=== PATIENT | female | born 1935 | race Caucasian/White ===

== ENCOUNTER 2016-06-16 07:12 | Inpatient (IN) | payer MEDICARE ==
[2016-06-16] VITALS (9 sets, daily range): BP systolic 108–127; BP diastolic 58–79; PULSE 74–97; RESP 11–18; O2SAT 96–99
[~2016-06-16] VITALS: Ht 165.1 cm; Wt 76.3 kg
[~2016-06-16 07:12] MED LIST: AMLO10TA3 PO; ATOR40TA69 PO; CARV6.252 PO; CEPH-512 PO; CYAN10008 PO; FERR-83 PO; FURO40TA4 PO; INSU100I13 SUBQ; INSU100I18 SUBQ; LEVO125T6 PO; LISI-611 PO; METO-301 PO; NITR100 PO; ONDA8TAB10 PO; WARF5TAB7 PO
--- NOTE | 2016-06-16 07:27 | ED.REPORT ---
HPI-Abd Pain F 40 and Over Date of Service Jun 16, 2016 ED Provider: Armand Thibodeaux MD The patient is a 81 year old female with history of stage IV colon cancer with intra-abdominal metastases, atrial fibrillation on Coumadin, cardiomyopathy, hypertension, hypothyroidism, osteoporosis, hyperparathyroidism, recurrent bowel obstructions, and diabetes mellitus type II, who presents to the emergency department complaining of generalized weakness. She has also experienced nausea, vomiting, diarrhea, and abdominal pain. Her last bowel movement and emesis was about 1-2 hours ago. Her reports that her emesis smells like stool. She denies melena, hematochezia or hematemesis. She was recently hospitalized for a bowel obstruction and UTI. She is scheduled to have a port placed by Dr. Quan tomorrow. Due to the upcoming surgery she has been using Lovenox injections and has held her Coumadin. Her last chemotherapy treatment was on June 10. Nursing Notes Stated Complaint: NAUSEA/WEAKNESS Chief Complaint: Female Abdominal Pain Nursing Notes Reviewed: Yes Allergies: Coded Allergies: iodine (Verified Allergy, Severe, ANAPHYLAXIS, 06/16/16) shellfish derived (Verified Allergy, Severe, Anaphylaxis, 06/16/16) amoxicillin (Verified Allergy, Unknown, YEAST POSIONING, 06/16/16) clavulanic acid (Unverified Allergy, Unknown, 06/16/16) Uncoded Allergies: POTASSIUM (Adverse Reaction, Unknown, 06/16/16) Scheduled Amlodipine (Amlodipine) 10 Mg Tablet 10 MG PO DAILY Atorvastatin Calcium (Atorvastatin Calcium) 40 Mg Tablet 40 MG PO HS Carvedilol (Carvedilol) 6.25 Mg Tablet 9.375 MG PO BID Cephalexin (Keflex) 500 Mg Capsule 500 MG PO QID Cyanocobalamin (Vitamin B-12) (Vitamin B-12) 1,000 Mcg Tablet 1,000 MCG PO DAILY Ferrous Sulfate (Ferrous Sulfate) 325 Mg Tablet 325 MG PO DAILY Furosemide (Furosemide) 40 Mg Tablet 40 MG PO DAILY Insulin Glargine (Lantus U100 Solostar Insulin Pen) 100 Unit/1 Ml Insuln.pen 20 UNIT SUBQ HS Insulin Lispro (HumaLOG U100 Insulin Pen) 100 Unit/1 Ml Insuln.pen 6 UNITS SUBQ TIDAC Levothyroxine (Levothyroxine) 125 Mcg Tablet 125 MCG PO DAILY Lisinopril (Zestril) 20 Mg Tablet 20 MG PO BID Nitrofurantoin Monohyd/M-Cryst (MacroBid) 100 Mg Capsule 100 MG PO BID Warfarin Sodium (Warfarin Sodium) 5 Mg Tablet 5 MG PO HS Scheduled PRN Metoclopramide (Reglan) 10 Mg Tablet 10 MG PO Q8HRS PRN PRN For Nausea Ondansetron ODT (Ondansetron ODT) 8 Mg Tab.rapdis 8 MG PO q12 hours PRN PRN For Nausea General Time Seen by MD: 07:26 Chief Complaint Other (weakness) Hx Obtained From: Patient, Spouse Arrived By: Walk-in Sudden in Onset?: Yes Onset Occurred: Yesterday Symptom Duration: Since onset Progression since Onset: Intermittent, Gradually worsening Location: : Diffuse Quality: Cramping, Painful Severity: Current: No pain currently Severity: Maximum: Severe Associated with: Reports: Diarrhea, Nausea, Vomiting Pertinent Negative: Pt denies other symptoms Recent Healthcare: Recent doctor visit, Recent hospitalization Similar Sx Previous: No Past Medical History Past Medical History 1. Recurrent biopsy-proven colorectal cancer. 2. Stage IV colon cancer with intra-abdominal metastases - The patient is status post extended right hemicolectomy on November 15, 2014. She decided against recommended adjuvant therapy. 3. Atrial fibrillation with a WILBERT score of at least 3, currently on Coumadin. 4. Cardiomyopathy. Followed by Dr. Weston, with her last echocardiogram on October 28, 2014. 5. Hypertension. 6. Hypothyroidism. 7. Osteoporosis, with her last bone density scan on June 30, 2015, reporting a T-score of the AP spine at -2.3, left and right neck of the femur at -3.4, respectively. 8. Hyperparathyroidism. 9. Diabetes type 2. 10. Hx of recurrent bowel obstructions Past Surgical History 1. Cholecystectomy. 2. Right ankle fracture. 3. Exploratory laparotomy with total abdominal hysterectomy, bilateral salpingo-oophorectomy with periaortic lymph node dissection in 2004. 4. Endometrial cancer status post hysterectomy. 5. Hemicolectomy Smoking History Never Smoker Social History Alcohol Use: Denies alcohol use Drug Use: Denies drug use Other Social History: Good social support, Local resident Ambulatory Status Independent Review of Systems Constitutional: Reports: Weakness - generalized GI: Reports: Abdominal pain, Diarrhea, Nausea, Vomiting, Denies: Bloody/tarry stool, Hematemesis, Hematochezia, Melena Complete sys rev & neg: except as marked. Physical Exam Vital Signs Vital Signs (First) Date Time Temp Pulse Resp B/P Pulse Ox O2 Delivery O2 Flow Rate FiO2 06/16/16 07:14 36.3 80 16 110/70 98 Room Air Initial VS: Reviewed Head / Eyes: Atraumatic, Normocephalic, PERRL ENT: Mucous membranes moist, Conjunctiva normal, No scleral icterus Neck: Supple, Non-tender, Full range of motion Lymphatic: No lymphadenopathy Extremities: Vascular intact, Neuro intact, No swelling, No tenderness Skin: Warm, Dry, No cyanosis Neurologic: Alert, Oriented, Nonfocal Psychiatric: Mood/affect normal, Behavior normal, Normal thought content General/Constitutional: Awake, Alert Respiratory / Chest: Atraumatic, Breath sounds NL, Breath sounds = bilat, No respiratory distress, No rales, No rhonchi, No wheezing, No stridor Cardiovascular: Heart rate NL, Regular rhythm, Heart sounds NL, Peripheral circulation NL Abdomen: Soft, No guarding, No rebound, BS normoactive, No distention There is a firm dermal nodule over the incision site above the umbilicus, could be a hernia. Vague lower abdominal tenderness. Back: Full range of motion Interpretation & Diagnostics Lab Results Interpretation Result Diagram: 06/16/16 0745 06/16/16 0745 Test 06/16/16 07:45 White Blood Count 4.1th/mm3 (3.8-10.1) Red Blood Count 4.01mil/mm3 (3.90-5.20) Hemoglobin 12.1g/dL (12.0-15.6) Hematocrit 35.8% (35.0-46.0) Mean Corpuscular Volume 89.3fL (81-100) Mean Corpuscular Hemoglobin 30.2pg (27.0-35.0) Mean Corpuscular Hemoglobin Concent 33.8% (32.0-37.0) Red Cell Distribution Width 13.2% (12.3-15.4) Platelet Count 206bil/L (150-400) Neutrophils (%) (Auto) 68.5% (40-74) Lymphocytes (%) (Auto) 23.7% (14-46) Monocytes (%) (Auto) 4.9% (4-12) Eosinophils (%) (Auto) 1.5% (0-5) Basophils (%) (Auto) 0.7% (0-3) Prothrombin Time 17.3sec (8.1-12.5) Prothromb Time International Ratio 1.60ratio Sodium Level 131mEq/L (134-144) Potassium Level 3.9mEq/L (3.5-5.2) Chloride Level 97mEq/L (97-108) Carbon Dioxide Level 22mmol/L (18-29) Blood Urea Nitrogen 33mg/dL (8-27) Creatinine 1.09mg/dL (0.57-1.00) Estimat Glomerular Filtration Rate 69mL/min (>59) Glucose Level 217mg/dL (60-99) Calcium Level 10.7mg/dL (8.5-10.1) Magnesium Level 1.9mg/dL (1.6-2.6) Total Bilirubin 0.5mg/dL (0.0-1.2) Aspartate Amino Transf (AST/SGOT) 21U/L (0-50) Alanine Aminotransferase (ALT/SGPT) 25U/L (0-32) Alkaline Phosphatase 96U/L (25-165) Total Protein 6.2g/dL (6.4-8.4) Albumin 3.3g/dL (3.4-5.0) Lipase 25U/L (13-60) Hold Sandoval Top Tube Received (Received) X-Ray Abdominal Interpretation IMPRESSION: Small scattered air-fluid levels within the small bowel. This could represent ileus versus partial developing obstruction. Dictated by: Mena Johnston M.D. on 06/16/2016 at 8:52 Interpretation / Wet Read by: Interpret - Radiologist Re-Eval/Medical Decision Source of Hx: Old records, Family Re-Evaluation/Progress : Time of Eval: 10:10 Re-Evaluation/Progress Note: Discussed plan for admission. She understands and agrees. All questions were addressed. Consultation #1: Referral / Consult Name: Kannan Díaz DO Consulted With: Hospitalist Requested Call at: 09:22 Call Returned at: 10:05 [employer] Team Member: Will see patient, Agrees with eval, Agrees with plan, Accepts admit Consultation #2: Referral / Consult Name: Ramiro Petersen MD Consulted With: Surgeon Requested Call at: 10:08 Call Returned at: 10:10 [employer] Team Member: Agrees with eval, Agrees with plan Note: He agrees to consult. Counseled Regarding: Diagnosis, Lab results, Need for admission Discharge & Departure Primary Impression: Partial small bowel obstruction Disposition: ADMITTED TO HOSPITAL Discharge Condition All VS Reviewed: Yes Condition: Stable Referrals: Braulio Irving MD (PCP) Scribeulalia Attestation Portions of this note were transcribed by Kailey Quan. I, Dr. Thibodeaux personally performed the history, physical exam and medical decision-making; I reviewed and confirmed the accuracy of the information in the transcribed note. Signed by: Kayli Rosales, 06/16/2016, 1011. copies to: Braulio Irving MD, Kirk H MD Jun 16, 2016 07:27 Kailey Quan Jun 16, 2016 07:34
[2016-06-16] MEDS ORDERED: 0.9% Sodium Chloride 1,000 ML IV ONE (07:33)
[2016-06-16] MEDS ORDERED: Pantoprazole 4 mg/mL 10 mL Inj IVPUSH ONE (07:35)
[2016-06-16] MEDS ORDERED: HYDROmorphone 0.5 mg/0.5 mL iSecure Syringe IVPUSH PRN (07:35)
[2016-06-16 07:54] LABS: BASOPHILS % (AUTO) 0.7 % (0-3); EOSINOPHILS % (AUTO) 1.5 % (0-5); MONOCYTES % (AUTO) 4.9 % (4-12); Mean Corpuscular Hemoglobin 30.2 pg (27.0-35.0); Mean Corpuscular Volume 89.3 fL (81-100); NEUTROPHILS % (AUTO) 68.5 % (40-74); Platelet Count 206 bil/L (150-400)
[2016-06-16] MEDS: Ondansetron 2 mg/mL 2 mL Inj IVPUSH PRN ×3 (08:01→16:46)
[2016-06-16 08:08] LABS: INR 1.6 ratio
[2016-06-16 08:18] LABS: Magnesium 1.9 mg/dL (1.6-2.6)
--- NOTE | 2016-06-16 08:54 | DRSVH ---
PROCEDURE: X-RAY ACUTE ABDOMINAL SERIES ([id number]) INDICATIONS: vomiting stool TECHNIQUE: One view chest and two views of the abdomen were acquired. COMPARISON: [facility], CR, XR ABD ACUTE SERIES 3VW, 06/03/2016, 8:31. FINDINGS: Surgical changes and devices: Cholecystectomy clips. Chest: Lungs are clear. The lungs are hyperexpanded suggestive of COPD. Heart size is normal. No pl eural effusions. No pneumoperitoneum. Abdomen: Bowel gas pattern demonstrates small scattered air-fluid levels. No suspicious calcificati ons. Visualized solid organ contours appear normal. Bones: No suspicious bony lesions. IMPRESSION: Small scattered air-fluid levels within the small bowel. This could represent ileus versu s partial developing obstruction. Dictated by: Mena Johnston M.D. on 06/16/2016 at 8:52 Approved by: Mena Johnston M.D. on 06/16/2016 at 8:52
[2016-06-16] MEDS ORDERED: Glycopyrrolate 0.2 mg/mL 5 mL Inj ONE (10:08)
[2016-06-16] MEDS ORDERED: Ketamine 10 mg/mL 20 mL Inj ONE (10:08)
[2016-06-16] MEDS ORDERED: Alum-Mag Hydrox-Simeth 30 mL Suspension PO PRN (10:15)
--- NOTE | 2016-06-16 10:30 | NUR ---
Admit Pt admitted to floor. A&Ox3. Denies pain and nausea. Bed locked in low position and call light within reach. Will continue to monitor.
[2016-06-16] MEDS ORDERED: ENOX40DI8 SUBQ (11:25)
[2016-06-16] MEDS ORDERED: Polyethylene Glycol (PEG) 17 Gm Powder PO PRN (12:55)
[2016-06-16] MEDS: 0.9% Sodium Chloride 1,000 ML IV SCH (13:27)
--- NOTE | 2016-06-16 15:28 | CONS ---
[address] [address] CONSULTATION REPORT PATIENT: JANEL DEUTSCH : 1935 MR#: [id number] ADMIT: 06/16/2016 JOB ID: [id number] DATE OF SERVICE: 06/16/2016 CHIEF COMPLAINT: Vomiting, dehydration. HISTORY OF PRESENT ILLNESS: The patient is a 81-year-old woman who was very recently hospitalized from June 07 to June 09 with a partial bowel obstruction. She has stage IV colon cancer with intra-abdominal metastasis and is receiving chemotherapy under the direction of Dr. Fairbanks. After her recent hospitalization, she felt like she was getting progressively dehydrated and so felt like she needed to come back in the hospital for that. Her last bowel movement was at four o'clock this morning and was loose, nonbloody. She had vomiting overnight but none during the day today. She does not complain of nausea at the moment. She has some abdominal pain. PAST MEDICAL HISTORY: Stage IV colon cancer with intra-abdominal metastasis, atrial fibrillation, cardiomyopathy, hypertension, hypothyroidism, osteoporosis, hyperparathyroidism, type 2 diabetes mellitus, recurrent partial small bowel obstruction. PAST SURGICAL HISTORY: Cholecystectomy, right ankle repair, LEONELA/BSO with para-aortic lymph node dissection in 2004, for endometrial cancer, exploratory laparotomy with extended right hemicolectomy for perforated colon cancer. MEDICATIONS AT HOME: Include amlodipine, atorvastatin, carvedilol, ferrous sulfate, furosemide, Lantus, Humalog, levothyroxine, lisinopril, Reglan, Zofran, warfarin. ALLERGIES: 1. IODINE. 2. SHELLFISH. 3. AMOXICILLIN. SOCIAL HISTORY: She is a never smoker. Denies alcohol or illicit drug use. FAMILY HISTORY: Noncontributory. REVIEW OF SYSTEMS: A 10-point review of systems is negative, except as described in history of present illness. PHYSICAL EXAMINATION: Body mass index 23.7, temperature 36.7, pulse 76, blood pressure 112/75, saturation 99% on room air. In general, she is resting in bed in no acute distress. HEENT: Sclerae are anicteric. Mucous membranes are moist. Neck: No lymphadenopathy. Chest: Clear to auscultation bilaterally. Heart: Irregularly irregular. Abdomen is flat, nondistended. Bowel tones are present. She has a midline scar and a firm central abdominal mass. There is no erythema of the abdominal wall. There is no guarding. Extremities: No edema. Neuro: No deficits. Psychiatric: Affect is appropriate. LABORATORIES: White count is 4.1, hematocrit 35.8, platelets 206. Differential is normal. Creatinine 1.09, glucose 217, calcium 10.7. Albumin 3.3. INR 1.60. ASSESSMENT AND PLAN: A 81-year-old woman with stage IV colorectal cancer with intra-abdominal metastasis and being admitted with vomiting, diarrhea, dehydration. I personally do not think she has bowel obstruction. I think she mostly has enteritis from chemotherapy. Even if she had a significant bowel obstruction, surgical exploration is not possible because of her intra-abdominal metastasis with peritoneal carcinomatosis, as there is no safe window to explore her abdomen. She understands that that is the case. I took the liberty of switching her Lovenox to subcutaneous heparin, as she is scheduled for Port-A-Cath placement by Dr. Quan tomorrow. General Surgery will sign off from the standpoint of a question of bowel obstruction. Recommend checking an INR tomorrow morning.
[2016-06-16] MEDS: Heparin 5,000 Unit/mL Inj SUBQ SCH (16:45)
--- NOTE | 2016-06-16 17:07 | PCM.HPMED ---
Subjective Date of Service Jun 16, 2016 Primary Provider: Admitting Physician: Kannan Díaz DO Primary Care Physician: Braulio Irving MD Attending Physician: Kannan Díaz DO Chief Complaint: Nausea vomiting History of Present Illness: Patient is a 80 year old female with a history of stage IV colon cancer with intra-abdominal metastases, atrial fibrillation, diabetes, HTN, and hypothyroidism presenting with diffuse abdominal pain and nausea and vomiting that started 1 day prior to admission. She is well-known to mt for recurrent small bowel obstructions and frequent admissions for the same. She was recently discharged from the hospital within one week after conservative management of small bowel obstruction and tolerating an advanced diet. She reports her symptoms today are consistent with those on her previous recent admission. She reports nausea and vomiting, apparently smelling like feces. Denies hematemesis or hematochezia. No chest pain, shortness breath, headaches dizziness, fevers or chills. She was scheduled tomorrow for a Port-A-Cath placement by Dr. Quan and has been holding her Coumadin and using Lovenox for DVT prophylaxis. Review of Systems: As in history of present illness, otherwise 12 point review of systems negative. Allergies Coded Allergies: iodine (Verified Allergy, Severe, ANAPHYLAXIS, 06/16/16) shellfish derived (Verified Allergy, Severe, Anaphylaxis, 06/16/16) amoxicillin (Verified Allergy, Unknown, YEAST POSIONING, 06/16/16) clavulanic acid (Unverified Allergy, Unknown, 06/16/16) Uncoded Allergies: POTASSIUM (Adverse Reaction, Unknown, 06/16/16) Home Medications Amlodipine 10 mg daily Atorvastatin 40 mg hs Carvedilol 9.375 mg BID Ferrous sulfate 325 mg daily Furosemide 40 mg daily Lantus 20 U SQ HS Humalog 6 U TIDAC Levothyroxine 125 mcg daily Lisinopril 20 mg BID Reglan 10 mg q8h PRN nausea Zofran 8 mg PO q2 PRN Warfarin 5 mg hs currently being held Keflex Lovenox PMH 1. Recurrent biopsy-proven colorectal cancer. 2. Stage IV colon cancer with intra-abdominal metastases - The patient is status post extended right hemicolectomy on November 15, 2014. She decided against recommended adjuvant therapy. 3. Atrial fibrillation with a WILBERT score of at least 3, on Coumadin. 4. Cardiomyopathy. Followed by Dr. Weston, with her last echocardiogram on October 28, 2014. 5. Hypertension. 6. Hypothyroidism. 7. Osteoporosis, with her last bone density scan on June 30, 2015, reporting a T-score of the AP spine at -2.3, left and right neck of the femur at -3.4, respectively. 8. Hyperparathyroidism. 9. Diabetes type 2. 10. Hx of recurrent bowel obstructions Surgical History 1. Cholecystectomy. 2. Right ankle fracture. 3. Exploratory laparotomy with total abdominal hysterectomy, bilateral salpingo -oophorectomy with periaortic lymph node dissection in 2004. 4. Endometrial cancer status post hysterectomy. 5. Hemicolectomy Family History Noncontributory Social History Hx Alcohol Use: No Hx Substance Use: No Hx Tobacco Use: No Smoking Status: Never Smoker Living Arrangement: with Family Exam Vital Signs Vital Sign - Last Date Time Temp Pulse Resp B/P Pulse Ox O2 Delivery O2 Flow Rate FiO2 06/16/16 10:36 36.7 76 18 112/75 99 Room Air Exam General: Alert, Oriented X3 NAD Head: Normocephalic, atraumatic Eyes: [place], EOMI, no scleral Icterus Oropharynx: pink moist oral mucosa Neck: supple, trachea midline, no adenopathy Chest: clear to auscultation B/L, no wheezing rales or rhonchi Heart: Irregular rate and rhythm. Normal S1, S2, no murmurs noted Abdomen: soft, mild generalized tenderness to palpation. Bowel sounds are hypoactive. No guarding or rebound. Extremities: no cyanosis, clubbing or edema. No acute joint inflammation. Skin: no acute rashes or lesions noted Neuro: Cranial nerves II-XII intact, no focal findings. Psych: normal judgement and insight. Lab and Diagnostics Result Diagram: 06/16/16 0745 06/16/16 0745 Assessment & Plan Patient is a 80 year old female with a history of 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 Admitted for recurrent small bowel obstruction. 1. Recurrent small bowel obstruction, acute. Present on admission. Improved. - The patient is status post extended right hemicolectomy on November 15, 2014. Hx of Stage IV colon cancer with intraabdominal metastases. Recent admit with SBO. - NPO overnight, advance diet slowly as tolerated - NS @ 100 ml/hr 2. Recent Urinary tract infection, Present on admission. -Treated with Keflex 3. Acute kidney injury. Present on admission. - Mild - Secondary to SBO. Cr 1.08 on admission. - NS @ 100 ml/hr - Monitor Cr 4. Diabetes type 2 - Glucose 186 on admission. Pt on Lantus 20 U hs and Humalog 6U TIDAC. - Continue home Lantus - Humalog medium dose correctional scale - Hold prandial insulin as pt is NPO 5. Chronic hypertension. - Amlodipine , carvedilol 6. Atrial fibrillation, chronic -Continue carvedilol 7. Hyperlipidemia, chronic -Continue atorvastatin 8. Hypothyroidism, chronic -Continue levothyroxine 9. Other Chronic Problems Stage IV colon cancer with intra-abdominal metastases Cardiomyopathy. Osteoporosis Hyperparathyroidism. - Bowel regimen as needed - Antiemetic as needed CODE STATUS: Full code DVT prophylaxis: Heparin Disposition: Observation, advance diet as tolerated. likely home pending hospital course Time spent 65 minutes, greater than 50% of the time spent counseling and coordination of care Kannan Díaz DO Jun 16, 2016 13:00
[2016-06-16] MEDS: HYDROmorphone 0.5 mg/0.5 mL iSecure Syringe IVPUSH PRN (17:37)
--- NOTE | 2016-06-16 17:45 | NUR ---
Lasix Pt reports that her PCP told her to take Lasix 20mg BID instead of 40 because her BP has been low. Pt did not mention this during her med rec. Medication withheld and notified.
--- NOTE | 2016-06-16 17:46 | NUR ---
Lasix Pt reports that her PCP told her to decrease her Lasix dose to 20mg BID because her BP has been low. Medication withheld and hospitalist notified.
[2016-06-16 20:06] LABS: APPEARANCE,URINE CLEAR (CLEAR,HAZY); COLOR,URINE YELLOW (YELLOW); OCCULT BLOOD,URINE NEGATIVE (NEGATIVE); PH,URINE 5.5 (5.0-8.0); UROBILINOGEN,URINE NORMAL (NORMAL)
[2016-06-16] MEDS: Insulin Human REGular 300 Unit/3 mL Inj SUBQ SCH (20:30)
--- NOTE | 2016-06-16 20:32 | NUR ---
Case Management: Unable to provide Observation Brochure as patient sleeping soundly. Will have to try again tomorrow. Lisa Feliciano RN UR
[2016-06-16] MEDS: Famotidine Inj 20 MG in IV Premix 1 EACH IV SCH (20:33)
[2016-06-16] MEDS: Insulin GLARgine 100 Unit/mL Syringe SUBQ SCH (22:13)
[2016-06-17] VITALS (13 sets, daily range): BP systolic 100–124; BP diastolic 49–81; PULSE 70–95; RESP 12–20; O2SAT 94–100
[2016-06-17] MEDS: 0.9% Sodium Chloride 1,000 ML IV SCH ×3 (00:31→17:59)
[2016-06-17] MEDS: Heparin 5,000 Unit/mL Inj SUBQ SCH ×3 (00:36→18:00)
[2016-06-17] MEDS: Insulin Human REGular 300 Unit/3 mL Inj SUBQ SCH ×4 (02:33→20:30)
[2016-06-17] MEDS: Lactated Ringer's 1,000 ML IV SCH ×2 (05:35→15:30)
--- NOTE | 2016-06-17 06:07 | NUR ---
Diarrhea pt had BM X5 ranged from loose to water. Looks dark brownish. paged night hospitalist to receive order for guaiac, no response yet. send guaiac x1. pt denies nausea during this shift. report pain on rate of 3-4/10 which is tolerable for her. NPO during this night. will continue to monitor.
[2016-06-17 08:46] LABS: INR 1.43 ratio
--- NOTE | 2016-06-17 09:00 | NUR ---
Per Dr. Quan at 0900, to hold am heparin in light of port a cath placement this afternoon.
[2016-06-17] MEDS: Famotidine Inj 20 MG in IV Premix 1 EACH IV SCH ×2 (09:12→20:45)
[2016-06-17 10:42] LABS: BASOPHILS % (AUTO) 0.3 % (0-3); EOSINOPHILS % (AUTO) 2.1 % (0-5); MONOCYTES % (AUTO) 5.5 % (4-12); Mean Corpuscular Hemoglobin 29.8 pg (27.0-35.0); Mean Corpuscular Volume 91.8 fL (81-100); Platelet Count 130 bil/L (150-400)
--- NOTE | 2016-06-17 10:59 | NUR ---
Case Management: OBS brochure delivered and explained. Alcira Shaffer RN
--- NOTE | 2016-06-17 11:12 | NUR ---
labs MD odell pageángela and notified of WBC count 2.9. Addendum: 06/17/16 at 1439 by MERY GANN RN aware of WBC. aware of loose bowel movements. Neftali pending, to collect stool PCR.
--- NOTE | 2016-06-17 14:51 | PCM.HPANE ---
Patient Data Date of Service: Jun 17, 2016 Surgeon Admitting Provider:Kannan Díaz DO Attending Provider:Kannan Díaz DO Primary Care Physician:Braulio Irving MD Other Provider: Reason for Visit Partial Small Bowel Obstruction Ht/WT & BMI Height (Feet): 5 Height (Inches): 5.00 Weight (Kilograms): 64.700 Body Mass Index 23.76 Allergies Coded Allergies: iodine (Verified Allergy, Severe, ANAPHYLAXIS, 06/16/16) shellfish derived (Verified Allergy, Severe, Anaphylaxis, 06/16/16) amoxicillin (Verified Allergy, Unknown, YEAST POSIONING, 06/16/16) clavulanic acid (Unverified Allergy, Unknown, 06/16/16) Uncoded Allergies: POTASSIUM (Adverse Reaction, Unknown, 06/16/16) Past Anesthesia History Anesthesia History: Denies:: Abnormal Airway, Anesthesia Reactions, Difficult Intubation, Fam Anesthesia Reaction, Fam Malignant Hypertherm, Malignant Hyperthermia Diabetes History Hx Diabetes?: Yes (Short acting and long acting insulin ) Current Bedside Blood Glucose: 107 MRSA MRSA: No Medications Blood Thinner: Coumadin Active Scripts Cephalexin (Keflex)500 Mg Hggynhz321 Mg PO QID 5 Days Ref 0 Prov:Kannan Díaz DO 06/09/16 Lisinopril (Zestril)20 Mg Ymvvha05 Mg PO BID #60 TAB Prov:Mirela Hernandez DO 08/04/14 Reported Medications Enoxaparin Sodium 40 Mg/0.4 Ml Zqlavyj79 Mg SUBQ DAILY #4 06/16/16 Ondansetron ODT 8 Mg Tab.rapdis8 Mg PO q12 hours PRN For Nausea #30 06/01/16 Levothyroxine 125 Mcg Gasqey672 Mcg PO DAILY #90 06/01/16 Insulin Lispro (HumaLOG U100 Insulin Pen)100 Unit/1 Ml Insuln.pen5-10 Units SUBQ TIDAC #9 06/01/16 Furosemide 40 Mg Rsyfxn56 Mg PO BIDWM #180 06/01/16 Carvedilol 6.25 Mg Tablet9.375 Mg PO BID #90 06/01/16 Amlodipine 10 Mg Sgthbn61 Mg PO DAILY #30 06/01/16 Atorvastatin Calcium 40 Mg Qezpjz59 Mg PO HS #30 06/01/16 Metoclopramide (Reglan)10 Mg Lxudpl08 Mg PO Q8HRS PRN For Nausea Ref 0 11/23/16 Insulin Glargine (Lantus U100 Solostar Insulin Pen)100 Unit/1 Ml Insuln.pen20 Unit SUBQ HS #1 PENINJ Ref 0 11/16/15 Warfarin Sodium 5 Mg Tablet5 Mg PO HS 07/28/14 Discontinued Reported Medications Cyanocobalamin (Vitamin B-12) (Vitamin B-12)1,000 Mcg Tablet2,000 Mcg PO DAILY 11/16/15 Ferrous Sulfate 325 Mg Pgmtxx508 Mg PO DAILY 07/28/14 Discontinued Scripts Nitrofurantoin Monohyd/M-Cryst (MacroBid)100 Mg Qzjqmlj751 Mg PO BID #14 CAPSULE Ref 0 Prov:Nicci Andrade PA-C 06/04/16 History History of ENT Problems?: Yes HEENT History: Positive for:: Cataracts (Starting to develop, pt reports) Denies:: Abnormal Airway Difficult Intubation Dysphagia Hearing Problem Sinus Problem Hx of Heart Problems?: Yes Cardiovascular History: Positive for:: Atrial Fibrillation Chest Pain (Remote history) Edema (In legs, bilaterally ) Heart Murmur (Pt was told at one point that she did) Hypertension Irregular Heartbeat (A-fib ) Denies:: AICD Cardiac Surgery Congestive Heart Failure Pacemaker Thrombophlebitis Valvular Heart Disease Other Cardiac History: no syncopal episodes Hx of Respiratory Problem?: No Respiratory History: Denies:: Asthma COPD Chest Surgery Cough Dyspnea Emphysema Hemoptysis Pneumonia Tuberculosis Hx Neurologic Problems?: No Neurological History: Denies:: Alzheimer's Disease CVA Dementia Dizziness Headaches Parkinson's Disease Seizures Hx of GI Problems?: Yes Gastrointestinal History: Positive for:: Heartburn Hepatitis (Pt reports having "Jaundice" at age 18) Denies:: Cirrhosis Diverticulitis Gastroesphageal Reflux Gastrointestinal Bleeding Hiatal Hernia Rectal Bleeding Hx of Problems?: Yes Genitourinary History: Positive for:: Urinary Tract Infection (Recent) Denies:: HX of Hemodialysis Kidney Stones HX of Peritoneal Dialysis: No Other Pertinent History: Pt says she did not finish ABO's for UTI and believes she still has one. Some dysuria last night, Currently asymptomatic Female Hx: Denies:: Currently Endometriosis Pelvic Inflammatory Problems with Breasts? Hx Musculoskeletal Problems?: No Musculoskeletal History: Denies:: Back Injury Joint Replacement Musculoskeletal Trauma Hx of Psycho/Social Problems?: No Psycho Social History: Positive for:: Anxiety (Reports occasional anxiety ) Denies:: Bipolar Disorder Hx Depression Suicide Attempt Hx Surgeries?: Yes (Hysterectomy, cholesystectomy, partial colon removal ) Hx Any Other Health Problems?: Yes Other History: Positive for:: Cancer (Colon CA, diagnosed in October. Chemo ) Hospitalization Thyroid Disease (Reports hyperthyroidism ) Denies:: Endocrine Disease History Blood Transfusions: Positive for:: Accept Blood Products? Denies:: Blood Transfuse Reaction Blood Transfusions Hx Diabetes: Yes (Short acting and long acting insulin )Bedside Blood Glucose: 107 Hx Alcohol Use: NoHx Substance Use: No Smoking Status: Never Smoker Have You Smoked inLast 12 mo: No Stop/Bang Treated for Sleep Apnea?: No Do You Have a CPAP Machine?: No S-Snoring: Do You Snore Loudly: Yes T-Tired: feel tired, fatigued: Yes O-Obsered: Observed not breath: No P-Blood Pressure: treated: Yes B- Body Mass Index > 35 kg/m2: No A- Age over 50: Yes N- Neck Large Circumference: No G- Gender Male: No BHAVIK Total Score: 3 BHAVIK Risk Assessment: Low Risk, <3 Yes Risk Assessment Category Category 1A: Patient has history of documented sleep apnea, and HAS NOT received any narcotic, sedative or anesthesia administration during this stay. Category 1B: Patient has history of documented sleep apnea, and HAS received any narcotic , sedative or anesthesia administration during this stay Category 2: Patient has SUSPECTED Obstructive Sleep Apnea, and HAS received any narcotic , sedative or anesthesia administration during this stay. Category 3: Patient has SUSPECTED Obstructive Sleep Apnea and HAS NOT received narcotic, sedative or anesthesia administration during this stay. Category 4: Outpatient in Procedural Areas with known sleep apnea or who screen positive for High Risk via the STOP/BANG questionnaire. Exam Exam Vital Signs Vital Signs Date Time Temp Pulse Resp B/P Pulse Ox O2 Delivery O2 Flow Rate FiO2 06/17/16 13:14 36.8 77 18 107/70 96 Room Air 06/17/16 08:16 36.8 76 18 104/66 99 Room Air General Appearance: Alert, Cooperative, No Acute Distress HEENT/AIRWAY: MP 2, Neck Movement (from), Mouth Opening (3), Other (tmd3) Lungs: Diminished Heart: Other (Irregular-irregular) Meds/Labs/Diagnostics Admission Meds Current Medications Famotidine/Sodium Chloride/Premix (Pepcid Inj/IV Premix) 50 ml @ 100 mls/hr Q12 IV Last administered on 06/17/16at 09:12; Start 06/16/16 at 20:30 Heparin Sodium (Porcine) (Heparin Inj) 5,000 unit Q8 SUBQ Last administered on 06/17/16at 00:36; Start 06/16/16 at 16:30 Atorvastatin Calcium (Lipitor) 40 mg HS PO Last administered on 06/16/16at 20: 40; Start 06/16/16 at 21:00 Carvedilol (Coreg) 9.375 mg BID PO Last administered on 06/17/16at 09:20; Start 06/16/16 at 20:30 Levothyroxine Sodium (Synthroid) 125 mcg 0630 PO Last administered on at 06:59; Start 06/17/16 at 06:30 Lisinopril (Zestril) 20 mg BID PO Last administered on 06/17/16at 09:20; Start 06/16/16 at 20:30 Amlodipine Besylate (Norvasc) 10 mg DAILY PO Last administered on 06/17/16at 09 :21; Start 06/17/16 at 08:30 Insulin Glargine 10 unit 10 unit HS SUBQ Last administered on 06/16/16at 22:13 ; Start 06/16/16 at 21:00 Lactated Ringer's (Lr) 1,000 ml @ 120 mls/hr Q8H20M IV Last administered on at 05:35; Start 06/17/16 at 05:00; Stop 06/17/16 at 13:19; Status DC Bedside Blood Glucose: 107 Labs Test 06/16/16 07:45 06/16/16 19:43 06/17/16 07:35 06/17/16 09:25 Magnesium Level 1.9mg/dL (1.6-2.6) Lipase 25U/L (13-60) Hold Sandoval Top Tube Received (Received) Urine Color Yellow (YELLOW) Urine Appearance Clear (CLEAR,HAZY) Urine pH 5.5 (5.0-8.0) Urine Specific [place] 1.025 (1.003-1.035) Urine Protein Negativemg/dL (NEG,TRACE) Urine Glucose (UA) Negativemg/dL (NEGATIVE) Urine Ketones Negativemg/dL (NEGATIVE) Urine Occult Blood Negative (NEGATIVE) Urine Nitrite Negative (NEGATIVE) Urine Bilirubin Negative (NEGATIVE) Urine Urobilinogen Normalmg/dL (NORMAL) Urine Leukocyte Esterase Negative (NEGATIVE) Urine RBC 0-2/hpf (0-2) Urine WBC 0-5/hpf (0-5) Urine Epithelial Cells None/hpf (NONE-MOD) Urine Crystals None seen (NONE SEEN) Urine Bacteria Few/hpf (NONE-FEW) Urine Hyaline Casts None/lpf (NONE) Urine Granular Casts None seen (NONE SEEN) Urine Waxy Casts None seen (NONE SEEN) Urine Red Blood Cell Casts None seen (NONE SEEN) Urine White Blood Cell Casts None seen (NONE SEEN) Urine Mucus None seen (None Seen) Urine Trichomonas None seen (NONE SEEN) Urine Yeast None (NONE SEEN) Urinalysis Comment None Urine Culture Reflexed Indicated Prothrombin Time 15.4sec (8.1-12.5) Prothromb Time International Ratio 1.43ratio Sodium Level 138mEq/L (134-144) Potassium Level 3.8mEq/L (3.5-5.2) Chloride Level 107mEq/L (97-108) Carbon Dioxide Level 20mmol/L (18-29) Blood Urea Nitrogen 24mg/dL (8-27) Creatinine 0.92mg/dL (0.57-1.00) Estimat Glomerular Filtration Rate 84mL/min (>59) Glucose Level 157mg/dL (60-99) Calcium Level 9.4mg/dL (8.5-10.1) Total Bilirubin 0.4mg/dL (0.0-1.2) Aspartate Amino Transf (AST/SGOT) 16U/L (0-50) Alanine Aminotransferase (ALT/SGPT) 20U/L (0-32) Alkaline Phosphatase 74U/L (25-165) Total Protein 4.7g/dL (6.4-8.4) Albumin 2.8g/dL (3.4-5.0) White Blood Count 2.9th/mm3 (3.8-10.1) Red Blood Count 3.29mil/mm3 (3.90-5.20) Hemoglobin 9.8g/dL (12.0-15.6) Hematocrit 30.2% (35.0-46.0) Mean Corpuscular Volume 91.8fL (81-100) Mean Corpuscular Hemoglobin 29.8pg (27.0-35.0) Mean Corpuscular Hemoglobin Concent 32.5% (32.0-37.0) Red Cell Distribution Width 13.4% (12.3-15.4) Platelet Count 130bil/L (150-400) Neutrophils (%) (Auto) 64.0% (40-74) Lymphocytes (%) (Auto) 27.1% (14-46) Monocytes (%) (Auto) 5.5% (4-12) Eosinophils (%) (Auto) 2.1% (0-5) Basophils (%) (Auto) 0.3% (0-3) Plan Impression Patient chart reviewed, patient interviewed and anesthestic plan with risks, benefits, and alternatives discussed, and informed consent obtained. NPO Status: > 8 hrs ASA Physical Status: ASA4 Life Threatening Anesthetic Plan: TIVA Bene/Risks/Altern/Consents: Yes HP Complete Prior to Induction: Yes Amaury Santos MD Jun 17, 2016 14:51
--- NOTE | 2016-06-17 14:56 | NUR ---
Social Work: Initial Assessment D: Per EMR review, pt is a 81 year old female admitted for partial small bowel obstruction. Pt is [employer] with [employer]; pt has no LTC insurance or VA benefits. PCP is Dr. Braulio Irving. NOK is [place], spouse, . Advanced directives information provided by [employer]. Pt is a readmit from 06/07 discharged home with no social work needs. [employer] met with pt at bedside. Sw role explained. See initial assessment. Pt confirms that she still has been I and living [place] [facility] with her spouse. She continues to drive and use no DME. Pt denies any hx with home health or SNF placements. Pt scheduled for port placement today and not anticipated to discharge for at least 1-2 more days. Pt does not identify any needs at this time. A: Pt who is I at baseline. P: Anticipate pt to discharge home with no social work needs pending safe demonstration of ambulation; MELONEI to continue to follow MELONIE Engel Addendum: 06/17/16 at 1500 by MIKE KINNEY Amended: Links added.
--- NOTE | 2016-06-17 14:59 | NUR ---
OR Pt transported to OR at 1255. Stable and w/o complaints. Report provided to Tiki RAMACHANDRAN.
[2016-06-17] MEDS ORDERED: CeFAZolin 2 Gm/50 mL D5W Duplex Bag IV ONE (15:08)
--- NOTE | 2016-06-17 15:11 | NUR ---
Micro MD odell paged and notified stool occult blood was +, H&H 06/16 was 12.1/35.8, today 9.8/30.2. VSS prior to transport to OR.
[2016-06-17] MEDS ORDERED: Lidocaine PF 1% 30 mL Inj INFILTRATE ONE (15:27)
[2016-06-17] MEDS ORDERED: HepLOK Flush 100 unit/mL 5 mL Inj IVFLUSH ONE (15:28)
[2016-06-17] MEDS ORDERED: Bupivacaine 0.5%/EPI 50 mL Inj INFILTRATE ONE (15:29)
[2016-06-17] MEDS ORDERED: Lactated Ringer's 500 ML IV PRN (15:53)
[2016-06-17] MEDS ORDERED: Lactated Ringer's 1,000 ML IV SCH (15:53)
[2016-06-17] MEDS ORDERED: Dexamethasone 4 mg/mL Inj IVPUSH PRN (15:55)
[2016-06-17] MEDS ORDERED: EPHEDrine Sulfate 50 mg/mL Inj IVPUSH PRN (15:55)
[2016-06-17] MEDS ORDERED: Phenylephrine 10,000 mCg/mL Inj IVPUSH PRN (15:55)
[2016-06-17] MEDS ORDERED: HYDROmorphone 1 mg/mL Inj IVPUSH PRN (15:55)
[2016-06-17] MEDS ORDERED: Ondansetron 2 mg/mL 2 mL Inj IVPUSH PRN (15:55)
[2016-06-17] MEDS ORDERED: MetoCLOpramide 5 mg/mL 2 mL Inj IVPUSH PRN (15:55)
[2016-06-17] MEDS ORDERED: fentaNYL-PF 50 mCg/mL 2 mL Inj IVPUSH PRN (15:55)
--- NOTE | 2016-06-17 16:27 | OP ---
[address] [address] OPERATIVE REPORT PATIENT: JANEL DEUTSCH : 1935 MR#: [id number] ADMIT: 06/16/2016 JOB ID: [id number] DATE OF SURGERY: 06/17/2016 ANESTHESIA: MAC with local. PREOPERATIVE DIAGNOSIS(ES): Metastatic colon cancer. POSTOPERATIVE DIAGNOSIS(ES): Metastatic colon cancer. OPERATIVE PROCEDURE: Insertion of left subclavian vein PowerPort using fluoroscopy with interpretation for guidance. SURGEON: Med Quan MD BRADDER: Ambreen Land MS3 COMPLICATIONS: None. ESTIMATED BLOOD LOSS: Minimal. CONDITION: Satisfactory. SPECIMENS: None. FINDINGS: The subclavian port was inserted without complication. INDICATIONS/SIGNIFICANT HISTORY: The patient is a 81-year-old female who underwent colectomy for colon cancer for almost a year ago. Unfortunately, she never received adjuvant therapy and recently developed intra-abdominal recurrence with obstruction. She is starting chemotherapy and has been hospitalized multiple times, and is currently in the hospital. OPERATIVE TECHNIQUE: The patient was brought into the operating room and placed in supine position. Light sedation was administered as per anesthesia and preoperative antibiotics were given. The neck and chest were prepped draped in the standard surgical fashion. A procedure pause was performed. The left subclavian vein was accessed using the first pass of the finder needle. However, I was unable to get the wire to pass. It was accessed again, and again the wire would not pass. On the 3rd try, the wire passed easily. Fluoroscopy confirmed that was in the venous system. A local anesthetic was then injected. A subcutaneous pocket was made on the left anterior chest. The port was secured in place using three 2-0 Prolene sutures. The catheter was tunneled up to the wire exit point and then inserted into the vein using Seldinger technique under fluoroscopic visualization. Good final position was confirmed with fluoroscopy. The port aspirated and flushed nicely. It was locked with heparin. The skin was closed using 3-0 Vicryl deep dermal followed by a running 4-0 Monocryl. Dermabond was applied. Because the patient is in-house I then accessed the port to be used for IV access. The case was then completed. The entire procedure was well tolerated, without complication.
--- NOTE | 2016-06-17 17:50 | DRSVH ---
PROCEDURE: X-RAY CHEST ONE VIEW, PORTABLE ([id number]) INDICATIONS: port placed TECHNIQUE: One view of the chest was acquired. COMPARISON: [facility], , CHEST 1VW (PORTABLE), 07/30/2014, 1:01. FINDINGS: Surgical changes and devices: There is a left-sided Port-A-Cath with the tip in the area of superior vena cava. Lungs and pleura: Diffuse interstitial prominence. No pleural effusions or pneumothorax. Mediastinum: Mediastinal contours appear normal. Heart size is normal. Bones and chest wall: No suspicious bony lesions. Overlying soft tissues appear unremarkable. IMPRESSION: Port-A-Cath tip in the area of SVC. Dictated by: Vcikey Peñaloza M.D. on 06/17/2016 at 17:49 Approved by: Vickey Peñaloza M.D. on 06/17/2016 at 17:49
--- NOTE | 2016-06-17 18:13 | NUR ---
OR Pt back from PACU at 1725, VSS and no c/o pain. dressing to L upper chest CDI. A&Ox4.
--- NOTE | 2016-06-17 18:22 | NUR ---
Diet paged at 1820 to clarify diet. Addendum: 06/17/16 at 1834 by MERY GANN RN paged again to verify diet, also was given in report by PACU that pt had been in afib rhythm. Need to verify any tele order needs. VSS. no symptoms Addendum: 06/17/16 at 1908 by MERY GANN RN 1908 states pt does not need tele. To continue clears.
--- NOTE | 2016-06-17 20:17 | PCM.PNMED ---
Subjective Date of Service Jun 17, 2016 Subjective Feeling better today, she has had multiple episodes of diarrhea. No abdominal pain. No shortness or breath or chest pain. No nausea vomiting Exam Vital Signs Vital Sign - Last Date Time Temp Pulse Resp B/P Pulse Ox O2 Delivery O2 Flow Rate FiO2 06/17/16 17:25 36.6 95 16 124/81 94 Room Air 06/17/16 16:30 8 Intake and Output 06/16/16 06/16/16 06/17/16 Cumulative From/Thru 15:00 23:00 07:00 06/16/16 07:14 - 06/17/16 06:12 Intake Total 1000 ml 505 ml 1505 ml Output Total 350 ml 425 ml 775 ml Balance 1000 ml 155 ml -425 ml 730 ml Intake Oral 0 ml 0 ml IV Total 1000 ml 505 ml 1505 ml Output Urine Total 350 ml 175 ml 525 ml Urine/Stool Mix 250 ml 250 ml # Bowel Movements 4 4 Exam General: Alert, Oriented X3, NAD Head: Normocephalic, atraumatic Eyes: [place], EOMI, no scleral Icterus Chest: clear to auscultation B/L, no wheezing rales or rhonchi Heart: Regular rate and rhythm. Normal S1, S2, no murmurs noted Abdomen: soft, non-tender. Bowel sounds are normoactive. No guarding or rebound. Extremities: no cyanosis, clubbing or edema. IVs and Medications Medications Reviewed: Medications were reviewed in detail Lab and Diagnostics Result Diagram: 06/17/16 0925 06/17/16 0735 Assessment & Plan Patient is a 80 year old female with a history of 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 Admitted for recurrent small bowel obstruction. 1. Recurrent small bowel obstruction, acute. Present on admission. Improved. - The patient is status post extended right hemicolectomy on November 15, 2014. Hx of Stage IV colon cancer with intraabdominal metastases. Recent admit with SBO. - Advance diet to clear liquids 2. Recent Urinary tract infection, Present on admission. -Treated with Keflex 3. Acute kidney injury. Present on admission. - Mild, resolved - Secondary to SBO. Cr 1.08 on admission. - Monitor Cr 4. Diabetes type 2 - Glucose 186 on admission. Pt on Lantus 20 U hs and Humalog 6U TIDAC. - Continue home Lantus - Humalog medium dose correctional scale 5. Chronic hypertension. - Amlodipine , carvedilol 6. Atrial fibrillation, chronic -Continue carvedilol 7. Hyperlipidemia, chronic -Continue atorvastatin 8. Hypothyroidism, chronic -Continue levothyroxine 9. GI bleed -History of GI cancer, we will discontinue her heparin. 10. Other Chronic Problems Stage IV colon cancer with intra-abdominal metastases Cardiomyopathy. Osteoporosis Hyperparathyroidism. - Bowel regimen as needed - Antiemetic as needed CODE STATUS: Full code DVT prophylaxis: No heparin due to GI bleeding Disposition: Observation, advance diet as tolerated. likely home pending hospital course VTE Mechanical Devices: Intermittant Pneumatic CD Kannan Díaz DO Jun 17, 2016 20:17
[2016-06-17] MEDS: Insulin GLARgine 100 Unit/mL Syringe SUBQ SCH (20:47)
[2016-06-17] MEDS: Ondansetron 2 mg/mL 2 mL Inj IVPUSH PRN (22:20)
[2016-06-18] VITALS (7 sets, daily range): BP systolic 98–122; BP diastolic 62–73; PULSE 66–88; RESP 16–18; O2SAT 92–98
[2016-06-18] MEDS: Ondansetron 2 mg/mL 2 mL Inj IVPUSH PRN ×2 (01:26→03:33)
[2016-06-18] MEDS: Insulin Human REGular 300 Unit/3 mL Inj SUBQ SCH ×4 (02:30→20:55)
[2016-06-18] MEDS: HYDROmorphone 0.5 mg/0.5 mL iSecure Syringe IVPUSH PRN (03:07)
--- NOTE | 2016-06-18 04:11 | NUR ---
pain/Nausea pt c/o nausea. state it tastes like "peppermint." administered 4 mg of IVP Zofran. pt reported reduced, and doesn't want to take another dose. later on pt c/o of 4/10 abdominal pain with nausea, and vomited yellow in color emesis. pt had broth around dinner time and apple juice. pt undecided about medication intake. Educate pt about pain and nausea medication, and agreed to take it. administered PRN IVP 0.5mg Dilaudid and 8mg Zofran. pt report pain and nausea relief. will continue to monitor.
[2016-06-18] MEDS: 0.9% Sodium Chloride 1,000 ML IV SCH ×2 (06:34→20:53)
[2016-06-18 07:04] LABS: BASOPHILS % (AUTO) 0 % (0-3); EOSINOPHILS % (AUTO) 1.9 % (0-5); MONOCYTES % (AUTO) 7.7 % (4-12); Mean Corpuscular Hemoglobin 30.7 pg (27.0-35.0); Mean Corpuscular Volume 91.1 fL (81-100); NEUTROPHILS % (AUTO) 68.6 % (40-74); Platelet Count 135 bil/L (150-400)
[2016-06-18] MEDS: Famotidine Inj 20 MG in IV Premix 1 EACH IV SCH ×2 (09:41→20:55)
--- NOTE | 2016-06-18 10:40 | PCM.ANEP2 ---
Post Anesthesia Evaluation ASA/CMS Post Anesthesia VS in Patient's Normal Range?: Yes Resp Stable; Airway Patent?: Yes CV Function & Hydration Stable: Yes Mental Status Recovered?: Yes Pain control Satisfactory?: Yes N/V Control Satisfactory?: Yes Amaury Santos MD Jun 18, 2016 10:40
--- NOTE | 2016-06-18 10:40 | PCM.ANEP1 ---
Post Anesthesia Phase 1 PACU Phase 1 Assessment Date of Service: Jun 17, 2016 Vital Signs Vital Signs Date Time Temp Pulse Resp B/P Pulse Ox O2 Delivery O2 Flow Rate FiO2 06/18/16 08:20 36.6 88 18 108/72 92 Room Air 06/18/16 05:33 36.4 77 18 121/71 98 Room Air 06/18/16 03:12 36.4 88 18 98/65 95 Room Air Anesthetic Administered: TIVA Level of Alertness: Awake, talking BANEGAS's with Equal Strength: Yes Pain: No Pain Scale Score: 4 Nausea or Vomiting: No Oxygen Delivery: Simple Mask Lungs: Diminished Amaury Santos MD Jun 18, 2016 10:39
--- NOTE | 2016-06-18 12:28 | NUR ---
status 1220 notified of overnight n/v. MD aware of labs and occult stool results. heparin dc'd this am.
--- NOTE | 2016-06-18 13:35 | PCM.DIMED ---
Discharge Instructions Date of Service Jun 18, 2016 Dates of Hospitalization Jun 16, 2016 at 10:07 Discharge Diagnosis Discharge Diagnosis Recurrent small bowel obstruction GI bleed, unspecified Medication Instructions Anticoagulation has been discontinued, follow-up with primary care physician for recommendations on whether or not to continue taking Coumadin. This will need to be held for 1 week. Diet Other (low residual) Activity No restrictions Call your provider Fever or Chills, Shortness of breath, Bleeding, Chest pain, Vomitting, Excessive diarrhea, Weakness (unilateral) Patient Instructions Follow-up with PCP in: 1 week Kannan Díaz DO Jun 18, 2016 13:35
--- NOTE | 2016-06-18 14:35 | NUR ---
dc status 1425 Per MD, pt can leave if tolerates advancing of diet. Pt to order cream soup and determine ability to tolerate. MD aware PCR stool sent this afternoon.
--- NOTE | 2016-06-18 15:01 | NUR ---
Micro 1450 notified that pt is cdiff positive. Pt will not dc today, to review antibiotic options. pt and family notified at bedside. Pt states she had cdiff after her hemicolectomy. Provided education regarding handwashing to prevent spread of infection.
--- NOTE | 2016-06-18 17:26 | NUR ---
Diet Per MD to advance diet as tolerated, diet put in as heart healthy/CC for meal ordering though patient understands she needs to try full liquids/pudding/cream of chicken soup. Will monitor tolerance.
--- NOTE | 2016-06-18 17:50 | PCM.PNMED ---
Subjective Date of Service Jun 18, 2016 Subjective Patient's diarrhea has resolved. No bowel movement today. She is tolerating her diet which has been clear liquid. No abdominal pain, nausea vomiting, chest pain or shortness breath. Exam Vital Signs Vital Sign - Last Date Time Temp Pulse Resp B/P Pulse Ox O2 Delivery O2 Flow Rate FiO2 06/18/16 17:15 36.8 72 18 104/66 94 Room Air 06/17/16 16:30 8 Intake and Output 06/17/16 06/17/16 06/18/16 Cumulative From/Thru 15:00 23:00 07:00 06/16/16 07:14 - 06/18/16 06:55 Intake Total 1198 ml 1230 ml 1014 ml 4947 ml Output Total 305 ml 1080 ml Balance 1198 ml 1230 ml 709 ml 3867 ml Intake Oral 150 ml 150 ml IV Total 1198 ml 1230 ml 864 ml 4797 ml Output Urine Total 275 ml 800 ml Urine/Stool Mix 250 ml Emesis 30 ml 30 ml # Bowel Movements 4 Exam General: Alert, Oriented X3, NAD Head: Normocephalic, atraumatic Eyes: [place], EOMI, no scleral Icterus Chest: clear to auscultation B/L, no wheezing rales or rhonchi Heart: Regular rate and rhythm. Normal S1, S2, no murmurs noted Abdomen: soft, non-tender. Bowel sounds are normoactive. No guarding or rebound. Extremities: no cyanosis, clubbing or edema. IVs and Medications Medications Reviewed: Medications were reviewed in detail Lab and Diagnostics Result Diagram: 06/18/16 0610 06/18/16 0610 Assessment & Plan Patient is a 80 year old female with a history of 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 Admitted for recurrent small bowel obstruction. She started experiencing diarrhea on 2015 which is not uncommon for her after resolution of the small bowel obstruction, however PCR was done and positive for C. difficile colitis. We had previously discussed discharging home if she tolerates advancing her diet, however her discharge was discontinued due to her diagnosis of C. difficile. 1. Recurrent small bowel obstruction, acute. Present on admission. Improved. - The patient is status post extended right hemicolectomy on November 15, 2014. Hx of Stage IV colon cancer with intraabdominal metastases. Recent admit with SBO. - Advance diet as tolerated. She is to remain on a low residual diet -Unknown chronicity of her newly diagnosed C. difficile, which may have been a contributor for her recurrent bowel obstruction. Will treat with oral vancomycin 2. Recent Urinary tract infection, Present on admission. -Treated with Keflex 3. Acute kidney injury. Present on admission. - Mild, resolved - Secondary to SBO. Cr 1.08 on admission. - Monitor Cr 4. Diabetes type 2 - Glucose 186 on admission. Pt on Lantus 20U hs and Humalog 6U TIDAC. - Continue home Lantus - Humalog medium dose correctional scale 5. Chronic hypertension. - Amlodipine , carvedilol 6. Atrial fibrillation, chronic -Continue carvedilol -Normally on Coumadin, this is been discontinued due to positive blood in her stool. 7. Hyperlipidemia, chronic -Continue atorvastatin 8. Hypothyroidism, chronic -Continue levothyroxine 9. GI bleed -History of GI cancer, we will discontinue her heparin. -This may be secondary to C. difficile, after treatment may consider re-adding Coumadin. 10. C. difficile colitis: -Start oral vancomycin. -Likely the etiology behind her Hemoccult positive stool. 11. Other Chronic Problems Stage IV colon cancer with intra-abdominal metastases Cardiomyopathy. Osteoporosis Hyperparathyroidism. CODE STATUS: Full code DVT prophylaxis: No heparin due to GI bleeding Disposition: Observation, advance diet as tolerated. likely home pending hospital course VTE Mechanical Devices: Intermittant Pneumatic CD Kannan Díaz DO Jun 18, 2016 17:50
--- NOTE | 2016-06-18 19:02 | NUR ---
Isolation patient placed on contact precautions
[2016-06-18] MEDS: Vancomycin 250 mg Oral Capsule PO SCH (20:55)
[2016-06-18] MEDS: Insulin GLARgine 100 Unit/mL Syringe SUBQ SCH (20:56)
[2016-06-19 02:05] VITALS: BP 107/60; PULSE 83; RESP 14; O2SAT 97
[2016-06-19] MEDS: Vancomycin 250 mg Oral Capsule PO SCH ×4 (02:06→21:03)
[2016-06-19] MEDS: Insulin Human REGular 300 Unit/3 mL Inj SUBQ SCH ×4 (02:08→21:04)
--- NOTE | 2016-06-19 02:16 | NUR ---
BG Pt BG was 149 at HS and 78 @ 0200 Pt was given Obion Juice. Will recheck blood sugar Addendum: 06/19/16 at 0352 by KATHRYN WHITLEY RN pt BG 95 after a half a cup of orange juice
[2016-06-19] MEDS: 0.9% Sodium Chloride 1,000 ML IV SCH ×3 (04:30→17:00)
[2016-06-19 05:41] VITALS: BP 107/60; PULSE 69; RESP 17; O2SAT 95
--- NOTE | 2016-06-19 06:00 | NUR ---
Assumed care RN on shift went home ill, assumed care PT A&O no noted changes in situation continue to have diarrhea,no pain ," did get some sleep" Labs drawn via port am med given, no c/o
[2016-06-19 06:24] LABS: BASOPHILS % (AUTO) 0 % (0-3); EOSINOPHILS % (AUTO) 1.7 % (0-5); MONOCYTES % (AUTO) 10.2 % (4-12); Mean Corpuscular Hemoglobin 30.6 pg (27.0-35.0); Mean Corpuscular Volume 90.2 fL (81-100); NEUTROPHILS % (AUTO) 62.7 % (40-74); Platelet Count 145 bil/L (150-400)
[2016-06-19] MEDS: Famotidine Inj 20 MG in IV Premix 1 EACH IV SCH ×2 (09:10→21:03)
[2016-06-19 10:11] VITALS: BP 109/65; PULSE 69; RESP 20; O2SAT 95
--- NOTE | 2016-06-19 10:41 | PCM.PNMED ---
Subjective Date of Service Jun 19, 2016 Subjective - Pt seen and examined this morning. - She had two BM last night. - Denies abdominal pain, shortness of breath. Exam Vital Signs Vital Sign - Last Date Time Temp Pulse Resp B/P Pulse Ox O2 Delivery O2 Flow Rate FiO2 06/19/16 10:11 69 20 109/65 95 Room Air 06/19/16 05:41 36.6 06/17/16 16:30 8 Intake and Output 06/18/16 06/18/16 06/19/16 Cumulative From/Thru 15:00 23:00 07:00 06/16/16 07:14 - 06/19/16 06:05 Intake Total 1237 ml 1095 ml 7279 ml Output Total 400 ml 600 ml 2080 ml Balance 837 ml 495 ml 5199 ml Intake Oral 300 ml 200 ml 650 ml IV Total 937 ml 895 ml 6629 ml Output Urine Total 400 ml 1200 ml Urine/Stool Mix 600 ml 850 ml Emesis 30 ml # Bowel Movements 2 6 Exam General: Alert, Oriented X3, NAD Head: Normocephalic, atraumatic Eyes: [place], EOMI, no scleral Icterus Chest: clear to auscultation B/L, no wheezing rales or rhonchi Heart: Regular rate and rhythm. Normal S1, S2, no murmurs noted Abdomen: soft, non-tender. Bowel sounds are normoactive. No guarding or rebound. Extremities: no cyanosis, clubbing or edema. IVs and Medications Medications Reviewed: Medications were reviewed in detail Lab and Diagnostics Result Diagram: 06/19/1652906/19/1630 Assessment & Plan 80 year old female with a history of 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 Admitted for recurrent small bowel obstruction. She started experiencing diarrhea on 06/17/2016 which is not uncommon for her after resolution of the small bowel obstruction, however PCR was done and positive for C. difficile colitis. We had previously discussed discharging home if she tolerates advancing her diet, however her discharge was discontinued due to her diagnosis of C. difficile. 1. Recurrent small bowel obstruction, acute. Present on admission. Improved. - The patient is status post extended right hemicolectomy on November 15, 2014. Hx of Stage IV colon cancer with intraabdominal metastases. Recent admit with SBO. - Advance diet as tolerated. She is to remain on a low residual diet -Unknown chronicity of her newly diagnosed C. difficile, which may have been a contributor for her recurrent bowel obstruction. Will treat with oral vancomycin 2. Recent Urinary tract infection, Present on admission. -Treated with Keflex 3. Acute kidney injury. Present on admission. - Mild, - Now resolved - Secondary to SBO. Cr 1.08 on admission. - Monitor Cr 4. Diabetes type 2 - Glucose 186 on admission. Pt on Lantus 20U hs and Humalog 6U TIDAC. - Continue home Lantus - Humalog medium dose correctional scale 5. Chronic hypertension. - Amlodipine , carvedilol 6. Atrial fibrillation, chronic -Continue carvedilol -Normally on Coumadin, this is been discontinued due to positive blood in her stool. 7. Hyperlipidemia, chronic -Continue atorvastatin 8. Hypothyroidism, chronic -Continue levothyroxine 9. GI bleed -History of GI cancer, we will discontinue her heparin. -This may be secondary to C. difficile, after treatment may consider re-adding Coumadin. 10. C. difficile colitis: -Start oral vancomycin. -Likely the etiology behind her Hemoccult positive stool. 11. Other Chronic Problems Stage IV colon cancer with intra-abdominal metastases Cardiomyopathy. Osteoporosis Hyperparathyroidism. CODE STATUS: Full code DVT prophylaxis: No heparin due to GI bleeding Disposition: Observation, advance diet as tolerated. likely home pending hospital course. Possible tomorrow VTE Mechanical Devices: Intermittant Pneumatic CD Uli Martino MD Jun 19, 2016 10:41
--- NOTE | 2016-06-19 14:39 | NUR ---
NUTRITION ASSESSMENT: ASSESS:9 YO female admitted with small bowel obstruction, which has resolved; however, patient has now developed C. diff. PO intake has been inadequate since admission. Of note, she has had a 6.8 kg wt. loss since 05/18/16 = 9.5% x 1 month = severe protein calorie malnutrition. PMHx:Stage IV colon cancer with intra-abdominal metastasis, atrial fibrillation, cardiomyopathy, hypertension, hypothyroidism, osteoporosis, hyperparathyroidism, type 2 diabetes mellitus, recurrent partial small bowel obstruction. DIET:Heart healthy consistent carb. PO intake 25% - 50% trays. LABS: Reviewed. K+ 3.1, BUN 7. MEDICATIONS: Reviewed. Synthroid, insulin. NUTRITION FOCUSED PHYSICAL ASSESSMENT: GI symptoms / stool: BM x 2 (06/18).Peng: 18 Skin Integrity: No issues reported. ANTHROPOMETRICS: Current Wt: 64.7 kgBMI: 23.0 kg/m2.Admit weight: 65.91 kg IBW: 56.8 kg (116.0% IBW) ESTIMATED NEEDS (CANCER, MALNUTRITION): Calories: 1618 - 1977 kcal (25 - 30 kcal / kg BW) Protein: 79 - 99 g protein (1.2 - 1.5 g / kg BW) NUTRITION DIAGNOSIS: 1)Severe protein calorie malnutrition related to metastatic cancer with multiple bowel obstructions, altered GI function, as evidenced by 9.5% weight loss x 1 month. INTERVENTION: 1) Will add Glucerna to lunch and dinner trays. MONITOR/EVALUATE: Diet / supplement tolerance, PO intake, labs, GI/nutrition status. Follow up per high nutrition risk guidelines.
--- NOTE | 2016-06-19 15:33 | NUR ---
Insulin Hospitalist paged re: insulin. Current orders for correctional insulin every 6 hours. Pt is no longer NPO and is eating at mealtimes. BG at 1530 141, however pt had already eaten lunch. Insulin withheld. Awaiting new orders,
[2016-06-19 15:41] VITALS: BP 112/63; PULSE 75; RESP 14; O2SAT 92
[2016-06-19] MEDS: Ondansetron 2 mg/mL 2 mL Inj IVPUSH PRN (16:31)
[2016-06-19] MEDS: HYDROmorphone 0.5 mg/0.5 mL iSecure Syringe IVPUSH PRN (16:34)
--- NOTE | 2016-06-19 16:44 | NUR ---
Inpatient status effective today, [facility] signed
--- NOTE | 2016-06-19 17:20 | NUR ---
O2 sats Pt became lethargic after she was given Dilaudid. Pt placed on LEGAL MANAGER to monitor. O2 at 91%, then occasionally dropping to mid eighties. Pt placed on 1L O2 via NC while the pt is resting. Now 93% O2. Will continue to monitor.
--- NOTE | 2016-06-19 18:41 | NUR ---
Decreased urinary output Pt reports that she has urinated every time she has gone on the commode (including with several BM's), but it is not recorded. Bladder scan only shows 242 and pt reports that she might need to urinate soon. Will continue to monitor.
[2016-06-19] MEDS: Insulin GLARgine 100 Unit/mL Syringe SUBQ SCH (21:01)
[2016-06-19 21:15] VITALS: BP 122/77; PULSE 94; RESP 17; O2SAT 94
--- NOTE | 2016-06-19 21:20 | NUR ---
BG checks Contacted about Q6 BG checks since Pt is no longer NPO. changed order to [facility] BG checks
[2016-06-20] MEDS: Ondansetron 2 mg/mL 2 mL Inj IVPUSH PRN ×5 (02:57→22:54)
[2016-06-20] MEDS: Vancomycin 250 mg Oral Capsule PO SCH ×4 (02:57→22:51)
[2016-06-20] MEDS: HYDROmorphone 0.5 mg/0.5 mL iSecure Syringe IVPUSH PRN ×4 (04:04→23:02)
[2016-06-20 04:50] VITALS: BP 126/76; PULSE 79; RESP 15; O2SAT 94
[2016-06-20] MEDS: 0.9% Sodium Chloride 1,000 ML IV SCH ×2 (05:30→19:19)
[2016-06-20] MEDS: Insulin Human REGular 300 Unit/3 mL Inj SUBQ SCH ×4 (07:30→22:00)
[2016-06-20] MEDS ORDERED: KCl 40 mEq/D5W 500 mL 40 MEQ in IV Premix 1 EACH IV ONE (08:10)
[2016-06-20] MEDS: Famotidine Inj 20 MG in IV Premix 1 EACH IV SCH ×2 (08:13→20:58)
[2016-06-20 08:21] VITALS: BP 134/79; PULSE 97; RESP 16; O2SAT 94
--- NOTE | 2016-06-20 09:00 | NUR ---
Nausea/Vomiting Patient reported nausea and had an episode of emesis output.
[2016-06-20] MEDS ORDERED: Magnesium Sulf 2 Gm/50mL Water 2 GM in IV Premix 1 EACH IV ONE (09:55)
--- NOTE | 2016-06-20 11:54 | PCM.PNMED ---
Subjective Date of Service Jun 20, 2016 Subjective Patient complaint of multiple vomitings and nausea, frequent bowel movement- slightly more formed than before Patient adamantly refused NG decompression slight touching on her belly triggered nausea and vomiting agrees to get another imaging to see progression of SBO not tolerating diet Exam Vital Signs Vital Sign - Last Date Time Temp Pulse Resp B/P Pulse Ox O2 Delivery O2 Flow Rate FiO2 06/20/16 08:21 36.9 97 16 134/79 94 Nasal Cannula 1.00 Intake and Output 06/19/16 06/19/16 06/20/16 Cumulative From/Thru 15:00 23:00 07:00 06/16/16 07:14 - 06/20/16 04:50 Intake Total 1466 ml 815 ml 9560 ml Output Total 400 ml 2480 ml Balance 1066 ml 815 ml 7080 ml Intake Oral 480 ml 1130 ml IV Total 986 ml 815 ml 8430 ml Output Urine Total 300 ml 1500 ml Urine/Stool Mix 100 ml 950 ml Emesis 30 ml # Voids 2 2 # Bowel Movements 2 2 10 Exam mildly distressed due to nausea no JVD, MMM, no LAD RRR, nl s1, s2 no mrg CTAB, no w,c decreased BS, S, distended, ttp throughout, no tympanic sounds, no guarding/rTd warm, no edema, pulses 2/2 IVs and Medications Medications Reviewed: Medications were reviewed in detail Lab and Diagnostics Result Diagram: 06/19/1630 06/19/16 0530 Assessment & Plan 80 year old female with a history of 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 Admitted for recurrent small bowel obstruction. She started experiencing diarrhea on 06/17/2016 which is not uncommon for her after resolution of the small bowel obstruction, however PCR was done and positive for C. difficile colitis. We had previously discussed discharging home if she tolerates advancing her diet, however her discharge was discontinued due to her diagnosis of C. difficile. active, acute #Recurrent small bowel obstruction, acute. Present on admission. The patient is status post extended right hemicolectomy on November 15, 2014. Hx of Stage IV colon cancer with intraabdominal metastases. Recent admit with SBO. -pt seemed to improve yesterday but worsened today -will deescalate diet today to NPO, get SB series to see progression, patient refused NGT insertion -will consider surgery consult if pt remains symptomatic, of note pt refused re- surgery of any type, also not a good candidate for surgery, pt is aware of it. #C. difficile colitis, may contribute to current sx, although labs were unremarkable, Likely the etiology behind her Hemoccult positive stool. -cw oral vancomycin#3/14days, responding. -trends sx, stool frequency, consistency, continue contact isolation #Recent Urinary tract infection, Present on admission. -Treated with Keflex chronic, stable, resolved #Acute kidney injury. Present on admission, mild, Now resolved #Diabetes type 2, Glucose 186 on admission. Pt on Lantus 20U hs and Humalog 6U TIDAC, Continue home Lantus, lispro SS #Chronic hypertension, continue Amlodipine , carvedilol, controlled #Atrial fibrillation, chronic, Continue carvedilol, rate controlled, h/h stable off on coumadin, last INR1.43 on , coumadin discontinued due to FOBT+ #Hyperlipidemia, chronic, continue atorvastatin #Hypothyroidism, chronic, Continue levothyroxine #occult GI bleed in the setting of c.diff, hx of colon cancer, h/h slowly trending down, if remains stable, will resume coumadin 11. Other Chronic Problems Stage IV colon cancer with intra-abdominal metastases Cardiomyopathy. Osteoporosis Hyperparathyroidism. CODE STATUS: Full code DVT prophylaxis: No heparin due to GI bleeding Disposition:2-3more days, should see advancing diet. VTE Mechanical Devices: Intermittant Pneumatic CD Time spent 35min Catia Santiago MD Jun 20, 2016 11:54
--- NOTE | 2016-06-20 12:42 | DRSVH ---
PROCEDURE: X-RAY ACUTE ABDOMINAL SERIES ([id number]) INDICATIONS: worsening n/v in SBO TECHNIQUE: One view chest and two views of the abdomen were acquired. COMPARISON: [facility], CR, XR ABD ACUTE SERIES 3VW, 06/16/2016, 8:26. FINDINGS: Surgical changes and devices: Port-A-Cath from left-sided approach. Chest: Lungs are clear. Heart size is normal. No pleural effusions. No pneumoperitoneum. Abdomen: Bowel gas pattern is abnormal with nonspecific scattered air-fluid levels within small zuleika l loops, but no definite small bowel distention is associated. The appearance could be produced by e rowena small bowel obstruction but more likely is reflective of underlying ileus.. No suspicious calci fications. Visualized solid organ contours appear normal. Bones: No suspicious bony lesions. IMPRESSION: Small bowel gas prominence as noted, more likely ileus than obstruction. Central line, P ort-A-Cath, from left-sided approach extends with its tip in the expected position of the middle thir d of the superior vena cava. Dictated by: Liam Narvaez M.D. on 06/20/2016 at 12:40 Approved by: Liam Narvaez M.D. on 06/20/2016 at 12:40
[2016-06-20 15:20] VITALS: BP 118/68; PULSE 80; RESP 16; O2SAT 92
[2016-06-20 18:36] VITALS: BP 105/55; RESP 16; O2SAT 96
[2016-06-20 20:53] VITALS: BP 112/69; PULSE 89; RESP 16; O2SAT 97
--- NOTE | 2016-06-20 21:00 | NUR ---
Nausea /vomiting continues to have nausea/vomiting medicated w/Zofran
[2016-06-20] MEDS ORDERED: Insulin GLARgine 100 Unit/mL Syringe SUBQ ONE (22:46)
--- NOTE | 2016-06-20 23:08 | NUR ---
Blood sugar/insulin HS BS 109 notified MD GUTIERREZ lantus reduced to 5unit tonight
--- NOTE | 2016-06-20 23:09 | NUR ---
Roberth clarified that Vanco must be PO unfortunately even after premedicating w/Zofran patient had emesis directly after taking pills Addendum: 06/21/16 at 0422 by TAMMY SANTOS RN gave 02:30 vanco w/a bite of jello though npo, able to hold it down this time Addendum: 06/21/16 at 0657 by TAMMY SANTOS RN Pt awoke w/emesis again saying that bite of jello was in her mouth all night medicated w/8mg zofran
[2016-06-21 02:38] VITALS: BP 113/77; PULSE 87; RESP 16; O2SAT 95
[2016-06-21] MEDS: Vancomycin 250 mg Oral Capsule PO SCH (02:43)
[2016-06-21] MEDS: Ondansetron 2 mg/mL 2 mL Inj IVPUSH PRN (06:34)
[2016-06-21] MEDS: HYDROmorphone 0.5 mg/0.5 mL iSecure Syringe IVPUSH PRN (06:34)
[2016-06-21 06:44] VITALS: BP 128/41; PULSE 106; RESP 20; O2SAT 94
[2016-06-21] MEDS ORDERED: 0.9% Sodium Chloride 500 ML IV ONE (07:20)
[2016-06-21] MEDS: Insulin Human REGular 300 Unit/3 mL Inj SUBQ SCH ×3 (07:30→17:00)
[2016-06-21 07:46] LABS: BASOPHILS % (AUTO) 0.4 % (0-3); EOSINOPHILS % (AUTO) 0.9 % (0-5); Mean Corpuscular Hemoglobin 30.9 pg (27.0-35.0); Mean Corpuscular Volume 90.2 fL (81-100); NEUTROPHILS % (AUTO) 66.5 % (40-74); Platelet Count 214 bil/L (150-400)
[2016-06-21 08:00] VITALS: BP 113/71; PULSE 88; RESP 18; O2SAT 96
[2016-06-21 08:21] LABS: Magnesium 1.8 mg/dL (1.6-2.6); Phosphorus 1.9 mg/dL (2.5-4.9)
[2016-06-21] MEDS ORDERED: Polyethylene Glycol (PEG) 17 Gm Powder PO SCH (08:30)
[2016-06-21] MEDS ORDERED: Docusate Sodium 10 mg/mL 10 mL Liquid PO SCH (08:30)
[2016-06-21] MEDS ORDERED: Magnesium Sulf 2 Gm/50mL Water 2 GM in IV Premix 1 EACH IV ONE (09:00)
[2016-06-21] MEDS ORDERED: Potassium Chloride Inj 20 MEQ in Dextrose 5% 250 ML IV ONE (09:00)
[2016-06-21] MEDS: Famotidine Inj 20 MG in IV Premix 1 EACH IV SCH ×2 (09:39→20:38)
[2016-06-21] MEDS: metroNIDAZOLE Inj 500 MG in IV Premix 1 EACH IV SCH ×2 (09:42→18:19)
[2016-06-21] MEDS: D5 0.45% NaCl + KCl 20 mEq/L 1,000 ML IV SCH ×2 (09:45→17:15)
--- NOTE | 2016-06-21 10:26 | NUR ---
signed ZIYAD at 1019
--- NOTE | 2016-06-21 11:21 | DRSVH ---
PROCEDURE: CT ABDOMEN AND PELVIS WITHOUT CONTRAST ([id number]) INDICATIONS: SBO s/p colon ca TECHNIQUE: After the administration of oral contrast, 5 mm thick sections acquired from the diaphragms to the sy mphysis. 5 mm coronal and sagittal reformats were performed. For radiation dose reduction, the foll owing was used: automated exposure control, adjustment of mA and/or kV according to patient size. COMPARISON: [facility], CT, CT ABD PELVIS WO CON, 06/07/2016, 21:36. [facility], CT, CT ABD PELVIS WO CON, 10/08/2015, 18:25. FINDINGS: Image quality: Excellent. ABDOMEN: Lung bases: There are low-density pleural effusions which are partially characterized and are small t o moderate in size. There is associated compressive atelectasis in the dependent lungs. Solid organs: Liver and spleen are normal in size. Punctate calcifications are present throughout th e liver and spleen suggesting prior granulomatous disease. Gallbladder is surgically absent. Pancrea s is normal in size. No right adrenal nodules. There is an unchanged heterogeneous 11 mm diameter le ft adrenal gland nodule unchanged when compared with the study dated . Both kidneys are nor mal in size, without hydronephrosis or nephrolithiasis. Peritoneum and bowel: The stomach is markedly distended with fluid and contrast. The duodenum is marii edly distended. The jejunum is markedly distended. The proximal half of the ileum is distended. The d istal ileum is decompressed. Patient is status post right hemicolectomy. The colon is decompressed. Nodes and vessels: No retroperitoneal or mesenteric adenopathy by size criteria. Aorta and inferior vena cava are normal in size. There are scattered atheromatous calcifications throughout the aorta and iliac arteries bilaterally. Miscellaneous: No ventral hernias. There is a 2.6 x 1.7 cm high density fluid collection deep to th e midline incision which likely represents a resolving hematoma. This is decreased in size when alex red with the prior study dated 06/07/16 where it measured 3.2 x 2.3 cm. In PELVIS: Genitourinary: Bladder wall thickness is normal. The uterus is nonvisualized and presumably surgica lly absent. Miscellaneous: No inguinal hernias or adenopathy. Bones: No suspicious bony lesions. No vertebral body compression fractures. IMPRESSION: 1. Bilateral low density pleural effusions and compressive atelectasis. 2. Marked gastric distention and marked proximal small bowel dilatation. When today's study is compar ed with the study dated 06/07/16, the extent of dilatation is slightly increased. These findings rais e suspicion for a obstruction secondary to adhesions. This finding was discussed with Dr. Santiago at 11:18 AM on 06/21/16. 3. Small hypodensity midline fluid collection decreased in size when compared with the study dated and suggestive of a resolving hematoma. Dictated by: Mariluz Odonnell M.D. on 06/21/2016 at 11:19 Approved by: Mariluz Odonnell M.D. on 06/21/2016 at 11:19
--- NOTE | 2016-06-21 11:25 | PCM.PNMED ---
Subjective Date of Service Jun 21, 2016 Subjective Patient still has multiple vomiting, nonbloody nonbilious CT of abdomen and pelvis showed worsening small bowel obstruction from prior CAT scan on Patient is amenable for NG decompression, awaiting tube insertion also vomited all of the oral contrast that was given prior to CAT scan Exam Vital Signs Vital Sign - Last Date Time Temp Pulse Resp B/P Pulse Ox O2 Delivery O2 Flow Rate FiO2 06/21/16 08:00 36.8 88 18 113/71 96 Room Air 06/21/16 06:44 2.00 Intake and Output 06/20/16 06/20/16 06/21/16 Cumulative From/Thru 15:00 23:00 07:00 06/16/16 07:14 - 06/21/16 06:52 Intake Total 1625 ml 1043 ml 49185 ml Output Total 650 ml 3130 ml Balance 1625 ml 393 ml 9098 ml Intake Oral 480 ml 60 ml 1670 ml IV Total 1145 ml 983 ml 33976 ml Output Urine Total 300 ml 1800 ml Urine/Stool Mix 950 ml Emesis 350 ml 380 ml # Voids 2 # Bowel Movements 0 10 Exam mildly distressed due to nausea no JVD, MMM, no LAD RRR, nl s1, s2 no mrg CTAB, no w,c decreased BS, S, distended, ttp throughout, no tympanic sounds, no guarding/rTd - less tender/distended than prior day warm, no edema, pulses 2/2 IVs and Medications Medications Reviewed: Medications were reviewed in detail Lab and Diagnostics Result Diagram: 06/21/1670406/21/16 0705 Assessment & Plan 80 year old female with a history of 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 Admitted for recurrent small bowel obstruction. She started experiencing diarrhea on 06/17/2016 which is not uncommon for her after resolution of the small bowel obstruction, however PCR was done and positive for C. difficile colitis. We had previously discussed discharging home if she tolerates advancing her diet, however her discharge was discontinued due to her diagnosis of C. difficile. active, acute #Recurrent small bowel obstruction, acute. Present on admission. The patient is status post extended right hemicolectomy on November 15, 2014. Hx of Stage IV colon cancer with intraabdominal metastases. Recent admit with SBO. CT abd/pevlis showed significant SBO. -will start NG decompression with intermittent low grade suction, keep NPO -will consider surgery consult if pt remains symptomatic with NG, of note pt refused re-surgery of any type, also not a good candidate for surgery, pt is aware of it. #C. difficile colitis, may contribute to current sx, although labs were unremarkable, Likely the etiology behind her Hemoccult positive stool. -cw oral vancomycin#3/14days then stopped as pt couldn't tolerate po, switch to flagyl 500 q8h iv -trends sx, stool frequency, consistency, continue contact isolation #Recent Urinary tract infection, Present on admission. -Treated with Keflex chronic, stable, resolved #Acute kidney injury. Present on admission, mild, Now resolved #Diabetes type 2, Glucose 186 on admission. Pt on Lantus 20U hs and Humalog 6U TIDAC, Continue home Lantus, lispro SS #Chronic hypertension, continue Amlodipine , carvedilol, controlled #Atrial fibrillation, chronic, Continue carvedilol, rate controlled, h/h stable off on coumadin, last INR1.43 on , coumadin discontinued due to FOBT+ #Hyperlipidemia, chronic, continue atorvastatin #Hypothyroidism, chronic, Continue levothyroxine #occult GI bleed in the setting of c.diff, hx of colon cancer, h/h slowly trending down, if remains stable, will resume coumadin 11. Other Chronic Problems Stage IV colon cancer with intra-abdominal metastases Cardiomyopathy. Osteoporosis Hyperparathyroidism. CODE STATUS: Full code DVT prophylaxis: No heparin due to GI bleeding Disposition:2-3more days, should see advancing diet. VTE Mechanical Devices: Intermittant Pneumatic CD Time spent 35min Catia Santiago MD Jun 21, 2016 11:25
[2016-06-21 12:49] VITALS: BP 112/68; PULSE 64; RESP 18; O2SAT 96
[2016-06-21] MEDS ORDERED: LORazepam 1 mg Tablet PO ONE (12:50)
[2016-06-21] MEDS ORDERED: Lidocaine 4% 4 mL Laryng-O-Jet Top Soln MUC_MEMBRM ONE (14:15)
[2016-06-21 16:04] VITALS: BP 116/70; PULSE 64; RESP 18; O2SAT 92
--- NOTE | 2016-06-21 16:19 | NUR ---
NGT NGT inserted and connected to low intermittent suction. Patent and draining a minimal greenish secretions. Patient comfortable, no signs of any distress and anxiety. Will continue to monitor.
[2016-06-22] VITALS (13 sets, daily range): BP systolic 119–134; BP diastolic 76–87; PULSE 88–129; RESP 16–20; O2SAT 94–97
[2016-06-22] MEDS: metroNIDAZOLE Inj 500 MG in IV Premix 1 EACH IV SCH ×3 (00:57→16:34)
[2016-06-22] MEDS ORDERED: Benzocaine-Menthol Lozenge 2/Pkg PO PRN (01:10)
[2016-06-22] MEDS: D5 0.45% NaCl + KCl 20 mEq/L 1,000 ML IV SCH ×3 (01:16→23:03)
[2016-06-22] MEDS: Insulin Human REGular 300 Unit/3 mL Inj SUBQ SCH ×6 (02:24→23:07)
--- NOTE | 2016-06-22 06:04 | NUR ---
NGT Assumed pt care at 1900, NGT on intermittent low suction draining 800mls throughout night, green bilious, pt attempted to remove x1, c/o of throat pain, given PRN cepacol pt reported relief from pain, reinforced teaching on importance of NGT and gastric decompression, so far pt been compliant. Port Attempted to Draw am labs thru R chest portacath, able to draw very minimal blood, voicemail placed for IV team to check port patency, am edge cutter in at 0600 for am labs.
[2016-06-22 06:58] LABS: BASOPHILS % (AUTO) 0 % (0-3); EOSINOPHILS % (AUTO) 0.4 % (0-5); MONOCYTES % (AUTO) 17.8 % (4-12); Mean Corpuscular Hemoglobin 30.3 pg (27.0-35.0); Mean Corpuscular Volume 89.3 fL (81-100); NEUTROPHILS % (AUTO) 59.9 % (40-74); Platelet Count 249 bil/L (150-400)
[2016-06-22 07:28] LABS: Magnesium 1.8 mg/dL (1.6-2.6); Phosphorus 1.5 mg/dL (2.5-4.9)
[2016-06-22] MEDS ORDERED: Sodium Phosphate Inj 40 MEQ in Dextrose 5% 500 ML IV ONE (08:30)
--- NOTE | 2016-06-22 08:37 | NUR ---
HR Dr Connor on floor, notified of increased HR and meds being held d/t NG tube. He stated he will write order for metoprolol IV.
[2016-06-22] MEDS: Famotidine Inj 20 MG in IV Premix 1 EACH IV SCH ×2 (09:17→21:57)
[2016-06-22] MEDS: MeTOProlol 1 mg/mL 5 mL Inj IVPUSH SCH ×3 (09:42→21:57)
--- NOTE | 2016-06-22 14:16 | NUR ---
Increase HR instrumentation tech called HR 140's Assessed pt, just finished using the BSC. After settling into bed, HR low 100's.
[2016-06-22] MEDS: 0.9% Sodium Chloride 250 ML IV SCH (14:17)
[2016-06-22] MEDS ORDERED: HepLOK Flush 100 unit/mL 5 mL Inj IVFLUSH PRN (14:20)
[2016-06-22] MEDS ORDERED: Sodium Chloride LOK Flush 10 mL Syringe IVFLUSH PRN ×2 (14:20)
--- NOTE | 2016-06-22 14:22 | NUR ---
PO rx/ DC orders / metoprolol request made to consider DC of scheduled PO rx? Can I have parameters for the metoprolol, when to hold? She has DC orders, can we please DC these orders.
[2016-06-22] MEDS ORDERED: MeTOProlol 1 mg/mL 5 mL Inj IVPUSH SCH (14:30)
--- NOTE | 2016-06-22 15:51 | PCM.PALLBR ---
Palliative Brief Note Date of Service Jun 22, 2016 . Palliative medicine consulted to assist patient and family in determination of goals of care. Full consult note to follow 81-year-old female with metastatic colon cancer and carcinomatosis, admitted with recurrent small bowel obstruction. Prior to visiting, I reviewed her records in the EMR in detail. Spoke with her bedside nurse and with her hospitalist. When I arrived, she was resting quietly in bed, NG tube in place. Son and [id number] at bedside. We spoke at length, reviewing her diagnosis of cancer, her various treatments (she is on her third line of chemotherapy, understands that it is palliative only, but has been told by Dr. Fairbanks that things are improving) and her multiple hospitalizations with recurrent bowel obstruction. Answered questions she and the family had about the nature of her bowel obstructions, treatment options, etc. She noted she had had some abdominal pain and cramping earlier but was comfortable now after replacement of NG tube. On physical exam her vital signs are noted. Heart rate is rapid and irregularly irregular consistent with her known atrial fibrillation. Skin is pale, warm and dry. Head and neck exam noncontributory. Lungs clear anterolaterally, heart sounds irregularly irregular, abdomen is slightly rounded , quiet bowel tones, no discrete masses and diffuse mild tenderness. No peritoneal signs. Labs and imaging studies reviewed in detail. Spoke with the patient and the family members, reviewing advanced directive and related issues. She has no formal written POA but would default such decision making to her . She does not have a living will or other advanced directives, and is really not talk much with her family about such matters. Today when we talked about things, she said that she would want to be resuscitated, and on further questioning indicated that this included a brief trial of CPR and defibrillation. She says she would not want to be intubated or mechanically ventilated at all- we talked about this in the setting of her wishes for CPR/defib and she reiterated that she would want brief trial of resuscitation but would not want to be intubated under any circumstances. She otherwise is not ready to consider hospice or comfort care. Dr. Fairbanks has told her that she is improving and she has great hopes that her chemotherapy will give her some significant improvement and quality time. We talked about the potential problem of intractable bowel obstruction which might require surgery or ostomy, and if there was no other way she would be willing to undergo such procedures. Palliative medicine will continue to follow and provide support as needed Time spent with patient today: 75 minutes, including greater than 50% face-to- face time with the patient and her family. Of that time, 20 minutes spent reviewing advanced directive issues with the patient and her family. Chris Watson MD Jun 22, 2016 15:51
--- NOTE | 2016-06-22 17:14 | PCM.PNMED ---
Subjective Date of Service Jun 22, 2016 Subjective Overnight events noted, on NG tube to suction. No further vomiting. Afebrile Exam Vital Signs Vital Sign - Last Date Time Temp Pulse Resp B/P Pulse Ox O2 Delivery O2 Flow Rate FiO2 06/22/16 16:21 36.9 89 18 127/79 96 Nasal Cannula 2.00 Intake and Output 06/21/16 06/21/16 06/22/16 Cumulative From/Thru 15:00 23:00 07:00 06/16/16 07:14 - 06/22/16 04:36 Intake Total 1520 ml 829 ml 00527 ml Output Total 600 ml 800 ml 4530 ml Balance 920 ml 29 ml 78756 ml Intake Oral 500 ml 2170 ml IV Total 1020 ml 829 ml 52839 ml Output Urine Total 1800 ml Urine/Stool Mix 950 ml Gastric Drainage Total 800 ml 800 ml Emesis 600 ml 980 ml # Voids 2 4 # Bowel Movements 10 Exam mildly distressed due to nausea. NG tube to suction no JVD, MMM, no LAD RRR, nl s1, s2 no mrg CTAB, no w,c decreased BS, S, distended, ttp throughout, no tympanic sounds, no guarding/rTd - less tender/distended than prior day warm, no edema, pulses 2/2 IVs and Medications Medications Reviewed: Medications were reviewed in detail Lab and Diagnostics Result Diagram: 06/22/1661906/22/16619 X-Rays, CTs and MRIs CT of abdomen and pelvis IMPRESSION: 1. Bilateral low density pleural effusions and compressive atelectasis. 2. Marked gastric distention and marked proximal small bowel dilatation. When today's study is compared with the study dated 06/07/16, the extent of dilatation is slightly increased. These findings raise suspicion for a obstruction secondary to adhesions. This finding was discussed with Dr. Santiago at 11:18 AM on 06/21/16. 3. Small hypodensity midline fluid collection decreased in size when compared with the study dated 06/07/16 and suggestive of a resolving hematoma. Dictated by: Mariluz Odonnell M.D. 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 Admitted for recurrent small bowel obstruction. She started experiencing diarrhea on 06/17/2016 which is not uncommon for her after resolution of the small bowel obstruction, however PCR was done and positive for C. difficile colitis. We had previously discussed discharging home if she tolerates advancing her diet, however her discharge was discontinued due to her diagnosis of C. difficile. active, acute #Recurrent small bowel obstruction, acute. Present on admission. The patient is status post extended right hemicolectomy on November 15, 2014. Hx of Stage IV colon cancer with intraabdominal metastases. Recent admit with SBO. CT abd/pevlis showed significant SBO. -On NG decompression with intermittent low grade suction, keep NPO -will consider surgery consult if pt remains symptomatic with NG, of note pt refused re-surgery of any type, also not a good candidate for surgery, pt is aware of it. #C. difficile colitis, may contribute to current sx, although labs were unremarkable, Likely the etiology behind her Hemoccult positive stool. -Was on oral vancomycin#3/14days then stopped as pt couldn't tolerate po, switch to flagyl 500 q8h iv -trends sx, stool frequency, consistency, continue contact isolation #Recent Urinary tract infection, Present on admission. -Treated with Keflex #Stage IV colon cancer with intra-abdominal metastases -Consulted palliative care. CODE STATUS changed from full to limited resuscitation chronic, stable, resolved #Acute kidney injury. Present on admission, mild, Now resolved #Diabetes type 2, Glucose 186 on admission. Pt on Lantus 20U hs and Humalog 6U TIDAC, Continue home Lantus, lispro SS #Chronic hypertension, continue Amlodipine , carvedilol, controlled #Atrial fibrillation, chronic, Continue carvedilol, rate controlled, h/h stable off on coumadin, last INR1.43 on , coumadin discontinued due to FOBT+ #Hyperlipidemia, chronic, continue atorvastatin #Hypothyroidism, chronic, Continue levothyroxine #occult GI bleed in the setting of c.diff, hx of colon cancer, h/h slowly trending down, if remains stable, will resume coumadin #. Other Chronic Problems Cardiomyopathy. Osteoporosis Hyperparathyroidism. CODE STATUS: Limited resuscitation ( no intubation, okay for brief chest compression) DVT prophylaxis: No heparin due to GI bleeding Disposition:2-3more days, pending hospital course VTE Mechanical Devices: Intermittant Pneumatic CD Time spent 50 minutes coordinating care Kyle Connor MD Jun 22, 2016 17:14
--- NOTE | 2016-06-22 18:00 | NUR ---
Nausea Pt c/o nausea Checked NG placement, in place Zofran given upon request. States feels slightly better
[2016-06-22] MEDS: Ondansetron 2 mg/mL 2 mL Inj IVPUSH PRN (18:04)
--- NOTE | 2016-06-22 21:45 | NUR ---
Tele Tele called pt HR in 150's. i went to check on the patient, she had gotten up to use the BSC. Pt metoprolol was due so that was given and HR returned to the 90's. Will continue to monitor
[2016-06-23] VITALS (12 sets, daily range): BP systolic 120–147; BP diastolic 71–88; PULSE 81–116; RESP 16–20; O2SAT 95–97
[2016-06-23] MEDS: metroNIDAZOLE Inj 500 MG in IV Premix 1 EACH IV SCH ×3 (00:30→16:56)
[2016-06-23] MEDS: MeTOProlol 1 mg/mL 5 mL Inj IVPUSH SCH ×4 (03:24→21:50)
[2016-06-23] MEDS: Ondansetron 2 mg/mL 2 mL Inj IVPUSH PRN ×3 (04:01→19:15)
[2016-06-23] MEDS: Insulin Human REGular 300 Unit/3 mL Inj SUBQ SCH ×4 (05:54→23:15)
[2016-06-23] MEDS: D5 0.45% NaCl + KCl 20 mEq/L 1,000 ML IV SCH ×2 (09:17→21:05)
[2016-06-23] MEDS: Famotidine Inj 20 MG in IV Premix 1 EACH IV SCH ×2 (09:17→21:05)
[2016-06-23 09:38] LABS: BASOPHILS % (AUTO) 0.3 % (0-3); EOSINOPHILS % (AUTO) 0.6 % (0-5); Mean Corpuscular Hemoglobin 30.2 pg (27.0-35.0); Mean Corpuscular Volume 88.9 fL (81-100); NEUTROPHILS % (AUTO) 63.6 % (40-74); Platelet Count 260 bil/L (150-400)
[2016-06-23 09:58] LABS: Magnesium 1.5 mg/dL (1.6-2.6); Phosphorus 1.8 mg/dL (2.5-4.9)
[2016-06-23] MEDS ORDERED: Potassium Phos (mEq) Inj 20 MEQ in Dextrose 5% 250 ML IV ONE (10:20)
[2016-06-23] MEDS ORDERED: Magnesium Sulf 4 Gm/100 mL H2O 4 GM in IV Premix 1 EACH IV ONE (10:20)
--- NOTE | 2016-06-23 10:50 | NUR ---
Palliative Care - LATE ENTRY for 06/22/16 Palliative Care received verbal order from Dr Connor 06/22/16 to assist with goals of care. Patient is a 81 year old female with history of stage IV colon cancer with intra-abdominal metastases, atrial fibrillation, diabetes, HTN and hypothyroidism. She presented with abdominal pain and N/V on 06/16/16 and was admitted for care of recurrent small bowel obstruction. Morro Bowie () [phone], Serg Owen (son) [phone] Palliative Care to follow. Shana Dunn
[2016-06-23] MEDS: 0.9% Sodium Chloride 250 ML IV SCH (12:36)
--- NOTE | 2016-06-23 12:59 | NUR ---
NUTRITION FOLLOW-UP: ASSESS:81 YO female admitted with small bowel obstruction, which is currently requiring NGT to suction. The patient has also now developed C. diff. PO intake has been inadequate since admission, and she is currently NPO x 3 D. Provider will consider surgery consult if pt remains symptomatic with NG. Of note pt refused re-surgery of any type, also not a good candidate for surgery, pt is aware of it. Pt. with 6.8 kg wt. loss since 05/18/16 = 9.5% x 1 month = severe protein calorie malnutrition. Per discussion with the Palliative team, code status includes limited interventions. PMHx:Stage IV colon cancer with intra-abdominal metastasis, atrial fibrillation, cardiomyopathy, hypertension, hypothyroidism, osteoporosis, hyperparathyroidism, type 2 diabetes mellitus, recurrent partial small bowel obstruction. DIET:NPO x 3 D. Previous PO intake 30 - 50% trays. LABS: Reviewed. BUN 4, Glu 184, Phos 1.8, MG 1.5, Alb 2.3. MEDICATIONS: Reviewed. Synthroid, insulin. pressor support. NUTRITION FOCUSED PHYSICAL ASSESSMENT: GI symptoms / stool: BM x 1 today.Peng: 18 Skin Integrity: No issues reported. ANTHROPOMETRICS: Current Wt: 64.7 kgBMI: 23.0 kg/m2.Admit weight: 65.91 kg IBW: 56.8 kg (116.0% IBW) ESTIMATED NEEDS (CANCER, MALNUTRITION): Calories: 1618 - 1977 kcal (25 - 30 kcal / kg BW) Protein: 79 - 99 g protein (1.2 - 1.5 g / kg BW) NUTRITION DIAGNOSIS: 1)Severe protein calorie malnutrition related to metastatic cancer with multiple bowel obstructions, altered GI function, as evidenced by 9.5% weight loss x 1 month - PERSISTS. INTERVENTION: 1) Will continue Glucerna on lunch and dinner trays once diet advanced. 2)Although patient has limited interventions, recommend consideration of trial of nutrition support, especially in the event pt. becomes surgical candidate and will remain NPO for extended period of time. MONITOR/EVALUATE: NPO status, diet advance / tolerance, PO intake, labs, GI/nutrition status. Follow up per high nutrition risk guidelines.
--- NOTE | 2016-06-23 13:35 | NUR ---
Nausea Pt had 50 ml of emesis of bile colored fluid, rx given.
--- NOTE | 2016-06-23 14:42 | PCM.PALLBR ---
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 Palliative medicine was consulted to assist patient and family and determination of goals of care. Per my detailed conversation yesterday with the patient and her family, patient would wish brief attempt of resuscitation with CPR and defibrillation, but would not wish to be intubated or mechanically ventilated. She otherwise wants to continue aggressive care of her cancer, and if necessary would be willing to undergo surgical exploration/intervention if her bowel obstruction does not resolve. Summary of palliative recommendations: -Symptom management (Pain/other)- good symptom control at this time; continue treatments per medical team. For the posterior pharyngeal discomfort associated with NG, try various throat lozenges/hard candies and also encouraged her to use the prn pain medications already ordered. Discussed with her in detail the process of weaning off the NG suction as able, and after conversation she was a little bit more settled and less anxious. -DPOA/Advanced Directives/POLST- brief trial of CPR/defibrillation but no intubation or mechanical ventilation. Otherwise, continue aggressive care of her cancer. -Family/emotional support- good support from her family - Palliative medicine will sign off at this time. Please contact us if we may be of further assistance. Additional Medical Diagnoses with primary management by Hospitalist team include : #Recurrent small bowel obstruction, acute. Present on admission. The patient is status post extended right hemicolectomy on November 15, 2014. Hx of Stage IV colon cancer with intraabdominal metastases. Recent admit with SBO. CT abd/pevlis showed significant SBO. #C. difficile colitis, may contribute to current sx, although labs were unremarkable, Likely the etiology behind her Hemoccult positive stool. #Recent Urinary tract infection, Present on admission. #Stage IV colon cancer with intra-abdominal metastases chronic, stable, resolved #Acute kidney injury. Present on admission, mild, Now resolved #Diabetes type 2, Glucose 186 on admission. Pt on Lantus 20U hs and Humalog 6U TIDAC, Continue home Lantus, lispro SS #Chronic hypertension, continue Amlodipine , carvedilol, controlled #Atrial fibrillation, chronic, Continue carvedilol, rate controlled, h/h stable off on coumadin, last INR1.43 on , coumadin discontinued due to FOBT+ #Hyperlipidemia, chronic, continue atorvastatin #Hypothyroidism, chronic, Continue levothyroxine #occult GI bleed in the setting of c.diff, hx of colon cancer, h/h slowly trending down, if remains stable, will resume coumadin #. Other Chronic Problems Cardiomyopathy. Osteoporosis Hyperparathyroidism. Problems: End of Life Preferences Brief CPR/defibrillation; no intubation or mechanical ventilation Goals of Care Recovery from SBO, returned home, continue chemotherapy Disposition To be determined Resuscitation Status Resuscitation Status: Limited Interventions Limited Interventions: Compressions (brief trial), Cardioversion/ Defibrillation (brief trial) . Pain: Mild Symptom management: Pain Total time 35 minutes; >50% face to face with patient , providing counselling regarding plans and recommendations, and in care coordination with her medical teams. Palliative Brief Note Date of Service Jun 23, 2016 . Returned to see patient. Prior to visiting, reviewed her updated records in the EMR and spoke with her bedside nurse. Continues to have significant NG output. Patient continues to complain quite bitterly about the discomfort from the NG in the back of her throat. Has been passing some small amounts of stool and flatus. Denies any significant abdominal pain or cramping at this time. On exam, fatigued-appearing woman lying in bed. Skin is pale, warm and dry. NG tube in place in the right nares. Lungs clear anterolaterally, heart sounds are regular, abdomen soft with occasional bowel sounds. Extremities without pitting edema. Lab and imaging studies reviewed. Chris Watson MD Jun 23, 2016 14:42
--- NOTE | 2016-06-23 14:49 | PCM.PNMED ---
Subjective Date of Service Jun 23, 2016 Subjective Continues to have significant NG tube, afebrile, remains tachycardic. had 2 bowel movement, loose stools. Had nausea this morning. Exam Vital Signs Vital Sign - Last Date Time Temp Pulse Resp B/P Pulse Ox O2 Delivery O2 Flow Rate FiO2 06/23/16 10:16 104 06/23/16 09:30 120/73 06/23/16 09:20 36.7 20 95 Nasal Cannula 2.00 Intake and Output 06/22/16 06/22/16 06/23/16 Cumulative From/Thru 15:00 23:00 07:00 06/16/16 07:14 - 06/23/16 05:34 Intake Total 1713 ml 1437 ml 90342 ml Output Total 1050 ml 600 ml 6180 ml Balance 663 ml 837 ml 68211 ml Intake Oral 0 ml 2170 ml IV Total 1713 ml 1437 ml 05089 ml Output Urine Total 400 ml 2200 ml Urine/Stool Mix 950 ml Gastric Drainage Total 650 ml 600 ml 2050 ml Emesis 980 ml # Voids 2 6 # Bowel Movements 1 11 Exam mildly distressed due to nausea. NG tube to suction no JVD, MMM, no LAD RRR, nl s1, s2 no mrg CTAB, no w,c decreased BS, S, distended, ttp throughout, no tympanic sounds, no guarding/rTd - less tender/distended than prior day warm, no edema, pulses 2/2 IVs and Medications Medications Reviewed: Medications were reviewed in detail Lab and Diagnostics Result Diagram: 06/23/16 0910 06/23/16 0910 X-Rays, CTs and MRIs CT of abdomen and pelvis IMPRESSION: 1. Bilateral low density pleural effusions and compressive atelectasis. 2. Marked gastric distention and marked proximal small bowel dilatation. When today's study is compared with the study dated 06/07/16, the extent of dilatation is slightly increased. These findings raise suspicion for a obstruction secondary to adhesions. This finding was discussed with Dr. Santiago at 11:18 AM on 06/21/16. 3. Small hypodensity midline fluid collection decreased in size when compared with the study dated 06/07/16 and suggestive of a resolving hematoma. Dictated by: Mariluz Odonnell M.D. 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 Admitted for recurrent small bowel obstruction. She started experiencing diarrhea on 06/17/2016 which is not uncommon for her after resolution of the small bowel obstruction, however PCR was done and positive for C. difficile colitis. We had previously discussed discharging home if she tolerates advancing her diet, however her discharge was discontinued due to her diagnosis of C. difficile. active, acute #Recurrent small bowel obstruction, acute. Present on admission. -The patient is status post extended right hemicolectomy on November 15, 2014. Hx of Stage IV colon cancer with intraabdominal metastases. Recent admit with SBO. CT abd/pevlis 06/21 showed significant SBO. -On NG decompression with intermittent low grade suction, keep NPO -will consider surgery consult if pt remains symptomatic with NG, of note pt refused re-surgery of any type, also not a good candidate for surgery, pt is aware of it. -will consider removing NG tube tomorrow if output decreases. #C. difficile colitis, may contribute to current sx, although labs were unremarkable, Likely the etiology behind her Hemoccult positive stool. -Was on oral vancomycin#3/14days then stopped as pt couldn't tolerate po, switch to flagyl 500 q8h iv on 04/21 - continue contact isolation #Recent Urinary tract infection, Present on admission. -Treated with Keflex,off abx #Stage IV colon cancer with intra-abdominal metastases - palliative care following. CODE STATUS changed from full to limited resuscitation chronic, stable, resolved #Acute kidney injury. Present on admission, mild, Now resolved #Diabetes type 2, Glucose 186 on admission. Pt on Lantus 20U hs and Humalog 6U TIDAC, Continue home Lantus, lispro SS #Chronic hypertension, continue Amlodipine , carvedilol, controlled #Atrial fibrillation, chronic, Continue carvedilol, rate controlled, h/h stable off coumadin,, coumadin discontinued due to FOBT+. Patient has C. difficile colitis which can explain FOBT +. Patient high risk for blood clots given metastatic cancer. will resume Coumadin tonight, 06/23 #Hyperlipidemia, chronic, continue atorvastatin #Hypothyroidism, chronic, Continue levothyroxine #occult GI bleed in the setting of c.diff, hx of colon cancer,Hb stable, will resume coumadin #. Other Chronic Problems Cardiomyopathy. Osteoporosis Hyperparathyroidism. CODE STATUS: Limited resuscitation ( no intubation, okay for brief chest compression) DVT prophylaxis: No heparin due to GI bleeding Disposition:2-3more days, pending hospital course VTE Mechanical Devices: Intermittant Pneumatic CD Resuscitation Status: Limited Interventions Limited Interventions: Compressions (brief trial), Cardioversion/ Defibrillation (brief trial) Kyle Connor MD Jun 23, 2016 14:49
[2016-06-23 16:34] LABS: INR 1.11 ratio
[2016-06-23] MEDS ORDERED: Warfarin 2.5 MG, Warfarin 5 MG PO ONE ×2 (17:35)
--- NOTE | 2016-06-23 18:14 | NUR ---
mobility/nausea Indep to BSC No further nausea remainder of shift. Family brought in some hard candy per palliative care recommendations for c/o sore throat.
--- NOTE | 2016-06-23 19:07 | NUR ---
Clarify coumadin Spoke with Dr Connor who stated hold coumadin tonight and will adjust/change dosing tomorrow. Addendum: 06/23/16 at 1923 by ELIE GRANT RN Will write telephone order and fax order to [facility] for clarifcatio of BS/SS insulin
[2016-06-24] VITALS (16 sets, daily range): BP systolic 103–148; BP diastolic 71–95; PULSE 80–129; RESP 16–19; O2SAT 93–97
[2016-06-24] MEDS: metroNIDAZOLE Inj 500 MG in IV Premix 1 EACH IV SCH ×3 (00:52→15:38)
[2016-06-24] MEDS: MeTOProlol 1 mg/mL 5 mL Inj IVPUSH SCH ×4 (03:38→21:43)
--- NOTE | 2016-06-24 04:18 | NUR ---
NGT Pt very frustrated with NG stated "if they don't take it out I will". Pt states her nose hurts and she is miserable. Will continue to monitor
[2016-06-24] MEDS: Insulin Human REGular 300 Unit/3 mL Inj SUBQ SCH ×3 (05:52→18:17)
[2016-06-24 06:03] LABS: BASOPHILS % (AUTO) 0.2 % (0-3); EOSINOPHILS % (AUTO) 0.7 % (0-5); MONOCYTES % (AUTO) 22.4 % (4-12); Mean Corpuscular Volume 89.1 fL (81-100); NEUTROPHILS % (AUTO) 59.9 % (40-74); Platelet Count 312 bil/L (150-400)
[2016-06-24 06:13] LABS: Magnesium 2.1 mg/dL (1.6-2.6); Phosphorus 2.1 mg/dL (2.5-4.9)
[2016-06-24 06:14] LABS: INR 1.18 ratio
[2016-06-24] MEDS: Famotidine Inj 20 MG in IV Premix 1 EACH IV SCH ×2 (07:53→22:34)
--- NOTE | 2016-06-24 08:45 | NUR ---
Social Work Screen Note/Late Entry from 06/23/16 Data and Assessment: EMR Reviewed. Patient is a 81 y/o female that admitted due to small bowel obstruction. Cardroom Supervisor met with patient and patient's spouse, Morro [phone], bedside. Patient and patient's spouse did not voice any social work needs at the current time. Palliative Care is following the patient. SW will continue to follow. Plan: Patient likely to discharge home with no SW needs. SW will continue to follow. America Bill LMSW, ACTenzin
--- NOTE | 2016-06-24 08:52 | NUR ---
PO rx held Held am medication as pt is NPO. aware.
[2016-06-24] MEDS ORDERED: Diltiazem 5 mg/mL 5 mL Inj IVPUSH ONE (09:05)
[2016-06-24] MEDS: D5 0.45% NaCl + KCl 20 mEq/L 1,000 ML IV SCH ×2 (09:23→18:19)
--- NOTE | 2016-06-24 14:00 | DRSVH ---
PROCEDURE: X-RAY ABDOMEN, ONE VIEW ([id number]) INDICATIONS: SMALL BOWEL OBSTRUCTION TECHNIQUE: One view of the abdomen acquired. COMPARISON: [facility], CT, CT ABD PELVIS WO CON, 06/21/2016, 10:36. [facility] ital, CR, XR ABD ACUTE SERIES 3VW, 06/20/2016, 10:52. FINDINGS: Surgical changes and devices: None. Bowel: Bowel gas pattern is normal. Soft tissues: Previously noted small bowel obstruction has improved on today's examination and there is persistent mild gaseous distention of a small bowel loop within the left upper quadrant measuring roughly 4.0 mm. Bowel gas pattern otherwise is normal. Surgical clips within the right upper and lo wer quadrants. Bones: No suspicious bony lesions. IMPRESSION: Overall improvement of small bowel obstructive pattern with persistent mild gaseous diste ntion of small bowel loop within the left upper quadrant. Persistent mild partial small bowel struct ure cannot be excluded. Dictated by: Feng Dunaway [facility] Interpreted: January Luis MD on 06/24/2016 at 14:00 Transcribed by: MELI on 06/24/2016 at 14:00 Approved by: January Luis MD, PhD on 06/24/2016 at 16:46
[2016-06-24] MEDS: 0.9% Sodium Chloride 250 ML IV SCH (14:17)
--- NOTE | 2016-06-24 15:02 | PCM.PNMED ---
Subjective Date of Service Jun 24, 2016 Subjective Continues to have significant NG tube output.700ml/12h. no bowel movement in the last 24. Feels more bloated today. Went into rapid A. fib, increased IV metoprolol from 5 mg to 10 mg every 6h. Gave a dose of Cardizem 10 mg IV.HR in 100's now. Exam Vital Signs Vital Sign - Last Date Time Temp Pulse Resp B/P Pulse Ox O2 Delivery O2 Flow Rate FiO2 06/24/16 13:18 36.7 104 18 137/77 93 Nasal Cannula 2.00 Intake and Output 06/23/16 06/23/16 06/24/16 Cumulative From/Thru 15:00 23:00 07:00 06/16/16 07:14 - 06/24/16 05:57 Intake Total 1058 ml 1353 ml 85425 ml Output Total 1600 ml 475 ml 8255 ml Balance -542 ml 878 ml 14133 ml Intake Oral 0 ml 0 ml 2170 ml IV Total 1058 ml 1353 ml 79615 ml Output Urine Total 2200 ml Urine/Stool Mix 900 ml 1850 ml Gastric Drainage Total 700 ml 400 ml 3150 ml Emesis 75 ml 1055 ml # Voids 2 8 # Bowel Movements 2 13 Exam mildly distressed due to nausea. NG tube to suction no JVD, MMM, no LAD RRR, nl s1, s2 no mrg CTAB, no w,c decreased BS, S, distended, ttp throughout, no tympanic sounds, no guarding/rTd - slightly more tender/distended than prior day warm, no edema, pulses 2/2 IVs and Medications Medications Reviewed: Medications were reviewed in detail Lab and Diagnostics Result Diagram: 06/24/1651406/24/1615 X-Rays, CTs and MRIs CT of abdomen and pelvis IMPRESSION: 1. Bilateral low density pleural effusions and compressive atelectasis. 2. Marked gastric distention and marked proximal small bowel dilatation. When today's study is compared with the study dated 06/07/16, the extent of dilatation is slightly increased. These findings raise suspicion for a obstruction secondary to adhesions. This finding was discussed with Dr. Santiago at 11:18 AM on 06/21/16. 3. Small hypodensity midline fluid collection decreased in size when compared with the study dated 12/12/16 and suggestive of a resolving hematoma. Dictated by: Mariluz Odonnell M.D. 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 Admitted for recurrent small bowel obstruction. She started experiencing diarrhea on 06/17/2016 which is not uncommon for her after resolution of the small bowel obstruction, however PCR was done and positive for C. difficile colitis. We had previously discussed discharging home if she tolerates advancing her diet, however her discharge was discontinued due to her diagnosis of C. difficile. active, acute #Recurrent small bowel obstruction, acute. Present on admission. -The patient is status post extended right hemicolectomy on November 15, 2014. Hx of Stage IV colon cancer with intraabdominal metastases. Recent admit with SBO. CT abd/pevlis 06/21 showed significant SBO. -On NG decompression with intermittent low grade suction, keep NPO -will consult surgery given pt remains symptomatic with NG, of note pt refused re-surgery of any type previously, also not a good candidate for surgery, pt is aware of it. -will consider removing NG tube tomorrow if output decreases. -Patient has been nothing by mouth almost for 8 days, will consider TPN if NGT is not removed in the next 24-hour # Rapid Afib,acute,not present on admission -due to missed po BB -rate now better controlled with increased metoprolol IV dose from 5 mg to 10 mg every 6h. Also gave Cardizem 10 mg 1 dose -Warfarin has been on hold due to SBO, will start Lovenox today #C. difficile colitis, may contribute to current sx, although labs were unremarkable, Likely the etiology behind her Hemoccult positive stool. -Was on oral vancomycin#3/14days then stopped as pt couldn't tolerate po, switch to flagyl 500 q8h iv on 04/21 - continue contact isolation #Recent Urinary tract infection, Present on admission. -Treated with Keflex,off abx #Stage IV colon cancer with intra-abdominal metastases - palliative care following. CODE STATUS changed from full to limited resuscitation chronic, stable, resolved #Acute kidney injury. Present on admission, mild, Now resolved #Diabetes type 2, Glucose 186 on admission. Pt on Lantus 20U hs and Humalog 6U TIDAC, Continue home Lantus, lispro SS #Chronic hypertension, continue Amlodipine , carvedilol, controlled #Atrial fibrillation, chronic, Continue carvedilol, rate controlled, h/h stable off coumadin,, coumadin discontinued due to FOBT+. Patient has C. difficile colitis which can explain FOBT +. Patient high risk for blood clots given metastatic cancer. will start lovenox today 06/24 #Hyperlipidemia, chronic, continue atorvastatin #Hypothyroidism, chronic, Continue levothyroxine #occult GI bleed in the setting of c.diff, hx of colon cancer,Hb stable, start lovenox.will resume coumadin once NGT removed #. Other Chronic Problems Cardiomyopathy. Osteoporosis Hyperparathyroidism. CODE STATUS: Limited resuscitation ( no intubation, okay for brief chest compression) DVT prophylaxis: lovenox diet,npo,possible TPN tmrw Disposition:pending hospital course VTE Mechanical Devices: Intermittant Pneumatic CD Resuscitation Status: Limited Interventions Limited Interventions: Compressions (brief trial), Cardioversion/ Defibrillation (brief trial) Kyle Connor MD Jun 24, 2016 15:02
--- NOTE | 2016-06-24 15:04 | NUR ---
NUTRITION FOLLOW-UP: ASSESS: 81 YO female admitted with small bowel obstruction, which is currently requiring NGT to suction. The patient has also now developed C. diff. Pt has had minimal intake x8 days. She continues to require NGT. Pt. with 6.8 kg wt. loss since 05/18/16 = 9.5% x 1 month = severe protein calorie malnutrition. Per Palliative team, code status includes limited interventions. paged regarding nutrition status and pt's possible need for nutrition support if she continues to require NGT for suction and bowel rest. Pt required TPN during last hospital admit in October PMHx: Stage IV colon cancer with intra-abdominal metastasis, atrial fibrillation, cardiomyopathy, HTN, hypothyroidism, osteoporosis, hyperparathyroidism, T2DM, recurrent SBO. DIET: NPO x 5 days. Minimal PO intake x3 days prior to NPO status. LABS: Reviewed. Na 133, Bun 3, Glu 197, phos 2.1, Alb 2.3 MEDICATIONS: Reviewed. Synthroid, insulin. pressor support. GI symptoms / stool: BM x 3 06/23 Skin Integrity: No issues reported. ANTHROPOMETRICS: Current Wt: 64.7 kg BMI: 23.0 kg/m2. Admit weight: 65.91 kg IBW: 56.8 kg (116.0% IBW) ESTIMATED NEEDS (CANCER, MALNUTRITION): Calories: 1618 - 1977 kcal (25 - 30 kcal / kg BW) Protein: 79 - 99 g protein (1.2 - 1.5 g / kg BW) NUTRITION DIAGNOSIS: 1) Severe protein calorie malnutrition related to metastatic cancer with multiple bowel obstructions, altered GI function, as evidenced by 9.5% weight loss x 1 month - PERSISTS. 2) Inadequate oral intake related to altered GI function as evidence by need for NPO status, NGT and pt with minimal PO intakex8 days.--PERSISTS INTERVENTION: 1) Although patient has limited interventions, recommend consideration of trial of nutrition support as pt has been without nutrition for an extended amount of time 2) If pt continues to require bowel rest, recommend TPN. As pt has had minimal PO intake x8 days and her phos is already low pt is at high risk for re-feeding. Recommend start TPN at ~50% of estimated needs at 140g Dex, 45g AA and 25g lipids to provide 906kcal and 45g pro (~50% estimated needs) 3) Once tolerated, advance to goal macronutrients of 275g dex, 90g AA and 55g lipids to provide 1845kcal and 90g pro (100% estimated needs) MONITOR/EVALUATE: NPO status, nutrition support? diet advance / tolerance, PO intake, labs, GI/nutrition status. Follow up per high nutrition risk guidelines.
--- NOTE | 2016-06-24 16:25 | CONS ---
[address] [address] CONSULTATION REPORT PATIENT: JANEL DEUTSCH : 1935 MR#: [id number] ADMIT: 06/16/2016 JOB ID: [id number] DATE OF SERVICE: 06/24/2016 SURGICAL CONSULTATION: CHIEF COMPLAINT/IDENTIFICATION: I have been asked by the hospitalist service to re-consult on this 81-year-old woman with a question of a small bowel obstruction. HISTORY OF PRESENT ILLNESS: The patient is well known to me. She was admitted on June 16 with vomiting and dehydration and seen by Dr. Petersen in consultation who felt at that time that she did not have a mechanical bowel obstruction but that she had chemotherapy related enteritis. At that time she had had a loose bloody bowel movement in the previous 24 hours. She was hydrated this hospitalization, had a Port-A-Cath placed by Dr. Quan, began on a diet, was seen by Palliative Care, but ended up having a nasogastric tube placed due to nausea and vomiting. Her nasogastric tube has put out over a liter both previous 24 hours and her abdominal imaging is consistent with a small bowel obstruction. I am asked to see her for a surgical consultation. Past medical history, medications, allergies, social history, review of systems unchanged from multiple previous consultations and Dr. Petersen' note on June 16. PHYSICAL EXAMINATION: Her BMI is recorded at 23.7. Vital signs are within normal limits though her heart rate is slightly elevated at 101 and 104. Directed examination shows that she has a nasogastric tube in with a bilious output. Her abdomen is a bit distended. Bowel tones are quiet. No hyperactive bowel tones. Rectal examination is not performed. LABORATORIES: White count today is 4.3, hematocrit is 32. Chemistries are more or less normal. LFTs are normal. Her albumin is 2.3 and it has been below 3 since June 17. IMAGING: I have reviewed her abdominal x-rays from today as well as her imaging from June 20 and that includes abdominal x-rays and an abdominal CAT scan. She only has one view of the abdomen today, but this demonstrates a dilated stomach, what may be colon and what may be small bowel but really not much small bowel gas. This is compared to a CT scan that definitely showed some decompressed distal small bowel and previous three views of the abdomen that showed air fluid levels. IMPRESSION AND PLAN: I believe that the patient does have an element of chronic partial obstruction but I am not sure that that is her main problem. She may well have some sort of an ileus or she may have an entirely new problem with some sort of gastric outlet obstruction. At this point, I do not think that she would tolerate any sort of a surgical exploration, partly due to her cancer but as well due to her overall poor nutritional status given the fact that she has had really minimal p.o. intake over the past two weeks. My recommendation would be to keep her nasogastric tube in place, decide on whether total parenteral nutrition would be appropriate, and if so, start that to bolster her nutritional status. It might benefit the patient to have Palliative Care and Dr. Fairbanks weigh in regarding the issue of total parental nutrition. I am not sure that General Surgery at this point has much to offer her but we will follow along at least through tomorrow.
--- NOTE | 2016-06-24 16:28 | NUR ---
NG/Mobility/Nutrition NG out about 6 inches from yesterday, re-inserted so that the 55 marii is just outside her nose. Very uncomfortable for patient, NG re-taped and safety pinned to gown. Pt reports feeling weak. Continues to be able to indep transfer self to [facility]. Asking about nutrition, states Dr Flores discussed this with her.
[2016-06-24] MEDS ORDERED: Warfarin 5 MG, Warfarin 2.5 MG PO ONE ×2 (17:00)
[2016-06-25] VITALS (8 sets, daily range): BP systolic 131–148; BP diastolic 81–97; PULSE 54–122; RESP 16–20; O2SAT 98–99
[2016-06-25] MEDS: metroNIDAZOLE Inj 500 MG in IV Premix 1 EACH IV SCH ×3 (00:50→16:59)
[2016-06-25] MEDS: Insulin Human REGular 300 Unit/3 mL Inj SUBQ SCH ×3 (00:57→18:17)
[2016-06-25] MEDS: MeTOProlol 1 mg/mL 5 mL Inj IVPUSH SCH ×4 (04:19→21:47)
[2016-06-25] MEDS: D5 0.45% NaCl + KCl 20 mEq/L 1,000 ML IV SCH ×3 (04:19→21:15)
[2016-06-25] MEDS: Ondansetron 2 mg/mL 2 mL Inj IVPUSH PRN (04:58)
[2016-06-25 06:11] LABS: BASOPHILS % (AUTO) 0.4 % (0-3); EOSINOPHILS % (AUTO) 0.6 % (0-5); MONOCYTES % (AUTO) 20.1 % (4-12); Mean Corpuscular Hemoglobin 29.9 pg (27.0-35.0); Mean Corpuscular Volume 89.7 fL (81-100); NEUTROPHILS % (AUTO) 64.1 % (40-74); Platelet Count 300 bil/L (150-400)
[2016-06-25 06:13] LABS: INR 1.25 ratio
[2016-06-25 06:21] LABS: Magnesium 1.8 mg/dL (1.6-2.6)
[2016-06-25] MEDS ORDERED: TPN Per Pharmacist XX ONE (08:00)
--- NOTE | 2016-06-25 08:54 | PCM.PNSURG ---
Subjective Date of Service: Jun 25, 2016 Date of Service: Jun 25, 2016 Visit Information: Reason for Visit Partial Small Bowel Obstruction Date of Admission: Jun 16, 2016 at 10:07 Hospital Day #10 Subjective: Patient was seen sitting up in bed, denies abdominal pain. She did have 1 episode of emesis this morning. She is not passing flatus, but had a large bowel movement yesterday and a small one last night. She is nothing by mouth with a NG tube in place, 900 mL of output yesterday. She has been nothing by mouth for 8-9 days at this point. Postop General: No Complaints Gastrointestinal: Passing Stool Objective Vital Sign- Last 8 Hours Date Time Temp Pulse Resp B/P Pulse Ox O2 Delivery O2 Flow Rate FiO2 06/25/16 04:51 36.6 110 17 131/85 98 Room Air 06/25/16 04:26 95 06/25/16 00:58 Supplement Oxygen Intake and Output- Last 8 Hour 06/25/16 Cumulative From/Thru 07:00 06/16/16 07:14 - 06/25/16 06:22 Intake Total 1232 ml 35201 ml Output Total 700 ml 80422 ml Balance 532 ml 72131 ml Intake Oral 2170 ml IV Total 1082 ml 85620 ml Tube Feeding 150 ml 150 ml Output Urine Total 3550 ml Urine/Stool Mix 400 ml 2250 ml Gastric Drainage Total 3650 ml Emesis 300 ml 1355 ml # Voids 8 # Bowel Movements 14 General: Alert, Oriented X3, Cooperative, No Acute Distress Lungs: Clear to Auscultation Heart: Other (irregularly irregular rate and rhythm consistent with A. fib) Abdomen: Soft, Distended (very mildly), Other (mildly tender to palpation in the epigastric and fco-umbilical region) Extremities: Thigh&Calf Soft/Nontender Neuro: Normal Speech Catheters: None Result Diagram: 06/25/16 0535 06/25/16 0535 Assessment & Plan Impression Primary diagnosis: Stage IV colon cancer with intra-abdominal metastases Recurrent small bowel obstruction C. difficile colitis Other diagnoses: Atrial fibrillation Diabetes Hypertension Hypothyroidism Status post extended right hemicolectomy 11/15/2014 Recent urinary tract infection Problems: Plan Continue NG tube, due to emesis this morning and overall high output. Remain nothing by mouth, start TPN. Continue antibiotics as indicated for C. difficile. VTE Prophylaxis: Sub-Q Enoxaparin Resuscitation Status: Limited Interventions Limited Interventions: Compressions (brief trial), Cardioversion/ Defibrillation (brief trial) Nicci Andrade PA-C Jun 25, 2016 08:54
[2016-06-25] MEDS: Famotidine Inj 20 MG in IV Premix 1 EACH IV SCH ×2 (09:06→21:21)
[2016-06-25] MEDS ORDERED: Sodium Phosphate Inj 20 MEQ in Dextrose 5% 250 ML IV ONE (09:55)
--- NOTE | 2016-06-25 10:33 | NUR ---
NUTRITION FOLLOW-UP: ASSESS: 81 YO female admitted with small bowel obstruction, which is currently requiring NGT to suction due to high output and reoccurring emesis . The patient has also developed C. diff. Pt has had minimal intake x9 days. Due to continued need for bowel rest, TPN is to start today. At this point surgery MD does not think pt is a good candidate for surgery. Pharmacy is aware of nutrition recommendations. Pt is at risk for re-feeding due to minimal PO intake and phos continues to run low. PMHx: Stage IV colon cancer with intra-abdominal metastasis, atrial fibrillation, cardiomyopathy, HTN, hypothyroidism, osteoporosis, hyperparathyroidism, T2DM, recurrent SBO. DIET: NPO x 5 days. Minimal PO intake x4 days prior to NPO status. LABS: Reviewed. Na 133, Bun 6, Glu 197, phos 2.2, alb 2.4 MEDICATIONS: Reviewed. Synthroid, insulin. GI symptoms / stool: BM x 1 06/24 Skin Integrity: No issues reported. ANTHROPOMETRICS: Current Wt: 68.9 kg BMI: 25.3 kg/m2. Admit weight: 65.91 kg IBW: 56.8 kg ESTIMATED NEEDS (CANCER, MALNUTRITION): Calories: 1618 - 1977 kcal (25 - 30 kcal / kg BW) Protein: 79 - 99 g protein (1.2 - 1.5 g / kg BW) NUTRITION DIAGNOSIS: 1) Severe protein calorie malnutrition related to metastatic cancer with multiple bowel obstructions, altered GI function, as evidenced by 9.5% weight loss x 1 month - PERSISTS. 2) Inadequate oral intake related to altered GI function as evidence by need for NPO status, NGT and pt with minimal PO intakex8 days.--PERSISTS INTERVENTION: 1) TPN to start tonight. As pt has had minimal PO intake x8 days and her phos is already low pt is at high risk for re-feeding. Recommend start TPN at ~50% of estimated needs at 140g Dex, 45g AA and 25g lipids to provide 906kcal and 45g pro (~50% estimated needs) 2) Once tolerated, advance to goal macronutrients of 275g dex, 90g AA and 55g lipids to provide 1845kcal and 90g pro (100% estimated needs) MONITOR/EVALUATE: NPO status, TPN, labs, diet advance / tolerance, PO intake, GI/nutrition status. Follow up per high nutrition risk guidelines.
--- NOTE | 2016-06-25 11:10 | PCM.PNMED ---
Subjective Date of Service Jun 25, 2016 Subjective Continues to have significant NG tube output. She also had one episode of vomiting this morning. afebrile. Heart rate fairly controlled. Will start TPN today via port Exam Vital Signs Vital Sign - Last Date Time Temp Pulse Resp B/P Pulse Ox O2 Delivery O2 Flow Rate FiO2 06/25/16 09:00 36.5 54 20 132/93 98 Nasal Cannula 2.00 Intake and Output 06/24/16 06/24/16 06/25/16 Cumulative From/Thru 15:00 23:00 07:00 06/16/16 07:14 - 06/25/16 06:22 Intake Total 1323 ml 1232 ml 01026 ml Output Total 1850 ml 700 ml 58266 ml Balance -527 ml 532 ml 81515 ml Intake Oral 0 ml 2170 ml IV Total 1323 ml 1082 ml 09034 ml Tube Feeding 150 ml 150 ml Output Urine Total 1350 ml 3550 ml Urine/Stool Mix 400 ml 2250 ml Gastric Drainage Total 500 ml 3650 ml Emesis 300 ml 1355 ml # Voids 8 # Bowel Movements 1 14 Exam mildly distressed due to nausea. NG tube to suction no JVD, MMM, no LAD RRR, nl s1, s2 no mrg CTAB, no w,c decreased BS, S, distended, ttp throughout, no tympanic sounds, no guarding/rTd - abdominal exam unchanged from yesterday warm, no edema, pulses 2/2 IVs and Medications Medications Reviewed: Medications were reviewed in detail Lab and Diagnostics Result Diagram: 06/25/16 0535 06/25/16 0535 X-Rays, CTs and MRIs CT of abdomen and pelvis IMPRESSION: 1. Bilateral low density pleural effusions and compressive atelectasis. 2. Marked gastric distention and marked proximal small bowel dilatation. When today's study is compared with the study dated 06/07/16, the extent of dilatation is slightly increased. These findings raise suspicion for a obstruction secondary to adhesions. This finding was discussed with Dr. Santiago at 11:18 AM on 06/21/16. 3. Small hypodensity midline fluid collection decreased in size when compared with the study dated 06/07/16 and suggestive of a resolving hematoma. Dictated by: Mariluz Odonnell M.D. 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 Admitted for recurrent small bowel obstruction. She started experiencing diarrhea on 06/17/2016 which is not uncommon for her after resolution of the small bowel obstruction, however PCR was done and positive for C. difficile colitis. We had previously discussed discharging home if she tolerates advancing her diet, however her discharge was discontinued due to her diagnosis of C. difficile. active, acute #Recurrent small bowel obstruction, acute. Present on admission. -The patient is status post extended right hemicolectomy on November 15, 2014. Hx of Stage IV colon cancer with intraabdominal metastases. Recent admit with SBO. CT abd/pevlis 06/21 showed significant SBO. -On NG decompression with intermittent low grade suction, keep NPO -consulted surgery, pt not a good candidate for surgery -will consider removing NG tube tomorrow if output decreases. -will start TPN today # Rapid Afib,acute,not present on admission -due to missed po BB -rate now better controlled with increased metoprolol IV dose from 5 mg to 10 mg every 6h. Also gave Cardizem 10 mg 1 dose on 06/24 -Warfarin has been on hold due to SBO, started Lovenox 06/24 #C. difficile colitis, may contribute to current sx, although labs were unremarkable, Likely the etiology behind her Hemoccult positive stool. -Was on oral vancomycin#3/14days then stopped as pt couldn't tolerate po, switch to flagyl 500 q8h iv on 04/21 - continue contact isolation #Recent Urinary tract infection, Present on admission. -Treated with Keflex,off abx #Stage IV colon cancer with intra-abdominal metastases - palliative care following. CODE STATUS changed from full to limited resuscitation chronic, stable, resolved #Acute kidney injury. Present on admission, mild, Now resolved #Diabetes type 2, Glucose 186 on admission. Pt on Lantus 20U hs and Humalog 6U TIDAC, Continue home Lantus, lispro SS #Chronic hypertension, continue Amlodipine , carvedilol, controlled #Atrial fibrillation, chronic, Continue carvedilol, rate controlled, h/h stable off coumadin,, coumadin discontinued due to FOBT+. Patient has C. difficile colitis which can explain FOBT +. Patient high risk for blood clots given metastatic cancer. will start lovenox today 06/24 #Hyperlipidemia, chronic, continue atorvastatin #Hypothyroidism, chronic, Continue levothyroxine #occult GI bleed in the setting of c.diff, hx of colon cancer,Hb stable, start lovenox.will resume coumadin once NGT removed #. Other Chronic Problems Cardiomyopathy. Osteoporosis Hyperparathyroidism. CODE STATUS: Limited resuscitation ( no intubation, okay for brief chest compression) DVT prophylaxis: lovenox diet,npo,possible TPN tmrw Disposition:pending hospital course VTE Prophylaxis: Sub-Q Enoxaparin VTE Mechanical Devices: Intermittant Pneumatic CD Resuscitation Status: Limited Interventions Limited Interventions: Compressions (brief trial), Cardioversion/ Defibrillation (brief trial) Kyle Connor MD Jun 25, 2016 11:10
[2016-06-25] MEDS: 0.9% Sodium Chloride 250 ML IV SCH (14:17)
--- NOTE | 2016-06-25 14:50 | PCM.PHAPRO ---
Progress Nausea vomiting TPN PARENTERAL NUTRITION ORDERS #1 25-Jun-16 Standard Hang Time: 2100 Substrates Total kcal: 906 AMINO ACIDS 45 g DEXTROSE 140 g Total Volume (mL): 1500 LIPIDS 25 g Sterile Water for Injection QS mL To Infuse Over (hrs): 24 Total Volume 1500 mL At at a rate of (mL/hr): 63 Additives Sodium Chloride 110 mEq "typical" daily requirements Sodium Acetate 0 mEq Sodium 50-120mEq Potassium Chloride 0 mEq Potassium 60-120mEq Potassium Phosphate 40 mEq Phosphate 20-40mEq Calcium Gluconate 0 mEq Magnesium 8-32mEq Magnesium Sulfate 16 mEq Calcium 9-22mEq Acetate* 80-120mEq Chloride* 80-120mEq Regular Insulin 0 units *Depending on acid-base status Famotidine 20 mg Multivitamins 1 std dose Insulin Regimen Trace Elements 1 std dose none Thiamine 100 mg Regular Low Intensity Subcut Folic Acid 1 mg Regular Medium Intensity Subcut Ascorbic Acid 0 mg Regular High Intensity Subcut Regular Insulin Infusion Other: Special Instructions: To be infused via central line only. For delay or interruption of TPN contact the pharmacist for alternative replacement solution. Signature Date: JANEL DEUTSCH 242-1 [facility] Landy Meier PharmD Jun 25, 2016 14:50
--- NOTE | 2016-06-25 16:13 | NUR ---
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 No care needs idetified at this time. Provided patient with my card to call me with any questions or concerns she may have. Will continue to follow and address any needs as they arise.
[2016-06-25] MEDS ORDERED: Warfarin 5 MG, Warfarin 2.5 MG PO ONE ×2 (17:00)
--- NOTE | 2016-06-25 17:25 | NUR ---
Nutrition Patient to start TPN as planned, awaiting pharmacy management. No N/V noted, denies any pain this shift. Will continue to monitor.
[2016-06-25] MEDS: Total Parenteral Nutrition 1 BAG IV SCH (21:22)
[2016-06-26] VITALS (9 sets, daily range): BP systolic 145–157; BP diastolic 79–104; PULSE 83–122; RESP 15–18; O2SAT 97–98
[2016-06-26] MEDS: Ondansetron 2 mg/mL 2 mL Inj IVPUSH PRN (00:01)
[2016-06-26] MEDS: 0.9% Sodium Chloride 250 ML IV SCH ×2 (00:47→14:17)
[2016-06-26] MEDS: metroNIDAZOLE Inj 500 MG in IV Premix 1 EACH IV SCH ×3 (00:47→17:11)
[2016-06-26] MEDS: MeTOProlol 1 mg/mL 5 mL Inj IVPUSH SCH ×4 (03:39→21:29)
--- NOTE | 2016-06-26 04:26 | NUR ---
Nausea/HR Pt c/o nausea, Zofran administered, ineffective. Pt had 500cc dark green emesis. NG was found to be out approximately 5 inches. NG re-inserted and taped at end of nose (55 marii) with skin prep and Tegaderm. NG to LIS. Pt reported feeling "much better" and appears to be resting comfortably at this time. HR to 120's per camera repair technician, scheduled IV Metoprolol effective, HR decreased to low 90's.
[2016-06-26] MEDS: D5 0.45% NaCl + KCl 20 mEq/L 1,000 ML IV SCH ×2 (07:15→17:15)
[2016-06-26] MEDS: Famotidine Inj 20 MG in IV Premix 1 EACH IV SCH ×2 (08:20→20:30)
[2016-06-26] MEDS: Insulin Human REGular 300 Unit/3 mL Inj SUBQ SCH (08:57)
[2016-06-26 10:04] LABS: BASOPHILS % (AUTO) 0.5 % (0-3); EOSINOPHILS % (AUTO) 0.2 % (0-5); MONOCYTES % (AUTO) 14.8 % (4-12); Mean Corpuscular Hemoglobin 29.9 pg (27.0-35.0); Mean Corpuscular Volume 88.5 fL (81-100); NEUTROPHILS % (AUTO) 73.2 % (40-74); Platelet Count 280 bil/L (150-400)
[2016-06-26 10:34] LABS: Magnesium 1.8 mg/dL (1.6-2.6)
[2016-06-26 10:50] LABS: INR 1.16 ratio
[2016-06-26] MEDS ORDERED: Glucose 40% Oral Gel 15 Gm Tube PO PRN (11:00)
--- NOTE | 2016-06-26 11:05 | DRSVH ---
PROCEDURE: X-RAY ABDOMEN, ONE VIEW ([id number]) INDICATIONS: 81 year-old female with small bowel obstruction. TECHNIQUE: One view of the abdomen acquired. COMPARISON: [facility], CR, XR ABD AP 1VW, 06/24/2016, 12:05. [facility], C T, CT ABD PELVIS WO CON, 06/21/2016, 10:36. [facility], CR, XR ABD ACUTE SERIES 3VW, , 10:52. FINDINGS: Surgical changes and devices: Nasogastric tube remains in expected position, with tip in the proximal gastric lumen. Cholecystectomy clips, right lower quadrant clips, and bilateral inguinal surgical cl ips are again noted. Bowel: Bowel gas pattern is now normal, with scant small bowel gas. Soft tissues: No suspicious abdominal calcifications. Visualized solid organ contours appear normal in size. Bones: No suspicious bony lesions. There is mild lumbar spine levoscoliosis. IMPRESSION: Interval radiographic resolution of small bowel obstruction. Dictated by: Rich Cuevas M.D. on 06/26/2016 at 11:03 Approved by: Rich Cuevas M.D. on 06/26/2016 at 11:03
--- NOTE | 2016-06-26 11:13 | NUR ---
ZIYAD signed. MELONIE Maloney
--- NOTE | 2016-06-26 11:34 | PCM.PHAPRO ---
Progress PARENTERAL NUTRITION ORDERS #2 26-Jun-16 Standard Hang Time: 2100 Substrates Total kcal: 906 AMINO ACIDS 45 g DEXTROSE 140 g Total Volume (mL): 1000 LIPIDS 25 g Sterile Water for Injection QS mL To Infuse Over (hrs): 24 Total Volume 1000 mL At at a rate of (mL/hr): 42 Additives Sodium Chloride 120 mEq "typical" daily requirements Sodium Acetate 0 mEq Sodium 50-120mEq Potassium Chloride 10 mEq Potassium 60-120mEq Potassium Phosphate 30 mEq Phosphate 20-40mEq Calcium Gluconate 0 mEq Magnesium 8-32mEq Magnesium Sulfate 16 mEq Calcium 9-22mEq Acetate* 80-120mEq Chloride* 80-120mEq Regular Insulin 0 units *Depending on acid-base status Famotidine 0 mg Multivitamins 1 std dose Insulin Regimen Trace Elements 1 std dose none Thiamine 100 mg Regular Low Intensity Subcut Folic Acid 1 mg Regular Medium Intensity Subcut Ascorbic Acid 0 mg Regular High Intensity Subcut Regular Insulin Infusion Other: Special Instructions: To be infused via central line only. For delay or inturruption of TPN contact the pharmacist for alternative replacement solution. JANEL DEUTSCH ALEmily 242-1 Signature Date: [facility] Jun 26, 2016 11:33
--- NOTE | 2016-06-26 13:13 | PCM.PNSURG ---
Subjective Visit Information: Reason for Visit Partial Small Bowel Obstruction Surgery/Surgery Date Post-Op Day # Date of Admission: Jun 16, 2016 at 10:07 Hospital Day # Subjective: Chart reviewed. Two surgeons on this admission agree that she is not a surgical candidate. Objective Vital Sign- Last 8 Hours Date Time Temp Pulse Resp B/P Pulse Ox O2 Delivery O2 Flow Rate FiO2 06/26/16 10:05 36.6 120 18 145/93 98 Nasal Cannula 2.00 06/26/16 09:03 99 06/26/16 08:37 Supplement Oxygen Intake and Output- Last 8 Hour 06/26/16 Cumulative From/Thru 07:00 06/16/16 07:14 - 06/26/16 06:27 Intake Total 1495 ml 60806 ml Output Total 1150 ml 21231 ml Balance 345 ml 44386 ml Intake Oral 2170 ml IV Total 1021 ml 30295 ml Tube Feeding 150 ml TPN/PPN 474 ml 474 ml Output Urine Total 650 ml 5250 ml Urine/Stool Mix 2250 ml Gastric Drainage Total 3750 ml Emesis 500 ml 1855 ml # Voids 8 # Bowel Movements 1 16 Result Diagram: 06/26/16 0905 06/26/16 0905 Assessment & Plan Impression Continue nonoperative management as recommended by Dr. Petersen and Dr. Phan, my partners. General surgery to sign off, but available for questions as they arise. Problems: VTE Prophylaxis: Sub-Q Enoxaparin Resuscitation Status: Limited Interventions Limited Interventions: Compressions (brief trial), Cardioversion/ Defibrillation (brief trial) Libia Xie MD Jun 26, 2016 13:13
--- NOTE | 2016-06-26 13:19 | NUR ---
NUTRITION FOLLOW-UP: ASSESS: 81 YO female admitted with small bowel obstruction, which is currently requiring NGT to suction due to high output and reoccurring emesis. The patient has also developed C. diff. Pt has had minimal intake x 10 days, due to continued need for bowel rest. TPN initiated yesterday at 50% goal macronutrient recommendation. Labs indicate TPN well tolerated; however, refeeding is still legitimate concern. At this point surgery does not think pt is a surgical candidate. PMHx:Stage IV colon cancer with intra-abdominal metastasis, atrial fibrillation, cardiomyopathy, HTN, hypothyroidism, osteoporosis, hyperparathyroidism, T2DM, recurrent SBO. DIET: NPO x 6 days. Minimal PO intake x 4 days prior to NPO status. TPN:140g Dex, 45g AA and 25g lipids to provide 906kcal and 45g pro (~50% estimated needs) LABS: Reviewed. Na 131, Glu 261, Alb 2.0. MEDICATIONS: Reviewed. Synthroid, insulin, lopressor, coumadin. GI symptoms / stool: BM x 1 today. Skin Integrity: No issues reported. Peng 14. ANTHROPOMETRICS: Current Wt: 68.9 kg BMI: 25.3 kg/m2. Admit weight: 65.91 kg IBW: 56.8 kg ESTIMATED NEEDS (CANCER, MALNUTRITION): Calories: 1618 - 1977 kcal (25 - 30 kcal / kg BW) Protein: 79 - 99 g protein (1.2 - 1.5 g / kg BW) NUTRITION DIAGNOSIS: 1) Severe protein calorie malnutrition related to metastatic cancer with multiple bowel obstructions, altered GI function, as evidenced by 9.5% weight loss x 1 month - PERSISTS. 2) Inadequate oral intake related to altered GI function as evidence by need for NPO status, NGT and pt with minimal PO intake x 10 days - PERSISTS. INTERVENTION: 1) Once tolerated, recommend advance macronutrients in TPN to goal macronutrients of 275g dex, 90g AA and 55g lipids to provide 1845kcal and 90g pro (100% estimated needs). Refeeding risk will likely be resolved by tomorrow. Recommend advance TPN either tomorrow (06/27) or Wednesday 06/28 latest, depending on K, Mg, Phos labs. MONITOR/EVALUATE: NPO status, TPN tolerance / advance, labs, diet advance / tolerance, PO intake, GI/nutrition status. Follow up per high nutrition risk guidelines.
[2016-06-26] MEDS ORDERED: Insulin LISPRO 300 Unit/3 mL Inj SUBQ SCH (14:30)
--- NOTE | 2016-06-26 16:14 | PCM.PNMED ---
Subjective Date of Service Jun 26, 2016 Subjective She had vomiting overnight. 100 ml gastric output overnight. X-ray shows resolving obstruction. Clamped NG tube but patient complained of nausea and worsening bloating. NG tube reconnected to suction. on TPN Exam Vital Signs Vital Sign - Last Date Time Temp Pulse Resp B/P Pulse Ox O2 Delivery O2 Flow Rate FiO2 06/26/16 15:56 36.4 101 18 148/79 98 Nasal Cannula 06/26/16 10:05 2.00 Intake and Output 06/25/16 06/25/16 06/26/16 Cumulative From/Thru 15:00 23:00 07:00 06/16/16 07:14 - 06/26/16 06:27 Intake Total 648 ml 1495 ml 07451 ml Output Total 1150 ml 1150 ml 60363 ml Balance -502 ml 345 ml 00876 ml Intake Oral 2170 ml IV Total 648 ml 1021 ml 19260 ml Tube Feeding 150 ml TPN/PPN 474 ml 474 ml Output Urine Total 1050 ml 650 ml 5250 ml Urine/Stool Mix 2250 ml Gastric Drainage Total 100 ml 3750 ml Emesis 500 ml 1855 ml # Voids 8 # Bowel Movements 1 1 16 Exam mildly distressed due to nausea. NG tube to suction no JVD, MMM, no LAD RRR, nl s1, s2 no mrg CTAB, no w,c decreased BS, S, distended, ttp throughout, no tympanic sounds, no guarding/rTd - abdominal exam unchanged from yesterday warm, no edema, pulses 2/2 IVs and Medications Medications Reviewed: Medications were reviewed in detail Lab and Diagnostics Result Diagram: 06/26/1690406/26/16 09 X-Rays, CTs and MRIs CT of abdomen and pelvis IMPRESSION: 1. Bilateral low density pleural effusions and compressive atelectasis. 2. Marked gastric distention and marked proximal small bowel dilatation. When today's study is compared with the study dated 06/07/16, the extent of dilatation is slightly increased. These findings raise suspicion for a obstruction secondary to adhesions. This finding was discussed with Dr. Santiago at 11:18 AM on 06/21/16. 3. Small hypodensity midline fluid collection decreased in size when compared with the study dated 06/07/16 and suggestive of a resolving hematoma. Dictated by: Mariluz Odonnell M.D. 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 Admitted for recurrent small bowel obstruction. She started experiencing diarrhea on 06/17/2016 which is not uncommon for her after resolution of the small bowel obstruction, however PCR was done and positive for C. difficile colitis. We had previously discussed discharging home if she tolerates advancing her diet, however her discharge was discontinued due to her diagnosis of C. difficile. active, acute #Recurrent small bowel obstruction, acute. Present on admission. -The patient is status post extended right hemicolectomy on November 15, 2014. Hx of Stage IV colon cancer with intraabdominal metastases. Recent admit with SBO. CT abd/pevlis 06/21 showed significant SBO. -On NG decompression with intermittent low grade suction, keep NPO -consulted surgery, pt not a good candidate for surgery -She had vomiting overnight. 100 ml gastric output overnight. X-ray shows resolving obstruction. Clamped NG tube but patient complained of nausea and worsening bloating. NG tube reconnected to suction. on TPN -started TPN 06/25 # Rapid Afib,acute,not present on admission,resolved -due to missed po BB -rate now better controlled with increased metoprolol IV dose from 5 mg to 10 mg every 6h. Also gave Cardizem 10 mg 1 dose on 06/24 -Warfarin has been on hold due to SBO, started Lovenox 06/24 #C. difficile colitis, may contribute to current sx, although labs were unremarkable, Likely the etiology behind her Hemoccult positive stool. -Was on oral vancomycin#3/14days then stopped as pt couldn't tolerate po, switch to flagyl 500 q8h iv on 04/21 - continue contact isolation #Recent Urinary tract infection, Present on admission. -Treated with Keflex,off abx #Stage IV colon cancer with intra-abdominal metastases - palliative care following. CODE STATUS changed from full to limited resuscitation chronic, stable, resolved #Acute kidney injury. Present on admission, mild, Now resolved #Diabetes type 2, Glucose 186 on admission. Pt on Lantus 20U hs and Humalog 6U TIDAC, Continue home Lantus, lispro SS #Chronic hypertension, continue Amlodipine , carvedilol, controlled #Atrial fibrillation, chronic, Continue carvedilol, rate controlled, h/h stable off coumadin,, coumadin discontinued due to FOBT+. Patient has C. difficile colitis which can explain FOBT +. Patient high risk for blood clots given metastatic cancer. will start lovenox today 06/24 #Hyperlipidemia, chronic, continue atorvastatin #Hypothyroidism, chronic, Continue levothyroxine #occult GI bleed in the setting of c.diff, hx of colon cancer,Hb stable, start lovenox.will resume coumadin once NGT removed #. Other Chronic Problems Cardiomyopathy. Osteoporosis Hyperparathyroidism. CODE STATUS: Limited resuscitation ( no intubation, okay for brief chest compression) DVT prophylaxis: lovenox diet,npo,possible TPN tmrw Disposition:pending hospital course VTE Prophylaxis: Sub-Q Enoxaparin VTE Mechanical Devices: Intermittant Pneumatic CD Resuscitation Status: Limited Interventions Limited Interventions: Compressions (brief trial), Cardioversion/ Defibrillation (brief trial) Kyle Connor MD Jun 26, 2016 16:14
[2016-06-26] MEDS ORDERED: Warfarin 5 MG, Warfarin 2.5 MG PO ONE ×2 (17:00)
--- NOTE | 2016-06-26 18:30 | NUR ---
NG Tube Addendum: 06/26/16 at 1834 by MEI PATTEN RN MD requested to trial clamping the NG tube. NG tube was clamped for approximally two hours when patient began complaining of abdominal bloating and discomfort. notified and NG tube was restarted on LIS. Pt reports no discomfort currently.
[2016-06-26] MEDS: Total Parenteral Nutrition 1 BAG IV SCH (21:00)
[2016-06-26] MEDS: Insulin LISPRO 300 Unit/3 mL Inj SUBQ SCH (23:09)
[2016-06-27] VITALS (11 sets, daily range): BP systolic 132–153; BP diastolic 69–95; PULSE 90–114; RESP 16–20; O2SAT 96–98
[2016-06-27] MEDS: D5 0.45% NaCl + KCl 20 mEq/L 1,000 ML IV SCH ×2 (00:05→13:15)
[2016-06-27] MEDS: metroNIDAZOLE Inj 500 MG in IV Premix 1 EACH IV SCH ×3 (00:06→16:24)
[2016-06-27] MEDS: MeTOProlol 1 mg/mL 5 mL Inj IVPUSH SCH ×4 (03:21→21:23)
[2016-06-27] MEDS: Insulin LISPRO 300 Unit/3 mL Inj SUBQ SCH ×4 (05:10→23:00)
--- NOTE | 2016-06-27 06:15 | NUR ---
NGT pt NGT patent on low intermittent suction, drained green bilious material, drain 800mls.
[2016-06-27] MEDS: Famotidine Inj 20 MG in IV Premix 1 EACH IV SCH ×2 (08:54→19:58)
[2016-06-27] MEDS: 0.9% Sodium Chloride 250 ML IV SCH (10:17)
--- NOTE | 2016-06-27 11:05 | NUR ---
Social Work-continued d/c planning: Data& assessment:EMR Reviewed. Pt is on day 11 of hospitalization for partial small bowel obstruction per H&P. Per MD, pt will remain in the hospital for several more days. Pt remains with NG tube in place and has been receiving TPN while hospitalized. MD unsure if pt will need TPN at discharge. Per Rounds, MD to order palliative care to meet with pt and to discuss goals of care. Per RN notes, pt has been up in her room. SW to continue to follow. Plan:Anticipate pt to discharge home when medically stable. R/O TPN and HH needs. Palliative care consult is pending. SW to continue to follow. MELONIE Maloney
[2016-06-27] MEDS: Insulin GLARgine 100 Unit/mL Syringe SUBQ SCH (11:13)
[2016-06-27 11:38] LABS: INR 1.11 ratio
[2016-06-27 11:39] LABS: Magnesium 1.9 mg/dL (1.6-2.6); Phosphorus 1.9 mg/dL (2.5-4.9)
[2016-06-27] MEDS ORDERED: Sodium Phosphate Inj 20 MEQ in Dextrose 5% 250 ML IV ONE (12:00)
--- NOTE | 2016-06-27 12:01 | PCM.PHAPRO ---
Progress PARENTERAL NUTRITION ORDERS #3 27-Jun-16 Standard Hang Time: 2100 Substrates Total kcal: 906 AMINO ACIDS 45 g DEXTROSE 140 g Total Volume (mL): 1000 LIPIDS 25 g Sterile Water for Injection QS mL To Infuse Over (hrs): 24 Total Volume 1000 mL At at a rate of (mL/hr): 42 Additives Sodium Chloride 130 mEq "typical" daily requirements Sodium Acetate 0 mEq Sodium 50-120mEq Potassium Chloride 10 mEq Potassium 60-120mEq Potassium Phosphate 40 mEq Phosphate 20-40mEq Calcium Gluconate 0 mEq Magnesium 8-32mEq Magnesium Sulfate 16 mEq Calcium 9-22mEq Acetate* 80-120mEq Chloride* 80-120mEq Regular Insulin 0 units *Depending on acid-base status Famotidine 0 mg Multivitamins 1 std dose Insulin Regimen Trace Elements 1 std dose none Thiamine 100 mg Regular Low Intensity Subcut Folic Acid 1 mg Regular Medium Intensity Subcut Ascorbic Acid 0 mg Regular High Intensity Subcut Regular Insulin Infusion Other: Special Instructions: To be infused via central line only. For delay or inturruption of TPN contact the pharmacist for alternative replacement solution. JANEL DEUTSCH OREmily 242-1 Signature Date: [facility] Jun 27, 2016 12:01
--- NOTE | 2016-06-27 15:24 | PCM.PNMED ---
Subjective Date of Service Jun 27, 2016 Subjective less abdominal distension/bloating ,NGT output 750ml overnight Exam Vital Signs Vital Sign - Last Date Time Temp Pulse Resp B/P Pulse Ox O2 Delivery O2 Flow Rate FiO2 06/27/16 13:45 36.9 114 18 141/87 98 Nasal Cannula 2.00 Intake and Output 06/26/16 06/26/16 06/27/16 Cumulative From/Thru 15:00 23:00 07:00 06/16/16 07:14 - 06/27/16 05:28 Intake Total 1175 ml 1241 ml 16381 ml Output Total 990 ml 1700 ml 42046 ml Balance 185 ml -459 ml 32089 ml Intake Oral 2170 ml IV Total 368 ml 738 ml 73568 ml Tube Feeding 150 ml TPN/PPN 807 ml 503 ml 1784 ml Output Urine Total 950 ml 900 ml 7100 ml Urine/Stool Mix 2250 ml Gastric Drainage Total 40 ml 800 ml 4590 ml Emesis 1855 ml # Voids 8 # Bowel Movements 16 Exam mildly distressed due to nausea. NG tube to suction no JVD, MMM, no LAD RRR, nl s1, s2 no mrg CTAB, no w,c decreased BS, S, distended, ttp throughout, no tympanic sounds, no guarding/rTd - abdominal exam unchanged from yesterday warm, no edema, pulses 2/2 IVs and Medications Medications Reviewed: Medications were reviewed in detail Lab and Diagnostics Result Diagram: 06/26/16 0905 06/27/16 1004 X-Rays, CTs and MRIs CT of abdomen and pelvis IMPRESSION: 1. Bilateral low density pleural effusions and compressive atelectasis. 2. Marked gastric distention and marked proximal small bowel dilatation. When today's study is compared with the study dated 06/07/16, the extent of dilatation is slightly increased. These findings raise suspicion for a obstruction secondary to adhesions. This finding was discussed with Dr. Santiago at 11:18 AM on 06/21/16. 3. Small hypodensity midline fluid collection decreased in size when compared with the study dated 06/07/16 and suggestive of a resolving hematoma. Dictated by: Mariluz Odonnell M.D. 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 Admitted for recurrent small bowel obstruction. She started experiencing diarrhea on 06/17/2016 which is not uncommon for her after resolution of the small bowel obstruction, however PCR was done and positive for C. difficile colitis. We had previously discussed discharging home if she tolerates advancing her diet, however her discharge was discontinued due to her diagnosis of C. difficile. active, acute #Recurrent small bowel obstruction, acute. Present on admission. -The patient is status post extended right hemicolectomy on November 15, 2014. Hx of Stage IV colon cancer with intraabdominal metastases. Recent admit with SBO. CT abd/pevlis 06/21 showed significant SBO. -On NG decompression with intermittent low grade suction, keep NPO -consulted surgery, pt not a good candidate for surgery - X-ray shows resolving obstruction. on TPN -Will plan to remove NG tube tomorrow if output is less. will reconsult palliative care if obstruction recurs. Patient agrees with plan -started TPN 06/25 # Rapid Afib,acute,not present on admission,resolved -due to missed po BB -rate now better controlled with increased metoprolol IV dose from 5 mg to 10 mg every 6h. Also gave Cardizem 10 mg 1 dose on 06/24 -Warfarin has been on hold due to SBO, started Lovenox 06/24 #C. difficile colitis, may contribute to current sx, although labs were unremarkable, Likely the etiology behind her Hemoccult positive stool. -Was on oral vancomycin#3/14days then stopped as pt couldn't tolerate po, switch to flagyl 500 q8h iv on 04/21 - continue contact isolation #Recent Urinary tract infection, Present on admission. -Treated with Keflex,off abx #Stage IV colon cancer with intra-abdominal metastases - palliative care following. CODE STATUS changed from full to limited resuscitation chronic, stable, resolved #Acute kidney injury. Present on admission, mild, Now resolved #Diabetes type 2, Glucose 186 on admission. Pt on Lantus 20U hs and Humalog 6U TIDAC, resumed Lantus at 10 U daily 06/27/16, lispro SS #Chronic hypertension, held Amlodipine , carvedilol, controlled #Atrial fibrillation, chronic, Continue carvedilol, rate controlled, h/h stable off coumadin,, coumadin discontinued due to FOBT+. Patient has C. difficile colitis which can explain FOBT +. Patient high risk for blood clots given metastatic cancer. started lovenox 06/24 #Hyperlipidemia, chronic, atorvastatin oh hold #Hypothyroidism, chronic, levothyroxine on hold,will give IV synthroid 50mcg daily #occult GI bleed in the setting of c.diff, hx of colon cancer,Hb stable, start lovenox.will resume coumadin once NGT removed #. Other Chronic Problems Cardiomyopathy. Osteoporosis Hyperparathyroidism. CODE STATUS: Limited resuscitation ( no intubation, okay for brief chest compression) DVT prophylaxis: lovenox diet,npo,possible TPN tmrw Disposition:pending hospital course VTE Prophylaxis: Sub-Q Enoxaparin VTE Mechanical Devices: Intermittant Pneumatic CD Resuscitation Status: Limited Interventions Limited Interventions: Compressions (brief trial), Cardioversion/ Defibrillation (brief trial) Kyle Connor MD Jun 27, 2016 15:24
[2016-06-27] MEDS ORDERED: Warfarin 5 MG, Warfarin 2.5 MG PO ONE ×2 (17:00)
[2016-06-27] MEDS: Levothyroxine 100 mCg/5 mL Inj IV SCH (18:01)
--- NOTE | 2016-06-27 18:15 | NUR ---
NGT Verbal order received to trail clamping NG tube again today. Pt NGT clamped at 1025. Patient tolerated well. Pt reported only mild gas pains once, which quickly subsided. Pt denied abdominal bloating, nausea, or vomiting. notified at 1525, and requested the NG tube be restarted on LIS, and he will reassess tomorrow.
--- NOTE | 2016-06-27 18:21 | NUR ---
Tele Per [facility] at 1715 pt had 17 beats of vtach, 2 normal beats, and then 12 more beats of vtach. Pt was lying in bed and asymptomatic. Denies chest pain or discomfort, dizziness, and stated "I felt nothing". paged and order received for 12 lead EKG, BMP, Mg, Phos, Trop, TSH, BNP. Addendum: 06/27/16 at 1852 by MEI PATTEN RN stated he would watch for labs to be resulted and no need to page him.
[2016-06-27 19:11] LABS: Magnesium 1.9 mg/dL (1.6-2.6); Phosphorus 2.8 mg/dL (2.5-4.9); TROPONIN T < 0.010 ug/L (0.0-0.011)
[2016-06-27] MEDS: Total Parenteral Nutrition 1 BAG IV SCH (19:58)
[2016-06-27] MEDS ORDERED: Diltiazem 5 mg/mL 5 mL Inj IV PRN (22:30)
--- NOTE | 2016-06-27 23:04 | NUR ---
Tele at 4206 Pt given her scheduled Lopressor 10mg IV q6, 30mins post administration, pt Tele running A-fib with RVR, rate 140's,vitals taken, Bp at 168/90,pt requested Cardizem, spoke with Dr. Ventura, noted order for Cardizem,@6757 CCU hot metal charger at bedside to give Cardizem, dose held per pt request, will continue to monitor.
[2016-06-28] VITALS (7 sets, daily range): BP systolic 132–151; BP diastolic 90–95; PULSE 71–128; RESP 12–20; O2SAT 96–99
[2016-06-28] MEDS: metroNIDAZOLE Inj 500 MG in IV Premix 1 EACH IV SCH ×3 (00:30→18:34)
[2016-06-28] MEDS: 0.9% Sodium Chloride 1,000 ML IV SCH ×2 (01:30→17:04)
--- NOTE | 2016-06-28 02:54 | NUR ---
NGT @0030, noted NG draining scant blood, vitals taken, stable, spoke to Dr. Ventura, IVF ordered,, added CBC with Diff to am labs. Tele Pt no c/o chest discomfort, A-fib at 80-110's, continue to monitor.
[2016-06-28] MEDS: MeTOProlol 1 mg/mL 5 mL Inj IVPUSH SCH ×4 (03:21→21:13)
[2016-06-28] MEDS: Insulin LISPRO 300 Unit/3 mL Inj SUBQ SCH ×3 (05:26→17:25)
[2016-06-28 05:33] LABS: BASOPHILS % (AUTO) 0.3 % (0-3); EOSINOPHILS % (AUTO) 0.6 % (0-5); Mean Corpuscular Hemoglobin 29.8 pg (27.0-35.0); Mean Corpuscular Volume 89.8 fL (81-100); NEUTROPHILS % (AUTO) 75.3 % (40-74); Platelet Count 266 bil/L (150-400)
--- NOTE | 2016-06-28 05:52 | NUR ---
NGT Output from 0100 to 0545 noted coffee ground color 150mls, am Hgb/Hct at 10.8/32.6, vitals stable, pt denies any further GI symptoms/discomfort at this time.
[2016-06-28 05:53] LABS: INR 1.05 ratio
--- NOTE | 2016-06-28 07:30 | PCM.PHAPRO ---
Progress TPN Management: -Day 4 of TPN for pt -Increased macronutrients for pt per dietary recommendation as follows: AA 90gm , Dextrose 275gm, Lipids 55gm -added Famotidine 40mg to TPN and dc'ed the IVPB form -NG tube likely to be removed today. will touch base with hospitalist regarding iv fluids pt is receiving -electrolytes remain stable -Plan: formula for this evening: PARENTERAL NUTRITION ORDERS #4 28-Jun-16 Standard Hang Time: 2100 Substrates Total kcal: 1845 AMINO ACIDS 90 g DEXTROSE 275 g Total Volume (mL): 1200 LIPIDS 55 g Sterile Water for Injection QS mL To Infuse Over (hrs): 24 Total Volume 1200 mL At at a rate of (mL/hr): 50 Additives Sodium Chloride 130 mEq "typical" daily requirements Sodium Acetate 0 mEq Sodium 50-120mEq Potassium Chloride 10 mEq Potassium 60-120mEq Potassium Phosphate 30 mEq Phosphate 20-40mEq Calcium Gluconate 0 mEq Magnesium 8-32mEq Magnesium Sulfate 12 mEq Calcium 9-22mEq Acetate* 80-120mEq Chloride* 80-120mEq Regular Insulin 0 units *Depending on acid-base status Famotidine 40 mg Multivitamins 1 std dose Insulin Regimen Trace Elements 1 std dose none Thiamine 100 mg Regular Low Intensity Subcut Folic Acid 1 mg Regular Medium Intensity Subcut Ascorbic Acid 0 mg Regular High Intensity Subcut Regular Insulin Infusion Other: Mary Crespo [facility] Jun 28, 2016 07:30
[2016-06-28] MEDS: Levothyroxine 100 mCg/5 mL Inj IV SCH (08:10)
[2016-06-28] MEDS: Insulin GLARgine 100 Unit/mL Syringe SUBQ SCH (08:32)
--- NOTE | 2016-06-28 13:58 | NUR ---
NG Tube Removal NG tube removed at 1030 this morning, pt tolerating clear fluids well, no complaints of nausea or vomiting. Will continue with current plan of care.
[2016-06-28] MEDS: 0.9% Sodium Chloride 250 ML IV SCH (14:17)
[2016-06-28] MEDS ORDERED: Levothyroxine 100 mCg/5 mL Inj IV ONE (16:00)
--- NOTE | 2016-06-28 16:09 | PCM.PNMED ---
Subjective Date of Service Jun 28, 2016 Subjective Less bloating and distention today. NG tube output less. X-ray shows resolution of small bowel obstruction. Removed NG tube and started on clear liquid diet and by mouth medications. Low FT4 and TSH noted. will resume Synthroid today Exam Vital Signs Vital Sign - Last Date Time Temp Pulse Resp B/P Pulse Ox O2 Delivery O2 Flow Rate FiO2 06/28/16 13:13 36.4 98 12 148/95 99 Nasal Cannula 2.00 Intake and Output 06/27/16 06/27/16 06/28/16 Cumulative From/Thru 15:00 23:00 07:00 06/16/16 07:14 - 06/28/16 05:46 Intake Total 1231 ml 1170 ml 75923 ml Output Total 1090 ml 1900 ml 74796 ml Balance 141 ml -730 ml 09057 ml Intake Oral 2170 ml IV Total 718 ml 664 ml 60082 ml Tube Feeding 150 ml TPN/PPN 513 ml 506 ml 2803 ml Output Urine Total 850 ml 1200 ml 9150 ml Urine/Stool Mix 2250 ml Gastric Drainage Total 240 ml 700 ml 5530 ml Emesis 1855 ml # Voids 8 # Bowel Movements 16 Exam mildly distressed due to nausea. NG tube removed no JVD, MMM, no LAD RRR, nl s1, s2 no mrg CTAB, no w,c decreased BS, S, distended, ttp throughout, no tympanic sounds, no guarding/rTd - abdominal exam is less distended than yesterday warm, no edema, pulses 2/2 IVs and Medications Medications Reviewed: Medications were reviewed in detail Lab and Diagnostics Result Diagram: 06/28/16 0520 06/28/16 0520 X-Rays, CTs and MRIs CT of abdomen and pelvis IMPRESSION: 1. Bilateral low density pleural effusions and compressive atelectasis. 2. Marked gastric distention and marked proximal small bowel dilatation. When today's study is compared with the study dated 06/07/16, the extent of dilatation is slightly increased. These findings raise suspicion for a obstruction secondary to adhesions. This finding was discussed with Dr. Santiago at 11:18 AM on 06/21/16. 3. Small hypodensity midline fluid collection decreased in size when compared with the study dated 06/07/16 and suggestive of a resolving hematoma. Dictated by: Mariluz Odonnell M.D. on 06/21/2016 at 11:19 abd XR IMPRESSION: Interval radiographic resolution of small bowel obstruction. Dictated by: Rich Cuevas M.D. 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 Admitted for recurrent small bowel obstruction. She started experiencing diarrhea on 06/17/2016 which is not uncommon for her after resolution of the small bowel obstruction, however PCR was done and positive for C. difficile colitis. We had previously discussed discharging home if she tolerates advancing her diet, however her discharge was discontinued due to her diagnosis of C. difficile. active, acute #Recurrent small bowel obstruction, acute. Present on admission. -The patient is status post extended right hemicolectomy on November 15, 2014. Hx of Stage IV colon cancer with intraabdominal metastases. Recent admit with SBO. CT abd/pevlis 06/21 showed significant SBO. -On NG decompression with intermittent low grade suction, less distention today. X-ray shows resolution of SBO. Removed NG tube and started clear liquid diet today -consulted surgery, pt not a good candidate for surgery - X-ray shows resolving obstruction. Continue TPN until adequate oral intake - will reconsult palliative care if obstruction recurs. Patient agrees with plan -started TPN 06/25 # Rapid Afib,acute,not present on admission,resolved -due to missed po BB -rate now better controlled with increased metoprolol IV dose from 5 mg to 10 mg every 6h. Also gave Cardizem 10 mg 1 dose on 06/24. We transition to by mouth Coreg -Warfarin has been on hold due to SBO, started Lovenox 06/24. will plan to restart warfarin tomorrow if tolerates by mouth #C. difficile colitis, may contribute to current sx, although labs were unremarkable, Likely the etiology behind her Hemoccult positive stool. -Was on oral vancomycin#3/14days then stopped as pt couldn't tolerate po, switch to flagyl 500 q8h iv on 04/21. will switch by mouth once she tolerates diet - continue contact isolation #Hypothyroidism, chronic, ongoing -High TSH and low free T4. Resumed home Synthroid 125 MCG by mouth daily #Recent Urinary tract infection, Present on admission. -Treated with Keflex,off abx #Stage IV colon cancer with intra-abdominal metastases - palliative care following. CODE STATUS changed from full to limited resuscitation chronic, stable, resolved #Acute kidney injury. Present on admission, mild, Now resolved #Diabetes type 2, Glucose 186 on admission. Pt on Lantus 20U hs and Humalog 6U TIDAC, resumed Lantus at 10 U daily 06/27/16, lispro SS #Chronic hypertension, held Amlodipine , carvedilol, controlled #Atrial fibrillation, chronic, Continue carvedilol, rate controlled, h/h stable off coumadin,, coumadin discontinued due to FOBT+. Patient has C. difficile colitis which can explain FOBT +. Patient high risk for blood clots given metastatic cancer. started lovenox 06/24 #Hyperlipidemia, chronic, atorvastatin oh hold #occult GI bleed in the setting of c.diff, hx of colon cancer,Hb stable, start lovenox.will resume coumadin once NGT removed #. Other Chronic Problems Cardiomyopathy. Osteoporosis Hyperparathyroidism. CODE STATUS: Limited resuscitation ( no intubation, okay for brief chest compression) DVT prophylaxis: lovenox diet,npo,possible TPN tmrw Disposition:pending hospital course VTE Prophylaxis: Sub-Q Enoxaparin VTE Mechanical Devices: Intermittant Pneumatic CD Resuscitation Status: Limited Interventions Limited Interventions: Compressions (brief trial), Cardioversion/ Defibrillation (brief trial) Kyle Connor MD Jun 28, 2016 16:09
[2016-06-28] MEDS: HYDROmorphone 0.5 mg/0.5 mL iSecure Syringe IVPUSH PRN (20:17)
[2016-06-28] MEDS: Ondansetron 2 mg/mL 2 mL Inj IVPUSH PRN (20:31)
[2016-06-28] MEDS: Total Parenteral Nutrition 1 BAG IV SCH (21:13)
[2016-06-28] MEDS: Insulin LISPRO Medium-Dose Scale SUBQ SCH (22:00)
--- NOTE | 2016-06-28 22:24 | NUR ---
Nausea ans Vomiting Pt has emesis of 200mL, bloating, not passing gas and abdominal pain. notified and ordered NG tube placement. Pt was told the plans and agrees with the plan. Will continue to monitor Addendum: 06/29/16 at 0119 by KATHRYN WHITLEY RN NG tube place marked at 55cm, Pt did not tolerated procedure well but is resting now and c/o less bloating and pain Addendum: 06/29/16 at 0610 by KATHRYN WHITLEY RN Ng tube has put out 1100mL of dark brown colored liquid
[2016-06-29] VITALS (9 sets, daily range): BP systolic 155–168; BP diastolic 82–96; PULSE 91–125; RESP 16; O2SAT 95–100
[2016-06-29] MEDS: metroNIDAZOLE Inj 500 MG in IV Premix 1 EACH IV SCH (02:14)
[2016-06-29] MEDS: MeTOProlol 1 mg/mL 5 mL Inj IVPUSH SCH ×3 (03:27→18:34)
[2016-06-29] MEDS: Insulin LISPRO Medium-Dose Scale SUBQ SCH ×2 (04:05→12:17)
[2016-06-29 07:23] LABS: INR 1.02 ratio
[2016-06-29 07:32] LABS: Magnesium 1.9 mg/dL (1.6-2.6); Phosphorus 2.1 mg/dL (2.5-4.9)
[2016-06-29] MEDS ORDERED: SODIUM PHOSPHATE IV ONE (08:20)
[2016-06-29] MEDS ORDERED: SODIUM CHLORIDE 0.9% IV ONE (08:20)
--- NOTE | 2016-06-29 08:20 | PCM.PHAPRO ---
Progress TPN Management: -pt with inadequate oral intake related to altered GI function for ~ 13days -ng had been removed yesterday but replaced last night due to emesis, abdominal pain and bloating -phos level dropped to 2.1 this morning and will replace with sodium phos 20meq iv x 1 this morning over 4 hours -macronutrients were adjusted yesterday per dietary -Plan: Day 5 this evening, formula to contain: PARENTERAL NUTRITION ORDERS #5 29-Jun-16 Standard Hang Time: 2100 Substrates Total kcal: 1845 AMINO ACIDS 90 g DEXTROSE 275 g Total Volume (mL): 1300 LIPIDS 55 g Sterile Water for Injection QS mL To Infuse Over (hrs): 24 Total Volume 1300 mL At at a rate of (mL/hr): 54 Additives Sodium Chloride 130 mEq "typical" daily requirements Sodium Acetate 0 mEq Sodium 50-120mEq Potassium Chloride 20 mEq Potassium 60-120mEq Potassium Phosphate 40 mEq Phosphate 20-40mEq Calcium Gluconate 0 mEq Magnesium 8-32mEq Magnesium Sulfate 14 mEq Calcium 9-22mEq Acetate* 80-120mEq Chloride* 80-120mEq Regular Insulin 0 units *Depending on acid-base status Famotidine 40 mg Multivitamins 1 std dose Insulin Regimen Trace Elements 1 std dose none Thiamine 100 mg Regular Low Intensity Subcut Folic Acid 1 mg Regular Medium Intensity Subcut Ascorbic Acid 0 mg Regular High Intensity Subcut Regular Insulin Infusion Other: Mary Crespo [facility] Jun 29, 2016 08:20
[2016-06-29] MEDS ORDERED: Insulin GLARgine 100 Unit/mL Syringe SUBQ SCH (08:30)
[2016-06-29] MEDS: 0.9% Sodium Chloride 1,000 ML IV SCH (09:24)
[2016-06-29] MEDS ORDERED: MeTOProlol 1 mg/mL 5 mL Inj IVPUSH SCH (11:30)
[2016-06-29] MEDS: Levothyroxine 100 mCg/5 mL Inj IV SCH (12:03)
--- NOTE | 2016-06-29 13:16 | NUR ---
NUTRITION FOLLOW-UP: ASSESS: 81 YO female admitted with small bowel obstruction. NGT was removed 06/28/16 and pt was started on CL diet but pt began to experience emesis, n/v and bloating and NGT was re-inserted. The patient has also developed C. diff. TPN initiated 06/25 due to continued need for bowel rest and inability to tolerate diet. TPN is currently running at goal rate. Phos dropped down to 2.1 today, pharmacy is aware and is replacing. Wt is back down to admit wt. PMHx: Stage IV colon cancer with intra-abdominal metastasis, atrial fibrillation, cardiomyopathy, HTN, hypothyroidism, osteoporosis, hyperparathyroidism, T2DM, recurrent SBO. DIET: NPO. NUTRITION SUPPORT: 275g dex, 90g AA and 55g lipids to provide 1845kcal and 90g pro (100% estimated needs). LABS: Reviewed. Glu 331, phos 2.1, alb 2.3 MEDICATIONS: Reviewed. Synthroid, insulin, lopressor, coumadin. GI symptoms / stool: BM x 1 06/26 Skin Integrity: No issues reported. Peng Giron ANTHROPOMETRICS: Current Wt: 65.7 kg BMI: 24.1 kg/m2. Admit weight: 65.91 kg IBW: 56.8 kg Reported 9.5% wt loss x1 month (prior to admit) ESTIMATED NEEDS (CANCER, MALNUTRITION): Calories:2470-3096 kcal (25 - 30 kcal / kg BW) Protein:80-100 g protein (1.2 - 1.5 g / kg BW) NUTRITION DIAGNOSIS: 1) Severe protein calorie malnutrition related to metastatic cancer with multiple bowel obstructions, altered GI function, as evidenced by 9.5% weight loss x 1 month - PERSISTS. 2) Inadequate oral intake related to altered GI function as evidence by need for NPO status, NGT and pt with minimal PO intake x 10 days - PERSISTS. INTERVENTION: 1) Continue TPN at goal of 275g dex, 90g AA and 55g lipids to provide 1845kcal and 90g pro (100% estimated needs). 2) Advance diet when medically appropriate. MONITOR/EVALUATE: NPO status, TPN tolerance, labs, diet advance / tolerance, PO intake, GI/nutrition status. Follow up per high nutrition risk guidelines.
[2016-06-29] MEDS: 0.9% Sodium Chloride 250 ML IV SCH (14:17)
--- NOTE | 2016-06-29 16:35 | DRSVH ---
PROCEDURE: CT CHEST, ABDOMEN AND PELVIS WITHOUT CONTRAST ([id number]) INDICATIONS: colon ca and SBO TECHNIQUE: After the administration of oral contrast, 5 mm thick sections acquired from the lung apices to the s ymphysis pubis. 5 mm thick coronal and sagittal reformats acquired, with additional 7 mm coronal MIP reformats through the lungs. For radiation dose reduction, the following was used: automated expos ure control, adjustment of mA and/or kV according to patient size. COMPARISON: [facility], [place], PET NECK TO MID THIGH STD, 01/02/2016, 13:21. [facility], CT, CT ABD PELVIS WO CON, 06/21/2016, 10:36. [facility], CT, CT ABD PELVIS WO CON, 05/17/2016, 2:07. [facility], CT, CT ABD PELVIS WO CON, 10/08/2015, 18:25. [facility], CT, CT CHEST WO CON, 11/16/2015, 18:16. [facility], CT, CT CHEST WO CON, 05/10/2016, 7:13. FINDINGS: Image quality: Excellent. CHEST: Lungs and pleura: A 3 mm diameter pleural based right middle lobe nodule is unchanged when compared w ith the study dated 11/16/15 (series 5, image 25). No acute airspace opacities. There are small bilate ral low density pleural effusions and compressive atelectasis at the lung bases. Mediastinum: Heart size is normal. No pericardial effusion. No mediastinal adenopathy by CT size c riteria. There are calcified right hilar and mediastinal lymph nodes. Thoracic aorta and central pulm onary arteries are normal in size. Scattered atheromatous calcifications are present within the aorti c arch. Esophagus is normal in caliber. No hiatal hernia. Chest wall: There is a left Port-A-Cath, the tip of which is at the confluence of the brachiocephali c veins. No axillary or supraclavicular adenopathy by size criteria. Thyroid gland is unremarkable. ABDOMEN: Solid organs: Liver and spleen are normal in size. There are innumerable punctate calcifications thr oughout the liver and the spleen. A partially calcified cystic lesion is present within hepatic segme nt VIII similar in appearance to the study dated . Gallbladder is surgically absent. Pancre as is normal in contours. No adrenal nodules. The right kidney is normal size. The left kidney is at rophic. There is moderate left perinephric fat stranding. Peritoneum and bowel: An NG tube is present, the tip of which is in the gastric fundus. The stomach i s decompressed and partially filled with contrast. The duodenum is contrast-filled and moderately dil ated throughout its course. The proximal jejunum is contrast-filled and markedly dilated. The midport ion of the jejunum appears decompressed. However, there is poor contrast opacification of this region and the jejunal wall is poorly characterized. The distal jejunum and proximal ileum are dilated. The distal ileum is decompressed. There is likely a transition point within the distal ileum in the left lower quadrant. Nodes and vessels: No retroperitoneal or mesenteric adenopathy by size criteria. Aorta and inferior vena cava are normal in size. There are scattered atheromatous calcifications throughout the aorta and iliac arteries bilaterally. Miscellaneous: No ventral hernias. A small high density fluid collection is redemonstrated at midlin e unchanged in size when compared with the study dated 06/21/16. PELVIS: Genitourinary: Bladder wall thickness is normal. Miscellaneous: No inguinal hernias or adenopathy. Bones: No suspicious bony lesions. No vertebral body compression fractures. IMPRESSION: 1. Stomach is decompressed when compared with the study dated 06/21/16. 2. Persistent, marked dilatation of the proximal small bowel. A transition point in the mid/distal il eum is likely present in the left lower quadrant. Unfortunately, there is no contrast opacification o f the mid and distal small bowel limiting evaluation of the wall. Discrete bowel mass cannot be exclu ded. If clinically indicated, repeat scan in 1-2 hours allowing for passage of contrast through the s mall bowel may be helpful to further characterize the bowel for mucosal lesions. This finding was discussed with Dr. Shea at 4:33 PM on 06/29/16. 3. Small low density pleural effusions and compressive atelectasis, as before. 4. Stigmata of prior granulomatous disease. Dictated by: Mariluz Odonnell M.D. on 06/29/2016 at 16:02 Approved by: Mariluz Odonnell M.D. on 06/29/2016 at 16:33
[2016-06-29] MEDS: Insulin LISPRO 300 Unit/3 mL Inj SUBQ SCH ×2 (17:39→23:09)
--- NOTE | 2016-06-29 17:54 | NUR ---
Oral Contrast Patient scheduled for CT with oral Barium swallow of 900mls. NG tube clamped and pt able to take in 600mls of contrast. Pt denies nausea and no emesis. After CT, NG tube restarted on LIS.
--- NOTE | 2016-06-29 18:00 | NUR ---
Blood Sugar Patient Blood sugars continue to be greater than 300 throughout day despite Lantus being increased to 22 units this AM. Hospitalist notified and stated he would increase Lantus, awaiting orders.
--- NOTE | 2016-06-29 18:46 | DRSVH ---
PROCEDURE: CT ABDOMEN AND PELVIS WITHOUT CONTRAST ([id number]) INDICATIONS: 81-year-old woman with follow up CT for SBO TECHNIQUE: Noncontrast 5 mm thick sections acquired from the diaphragms to the symphysis. 5 mm coronal and sagi ttal reformats were then performed. For radiation dose reduction, the following was used: automated exposure control, adjustment of mA and/or kV according to patient size. COMPARISON: [facility], CT, CT CHEST ABD PELVIS WO CON, 06/29/2016, 15:40. [facility], CT, CT ABD PELVIS WO CON, 06/21/2016, 10:36. FINDINGS: Image quality: Excellent. ABDOMEN: Lung bases: There are small bilateral pleural effusions with bibasilar consolidation or atelectasis. Heart size is normal. Solid organs: Calcified granulomas are present in the liver and spleen. Liver and spleen are normal i n size. Gallbladder is surgically absent. Pancreas is normal in contours. There is a 1 cm left adre nal nodule, unchanged. Kidneys are normal in size, without hydronephrosis or nephrolithiasis. Peritoneum and bowel: There is a nasogastric tube in the stomach. Stomach is decompressed. Proximal s mall bowel loops are distended measuring up to 4.2 cm. There is transitional point in the area of dis manpreet ileum with decompressed distal small bowel and colon loops, consistent with small bowel obstructi on. No free fluid or air. Nodes and vessels: No retroperitoneal or mesenteric adenopathy by size criteria. Aorta and inferior vena cava are normal in caliber. Miscellaneous: No ventral hernias. PELVIS: Genitourinary: Bladder wall thickness is normal. Miscellaneous: No inguinal hernias or adenopathy. Bones: No suspicious bony lesions. No vertebral body compression fractures. IMPRESSION: 1. Persistent small bowel obstruction. 2. Remote granulomatous disease involving liver and spleen. Dictated by: Vickey Peñaloza M.D. on 06/29/2016 at 18:44 Transcribed by: ZAC on 06/29/2016 at 18:44 Approved by: Vickey Peñaloza M.D. on 06/30/2016 at 9:33
--- NOTE | 2016-06-29 18:54 | PCM.PNMED ---
Subjective Date of Service Jun 29, 2016 Subjective Removed NG tube yesterday and started clears. Patient had episode of vomiting and NG tube reinserted by night team. Continues to have significant NG tube output. Discussed with surgery Dr. Phan and oncology . Patient had multiple recurrent SBO's. will get CT abdomen,pelvis chest as per Dr Fairbanks. Exam Vital Signs Vital Sign - Last Date Time Temp Pulse Resp B/P Pulse Ox O2 Delivery O2 Flow Rate FiO2 06/29/16 16:54 36.8 91 16 164/96 100 Nasal Cannula 2.00 Intake and Output 06/28/16 06/28/16 06/29/16 Cumulative From/Thru 15:00 23:00 07:00 06/16/16 07:14 - 06/29/16 05:36 Intake Total 2502 ml 1370 ml 25750 ml Output Total 2900 ml 52185 ml Balance 2502 ml -1530 ml 06559 ml Intake Oral 940 ml 3110 ml IV Total 992 ml 886 ml 52903 ml Tube Feeding 150 ml TPN/PPN 570 ml 484 ml 3857 ml Output Urine Total 1550 ml 29095 ml Urine/Stool Mix 2250 ml Gastric Drainage Total 1150 ml 6680 ml Emesis 200 ml 2055 ml # Voids 8 # Bowel Movements 16 Exam mildly distressed due to nausea. NG tube in place. no JVD, MMM, no LAD RRR, nl s1, s2 no mrg CTAB, no w,c decreased BS, distended abdomen, tympanic throughout, , no guarding/rTd - abdominal exam is less distended than yesterday warm, no edema, pulses 2/2 IVs and Medications Medications Reviewed: Medications were reviewed in detail Lab and Diagnostics Result Diagram: 06/28/16 0520 06/29/16 0632 X-Rays, CTs and MRIs CT of abdomen and pelvis IMPRESSION: 1. Bilateral low density pleural effusions and compressive atelectasis. 2. Marked gastric distention and marked proximal small bowel dilatation. When today's study is compared with the study dated 06/07/16, the extent of dilatation is slightly increased. These findings raise suspicion for a obstruction secondary to adhesions. This finding was discussed with Dr. Santiago at 11:18 AM on 06/21/16. 3. Small hypodensity midline fluid collection decreased in size when compared with the study dated 06/07/16 and suggestive of a resolving hematoma. Dictated by: Mariluz Odonnell M.D. on 06/21/2016 at 11:19 abd XR IMPRESSION: Interval radiographic resolution of small bowel obstruction. Dictated by: Rich Cuevas M.D. 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 Admitted for recurrent small bowel obstruction. She started experiencing diarrhea on 06/17/2016 which is not uncommon for her after resolution of the small bowel obstruction, however PCR was done and positive for C. difficile colitis. We had previously discussed discharging home if she tolerates advancing her diet, however her discharge was discontinued due to her diagnosis of C. difficile. active, acute #Recurrent small bowel obstruction, acute. Present on admission. -The patient is status post extended right hemicolectomy on November 15, 2014. Hx of Stage IV colon cancer with intraabdominal metastases. Recent admit with SBO. CT abd/pevlis 06/21 showed significant SBO. -Removed NG tube yesterday 1/ and started clears. Patient had episode of vomiting and NG tube reinserted by night team. Continues to have significant NG tube output. Discussed with surgery Dr. Phan and oncology today. Patient had multiple recurrent SBO's. NG tube inserted for 3rd time on current admission. Surgery notes patient is not a surgical candidate given metastatic cancer and functional status. 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 CT abdomen,pelvis chest without contrast done as per Dr Fairbanks. "Persistent, marked dilatation of the proximal small bowel. A transition point in the mid/distal ileum is likely present in the left lower quadrant. Unfortunately, there is no contrast opacification of the mid and distal small bowel limiting evaluation of the wall. Discrete bowel mass cannot be excluded. If clinically indicated, repeat scan in 1-2 hours allowing for passage of contrast through the small bowel may be helpful to further characterize the bowel for mucosal lesions". Will do follow thru Ct later today as per recommendation of radiologist.Dr Fairbanks will review CT and will discuss with family and patient about her cancer status tomorrow after 4 PM once imaging completed. Dr Phan says ,her initial CT shows distended stomach and her symptoms are mainly vomiting immediately following eating. He suspects obstruction might be more proximal and she may benefit from GI/EGd eval .may consider but today's imaging shows transition of contrast past upper small bowel - Continue TPN until adequate oral intake - will reconsult palliative care once Dr Fairbanks gives us his recommendation. Patient agrees with plan -started TPN 06/25 # Rapid Afib,acute,not present on admission,resolved -due to missed po BB -rate now better controlled with increased metoprolol IV dose from 5 mg to 10 mg every 6h. Also gave Cardizem 10 mg 1 dose on 06/24. We transition to by mouth Coreg -Warfarin has been on hold due to SBO, started Lovenox 06/24. will plan to restart warfarin when tolerates by mouth #C. difficile colitis, may contribute to current sx, although labs were unremarkable, Likely the etiology behind her Hemoccult positive stool. -Was on oral vancomycin#09/07days then stopped as pt couldn't tolerate po, switch to flagyl 500 q8h iv on 04/21. - continue contact isolation -Completed 10 day Flagyl today 06/29/16 #Hypothyroidism, chronic, ongoing -High TSH and low free T4. Resumed home Synthroid 125 MCG by mouth daily but NG tube reinserted. Switched back to IV Synthroid #Recent Urinary tract infection, Present on admission. -Treated with Keflex,off abx #Stage IV colon cancer with intra-abdominal metastases - palliative care following. CODE STATUS changed from full to limited resuscitation #Diabetes type 2, Pt on Lantus 20U hs and Humalog 6U TIDAC at home , glucose uncontrolled. Started Lantus 20 units twice a day, lispro S chronic, stable, resolved #Acute kidney injury. Present on admission, mild, Now resolved #Chronic hypertension, held Amlodipine , carvedilol, controlled #Atrial fibrillation, chronic, Continue carvedilol, rate controlled, h/h stable off coumadin,, coumadin discontinued due to FOBT+. Patient has C. difficile colitis which can explain FOBT +. Patient high risk for blood clots given metastatic cancer. started lovenox 06/24 #Hyperlipidemia, chronic, atorvastatin oh hold #occult GI bleed in the setting of c.diff, hx of colon cancer,Hb stable, start lovenox.will resume coumadin once NGT removed #. Other Chronic Problems Cardiomyopathy. Osteoporosis Hyperparathyroidism. CODE STATUS: Limited resuscitation ( no intubation, okay for brief chest compression) DVT prophylaxis: lovenox diet,npo,possible TPN tmrw Disposition:pending hospital course VTE Prophylaxis: Sub-Q Enoxaparin VTE Mechanical Devices: Intermittant Pneumatic CD Resuscitation Status: Limited Interventions Limited Interventions: Compressions (brief trial), Cardioversion/ Defibrillation (brief trial) Kyle Connor MD Jun 29, 2016 18:54
[2016-06-29] MEDS: Insulin GLARgine 100 Unit/mL Syringe SUBQ SCH (20:36)
[2016-06-29] MEDS: Total Parenteral Nutrition 1 BAG IV SCH (20:37)
--- NOTE | 2016-06-29 20:38 | PROG NOTE ---
[address] [address] PROGRESS NOTE PATIENT: JANEL DEUTSCH : 1935 MR#: [id number] ADMIT: 06/16/2016 JOB ID: [id number] DATE: 06/29/2016 I was asked by the hospitalist service to see her again today following repeat CAT scan with oral and IV contrast. She was seen once over the weekend by General Surgery. She continues to have intermittent episodes of bowel movements, decreased NG output, followed by NG removal and emesis. Dr. Fairbanks has requested a CAT scan to evaluate whether she has had much response to chemotherapy, and I have been asked to follow up on the CAT scan. CAT scan was ordered this morning but, for some reason, was delayed until the afternoon. I have reviewed the CAT scan and concur with Dr. Odonnell's opinion that delayed images need to be performed to fully evaluate the GI tract and the abdominal lesions. To my view, however, the initial films demonstrate that she is having some response to chemotherapy. I will await further films tonight but will reiterate my opinion that even if she is having a good response to chemotherapy and if her problem is one of a partial mechanical small bowel obstruction, that operative intervention at this point is more likely to bring on the onset of her rather than help her and therefore would not proceed to the operating room unless she was having a life-threatening intra-abdominal process, and even then I think some consideration would need to be given to making her comfort care. I will follow up on the later CAT scans and visit her in person on .
[2016-06-30] VITALS (14 sets, daily range): BP systolic 158–178; BP diastolic 80–100; PULSE 69–128; RESP 12–20; O2SAT 94–99
[2016-06-30] MEDS: MeTOProlol 1 mg/mL 5 mL Inj IVPUSH SCH ×5 (00:48→23:50)
[2016-06-30] MEDS ORDERED: Nitroglycerin 2% 1 Gm Ointment TOPICAL ONE (04:30)
[2016-06-30] MEDS: 0.9% Sodium Chloride 1,000 ML IV SCH ×2 (04:56→21:45)
[2016-06-30] MEDS: Insulin LISPRO 300 Unit/3 mL Inj SUBQ SCH ×4 (05:15→23:08)
--- NOTE | 2016-06-30 06:37 | NUR ---
Bp's Pt Bp's 170s systolic, spoke to Dr. Stoddard,ordered Nitropatch, applied, Bp recheck 1hr after, at 158/81, pt asymptomatic. NGT pt NGT,drained 1200mls of greenish brown material, on low intermittent suction.
[2016-06-30 07:35] LABS: Magnesium 1.9 mg/dL (1.6-2.6); Phosphorus 1.9 mg/dL (2.5-4.9)
[2016-06-30] MEDS: Levothyroxine 100 mCg/5 mL Inj IV SCH (09:48)
[2016-06-30] MEDS: Insulin GLARgine 100 Unit/mL Syringe SUBQ SCH ×2 (09:55→21:46)
--- NOTE | 2016-06-30 11:49 | PCM.PHAPRO ---
Progress PARENTERAL NUTRITION ORDERS #6 30-Jun-16 Standard Hang Time: 2100 Substrates Total kcal: 1845 AMINO ACIDS 90 g DEXTROSE 275 g Total Volume (mL): 1300 LIPIDS 55 g Sterile Water for Injection QS mL To Infuse Over (hrs): 24 Total Volume 1300 mL At at a rate of (mL/hr): 54 Additives Sodium Chloride 110 mEq "typical" daily requirements Sodium Acetate 0 mEq Sodium 50-120mEq Potassium Chloride 20 mEq Potassium 60-120mEq Potassium Phosphate 50 mEq Phosphate 20-40mEq Calcium Gluconate 0 mEq Magnesium 8-32mEq Magnesium Sulfate 14 mEq Calcium 9-22mEq Acetate* 80-120mEq Chloride* 80-120mEq Regular Insulin 15 units *Depending on acid-base status Famotidine 40 mg Multivitamins 1 std dose Insulin Regimen Trace Elements 1 std dose none Thiamine 100 mg Regular Low Intensity Subcut Folic Acid 1 mg Regular Medium Intensity Subcut Ascorbic Acid 0 mg Regular High Intensity Subcut Regular Insulin Infusion Other: Special Instructions: To be infused via central line only. For delay or inturruption of TPN contact the pharmacist for alternative replacement solution. JANEL DEUTSCH [facility] [place] 242-1 Signature Date: GET [address] [place] Jun 30, 2016 11:48
--- NOTE | 2016-06-30 14:32 | PCM.PNMED ---
Subjective Date of Service Jun 30, 2016 Subjective No BM or flatus. denies any new issues/complaints Exam Vital Signs Vital Sign - Last Date Time Temp Pulse Resp B/P Pulse Ox O2 Delivery O2 Flow Rate FiO2 06/30/16 10:00 103 06/30/16 08:30 36.7 167/80 96 Nasal Cannula 2.00 06/30/16 05:00 12 Intake and Output 06/29/16 06/29/16 06/30/16 Cumulative From/Thru 15:00 23:00 07:00 06/16/16 07:14 - 06/30/16 05:43 Intake Total 2003 ml 1268 ml 91381 ml Output Total 1450 ml 2100 ml 34274 ml Balance 553 ml -832 ml 97271 ml Intake Oral 600 ml 3710 ml IV Total 729 ml 662 ml 62695 ml Tube Feeding 150 ml TPN/PPN 674 ml 606 ml 5137 ml Output Urine Total 1150 ml 900 ml 29694 ml Urine/Stool Mix 2250 ml Gastric Drainage Total 300 ml 1200 ml 8180 ml Emesis 2055 ml # Voids 8 # Bowel Movements 16 General: Alert, Cooperative, No Acute Distress Eyes: Scleral Anicteric Mouth: Mucous Membr Moist/[place] Chest & Lungs: Chest Wall Normal, Clear to auscultation & percussion Cardiovascular: Regular Rate/Rhythm Abdomen: Non-tender, Non-distended, Soft, Other (decreased bowel tones, NG tube in place) Extremities: No cyanosis/clubbing/edma bilat Neurological: Grossly Neurologically Intact, Normal Speech IVs and Medications Medications Reviewed: Medications were reviewed in detail Lab and Diagnostics Result Diagram: 06/28/16 0520 06/30/16 0620 X-Rays, CTs and MRIs CT of abdomen and pelvis IMPRESSION: 1. Bilateral low density pleural effusions and compressive atelectasis. 2. Marked gastric distention and marked proximal small bowel dilatation. When today's study is compared with the study dated 06/07/16, the extent of dilatation is slightly increased. These findings raise suspicion for a obstruction secondary to adhesions. This finding was discussed with Dr. Santiago at 11:18 AM on 06/21/16. 3. Small hypodensity midline fluid collection decreased in size when compared with the study dated 06/07/16 and suggestive of a resolving hematoma. Dictated by: Mariluz Odonnell M.D. on 06/21/2016 at 11:19 abd XR IMPRESSION: Interval radiographic resolution of small bowel obstruction. Dictated by: Rich Cuevsa M.D. 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 Admitted for recurrent small bowel obstruction. She started experiencing diarrhea on 06/17/2016 which is not uncommon for her after resolution of the small bowel obstruction, however PCR was done and positive for C. difficile colitis. #Recurrent small bowel obstruction, acute. Present on admission. Ongoing -The patient is status post extended right hemicolectomy on November 15, 2014. - Hx of Stage IV colon cancer with intraabdominal metastases. - Removed NG tube on 06/28/16 and started clears. Patient had episode of vomiting and NG tube reinserted the same night. - Continues to have significant NG tube output. - appreciate surgery and oncology consults. will f/u w/ recs - Surgery notes patient is not a surgical candidate given metastatic cancer and functional status. - Continue TPN until adequate oral intake - will reconsult palliative care once Dr Fairbanks gives us his recommendation. - started TPN 06/25 # Rapid Afib,acute,not present on admission, resolved - due to missed po BB - rate now better controlled with increased metoprolol IV dose from 5 mg to 10 mg every 6h. Also gave Cardizem 10 mg 1 dose on 06/24. We transition to by mouth Coreg - Warfarin has been on hold due to SBO, - started Lovenox 06/24 # C. difficile colitis, may contribute to current sx, although labs were unremarkable - suspect possible etiology behind her Hemoccult positive stool. - Was on oral vancomycin # 3 days then stopped as pt couldn't tolerate po, switched to Flagyl 500 q8h iv on 04/21. - Completed 10 day Flagyl on 06/29/16 # Hypothyroidism, chronic, ongoing - High TSH and low free T4. Resumed home Synthroid 125 MCG by mouth daily but NG tube reinserted. - Switched back to IV Synthroid # Recent Urinary tract infection, Present on admission. - Treated with Keflex, off abx #Stage IV colon cancer with intra-abdominal metastases - palliative care following. CODE STATUS changed from full to limited resuscitation # Diabetes type 2, - Pt on Lantus 20U hs and Humalog 6U TIDAC at home - glucose uncontrolled. - Started Lantus 20 units twice a day - c/w ISS chronic, stable, resolved: # Acute kidney injury. Present on admission, mild, Now resolved # Chronic hypertension, controlled - held Amlodipine , carvedilol #Hyperlipidemia, chronic - atorvastatin oh hold # occult GI bleed in the setting of c.diff, hx of colon cancer, - Hb stable - c/w Lovenox - Resume coumadin once NGT removed # Cardiomyopathy. #Osteoporosis #Hyperparathyroidism. Dispo: pending resolution of SBO and GI issues. VTE Prophylaxis: Sub-Q Enoxaparin VTE Mechanical Devices: Intermittant Pneumatic CD Resuscitation Status: Limited Interventions Limited Interventions: Compressions (brief trial), Cardioversion/ Defibrillation (brief trial) Time spent 35 min Cortez Roca Jun 30, 2016 14:32
--- NOTE | 2016-06-30 18:28 | NUR ---
BP Patient's BP has been on the 160's systole. Asymptomatic, denies headache. Dr. Roca aware. Will continue to monitor.
[2016-06-30] MEDS: Total Parenteral Nutrition 1 BAG IV SCH (21:00)
[2016-07-01] VITALS (13 sets, daily range): BP systolic 156–182; BP diastolic 66–107; PULSE 85–120; RESP 16–20; O2SAT 95–99
[2016-07-01] MEDS ORDERED: Nitroglycerin 2% 1 Gm Ointment TOPICAL ONE ×2 (01:40)
[2016-07-01] MEDS: Insulin LISPRO 300 Unit/3 mL Inj SUBQ SCH ×4 (04:56→22:49)
[2016-07-01] MEDS: MeTOProlol 1 mg/mL 5 mL Inj IVPUSH SCH ×3 (05:51→19:07)
--- NOTE | 2016-07-01 06:41 | NUR ---
BP's Pt's systolic Bp's running 160-170's, pt requested med, applied Nitropatch 0.5 in, minimal effect, am lopressor IV given early per Dr. Stoddard, Bp recheck 0630 at 160/65, pulse 99, pt asymptomatic.
[2016-07-01 08:38] LABS: INR 0.98 ratio
[2016-07-01 08:53] LABS: Phosphorus 2.3 mg/dL (2.5-4.9)
--- NOTE | 2016-07-01 09:44 | PCM.CONPHA ---
Objective Vital Signs Date Time Temp Pulse Resp B/P Pulse Ox O2 Delivery O2 Flow Rate FiO2 07/01/16 06:30 99 160/75 07/01/16 05:56 110 07/01/16 04:58 36.7 117 18 171/107 99 Nasal Cannula 2.00 07/01/16 02:45 108 174/66 07/01/16 02:17 Supplement Oxygen 07/01/16 01:08 36.6 98 18 179/77 98 Nasal Cannula 2.00 06/30/16 23:55 120 06/30/16 21:07 36.8 69 20 167/99 98 Nasal Cannula 2.00 06/30/16 18:30 169/100 06/30/16 16:02 36.6 89 165/98 96 Nasal Cannula 2.00 06/30/16 12:00 37.0 102 20 165/99 94 Nasal Cannula 2.00 06/30/16 10:00 103 Intake and Output 06/29/16 06/30/16 07/01/16 00:00 00:00 00:00 Intake Total 3672 ml 3373 ml 2838 ml Output Total 1900 ml 4350 ml 2100 ml Balance 1772 ml -977 ml 738 ml Weight (Kilograms): 67.400 Height (Feet): 5 Height (Inches): 5.00 Test 06/16/16 07:45 06/16/16 19:43 06/27/16 17:37 06/28/16 05:20 Lipase 25U/L (13-60) Hold Sandoval Top Tube Received (Received) Urine Color Yellow (YELLOW) Urine Appearance Clear (CLEAR,HAZY) Urine pH 5.5 (5.0-8.0) Urine Specific [place] 1.025 (1.003-1.035) Urine Protein Negativemg/dL (NEG,TRACE) Urine Glucose (UA) Negativemg/dL (NEGATIVE) Urine Ketones Negativemg/dL (NEGATIVE) Urine Occult Blood Negative (NEGATIVE) Urine Nitrite Negative (NEGATIVE) Urine Bilirubin Negative (NEGATIVE) Urine Urobilinogen Normalmg/dL (NORMAL) Urine Leukocyte Esterase Negative (NEGATIVE) Urine RBC 0-2/hpf (0-2) Urine WBC 0-5/hpf (0-5) Urine Epithelial Cells None/hpf (NONE-MOD) Urine Crystals None seen (NONE SEEN) Urine Bacteria Few/hpf (NONE-FEW) Urine Hyaline Casts None/lpf (NONE) Urine Granular Casts None seen (NONE SEEN) Urine Waxy Casts None seen (NONE SEEN) Urine Red Blood Cell Casts None seen (NONE SEEN) Urine White Blood Cell Casts None seen (NONE SEEN) Urine Mucus None seen (None Seen) Urine Trichomonas None seen (NONE SEEN) Urine Yeast None (NONE SEEN) Urinalysis Comment None Urine Culture Reflexed Indicated Troponin T < 0.010ug/L (0.0-0.011) Pro-B-Type Natriuretic Peptide 563.8pg/mL (0-738) Thyroid Stimulating Hormone (TSH) 10.570uIU/mL (0.450-4.500) Free Thyroxine 0.80ng/dL (0.82-1.77) White Blood Count 6.6th/mm3 (3.8-10.1) Red Blood Count 3.63mil/mm3 (3.90-5.20) Hemoglobin 10.8g/dL (12.0-15.6) Hematocrit 32.6% (35.0-46.0) Mean Corpuscular Volume 89.8fL (81-100) Mean Corpuscular Hemoglobin 29.8pg (27.0-35.0) Mean Corpuscular Hemoglobin Concent 33.1% (32.0-37.0) Red Cell Distribution Width 14.1% (12.3-15.4) Platelet Count 266bil/L (150-400) Neutrophils (%) (Auto) 75.3% (40-74) Lymphocytes (%) (Auto) 12.0% (14-46) Monocytes (%) (Auto) 10.0% (4-12) Eosinophils (%) (Auto) 0.6% (0-5) Basophils (%) (Auto) 0.3% (0-3) Test 07/01/16 07:50 Prothrombin Time 10.5sec (8.1-12.5) Prothromb Time International Ratio 0.98ratio Sodium Level 142mEq/L (134-144) Potassium Level 3.6mEq/L (3.5-5.2) Chloride Level 107mEq/L (97-108) Carbon Dioxide Level 26mmol/L (18-29) Blood Urea Nitrogen 22mg/dL (8-27) Creatinine 0.63mg/dL (0.57-1.00) Estimat Glomerular Filtration Rate 131mL/min (>59) Glucose Level 233mg/dL (60-99) Calcium Level 9.9mg/dL (8.5-10.1) Phosphorus Level 2.3mg/dL (2.5-4.9) Magnesium Level 2.0mg/dL (1.6-2.6) Total Bilirubin 0.2mg/dL (0.0-1.2) Aspartate Amino Transf (AST/SGOT) 19U/L (0-50) Alanine Aminotransferase (ALT/SGPT) 13U/L (0-32) Alkaline Phosphatase 68U/L (25-165) Total Protein 4.9g/dL (6.4-8.4) Albumin 2.4g/dL (3.4-5.0) Assessment/Plan Assessment/Plan PARENTERAL NUTRITION ORDERS #7 01-Jul-16 Standard Hang Time: 2100 Substrates Total kcal: 1845 AMINO ACIDS 90 g DEXTROSE 275 g Total Volume (mL): 1300 LIPIDS 55 g Sterile Water for Injection QS mL To Infuse Over (hrs): 24 Total Volume 1300 mL At at a rate of (mL/hr): 54 Additives Sodium Chloride 100 mEq "typical" daily requirements Sodium Acetate 0 mEq Sodium 50-120mEq Potassium Chloride 10 mEq Potassium 60-120mEq Potassium Phosphate 70 mEq Phosphate 20-40mEq Calcium Gluconate 0 mEq Magnesium 8-32mEq Magnesium Sulfate 14 mEq Calcium 9-22mEq Acetate* 80-120mEq Chloride* 80-120mEq Regular Insulin 20 units *Depending on acid-base status Famotidine 40 mg Multivitamins 1 std dose Insulin Regimen Trace Elements 1 std dose none Thiamine 100 mg Regular Low Intensity Subcut Folic Acid 1 mg Regular Medium Intensity Subcut Ascorbic Acid 0 mg Regular High Intensity Subcut Regular Insulin Infusion Other: Special Instructions: To be infused via central line only. For delay or inturruption of TPN contact the pharmacist for alternative replacement solution. JANEL DEUT[place] [facility] [place] 242-1 Signature Date: [place] Kaur Jul 01, 2016 09:44
[2016-07-01] MEDS: Levothyroxine 100 mCg/5 mL Inj IV SCH (10:29)
[2016-07-01] MEDS: Insulin GLARgine 100 Unit/mL Syringe SUBQ SCH ×2 (10:30→20:57)
[2016-07-01] MEDS: 0.9% Sodium Chloride 1,000 ML IV SCH ×2 (12:45→20:56)
--- NOTE | 2016-07-01 15:14 | PROG NOTE ---
[address] [address] PROGRESS NOTE PATIENT: JANEL DEUTSCH : 1935 MR#: [id number] ADMIT: 06/16/2016 JOB ID: [id number] DATE: 07/01/2016 NARRATIVE: I have come in to see the patient and her two sons today. She is relatively sleepy, having received some IV pain medication recently. However, I have had a lengthy discussion with her sons along the same lines that I have had previously with the patient. Although she has had response to her chemotherapy, she remains with a partial obstruction. This may be related to her cancer or may be related to simple adhesive disease. However, in my opinion, given her overall status, risk of surgery, particularly with the possibility of precipitating her demise or creating a real wound problem, outweighs the potential benefit and on that basis I would not recommend surgery. I reviewed the options of aggressive therapy with home TPN, continue nasogastric tube decompression as needed versus percutaneous gastrostomy tube decompression with the hope that she would show continued stability regarding her cancer and improve nutritional status in which case her small bowel obstruction may spontaneously resolve or she might become a reasonable surgical candidate. The other option would be to look at comfort care. The sons would like to have Palliative Care revisit the case. I will stop by this weekend to say hello to the patient but the last time I spoke with her, she seemed set against having surgery even if she was not going to get any better without it. TIME SPENT: Thirty 30 minutes was spent in [id number] discussion with the family and the patient.
--- NOTE | 2016-07-01 16:20 | PCM.PNMED ---
Subjective Date of Service Jul 01, 2016 Subjective No BM or flatus. denies any new issues/complaints Exam Vital Signs Vital Sign - Last Date Time Temp Pulse Resp B/P Pulse Ox O2 Delivery O2 Flow Rate FiO2 07/01/16 15:10 36.6 113 19 174/105 97 Room Air 07/01/16 04:58 2.00 Intake and Output 06/30/16 06/30/16 07/01/16 Cumulative From/Thru 15:00 23:00 07:00 06/16/16 07:14 - 07/01/16 06:07 Intake Total 1570 ml 1140 ml 30092 ml Output Total 1850 ml 94601 ml Balance 1570 ml -710 ml 72428 ml Intake Oral 0 ml 3710 ml IV Total 849 ml 556 ml 27417 ml Tube Feeding 150 ml TPN/PPN 721 ml 584 ml 6442 ml Output Urine Total 950 ml 63254 ml Urine/Stool Mix 2250 ml Gastric Drainage Total 900 ml 9080 ml Emesis 2055 ml # Voids 8 # Bowel Movements 16 Exam General: Alert, Cooperative, No Acute Distress Eyes: Scleral Anicteric Mouth: Mucous Membr Moist/[place] Chest & Lungs: Chest Wall Normal, Clear to auscultation bilat Cardiovascular: Regular Rate/Rhythm Abdomen: Non-tender, Non-distended, Soft, Other (decreased bowel tones, NG tube in place) Extremities: No cyanosis/clubbing/edema bilat Neurological: Grossly Neurologically Intact, Normal Speech IVs and Medications Medications Reviewed: Medications were reviewed in detail Lab and Diagnostics Result Diagram: 06/28/16 0520 07/01/16 0750 X-Rays, CTs and MRIs CT of abdomen and pelvis IMPRESSION: 1. Bilateral low density pleural effusions and compressive atelectasis. 2. Marked gastric distention and marked proximal small bowel dilatation. When today's study is compared with the study dated 06/07/16, the extent of dilatation is slightly increased. These findings raise suspicion for a obstruction secondary to adhesions. This finding was discussed with Dr. Santiago at 11:18 AM on 06/21/16. 3. Small hypodensity midline fluid collection decreased in size when compared with the study dated 06/07/16 and suggestive of a resolving hematoma. Dictated by: Mariluz Odonnell M.D. on 06/21/2016 at 11:19 abd XR IMPRESSION: Interval radiographic resolution of small bowel obstruction. Dictated by: Rich Cuevas M.D. 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 Admitted for recurrent small bowel obstruction. She started experiencing diarrhea on 06/17/2016 which is not uncommon for her after resolution of the small bowel obstruction, however PCR was done and positive for C. difficile colitis. #Recurrent small bowel obstruction, acute. Present on admission. Ongoing -The patient is status post extended right hemicolectomy on November 15, 2014. - Hx of Stage IV colon cancer with intraabdominal metastases. - Removed NG tube on 06/28/16 and started clears. Patient had episode of vomiting and NG tube reinserted the same night. - Continues to have significant NG tube output. - appreciate surgery and oncology consults. will f/u w/ recs - Surgery notes patient is not a surgical candidate given metastatic cancer and functional status. - Continue TPN until adequate oral intake - Reconsult palliative care. - c/w TPN started on 06/25 # Rapid Afib,acute,not present on admission, resolved - due to missed po BB - rate now better controlled with increased metoprolol IV dose from 5 mg to 10 mg every 6h. - will resume home dose carvedilol PO and clamp ng tube for about 30-60 min after taking meds - Warfarin has been on hold due to SBO, - started Lovenox 06/24 # C. difficile colitis, may contribute to current sx, although labs were unremarkable - suspect possible etiology behind her Hemoccult positive stool. - Was on oral vancomycin # 3 days then stopped as pt couldn't tolerate po, switched to Flagyl 500 q8h iv on 04/21. - Completed 10 day Flagyl on 06/29/16 # Hypothyroidism, chronic, ongoing - High TSH and low free T4. Resumed home Synthroid 125 MCG by mouth daily but NG tube reinserted. - Switched back to IV Synthroid # Recent Urinary tract infection, Present on admission. - Treated with Keflex, off abx #Stage IV colon cancer with intra-abdominal metastases - palliative care following. CODE STATUS changed from full to limited resuscitation # Diabetes type 2, - Pt on Lantus 20U hs and Humalog 6U TIDAC at home - glucose uncontrolled. - Started Lantus 20 units twice a day - c/w ISS # Goals of care: - had a long discussion with patient and her family today (about 20 min) and patient notes that her goal is to prolong her life as long as possible however still open to meet with palliative care and discuss possible other options. chronic, stable, resolved: # Acute kidney injury. Present on admission, mild, Now resolved # Chronic hypertension, controlled - held Amlodipine , carvedilol #Hyperlipidemia, chronic - atorvastatin oh hold # occult GI bleed in the setting of c.diff, hx of colon cancer, - Hb stable - c/w Lovenox - Resume coumadin once NGT removed # Cardiomyopathy. #Osteoporosis #Hyperparathyroidism. Dispo: pending resolution of SBO and GI issues. VTE Prophylaxis: Sub-Q Enoxaparin VTE Mechanical Devices: Intermittant Pneumatic CD Resuscitation Status: Limited Interventions Limited Interventions: Compressions (brief trial), Cardioversion/ Defibrillation (brief trial) Time spent 36 min Cortez Roca Jul 01, 2016 16:20
--- NOTE | 2016-07-01 16:53 | NUR ---
Social Work: Continued Discharge Planning D: Per EMR review, pt is aon day 15 of stay for partial SBO. Pt with stage IV colon cancer with intra-abdominal metastases. Pt continues to state to MD that she wishes full treatment and does not want comfort care. Pt does state she is receptive to palliative consult but seems steadfast in her goals to pursue treatment. At this time, surgery notes suggest pt is not a surgical candidate. Pt is currently on TPN for nutritional goals. Pt is ambulating SBA during admission. Pt lives at home with her spouse. She is I at baseline and wishes to return home at time of discharge. A: Pt who is [place]. P: Anticipate pt to discharge home via POV; DISTRICT COURT JUDGE to follow up with palliative care re: consult. DISTRICT COURT JUDGE to rule out TPN for discharge. MELONIE Engel
--- NOTE | 2016-07-01 17:42 | NUR ---
Anxiety Patient appears to be more anxious today. BP has been on the 160-170's systole, patient asymptomatic hospitalist aware. Dr. Roca had discussion with patient and family regarding the plan of care. Moving forward they agreed to have Palliative care be involved with the treatment. Ativan 0.5 mg IV push with relief. Will continue to monitor.
[2016-07-01] MEDS: Total Parenteral Nutrition 1 BAG IV SCH (20:56)
[2016-07-02] VITALS (11 sets, daily range): BP systolic 166–181; BP diastolic 82–105; PULSE 87–115; RESP 16; O2SAT 95–97
[2016-07-02] MEDS: MeTOProlol 1 mg/mL 5 mL Inj IVPUSH SCH ×4 (00:35→17:40)
--- NOTE | 2016-07-02 02:23 | NUR ---
NGT P: Pt c/o bloating feeling more than previously. I: NGT increased to high continuous suction with no improvement. Flushed NGT and attempted to aspirate but nothing aspirated back. Flushed again easily, but no aspirate. Pushed air through vent tubing and NGT started to drain again. E: NGT patent at low-medium intermittent suction. Pt reported relief of bloated feeling. Continuing care.
[2016-07-02] MEDS: 0.9% Sodium Chloride 1,000 ML IV SCH (05:25)
[2016-07-02] MEDS: Insulin LISPRO 300 Unit/3 mL Inj SUBQ SCH ×4 (05:53→23:06)
--- NOTE | 2016-07-02 09:38 | NUR ---
Scheduled Medications Not Available Patient's scheduled Lantus and scheduled Synthroid not available at this time, called pharmacy to let them know the medications have not been delivered, spoke with Ash and he stated they will be up to deliver them soon.
--- NOTE | 2016-07-02 10:05 | NUR ---
Order Clarification/Med Refusal Contacted Dr. Díaz with the following [employer] page: Need to clarify order for PO meds, as patient currently has an NG tube. Does route need to be through NG tube or actually PO? Also, patient refused Lovenox shot due to having had nose bleed during previous shift. Please advise. Thank you. Colten DUMONT Addendum: 07/02/16 at 1051 by COLTEN UPTON RN Sent the above [employer] page to Dr. Milan/Nilda team, as the team changed from [place] to [place], initially sent page to raad JAEGER.
[2016-07-02] MEDS: Insulin GLARgine 100 Unit/mL Syringe SUBQ SCH ×2 (10:16→20:56)
[2016-07-02] MEDS: Levothyroxine 100 mCg/5 mL Inj IV SCH (10:16)
--- NOTE | 2016-07-02 10:45 | NUR ---
Morning Rounds Staffed patient's case with case management, MD not present at this time. Case Management stated they need to know the plan for patient's TPN, is the MD planning to discharge her home on TPN. I also mentioned that order for PO medications needs to be clarified.
--- NOTE | 2016-07-02 11:20 | NUR ---
Order Clarification Paged Dr. Milan by phone instead of via cook page due to no response. Attempting to get order clarification for meds, PO or via NGT.
--- NOTE | 2016-07-02 13:23 | NUR ---
NUTRITION FOLLOW-UP: ASSESS: 81 YO female admitted with small bowel obstruction. NGT was removed 06/28/16 and pt was started on CL diet but pt began to experience emesis, n/v and bloating and NGT was re-inserted. TPN initiated 06/25 due to continued need for bowel rest and inability to tolerate diet. TPN is currently running at goal rate. Pt's phos continues to run low. Today it is 2.3 and her BG level continues to run in the 200s. Per surgery MD, pt continues to have a partial obstruction. Palliative care to get involved for goals of care and to discuss possible home TPN with PEG placement for decompression vs comfort care. PMHx: Stage IV colon cancer with intra-abdominal metastasis, atrial fibrillation, cardiomyopathy, HTN, hypothyroidism, osteoporosis, hyperparathyroidism, T2DM, recurrent SBO. DIET: NPO. NUTRITION SUPPORT: 275g dex, 90g AA and 55g lipids to provide 1845kcal and 90g pro (100% estimated needs). LABS: Reviewed. Glu 233, phos 2.3, alb 2.4 MEDICATIONS: Reviewed. Synthroid, insulin, lopressor, coumadin. GI symptoms / stool: BM x 1 06/26, C.diff resolved Skin Integrity: No issues reported. Peng 18 ANTHROPOMETRICS: Current Wt: 67.6kg BMI: 24.8 kg/m2. Admit weight: 65.91 kg IBW: 56.8 kg Reported 9.5% wt loss x1 month (prior to admit) ESTIMATED NEEDS (CANCER, MALNUTRITION): Calories:7617-2176 kcal (25 - 30 kcal / kg BW) Protein:80-100 g protein (1.2 - 1.5 g / kg BW) NUTRITION DIAGNOSIS: 1) Severe protein calorie malnutrition related to metastatic cancer with multiple bowel obstructions, altered GI function, as evidenced by 9.5% weight loss x 1 month - PERSISTS. 2) Inadequate oral intake related to altered GI function as evidence by need for NPO status, NGT and pt with minimal PO intake x 10 days - PERSISTS. INTERVENTION: 1) Due to continues elevated BG levels, recommend slight change in pt's TPN. Recommend 250g Dex, 100g AA and 55g Lipids to provide 1800kcal and 100g pro (100% estimated needs). Dex load 2.5mg/kg/min. Pharmacy aware. 2) Advance diet when medically appropriate. MONITOR/EVALUATE: NPO status, TPN tolerance, labs, diet advance / tolerance, PO intake, GI/nutrition status. Follow up per high nutrition risk guidelines.
--- NOTE | 2016-07-02 14:07 | PCM.PNMED ---
Subjective Date of Service Jul 02, 2016 Subjective Patient has some nausea and intermittent abdominal cramping. She feels depressed and very solid. No chest pain or dyspnea. No flatus. No abdominal distention. She has ongoing NG tube decompression. Exam Vital Signs Vital Sign - Last Date Time Temp Pulse Resp B/P Pulse Ox O2 Delivery O2 Flow Rate FiO2 07/02/16 12:50 180/97 07/02/16 11:37 37.0 101 16 96 Room Air 07/01/16 10:00 2.00 Intake and Output 07/01/16 07/01/16 07/02/16 Cumulative From/Thru 15:00 23:00 07:00 06/16/16 07:14 - 07/02/16 06:32 Intake Total 1069 ml 1587 ml 33089 ml Output Total 700 ml 2455 ml 82409 ml Balance 369 ml -868 ml 41091 ml Intake Oral 0 ml 0 ml 3710 ml IV Total 365 ml 950 ml 87649 ml Tube Feeding 150 ml TPN/PPN 704 ml 637 ml 7783 ml Output Urine Total 700 ml 1055 ml 49448 ml Urine/Stool Mix 2250 ml Gastric Drainage Total 1400 ml 73408 ml Emesis 2055 ml # Voids 8 # Bowel Movements 0 16 Exam Flat affect, chronically ill. Cachectic. Head is normal Anicteric sclera. Neck is supple. Lungs are clear normal effort. Heart is regular without murmur. Abdomen is flat and nondistended somewhat tender. Extremities are free of edema good pedal pulses. IVs and Medications Medications Reviewed: Medications were reviewed in detail Lab and Diagnostics Result Diagram: 06/28/16 0520 07/02/16 0900 X-Rays, CTs and MRIs CT of abdomen and pelvis IMPRESSION: 1. Bilateral low density pleural effusions and compressive atelectasis. 2. Marked gastric distention and marked proximal small bowel dilatation. When today's study is compared with the study dated 06/07/16, the extent of dilatation is slightly increased. These findings raise suspicion for a obstruction secondary to adhesions. This finding was discussed with Dr. Santiago at 11:18 AM on 06/21/16. 3. Small hypodensity midline fluid collection decreased in size when compared with the study dated 06/07/16 and suggestive of a resolving hematoma. Dictated by: Mariluz Odonnell M.D. on 06/21/2016 at 11:19 abd XR IMPRESSION: Interval radiographic resolution of small bowel obstruction. Dictated by: Rich Cuevas M.D. 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 Admitted for recurrent small bowel obstruction. She started experiencing diarrhea on 06/17/2016 which is not uncommon for her after resolution of the small bowel obstruction, however PCR was done and positive for C. difficile colitis. 1. Recurrent small bowel obstruction, acute. Present on admission. Ongoing -The patient is status post extended right hemicolectomy on November 15, 2014. - Hx of Stage IV colon cancer with intraabdominal metastases. - Removed NG tube on 06/28/16 and started clears. Patient had episode of vomiting and NG tube reinserted the same night. - c/w TPN started on 06/25 2. Rapid Afib,acute,not present on admission, resolved 3. C. difficile colitis, may contribute to current sx, although labs were unremarkable - suspect possible etiology behind her Hemoccult positive stool. - Was on oral vancomycin # 3 days then stopped as pt couldn't tolerate po, switched to Flagyl 500 q8h iv on 04/21. - Completed 10 day Flagyl on 06/29/16 4. Hypothyroidism, chronic, ongoing - High TSH and low free T4. Resumed home Synthroid 125 MCG by mouth daily but NG tube reinserted. - Switched back to IV Synthroid 5. Recent Urinary tract infection, Present on admission. - Treated with Keflex, off abx #Stage IV colon cancer with intra-abdominal metastases - palliative care following. CODE STATUS changed from full to limited resuscitation 6. Diabetes type 2, - Pt on Lantus 20U hs and Humalog 6U TIDAC at home - glucose uncontrolled. - Started Lantus 20 units twice a day, will uptitrate as needed. # Goals of care: - had a long discussion with patient and her family today (about 20 min) and patient notes that her goal is to prolong her life as long as possible however still open to meet with palliative care and discuss possible other options. chronic, stable, resolved: # Acute kidney injury. Present on admission, mild, Now resolved # Chronic hypertension, controlled - held Amlodipine , carvedilol #Hyperlipidemia, chronic - atorvastatin oh hold # occult GI bleed in the setting of c.diff, hx of colon cancer, - Hb stable - c/w Lovenox - Resume coumadin once NGT removed # Cardiomyopathy. #Osteoporosis #Hyperparathyroidism. Had a long meeting with 2 sons, and the patient today. They are requesting palliative care. It seems that the patient likely does not want to continue pursuing medical treatment but the family is having difficulty accepting this.. Pain Evaluation: Adequate Pain Control VTE Prophylaxis: Sub-Q Enoxaparin VTE Mechanical Devices: Intermittant Pneumatic CD Resuscitation Status: Limited Interventions Limited Interventions: Compressions (brief trial), Cardioversion/ Defibrillation (brief trial) Time spent 25 minutes Charan Milan MD Jul 02, 2016 14:07
--- NOTE | 2016-07-02 15:13 | PCM.PHAPRO ---
Progress Date of Service: Jul 02, 2016 TPN PARENTERAL NUTRITION ORDERS #8 02-Jul-16 Standard Hang Time: 2100 Substrates Total kcal: 1845 AMINO ACIDS 90 g DEXTROSE 275 g Total Volume (mL): 1300 LIPIDS 55 g Sterile Water for Injection QS mL To Infuse Over (hrs): 24 Total Volume 1300 mL At at a rate of (mL/hr): 54 Additives Sodium Chloride 100 mEq "typical" daily requirements Sodium Acetate 0 mEq Sodium 50-120mEq Potassium Chloride 10 mEq Potassium 60-120mEq Potassium Phosphate 70 mEq Phosphate 20-40mEq Calcium Gluconate 0 mEq Magnesium 8-32mEq Magnesium Sulfate 14 mEq Calcium 9-22mEq Acetate* 80-120mEq Chloride* 80-120mEq Regular Insulin 20 units *Depending on acid-base status Famotidine 40 mg Multivitamins 1 std dose Insulin Regimen Trace Elements 1 std dose none Thiamine 100 mg Regular Low Intensity Subcut Folic Acid 1 mg Regular Medium Intensity Subcut Ascorbic Acid 0 mg Regular High Intensity Subcut Regular Insulin Infusion Other: Serg Barrios Jul 02, 2016 15:13
--- NOTE | 2016-07-02 16:47 | PCM.PALLBR ---
Palliative Brief Note Date of Service Jul 02, 2016 . Palliative medicine asked to revisit patient by medical/hospitalist team. I had previously seen the patient in consultation, reviewed my notes as well as reviewing updated other information in the EMR prior to visiting. On my arrival, she is lying in bed, head of bed elevated, watching television. Was awake, alert fully oriented and appropriate. She does complain of the discomfort related to the NG tube and frustration at not being able to eat. When I inquired about her feelings about her ongoing treatment, though, she is very straightforward clear that she does not want to discontinue care, does not want the NG removed if it is inappropriate to do so, and wants to continue aggressive medical treatment for her cancer. We talked about her diagnoses, reviewed Dr. Fairbanks's note and recommendations, talked about the surgical consultants concerns regarding the risks of surgery. Discussed additional options for treatment of her discomfort, though her pain management is quite adequate, and clearly it is more just the frustration at the duration and intractable nature of the bowel obstruction. While she admits to feeling somewhat depressed, she realizes this is a very appropriate depression given her medical situation, and is not likely to be improved with antidepressant medication. As she remains committed at this time to ongoing treatment, no ongoing role for palliative medicine. Defer decisions regarding her definitive treatment of persistent small bowel obstruction to her medical and surgical teams. 30 minutes spent on today's consultation, greater than 50% [id number] with patient and in direct coordination of care. Chris Watson MD Jul 02, 2016 16:47
--- NOTE | 2016-07-02 16:58 | NUR ---
TOOK OVER PATIENT CARE [id number]
--- NOTE | 2016-07-02 17:55 | NUR ---
Elevated BP Contacted Dr. Milan with the following cook page: Patient's SBP staying in 180's, even with scheduled q 6 h Metoprolol. Patient and patient's family is concerned with SBP staying so high, please advise of any PRN medications that can be given. Thank you. Cesilia DUMONT
--- NOTE | 2016-07-02 18:05 | NUR ---
Verbal Order Verbal Order Received return call from Dr. Milan, he gave verbal order for Hydralazine 5 mg IV, q 4 h prn SBP > 160.
[2016-07-02] MEDS: Total Parenteral Nutrition 1 BAG IV SCH (20:56)
[2016-07-03] VITALS (11 sets, daily range): BP systolic 131–184; BP diastolic 77–96; PULSE 73–130; RESP 16–18; O2SAT 96–97
[2016-07-03] MEDS: 0.9% Sodium Chloride 1,000 ML IV SCH (00:12)
[2016-07-03] MEDS: MeTOProlol 1 mg/mL 5 mL Inj IVPUSH SCH ×4 (00:12→18:01)
[2016-07-03] MEDS: hydrALAZINE 20 mg/mL Inj IV PRN ×2 (02:06→09:20)
[2016-07-03] MEDS: Insulin LISPRO 300 Unit/3 mL Inj SUBQ SCH ×4 (04:52→21:18)
--- NOTE | 2016-07-03 05:38 | NUR ---
Heart Rate Pt got anxious about her heart rate, stated she could feel it beating fast. She had just been helped back into bed from the bedside commode. Telemetry called a couple minutes before about her HR spiking as high as 160s when she got up to the BSC.
[2016-07-03 08:40] LABS: Phosphorus 3.2 mg/dL (2.5-4.9)
[2016-07-03] MEDS: Insulin GLARgine 100 Unit/mL Syringe SUBQ SCH ×2 (09:20→21:19)
[2016-07-03] MEDS: Levothyroxine 100 mCg/5 mL Inj IV SCH (09:21)
--- NOTE | 2016-07-03 09:46 | PCM.PHAPRO ---
Progress TPN Management: -Day 9 of TPN -macronutrients changed per dietary recommendation to AA 100gm, Dextrose 250gm, Lipids 55gm -slight adjustment of electrolytes today -Plan: formula for this evening: PARENTERAL NUTRITION ORDERS #9 03-Jul-16 Standard Hang Time: 2100 Substrates Total kcal: 1800 AMINO ACIDS 100 g DEXTROSE 250 g Total Volume (mL): 1300 LIPIDS 55 g Sterile Water for Injection QS mL To Infuse Over (hrs): 24 Total Volume 1300 mL At at a rate of (mL/hr): 54 Additives Sodium Chloride 70 mEq "typical" daily requirements Sodium Acetate 0 mEq Sodium 50-120mEq Potassium Chloride 50 mEq Potassium 60-120mEq Potassium Phosphate 30 mEq Phosphate 20-40mEq Calcium Gluconate 0 mEq Magnesium 8-32mEq Magnesium Sulfate 14 mEq Calcium 9-22mEq Acetate* 80-120mEq Chloride* 80-120mEq Regular Insulin 20 units *Depending on acid-base status Famotidine 40 mg Multivitamins 1 std dose Insulin Regimen Trace Elements 1 std dose none Thiamine 100 mg Regular Low Intensity Subcut Folic Acid 1 mg Regular Medium Intensity Subcut Ascorbic Acid 0 mg Regular High Intensity Subcut Regular Insulin Infusion Other: Mary Crespo [facility] Jul 03, 2016 09:46
--- NOTE | 2016-07-03 10:39 | NUR ---
Morning Rounds Staffed patient's case with Dr. Milan and case management. No plan for discharge at this time.
--- NOTE | 2016-07-03 11:13 | PCM.PNMED ---
Subjective Date of Service Jul 03, 2016 Subjective No real changes overnight. Minimal abdominal pain. No distention. Minimal nausea. She denies any output terms of flatus or bowel movements. She has feels somewhat hungry. No cough or dyspnea. Exam Vital Signs Vital Sign - Last Date Time Temp Pulse Resp B/P Pulse Ox O2 Delivery O2 Flow Rate FiO2 07/03/16 10:53 150/82 07/03/16 09:47 130 07/03/16 09:10 Supplement Oxygen 07/03/16 08:55 36.5 18 96 07/01/16 10:00 2.00 Intake and Output 07/02/16 07/02/16 07/03/16 Cumulative From/Thru 15:00 23:00 07:00 06/16/16 07:14 - 07/03/16 06:13 Intake Total 1346 ml 1447 ml 62083 ml Output Total 1000 ml 1300 ml 92865 ml Balance 346 ml 147 ml 23385 ml Intake Oral 0 ml 74 ml 3784 ml IV Total 701 ml 1373 ml 35163 ml Tube Feeding 150 ml TPN/PPN 645 ml 8428 ml Output Urine Total 300 ml 1000 ml 47832 ml Urine/Stool Mix 2250 ml Gastric Drainage Total 700 ml 300 ml 07677 ml Emesis 2055 ml # Voids 8 # Bowel Movements 0 16 Exam I did 3, no distress Anicteric sclerae. Neck is supple. Lungs are clear, normal effort. Heart is irregular without murmur. Abdomen is soft nontender Extremities are free of edema. Good pedal and radial pulses. IVs and Medications Medications Reviewed: Medications were reviewed in detail Lab and Diagnostics Result Diagram: 06/28/16 0520 07/03/16 0758 Assessment & Plan 80 year old female with a history of 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 Admitted for recurrent small bowel obstruction. She started experiencing diarrhea on 06/17/2016 which is not uncommon for her after resolution of the small bowel obstruction, however PCR was done and positive for C. difficile colitis. 1. Recurrent small bowel obstruction, acute. Present on admission. Ongoing -The patient is status post extended right hemicolectomy on November 15, 2014. - Hx of Stage IV colon cancer with intraabdominal metastases. - Removed NG tube on 06/28/16 and started clears. Patient had episode of vomiting and NG tube reinserted the same night. The patient was failing to improve. Palate care saw her again yesterday. At times she voiced ongoing wishes to continue with medical treatment for her bowel obstruction. She is encouraged to move and her caloric support is via TPN. - c/w TPN started on 06/25 2. Rapid Afib,acute,not present on admission, resolved she is now on her chronic rate-controlled atrial fibrillation and having no difficulties. 3. C. difficile colitis, may contribute to current sx, although labs were unremarkable - suspect possible etiology behind her Hemoccult positive stool. - Was on oral vancomycin # 3 days then stopped as pt couldn't tolerate po, switched to Flagyl 500 q8h iv on 04/21. - Completed 10 day Flagyl on 06/29/16 There is no clinical indication of ongoing difficulties with C. difficile toxin colitis. 4. Hypothyroidism, chronic, ongoing - Switched back to IV Synthroid 5. Recent Urinary tract infection, Present on admission. - Treated with Keflex, off abx #Stage IV colon cancer with intra-abdominal metastases - palliative care following. CODE STATUS changed from full to limited resuscitation 6. Diabetes type 2, - Pt on Lantus 20U hs and Humalog 6U TIDAC at home - glucose uncontrolled. - Started Lantus 20 units twice a day, will uptitrate as needed. # Acute kidney injury. Present on admission, mild, Now resolved # Chronic hypertension, controlled - held Amlodipine , carvedilol #Hyperlipidemia, chronic - atorvastatin oh hold # occult GI bleed in the setting of c.diff, hx of colon cancer, - Hb stable - c/w Lovenox - Resume coumadin once NGT removed # Cardiomyopathy. #Osteoporosis #Hyperparathyroidism. Family was updated. We also reviewed a palliative care discussion yesterday which really was indicative for wind to continue current treatment. Pain Evaluation: Adequate Pain Control VTE Prophylaxis: Sub-Q Enoxaparin VTE Mechanical Devices: Intermittant Pneumatic CD Resuscitation Status: Limited Interventions Limited Interventions: Compressions (brief trial), Cardioversion/ Defibrillation (brief trial) Time spent 25 minutes Charan Milan MD Jul 03, 2016 11:13 # Cardiomyopathy. #Osteoporosis #Hyperparathyroidism. Family was updated. We also reviewed a palliative care discussion yesterday which really was indicative for wind to continue current treatment. Pain Evaluation: Adequate Pain Control VTE Prophylaxis: Sub-Q Enoxaparin VTE Mechanical Devices: Intermittant Pneumatic CD Resuscitation Status: Limited Interventions Limited Interventions: Compressions (brief trial), Cardioversion/ Defibrillation (brief trial) Time spent 25 minutes Charan Milan MD Jul 03, 2016 11:13
--- NOTE | 2016-07-03 14:39 | NUR ---
NUTRITION FOLLOW-UP: ASSESS: 81 YO female admitted with small bowel obstruction. NGT removed 06/28/16 and pt was started on CL diet, but pt began to experience emesis, n/v and bloating; NGT re-inserted. TPN initiated 06/25 due to continued need for bowel rest and inability to tolerate diet. Per surgery, pt continues to have a partial obstruction. Per Palliative MD note, pt. does not wish to discontinue treatment at this time. PMHx: Stage IV colon cancer with intra-abdominal metastasis, atrial fibrillation, cardiomyopathy, HTN, hypothyroidism, osteoporosis, hyperparathyroidism, T2DM, recurrent SBO. DIET: NPO. NUTRITION SUPPORT: 275g dex, 90g AA and 55g lipids to provide 1845kcal and 90g pro (100% estimated needs). LABS: Reviewed. Glu 244. MEDICATIONS: Reviewed. Synthroid, insulin, lopressor. GI symptoms / stool: BM x 1 06/26, C.diff resolved. Skin Integrity: No issues reported. Peng 18. ANTHROPOMETRICS: Current Wt: 64.9 kg BMI: 23.0 kg/m2. Admit weight: 65.91 kg IBW: 56.8 kg Reported 9.5% wt loss x1 month (prior to admit) ESTIMATED NEEDS (CANCER, MALNUTRITION): Calories:9841-4354 kcal (25 - 30 kcal / kg BW) Protein:80-100 g protein (1.2 - 1.5 g / kg BW) NUTRITION DIAGNOSIS: 1) Severe protein calorie malnutrition related to metastatic cancer with multiple bowel obstructions, altered GI function, as evidenced by 9.5% weight loss x 1 month - PERSISTS. 2) Inadequate oral intake related to altered GI function as evidence by need for NPO status, NGT, requirement for TPN, and pt with minimal PO intake x 10 days - PERSISTS. INTERVENTION: 1) TPN macronutrients increased today as follows: 250g Dex, 100g AA and 55g Lipids to provide 1800kcal and 100g pro (100% estimated needs). Dex load 2.5mg/kg/min. Pharmacy aware. 2) Advance diet when medically appropriate. MONITOR/EVALUATE: NPO status, TPN tolerance, labs, diet advance / tolerance, PO intake, GI/nutrition status. Follow up per high nutrition risk guidelines.
--- NOTE | 2016-07-03 15:31 | NUR ---
BM/Smear Patient up to BSC, had a small, smear like BM, it appeared to be a mucous consistency and dark green in color.
--- NOTE | 2016-07-03 16:01 | NUR ---
Evaluation completed. Please go to "Notes" then click on "Assessments and Notes" (bottom left corner of screen). Then select appropriate discipline tab on top of screen.
--- NOTE | 2016-07-03 20:36 | NUR ---
Held all oral medications per MD order/ note. Verbal order to RN day shift
[2016-07-03] MEDS: Total Parenteral Nutrition 1 BAG IV SCH (21:21)
[2016-07-04] VITALS (10 sets, daily range): BP systolic 142–178; BP diastolic 72–108; PULSE 62–114; RESP 12–18; O2SAT 96–97
[2016-07-04] MEDS: 0.9% Sodium Chloride 1,000 ML IV SCH ×2 (05:14→23:51)
[2016-07-04] MEDS: MeTOProlol 1 mg/mL 5 mL Inj IVPUSH SCH ×4 (05:15→17:56)
[2016-07-04] MEDS: Insulin LISPRO 300 Unit/3 mL Inj SUBQ SCH ×4 (05:51→23:55)
[2016-07-04 09:02] LABS: Phosphorus 2.6 mg/dL (2.5-4.9)
[2016-07-04] MEDS: Insulin GLARgine 100 Unit/mL Syringe SUBQ SCH ×2 (09:31→20:33)
[2016-07-04] MEDS: Levothyroxine 100 mCg/5 mL Inj IV SCH (09:32)
[2016-07-04] MEDS: hydrALAZINE 20 mg/mL Inj IV PRN (09:50)
--- NOTE | 2016-07-04 10:05 | NUR ---
Morning Rounds Staffed patient's case with Dr. Gustafson. He stated no plan for discharge at this time. Asked Dr. Gustafson about giving any oral medications, specifically patient's oral BP medications. Dr. Gustafson stated the oral medications can be given, just clamp the NG tube for 30-60 min.
--- NOTE | 2016-07-04 10:13 | NUR ---
Clamp NG tube now Dr. Gustafson stated he just met with the patient and believes that the NG tube could be clamped now, especially since the plan is to move to oral medications, patient is reporting no bloating at this time, patient is reporting flatus and some BM.
--- NOTE | 2016-07-04 10:20 | NUR ---
Patient Reports Bloating/Cramping Patient reported bloating and cramping, was able to speak with Dr. Gustafson while he was still on the floor, he stated to go ahead and leave the suction on then, but to clamp when giving oral medications.
--- NOTE | 2016-07-04 10:38 | NUR ---
BP recheck Rechecked patient's BP after giving Hydralazine, current BP is 146/72.
--- NOTE | 2016-07-04 14:56 | NUR ---
Patient requesting information from MD Contacted Dr. Gustafson with the following cook page: Patient asking for more information regarding possibility of going home on TPN/with NG tube, as discussed by Dr. Phan. Patient asking if you can speak with her. Thank you. Cesilia DUMONT
--- NOTE | 2016-07-04 15:23 | NUR ---
Plan to possibly remove NG tube 07/05/16 Dr. Gustafson returned to floor and spoke with patient and patient's son, they wanted to understand patient's options for going home with TPN. After speaking with patient, Dr. Gustafson stated the plan for now is for patient to have some clear liquids today and through the night and work toward pulling the NG tube tomorrow is possible.
--- NOTE | 2016-07-04 15:33 | PCM.PNMED ---
Subjective Date of Service Jul 04, 2016 Subjective 81-year-old metastatic colon carcinoma admitted for small bowel obstruction. She has tolerated sips of liquid overnight. She reports several episodes of flatus and small stool. 1 moderately normal stool today. Abdominal bloating seems reduced. NG tube remains in place. Exam Vital Signs Vital Sign - Last Date Time Temp Pulse Resp B/P Pulse Ox O2 Delivery O2 Flow Rate FiO2 07/04/16 12:27 36.8 62 16 142/81 97 Room Air 07/01/16 10:00 2.00 Intake and Output 07/03/16 07/03/16 07/04/16 Cumulative From/Thru 15:00 23:00 07:00 06/16/16 07:14 - 07/04/16 05:35 Intake Total 1079 ml 771 ml 87745 ml Output Total 735 ml 1600 ml 44702 ml Balance 344 ml -829 ml 24786 ml Intake Oral 74 ml 50 ml 3908 ml IV Total 350 ml 70 ml 76137 ml Tube Feeding 150 ml TPN/PPN 655 ml 621 ml 9704 ml Tube Irrigant 30 ml 30 ml Output Urine Total 575 ml 900 ml 04099 ml Urine/Stool Mix 2250 ml Gastric Drainage Total 160 ml 700 ml 72345 ml Emesis 2055 ml # Voids 8 # Bowel Movements 07 13 Exam General: Generally ill-appearing elderly woman in no acute distress HEENT: sclerae anicteric, oral mucosa moist Neck: no apparent JVD Chest: clear to auscultation Cardiac: S1S2, no murmur Abdomen: BS active, non-tender, not bloated or tympanitic Extremities: No edema Neuro: A&O, cranial nerves symmetric, motor strength and coordination normal IVs and Medications Medications Reviewed: Medications were reviewed in detail Lab and Diagnostics Result Diagram: 06/28/16 0520 07/04/16 0730 Assessment & Plan 80 year old female with a history of 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 Admitted for recurrent small bowel obstruction, complicated by C. difficile colitis. She completed ourse of metronidazole treatment. 1. Recurrent small bowel obstruction, acute. Present on admission. Ongoing. The patient is status post extended right hemicolectomy on November 15, 2014. Hx of Stage IV colon cancer with intraabdominal metastases. Removed NG tube on 06/28/16 and started clears. Patient had episode of vomiting and NG tube reinserted the same night. Palliative care saw her again 07/02/16. At times she voiced ongoing wishes to continue with medical treatment for her bowel obstruction. TPN started on 06/25 - Symptoms are improving as of 07/04/16 - Proceed with limited clear liquids today. If she tolerates these well than the NG tube should be removed in a.m. on 07/05/16, and attempt should be made to advance a liquid diet - Currently receiving TPN, but hopefully this can be discontinued with resumption of enteral feeding - Otherwise need to discuss with Dr. Fairbanks regarding further care and recommendation for home TPN if needed. 2. Rapid Afib,acute,not present on admission, resolved - she is now on her chronic rate-controlled atrial fibrillation and having no difficulties. 3. C. difficile colitis, may contribute to current sx, although labs were unremarkable - suspect possible etiology behind her Hemoccult positive stool. - Was on oral vancomycin # 3 days then stopped as pt couldn't tolerate po, switched to Flagyl 500 q8h iv on 04/21. - Completed 10 day Flagyl on 06/29/16 - There is no clinical indication of ongoing difficulties with C. difficile toxin colitis. 4. Hypothyroidism, chronic, ongoing - Switched back to IV Synthroid 5. Recent Urinary tract infection, Present on admission. - Treated with Keflex, she is now off abx #Stage IV colon cancer with intra-abdominal metastases - palliative care following. CODE STATUS changed from full to limited resuscitation 6. Diabetes type 2, - Pt on Lantus 20U hs and Humalog 6U TIDAC at home - glucose uncontrolled. - Started Lantus 20 units twice a day, will uptitrate as needed. # Acute kidney injury. Present on admission, mild, Now resolved # Chronic hypertension, controlled - held Amlodipine , carvedilol #Hyperlipidemia, chronic - atorvastatin oh hold # occult GI bleed in the setting of c.diff, hx of colon cancer, - Hb stable - c/w Lovenox - Resume coumadin once NGT removed # Cardiomyopathy. #Osteoporosis #Hyperparathyroidism. Family was updated. We also reviewed a palliative care discussion yesterday which really was indicative for wind to continue current treatment. VTE Prophylaxis: Sub-Q Enoxaparin VTE Mechanical Devices: Intermittant Pneumatic CD Resuscitation Status: Limited Interventions Limited Interventions: Compressions (brief trial), Cardioversion/ Defibrillation (brief trial) Time spent 35 minutes, including counseling patient and family at bedside regarding treatment options and status Enmanuel Gustafson MD Jul 04, 2016 15:33
--- NOTE | 2016-07-04 15:38 | PCM.PHAPRO ---
Progress Date of Service: Jul 04, 2016 TPN PARENTERAL NUTRITION ORDERS 10 - Standard Hang Time: 2100 Substrates Total kcal: 1800 AMINO ACIDS 100 g DEXTROSE 250 g Total Volume (mL): 1400 LIPIDS 55 g Sterile Water for Injection QS mL To Infuse Over (hrs): 24 Total Volume 1400 mL At at a rate of (mL/hr): 58 Additives Sodium Chloride 40 mEq "typical" daily requirements Sodium Acetate 0 mEq Sodium 50-120mEq Potassium Chloride 30 mEq Potassium 60-120mEq Potassium Phosphate 30 mEq Phosphate 20-40mEq Calcium Gluconate 0 mEq Magnesium 8-32mEq Magnesium Sulfate 14 mEq Calcium 9-22mEq Acetate* 80-120mEq Chloride* 80-120mEq Regular Insulin 20 units *Depending on acid-base status Famotidine 40 mg Multivitamins 1 std dose Insulin Regimen Trace Elements 1 std dose none Thiamine 100 mg Regular Low Intensity Subcut Folic Acid 1 mg Regular Medium Intensity Subcut Ascorbic Acid 0 mg Regular High Intensity Subcut Regular Insulin Infusion Other: Serg Barrios Jul 04, 2016 15:38
--- NOTE | 2016-07-04 15:40 | PCM.PHAPRO ---
Progress Date of Service: Jul 04, 2016 TPN PARENTERAL NUTRITION ORDERS 2 - Standard Hang Time: 2100 Substrates Total kcal: 960 AMINO ACIDS 50 g DEXTROSE 150 g Total Volume (mL): 1000 LIPIDS 25 g Sterile Water for Injection QS mL To Infuse Over (hrs): 24 Total Volume 1000 mL At at a rate of (mL/hr): 42 Additives Sodium Chloride 60 mEq "typical" daily requirements Sodium Acetate mEq Sodium 50-120mEq Potassium Chloride 30 mEq Potassium 60-120mEq Potassium Phosphate 30 mEq Phosphate 20-40mEq Calcium Gluconate 9 mEq Magnesium 8-32mEq Magnesium Sulfate 12 mEq Calcium 9-22mEq Acetate* 80-120mEq Chloride* 80-120mEq Regular Insulin units *Depending on acid-base status Famotidine mg Multivitamins 1 std dose Insulin Regimen Trace Elements 1 std dose none Thiamine mg Regular Low Intensity Subcut Folic Acid mg Regular Medium Intensity Subcut Ascorbic Acid mg Regular High Intensity Subcut Regular Insulin Infusion Other: Serg Barrios Jul 04, 2016 15:40
--- NOTE | 2016-07-04 19:01 | PROG NOTE ---
[address] [address] PROGRESS NOTE PATIENT: JANEL DEUTSCH : 1935 MR#: [id number] ADMIT: 06/16/2016 JOB ID: [id number] DATE: 07/03/2016 I spent 15 minutes today with the patient and her family reviewing her situation and the fact that I feel she is not a surgical candidate at this time. I went over the things I have gone over in the past few meetings with both her and the family regarding her options. I believe all her questions are answered. At this point, General Surgery will not follow her in the hospital but will be available for consultation if any further questions arise during this hospitalization. As an outpatient she can follow up with Dr. Valenzuela in General Surgery.
[2016-07-04] MEDS: Total Parenteral Nutrition 1 BAG IV SCH (20:38)
--- NOTE | 2016-07-04 21:30 | NUR ---
Oral Meds Pt did well with oral medications and had NG tube clamped for 1 hour without problem. Care continues
[2016-07-05] VITALS (8 sets, daily range): BP systolic 124–167; BP diastolic 69–104; PULSE 96–118; RESP 17–20; O2SAT 96–98
[2016-07-05] MEDS: MeTOProlol 1 mg/mL 5 mL Inj IVPUSH SCH ×5 (00:35→21:09)
[2016-07-05] MEDS: Insulin LISPRO 300 Unit/3 mL Inj SUBQ SCH ×4 (05:00→21:29)
[2016-07-05] MEDS: hydrALAZINE 20 mg/mL Inj IV PRN ×2 (05:25→17:38)
[2016-07-05] MEDS: Levothyroxine 100 mCg/5 mL Inj IV SCH (08:21)
[2016-07-05] MEDS: Insulin GLARgine 100 Unit/mL Syringe SUBQ SCH ×2 (08:30→21:30)
--- NOTE | 2016-07-05 11:47 | PCM.PHAPRO ---
Progress Date of Service: Jul 05, 2016 TPN Assessment: All electrolytes WNL, only change to be made today will be to increase amount of regular insulin from 20 units to 25 units due to high blood glucose trends over the past few days and total amount of meal time insulin of 7 units given yesterday. Plan: PARENTERAL NUTRITION ORDERS 11 05-Jul-16 Standard Hang Time: 2100 Substrates Total kcal: 1800 AMINO ACIDS 100 g DEXTROSE 250 g Total Volume (mL): 1400 LIPIDS 55 g Sterile Water for Injection QS mL To Infuse Over (hrs): 24 Total Volume 1400 mL At at a rate of (mL/hr): 58 Additives Sodium Chloride 40 mEq "typical" daily requirements Sodium Acetate 0 mEq Sodium 50-120mEq Potassium Chloride 30 mEq Potassium 60-120mEq Potassium Phosphate 30 mEq Phosphate 20-40mEq Calcium Gluconate 0 mEq Magnesium 8-32mEq Magnesium Sulfate 14 mEq Calcium 9-22mEq Acetate* 80-120mEq Chloride* 80-120mEq Regular Insulin 25 units *Depending on acid-base status Famotidine 40 mg Multivitamins 1 std dose Insulin Regimen Trace Elements 1 std dose none Thiamine 100 mg Regular Low Intensity Subcut Folic Acid 1 mg Regular Medium Intensity Subcut Ascorbic Acid 0 mg Regular High Intensity Subcut Regular Insulin Infusion Other: Pharmacy will continue to monitor in the care of this patient. Thanks! Rhina Jama PharmD Jul 05, 2016 11:47
--- NOTE | 2016-07-05 13:16 | NUR ---
NGT/Palliative Care Reported new NG output to MD. Will not clamp NG at this time due to output and patient discomfort. Called Palliative to report family concerns. Palliative states they will come talk to patient and family again.
[2016-07-05] MEDS: 0.9% Sodium Chloride 1,000 ML IV SCH (13:25)
--- NOTE | 2016-07-05 14:34 | PCM.PNMED ---
Subjective Date of Service Jul 05, 2016 Subjective Pt had no acute events overnight. Patient is still having persistent NG tube output. When attempts to clamp the tube were made the patient was unable to tolerate it. Exam Vital Signs Vital Sign - Last Date Time Temp Pulse Resp B/P Pulse Ox O2 Delivery O2 Flow Rate FiO2 07/05/16 10:03 36.7 100 20 145/81 97 Room Air 07/01/16 10:00 2.00 Intake and Output 07/04/16 07/04/16 07/05/16 Cumulative From/Thru 15:00 23:00 07:00 06/16/16 07:14 - 07/05/16 06:20 Intake Total 855 ml 974 ml 23229 ml Output Total 650 ml 400 ml 09212 ml Balance 205 ml 574 ml 06084 ml Intake Oral 200 ml 4108 ml IV Total 124 ml 114 ml 17418 ml Tube Feeding 150 ml TPN/PPN 731 ml 660 ml 16547 ml Tube Irrigant 30 ml Output Urine Total 250 ml 400 ml 32110 ml Urine/Stool Mix 2250 ml Gastric Drainage Total 400 ml 18307 ml Emesis 2055 ml # Voids 5 13 # Bowel Movements 1 19 Exam Exam General: Generally ill-appearing elderly woman in no acute distress HEENT: sclerae anicteric, oral mucosa moist Neck: no apparent JVD Chest: clear to auscultation Cardiac: S1S2, no murmur Abdomen: BS active, non-tender, not bloated or tympanitic Extremities: No edema Neuro: A&O, cranial nerves symmetric, motor strength and coordination normal IVs and Medications Medications Reviewed: Medications were reviewed in detail Lab and Diagnostics Result Diagram: 07/05/16 0610 Assessment & Plan 80 year old female with a history of 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 Admitted for recurrent small bowel obstruction, complicated by C. difficile colitis. She completed ourse of metronidazole treatment. 1. Recurrent small bowel obstruction, acute. Present on admission. Ongoing. The patient is status post extended right hemicolectomy on November 15, 2014. Hx of Stage IV colon cancer with intraabdominal metastases. Removed NG tube on 06/28/16 and started clears. Patient had episode of vomiting and NG tube reinserted the same night. Palliative care saw her again 07/02/16. At times she voiced ongoing wishes to continue with medical treatment for her bowel obstruction. TPN started on 06/25 - Symptoms are improving as of 07/04/16 - Pt was unable to tolerate clears and the tube being shut off for an hour - will continue with tpn - will increase ivf due to feelings of dehydration 2. Rapid Afib,acute,not present on admission, resolved - she is now on her chronic rate-controlled atrial fibrillation and having no difficulties. - will resume coumadin once ng tube is out 3. C. difficile colitis, may contribute to current sx, although labs were unremarkable - suspect possible etiology behind her Hemoccult positive stool. - Was on oral vancomycin # 3 days then stopped as pt couldn't tolerate po, switched to Flagyl 500 q8h iv on 04/21. - Completed 10 day Flagyl on 06/29/16 - There is no clinical indication of ongoing difficulties with C. difficile toxin colitis. 4. Hypothyroidism, chronic, ongoing - Switched back to IV Synthroid 5. Recent Urinary tract infection, Present on admission. - Treated with Keflex, she is now off abx #Stage IV colon cancer with intra-abdominal metastases - palliative care following. CODE STATUS changed from full to limited resuscitation 6. Diabetes type 2, - Pt on Lantus 20U hs and Humalog 6U TIDAC at home - glucose uncontrolled. - Started Lantus 20 units twice a day, will uptitrate as needed. # Acute kidney injury. Present on admission, mild, Now resolved # Chronic hypertension, controlled - held Amlodipine , carvedilol #Hyperlipidemia, chronic - atorvastatin oh hold # occult GI bleed in the setting of c.diff, hx of colon cancer, - Hb stable - c/w Lovenox - Resume coumadin once NGT removed # Cardiomyopathy. #Osteoporosis #Hyperparathyroidism. VTE Prophylaxis: Sub-Q Enoxaparin VTE Mechanical Devices: Intermittant Pneumatic CD Resuscitation Status: Limited Interventions Limited Interventions: Compressions (brief trial), Cardioversion/ Defibrillation (brief trial) Sumit Stoddard MD Jul 05, 2016 14:34
[2016-07-05 14:40] LABS: BASOPHILS % (AUTO) 0.4 % (0-3); EOSINOPHILS % (AUTO) 0.1 % (0-5); MONOCYTES % (AUTO) 9.3 % (4-12); Mean Corpuscular Volume 94.8 fL (81-100); Platelet Count 357 bil/L (150-400)
--- NOTE | 2016-07-05 15:12 | NUR ---
NUTRITION FOLLOW-UP: ASSESS:81 YO female admitted with partial small bowel obstruction. Pt continues to have persistent NG tube output and is unable to tolerate clamping NG tube. TPN initiated 06/25 and pt continues to tolerate TPN well. Palliative care may re-visit with pt and family per notes. PMHx: Stage IV colon cancer with intra-abdominal metastasis, atrial fibrillation, cardiomyopathy, HTN, hypothyroidism, osteoporosis, hyperparathyroidism, T2DM, recurrent SBO. DIET: NPO. NUTRITION SUPPORT: 250 g dex, 100 g AA and 55 g lipids to provide 1800 kcal and 100 g protein LABS: Reviewed. BUN 36, Glu 231, Ca 10.5, Alb 2.5. MEDICATIONS: Reviewed. GI symptoms / stool: BM x 1 (07/05) C.diff resolved. ANTHROPOMETRICS: Current Wt: 64.9 kg BMI: 23.8 kg/m2. Admit weight: 64.7 kg Reported 9.5% wt loss x1 month (prior to admit) ESTIMATED NEEDS (CANCER, MALNUTRITION): Calories:1600 -2250kcal (25-35 kcal / kg BW) Protein: 80-100 g protein (1.2 - 1.5 g / kg BW) NUTRITION DIAGNOSIS: 1) Severe protein calorie malnutrition related to metastatic cancer with multiple bowel obstructions, altered GI function, as evidenced by 9.5% weight loss x 1 month - PERSISTS. 2) Inadequate oral intake related to altered GI function as evidence by need for NPO status, NGT, requirement for TPN, and pt with minimal PO intake x 19 days - PERSISTS. INTERVENTION: 1) Recommend continuing current TPN at this time. 2) Advance diet when medically appropriate. MONITOR/EVALUATE: TPN tolerance, labs, diet advance / tolerance, GI/nutrition status, POC. Follow per high nutrition risk guidelines.
--- NOTE | 2016-07-05 15:37 | NUR ---
NGT Patient unable to tolerate temporary clamping of NGT for 30 minutes. Became bloated and anxious. Reconnected to suction and over 300mls dark brown/green drainage into cannister. Patient states she immediately felt relief. Reported to MD. Plan to leave NGT to [facility].
--- NOTE | 2016-07-05 16:26 | PCM.PALLBR ---
Palliative Brief Note Date of Service Jul 05, 2016 . Attempted to meet with family and patient since questions seem to be family questions around patient's decisions. No family available this afternoon. Will attempt a family conference tomorrow. Ria Pitt MD, MD Jul 05, 2016 16:26
--- NOTE | 2016-07-05 16:45 | NUR ---
Social Work: Continued Discharge Planning: Data & Assessment: EMR reviewed. Patient was discussed in daily rounds and patient physician plans to evaluate patient for possible clamp. Patient's NG tube is still putting out. Patient is currently on sips and chips. Patient is being followed by Palliative care team. Patient is still receiving TPN. It is anticipated that patient will discharge home with home health. Customs And Immigration Officer will continue to follow patient to rule out TPN for discharge. P: It is anticipated that patient will discharge home via POV with HH. Shocial worker to obtain patient's choice for home health. horticultural worker to rule out TPN for discharge. horticultural worker will continue to follow. [place] Bill, JORDAN, ACM
[2016-07-05] MEDS: Total Parenteral Nutrition 1 BAG IV SCH (21:04)
[2016-07-06] VITALS (7 sets, daily range): BP systolic 124–150; BP diastolic 70–88; PULSE 83–104; RESP 16–20; O2SAT 96–98
[2016-07-06] MEDS: Insulin LISPRO 300 Unit/3 mL Inj SUBQ SCH ×4 (05:00→20:53)
[2016-07-06] MEDS: MeTOProlol 1 mg/mL 5 mL Inj IVPUSH SCH ×3 (06:09→18:34)
[2016-07-06] MEDS: Insulin GLARgine 100 Unit/mL Syringe SUBQ SCH ×2 (09:35→20:53)
[2016-07-06] MEDS: 0.9% Sodium Chloride 1,000 ML IV SCH (11:02)
--- NOTE | 2016-07-06 11:28 | PCM.PHAPRO ---
Progress Date of Service: Jul 06, 2016 TPN TPN Assessment: All electrolytes WNL, will continue with current formula per nutrition recommendation. Patient is expected to be discharged tomorrow or possibly be taken off TPN. Plan: PARENTERAL NUTRITION ORDERS 06-Jul-16 Standard Hang Time: 2100 Substrates Total kcal: 1800 AMINO ACIDS 100 g DEXTROSE 250 g Total Volume (mL): 1400 LIPIDS 55 g Sterile Water for Injection QS mL To Infuse Over (hrs): 24 Total Volume 1400 mL At at a rate of (mL/hr): 58 Additives Sodium Chloride 40 mEq "typical" daily requirements Sodium Acetate 0 mEq Sodium 50-120mEq Potassium Chloride 30 mEq Potassium 60-120mEq Potassium Phosphate 30 mEq Phosphate 20-40mEq Calcium Gluconate 0 mEq Magnesium 8-32mEq Magnesium Sulfate 14 mEq Calcium 9-22mEq Acetate* 80-120mEq Chloride* 80-120mEq Regular Insulin 25 units *Depending on acid-base status Famotidine 40 mg Multivitamins 1 std dose Insulin Regimen Trace Elements 1 std dose none Thiamine 100 mg Regular Low Intensity Subcut Folic Acid 1 mg Regular Medium Intensity Subcut Ascorbic Acid 0 mg Regular High Intensity Subcut Regular Insulin Infusion Other: Pharmacy will continue to monitor in the care of this patient. Thanks! Rhina Narvaez PharmD Jul 06, 2016 11:28
--- NOTE | 2016-07-06 14:17 | NUR ---
Palliative care note [facility] D/A: Met with pt and her family at length as well as with Dr. Dickens. First met with pt two sons in [facility]. They are Feng ( [phone]) and Bebeto ([phone]). This worker had called earlier to both family home and to also to Bebeto's residence. Had left message at family home as phone not answered, Identified self as PC CONTROL OFFICER, noted that PC was following pt and asked when family might be visiting. Indicated Dr. Dickens would like to speak to family and pt today. Called son Bebeto who asked that this worker call pt spouse, indicated message has been left on spouse number. Sons indicate that spouse heard this message and became upset and began to experience chest pain and has now been admitted to [facility]. (Please note that family indicates that pt is not aware of this and asks that staff not disclose this to pt.) Family requests that all calls regarding pt go to one of the son's and not to pt/spouse residence. They indicate they are trying to decrease stress on pt spouse. (Other family members are Seth at [phone] and Jessica at [phone]. Jessica is an RN who is a friend of the family and someone whom pt identifies as her chief spokesperson.) Have discussed with lester Weaver to relay that family wishes all calls go to sons. Family with multitudes of questions. Pt participates minimally in care conference and often appears upset with family. Family very focused on what pt may do to assist with allowing for her to get better. Family attempting to be helpful and encouraging of pt to be proactive but pt may experience this as intrusive. Family voices belief that blockage is not related to her current cancer and are very interested in pt getting out of bed and being more physical so that she can assist in releasing the blockage. Pt notes increased HR that does not allow for her to be physical. Dr. Dickens discusses cardiac meds and will discuss further with Dr. Stoddard. Family/pt friend Jessica (who participates via phone) appear to think that palliative care will now be primary service in charge of pt. Both this worker and Dr. Dickens discuss that PC is a consultative service and will be making recommendations to hospitalist team, which is the team in charge of pt care. Pt has had a few instances of referencing a desire to consider stopping current treatment, during this acute admission. Dr. Dickens discussed with pt/family the possibility that current treatment may not work. Pt then replied that she would wish [place] , should she not be able to have her blockage gone.. After further discussion and a chance to express herself more fully, pt indicated that she would like to continue with current treatments for at least a few more days to see if she is able to improve her condition. Discussed that pt is not felt to be a surgical candidate at this time. P: Palliative to continue to follow. Mary LOBO, CCM
[2016-07-06] MEDS: HYDROmorphone 0.5 mg/0.5 mL iSecure Syringe IVPUSH PRN (14:37)
--- NOTE | 2016-07-06 15:03 | NUR ---
Pain Pt complains of intermittent abdominal pain throughout the day, for the most part she said it was "small" and "tolerable". In the afternoon she reported her pain had increased and she felt very bloated. At this time she requested pain mediation and was given IV dilaudid. She reported it was helpful in reducing her pain. She is tolerating small sips of fluid. NG tube on low intermittent suction. Continue to monitor.
--- NOTE | 2016-07-06 16:45 | PCM.PNMED ---
Subjective Date of Service Jul 06, 2016 Subjective Pt seen and examined. Patient has had no return of bowel function today and remains persistently nauseous. Patient Exam Vital Signs Vital Sign - Last Date Time Temp Pulse Resp B/P Pulse Ox O2 Delivery O2 Flow Rate FiO2 07/06/16 13:09 36.4 85 18 126/79 97 Room Air 07/01/16 10:00 2.00 Intake and Output 07/05/16 07/05/16 07/06/16 Cumulative From/Thru 15:00 23:00 07:00 06/16/16 07:14 - 07/06/16 05:20 Intake Total 1474 ml 1157 ml 27416 ml Output Total 1800 ml 28218 ml Balance -326 ml 1157 ml 79967 ml Intake Oral 360 ml 4468 ml IV Total 372 ml 553 ml 65551 ml Tube Feeding 150 ml TPN/PPN 742 ml 604 ml 42290 ml Tube Irrigant 30 ml Output Urine Total 800 ml 22744 ml Urine/Stool Mix 2250 ml Gastric Drainage Total 1000 ml 11516 ml Emesis 2055 ml # Voids 13 # Bowel Movements 19 Exam General: Obese man sitting forward moderate distress HEENT: sclerae anicteric, oral mucosa moist Neck: no JVD Chest: clear to auscultation Cardiac: S1S2, no murmur Abdomen: BS present, non-tender to palpate Extremities: No edema; Neuro: A&O, cranial nerves symmetric, motor strength 5/5, Lab and Diagnostics Result Diagram: 07/05/16 1416 07/06/16 0530 Assessment & Plan 80 year old female with a history of 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 Admitted for recurrent small bowel obstruction, complicated by C. difficile colitis. She completed ourse of metronidazole treatment. 1. Recurrent small bowel obstruction, acute. Present on admission. Ongoing. The patient is status post extended right hemicolectomy on November 15, 2014. Hx of Stage IV colon cancer with intraabdominal metastases. Removed NG tube on 06/28/16 and started clears. Patient had episode of vomiting and NG tube reinserted the same night. Palliative care saw her again 07/02/16. At times she voiced ongoing wishes to continue with medical treatment for her bowel obstruction. TPN started on 06/25 - Symptoms are improving as of 07/04/16 - Pt was unable to tolerate clears and the tube being shut off for an hour - will continue with tpn - will increase ivf due to feelings of dehydration 2. Rapid Afib,acute,not present on admission, resolved - she is now on her chronic rate-controlled atrial fibrillation and having no difficulties. - will resume coumadin once ng tube is out 3. C. difficile colitis, may contribute to current sx, although labs were unremarkable - suspect possible etiology behind her Hemoccult positive stool. - Was on oral vancomycin # 3 days then stopped as pt couldn't tolerate po, switched to Flagyl 500 q8h iv on 04/21. - Completed 10 day Flagyl on 06/29/16 - There is no clinical indication of ongoing difficulties with C. difficile toxin colitis. 4. Hypothyroidism, chronic, ongoing - Switched back to IV Synthroid 5. Recent Urinary tract infection, Present on admission. - Treated with Keflex, she is now off abx #Stage IV colon cancer with intra-abdominal metastases - palliative care following. CODE STATUS changed from full to limited resuscitation 6. Diabetes type 2, - Pt on Lantus 20U hs and Humalog 6U TIDAC at home - glucose uncontrolled. - Started Lantus 20 units twice a day, will uptitrate as needed. # Acute kidney injury. Present on admission, mild, Now resolved # Chronic hypertension, controlled - held Amlodipine , carvedilol #Hyperlipidemia, chronic - atorvastatin oh hold # occult GI bleed in the setting of c.diff, hx of colon cancer, - Hb stable - c/w Lovenox - Resume coumadin once NGT removed # Cardiomyopathy. #Osteoporosis #Hyperparathyroidism. VTE Prophylaxis: Sub-Q Enoxaparin VTE Mechanical Devices: Intermittant Pneumatic CD Resuscitation Status: Limited Interventions Limited Interventions: Compressions (brief trial), Cardioversion/ Defibrillation (brief trial) Sumit Stoddard MD Jul 06, 2016 16:45
--- NOTE | 2016-07-06 16:46 | PCM.PALLBR ---
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 Palliative medicine was consulted to assist patient and family and determination of goals of care. Per my detailed conversation yesterday with the patient and her family, patient would wish brief attempt of resuscitation with CPR and defibrillation, but would not wish to be intubated or mechanically ventilated. She otherwise wants to continue aggressive care of her cancer, and if necessary would be willing to undergo surgical exploration/intervention if her bowel obstruction does not resolve. 07/06/16 plan is to meet with Jessica and patient tomorrow-pt feels Jessica is her advocate and has medical knowledge. Summary of palliative recommendations: -Symptom management (Pain/other)- good symptom control at this time; continue treatments per medical team. For the posterior pharyngeal discomfort associated with NG, try various throat lozenges/hard candies and also encouraged her to use the prn pain medications already ordered. Discussed with her in detail the process of weaning off the NG suction as able, and after conversation she was a little bit more settled and less anxious. 07/06/16 Afib with RVR- meds ordered but not being used to control HR so patient gets sense of flutters and lack of control. Will try pretreatment for any activity heber PT to encourage OOB and amb if tolerated at least 2 times daily Debility- being addressed with TPN but needs activity and work to keep strength. She doesn't include pain but suspect this is an issue. Will try and deal with fear of HR increase and start regular routine with bedside exercise and walking. If she tolerates this-- family is very involved and can assist. SBO--remains. Pt is getting to the point of questioning quality of life and likelihood of this resolving. If she gets to the point of considering withdrawal of care- would ask surgery to again consider surgical intervention even with high risk. GOC-pt wants to continue with same for now -DPOA/Advanced Directives/POLST- brief trial of CPR/defibrillation but no intubation or mechanical ventilation. Otherwise, continue aggressive care of her cancer. -Family/emotional support- good support from her family I will hopefully see pt and Jessica tomorrow for f/u Additional Medical Diagnoses with primary management by Hospitalist team include : #Recurrent small bowel obstruction, acute. Present on admission. The patient is status post extended right hemicolectomy on November 15, 2014. Hx of Stage IV colon cancer with intraabdominal metastases. Recent admit with SBO. CT abd/pevlis showed significant SBO.--last CT abd 06/29/16 #C. difficile colitis, may contribute to current sx, although labs were unremarkable, Likely the etiology behind her Hemoccult positive stool. #Recent Urinary tract infection, Present on admission. #Stage IV colon cancer with intra-abdominal metastases chronic, stable, resolved #Acute kidney injury. Present on admission, mild, Now resolved #Diabetes type 2, Glucose 186 on admission. Pt on Lantus 20U hs and Humalog 6U TIDAC, Continue home Lantus, lispro SS #Chronic hypertension, continue Amlodipine , carvedilol, controlled #Atrial fibrillation, chronic, Continue carvedilol, rate controlled, h/h stable off on coumadin, last INR1.43 on , coumadin discontinued due to FOBT+ #Hyperlipidemia, chronic, continue atorvastatin #Hypothyroidism, chronic, Continue levothyroxine #occult GI bleed in the setting of c.diff, hx of colon cancer, h/h slowly trending down, if remains stable, will resume coumadin #. Other Chronic Problems Cardiomyopathy. Osteoporosis Hyperparathyroidism. Problems: End of Life Preferences Brief CPR/defibrillation; no intubation or mechanical ventilation Goals of Care Recovery from SBO, returned home, continue chemotherapy Disposition To be determined Resuscitation Status Resuscitation Status: Limited Interventions Limited Interventions: Compressions (brief trial), Cardioversion/ Defibrillation (brief trial) . Symptom management: Nausea, Depression Total time [80 ] minutes; >50% face to face with patient and/or family, providing counselling regarding plans and recommendations, and in care coordination with his/her medical teams. majority of the time is reviewing issues and questions by the family. Reviewed goals with staff and med orders written for HR control. Will review the need for trapeze once HR controlled to see if pt increases activity I also spent an additional [ ] minutes counseling for advanced care planning with the patient/the patients family/the surrogate decision maker. copies to: James Fairbanks DO Palliative Brief Note Date of Service Jul 06, 2016 . [address] Fairbanks'arya with hx of poorly differentiated colorectal CA s/p R hemicolectomy in October 2015 and evidence of a partial response to her chemotherapy based on last CT scan 06/29/16 who is hospitalized since 06/16/16 for SBO that is not resolving despite ongoing nonsurgical intervention. Her trial of NG tube out failed and was replaced within hours due to NV. Surgery thinks she is too weak for surgical approach and recommended ongoing time, NG and TPN. Meeting with family-2 sons and their spouses and daughter Jessica by speaker phone. With patient. PC team- Yonathan JAEGER and Mary Jones CLOUD SERVICES ARCHITECT- PC Issues include: HR management with Afib and RVR- pt refuses to participate in PT due to HR increase. She is now taking carvedilol orally with clamping of NG for 1 hour but also metoprolol at 10 mg IV Q 6H-with HR transiently into 80-100 range post dose. Diltiazem is ordered PRN 10 mg IV HR >120 and she hasn't received this since HR isn't sustained up. Frustration and depression from prolonged hospitalization. She continues to reiterate that she wants to continue giving NG tube time but speaks only in days. She states if this is not amenable to treatment-she would prefer to . She states she does not have pain but she does receive prn hydromorphone which she finds sedating. She does not feel pain is a limiting factor to her activity. Family raises question of PEG tube for her comfort rather than NG and if possible to have her d/c to home and care at home. Neither family or pt interested in ECF She wants to continue with chemo but recognizes it is on hold due to her SBO and resulting debility. Family wondering about bed exercises and overhead trapeze--this is primarily on the theory of movement helping fix the SBO O: HR sits at 100-114--rarely into the 90s--pt is bit agitated and angry toward her family. She is alert and appropriate in her responses. NG tube with regular drainage. on TPN CT reviewed 06/29/16-report persisting SBO Ria Dickens MD Jul 06, 2016 16:46
--- NOTE | 2016-07-06 16:56 | NUR ---
Social Work Continued Discharge Planning: Plans notated as home with family and rule out of home with HHC. SW to follow for HHC vs SNF pending clinical course status. SW spoke to palliative home visit field care manager regarding family meeting today. NG tube remains in place. Per report, patient wishes to continue to undergo treatment plans at this time. SW to follow up with patient and family tomorrow pending further clinical course to determine definitive discharge plans of home with family support and care vs SNF. SW will also continue to follow up with palliative care to ensure plans of treatment for patient based on patient clinical status. SW to follow. PLAN: Discharge plan in progress. NG tube. Home with family and HHC vs SNF. Palliative care following. Citlaly WILHELM
[2016-07-06] MEDS: Total Parenteral Nutrition 1 BAG IV SCH (21:34)
[2016-07-07] VITALS (7 sets, daily range): BP systolic 130–162; BP diastolic 73–92; PULSE 80–100; RESP 16–20; O2SAT 96–98
[2016-07-07] MEDS: MeTOProlol 1 mg/mL 5 mL Inj IVPUSH SCH ×4 (01:38→19:07)
[2016-07-07] MEDS: Insulin LISPRO 300 Unit/3 mL Inj SUBQ SCH ×4 (04:52→22:02)
[2016-07-07] MEDS: 0.9% Sodium Chloride 1,000 ML IV SCH (05:48)
[2016-07-07] MEDS: Insulin GLARgine 100 Unit/mL Syringe SUBQ SCH ×2 (08:30→22:01)
--- NOTE | 2016-07-07 09:09 | NUR ---
ZIYAD: Patient is more confused this morning but she has received the message multiple times and is giving verbal consent. Patient on active contact precautions as well.
--- NOTE | 2016-07-07 11:38 | PCM.PHAPRO ---
Progress Date of Service: Jul 07, 2016 TPN Assessment: All electrolytes WNL, will continue with current formula per nutrition recommendation. Possible discharge tomorrow after family meeting PARENTERAL NUTRITION ORDERS 07-Jul-16 Standard Hang Time: 2100 Substrates Total kcal: 1800 AMINO ACIDS 100 g DEXTROSE 250 g Total Volume (mL): 1400 LIPIDS 55 g Sterile Water for Injection QS mL To Infuse Over (hrs): 24 Total Volume 1400 mL At at a rate of (mL/hr): 58 Additives Sodium Chloride 40 mEq "typical" daily requirements Sodium Acetate 0 mEq Sodium 50-120mEq Potassium Chloride 30 mEq Potassium 60-120mEq Potassium Phosphate 30 mEq Phosphate 20-40mEq Calcium Gluconate 0 mEq Magnesium 8-32mEq Magnesium Sulfate 14 mEq Calcium 9-22mEq Acetate* 80-120mEq Chloride* 80-120mEq Regular Insulin 25 units *Depending on acid-base status Famotidine 40 mg Multivitamins 1 std dose Insulin Regimen Trace Elements 1 std dose none Thiamine 100 mg Regular Low Intensity Subcut Folic Acid 1 mg Regular Medium Intensity Subcut Ascorbic Acid 0 mg Regular High Intensity Subcut Regular Insulin Infusion Other: Plan: Pharmacy will continue to monitor and adjust TPN as necessary. Thanks! Rhina Jama PharmD Jul 07, 2016 11:37
--- NOTE | 2016-07-07 12:27 | NUR ---
Faxed referral to [facility] per MELONIE Supervisor Telephone Answering Service Addendum: 07/07/16 at 1522 by LD CRYSTAL CM Spoke with Noris at [facility] and she has received fax but has not been able to review. Will follow up in the morning.
--- NOTE | 2016-07-07 13:11 | NUR ---
NUTRITION FOLLOW-UP: ASSESS:81 YO female admitted with partial small bowel obstruction. Pt continues to have persistent NG tube output and is unable to tolerate clamping NG tube. TPN initiated 06/25 and pt continues to tolerate TPN well. Although code status changed to "Limited Interventions", patient expressing that she may wish to continue treatment. PMHx: Stage IV colon cancer with intra-abdominal metastasis, atrial fibrillation, cardiomyopathy, HTN, hypothyroidism, osteoporosis, hyperparathyroidism, T2DM, recurrent SBO. DIET: NPO. NUTRITION SUPPORT: 250 g dex, 100 g AA and 55 g lipids to provide 1800 kcal and 100 g protein LABS: Reviewed. BUN 34, Glu 183. MEDICATIONS: Reviewed. Synthroid, lopressor. GI symptoms / stool: BM x 1 (07/05) C.diff resolved. ANTHROPOMETRICS: Current Wt: 64.9 kg BMI: 23.8 kg/m2. Admit weight: 64.7 kg Reported 9.5% wt loss x1 month (prior to admit) ESTIMATED NEEDS (CANCER, MALNUTRITION): Calories:1600 -2250kcal (25-35 kcal / kg BW) Protein: 80-100 g protein (1.2 - 1.5 g / kg BW) NUTRITION DIAGNOSIS: 1) Severe protein calorie malnutrition related to metastatic cancer with multiple bowel obstructions, altered GI function, as evidenced by 9.5% weight loss x 1 month - PERSISTS. 2) Inadequate oral intake related to altered GI function as evidence by need for NPO status, NGT, requirement for TPN, and pt with minimal PO intake x 21 days - PERSISTS. INTERVENTION: 1) Recommend continuing current TPN at this time. 2) Advance diet when medically appropriate. MONITOR/EVALUATE: TPN tolerance, labs, diet advance / tolerance, GI/nutrition status, POC. Follow per high nutrition risk guidelines.
--- NOTE | 2016-07-07 15:16 | NUR ---
Social Work: Continued d/c planning Data: Pt is on day 21 of hospitalization. EMR reviewed, pt discussed in rounds. MD states that he will speak with consulting MD's regarding pt and see if they are available on 07/08 to meet with pt's family with case management team. UR RN states that they will contact family to set up meeting. RESPIRATORY ASSISTANT called UR RN who states that they have not yet heard back from MD but that they will follow up this afternoon. Pt has been referred by [facility] specialist to [facility] to see if this is an option for d/c. RESPIRATORY ASSISTANT will continue to follow. Plan: Plan still in progress. Hospitalist MD to find out other MD availability for a meeting on 07/08. Pt has been referred to [facility] to see if this is an option for d/c. Other options include home with hospice, SNF. grove worker to rule out TPN for discharge. grove worker will continue to follow. MELONIE Banegas
--- NOTE | 2016-07-07 15:17 | NUR ---
NGT Patient tolerating up to 2 hrs of NGT clamping this shift. Interdisciplinary team meeting will be arranged tomorrow for future discharge plan of patient. pediatric social worker to coordinate with team members and family. Will continue to monitor.
--- NOTE | 2016-07-07 16:42 | PCM.PALLBR ---
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 Palliative medicine was consulted to assist patient and family and determination of goals of care. Per my detailed conversation yesterday with the patient and her family, patient would wish brief attempt of resuscitation with CPR and defibrillation, but would not wish to be intubated or mechanically ventilated. She otherwise wants to continue aggressive care of her cancer, and if necessary would be willing to undergo surgical exploration/intervention if her bowel obstruction does not resolve. 07/06/16 plan is to meet with Jessica and patient tomorrow-pt feels Jessica is her advocate and has medical knowledge. Summary of palliative recommendations: -Symptom management (Pain/other)- good symptom control at this time; continue treatments per medical team. For the posterior pharyngeal discomfort associated with NG, try various throat lozenges/hard candies and also encouraged her to use the prn pain medications already ordered. Discussed with her in detail the process of weaning off the NG suction as able, and after conversation she was a little bit more settled and less anxious. 07/06/16 Afib with RVR- meds ordered but not being used to control HR so patient gets sense of flutters and lack of control. Will try pretreatment for any activity heber PT to encourage OOB and amb if tolerated at least 2 times daily continue same-some reassurance with passing gas. Debility- being addressed with TPN but needs activity and work to keep strength. She doesn't include pain but suspect this is an issue. Will try and deal with fear of HR increase and start regular routine with bedside exercise and walking. If she tolerates this-- family is very involved and can assist. SBO--remains. Pt is getting to the point of questioning quality of life and likelihood of this resolving. If she gets to the point of considering withdrawal of care- would ask surgery to again consider surgical intervention even with high risk. Case conference to be set up for TUESDAY with input from Dr. Fairbanks and surgery if possible. 2 more days of activity will be helpful to know if any change in GI status. Would be best if coordinated with Jessica-and reason for tuesday is to accommodate family. GOC-pt wants to continue with same for now -DPOA/Advanced Directives/POLST- brief trial of CPR/defibrillation but no intubation or mechanical ventilation. Otherwise, continue aggressive care of her cancer. -Family/emotional support- good support from her family I will hopefully see pt and Jessica tomorrow for f/u Additional Medical Diagnoses with primary management by Hospitalist team include : #Recurrent small bowel obstruction, acute. Present on admission. The patient is status post extended right hemicolectomy on November 15, 2014. Hx of Stage IV colon cancer with intraabdominal metastases. Recent admit with SBO. CT abd/pevlis showed significant SBO.--last CT abd 06/29/16 #C. difficile colitis, may contribute to current sx, although labs were unremarkable, Likely the etiology behind her Hemoccult positive stool. #Recent Urinary tract infection, Present on admission. #Stage IV colon cancer with intra-abdominal metastases chronic, stable, resolved #Acute kidney injury. Present on admission, mild, Now resolved #Diabetes type 2, Glucose 186 on admission. Pt on Lantus 20U hs and Humalog 6U TIDAC, Continue home Lantus, lispro SS #Chronic hypertension, continue Amlodipine , carvedilol, controlled #Atrial fibrillation, chronic, Continue carvedilol, rate controlled, h/h stable off on coumadin, last INR1.43 on , coumadin discontinued due to FOBT+ #Hyperlipidemia, chronic, continue atorvastatin #Hypothyroidism, chronic, Continue levothyroxine #occult GI bleed in the setting of c.diff, hx of colon cancer, h/h slowly trending down, if remains stable, will resume coumadin #. Other Chronic Problems Cardiomyopathy. Osteoporosis Hyperparathyroidism. Problems: End of Life Preferences Brief CPR/defibrillation; no intubation or mechanical ventilation Goals of Care Recovery from SBO, returned home, continue chemotherapy Disposition To be determined Resuscitation Status Resuscitation Status: Limited Interventions Limited Interventions: Compressions (brief trial), Cardioversion/ Defibrillation (brief trial) Total time [ 20 ] minutes; >50% face to face with patient and/or family, providing counselling regarding plans and recommendations, and in care coordination with his/her medical teams. case coordination with Dr. Stoddard, RN, family and patient. I also spent an additional [ ] minutes counseling for advanced care planning with the patient/the patients family/the surrogate decision maker. Palliative Brief Note Date of Service Jul 07, 2016 . Patient with persistent SBO thought not to be malignant but not resolving despite time, NG and TPN. Afib with RVR pt feels much better controlled. Debility and deconditioning but was up with PT today and states she was out of bed for 2 hours. O: HR in the 80's passing flatus and very small stool per pt NG output remains signif but taking some PO with meds. Ria Dickens MD Jul 07, 2016 16:42
--- NOTE | 2016-07-07 17:08 | PCM.PNMED ---
Subjective Date of Service Jul 07, 2016 Subjective Pt seen and examined. Patient is making improvements in terms of ambulation today. Patient still has not had any return of bowel function as of yet. Will continue with NG tube for the time being. Exam Vital Signs Vital Sign - Last Date Time Temp Pulse Resp B/P Pulse Ox O2 Delivery O2 Flow Rate FiO2 07/07/16 13:40 80 139/73 07/07/16 09:22 Room Air 07/07/16 08:45 36.7 16 97 07/01/16 10:00 2.00 Intake and Output 07/06/16 07/06/16 07/07/16 Cumulative From/Thru 15:00 23:00 07:00 06/16/16 07:14 - 07/07/16 06:40 Intake Total 1397 ml 1329 ml 41305 ml Output Total 1550 ml 1200 ml 650 ml 15918 ml Balance -1550 ml 197 ml 679 ml 06506 ml Intake Oral 240 ml 150 ml 4858 ml IV Total 1157 ml 538 ml 00478 ml Tube Feeding 150 ml TPN/PPN 641 ml 98279 ml Tube Irrigant 30 ml Output Urine Total 350 ml 400 ml 650 ml 88421 ml Urine/Stool Mix 2250 ml Gastric Drainage Total 1200 ml 800 ml 25373 ml Emesis 2055 ml # Voids 13 # Bowel Movements 0 19 Exam General: Generally ill-appearing elderly woman in no acute distress HEENT: sclerae anicteric, oral mucosa moist Neck: no apparent JVD Chest: clear to auscultation Cardiac: S1S2, no murmur Abdomen: BS active, non-tender, not bloated or tympanitic Extremities: No edema Neuro: A&O, cranial nerves symmetric, motor strength and coordination normal IVs and Medications Medications Reviewed: Medications were reviewed in detail Lab and Diagnostics Result Diagram: 07/05/16 1416 07/07/16 0625 Assessment & Plan 80 year old female with a history of 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 Admitted for recurrent small bowel obstruction, complicated by C. difficile colitis. She completed ourse of metronidazole treatment. 1. Recurrent small bowel obstruction, acute. Present on admission. Ongoing. The patient is status post extended right hemicolectomy on November 15, 2014. Hx of Stage IV colon cancer with intraabdominal metastases. Removed NG tube on 06/28/16 and started clears. Patient had episode of vomiting and NG tube reinserted the same night. Palliative care saw her again 07/02/16. At times she voiced ongoing wishes to continue with medical treatment for her bowel obstruction. TPN started on 06/25 - Symptoms are improving as of 07/04/16 - Pt was unable to tolerate clears and the tube being shut off for an hour - will continue with tpn - will increase ivf due to feelings of dehydration 2. Rapid Afib,acute,not present on admission, resolved - she is now on her chronic rate-controlled atrial fibrillation and having no difficulties. - will resume coumadin once ng tube is out 3. C. difficile colitis, may contribute to current sx, although labs were unremarkable - suspect possible etiology behind her Hemoccult positive stool. - Was on oral vancomycin # 3 days then stopped as pt couldn't tolerate po, switched to Flagyl 500 q8h iv on 04/21. - Completed 10 day Flagyl on 06/29/16 - There is no clinical indication of ongoing difficulties with C. difficile toxin colitis. 4. Hypothyroidism, chronic, ongoing - Switched back to IV Synthroid 5. Recent Urinary tract infection, Present on admission. - Treated with Keflex, she is now off abx #Stage IV colon cancer with intra-abdominal metastases - palliative care following. CODE STATUS changed from full to limited resuscitation 6. Diabetes type 2, - Pt on Lantus 20U hs and Humalog 6U TIDAC at home - glucose uncontrolled. - Started Lantus 20 units twice a day, will uptitrate as needed. # Acute kidney injury. Present on admission, mild, Now resolved # Chronic hypertension, controlled - held Amlodipine , carvedilol #Hyperlipidemia, chronic - atorvastatin oh hold # occult GI bleed in the setting of c.diff, hx of colon cancer, - Hb stable - c/w Lovenox - Resume coumadin once NGT removed # Cardiomyopathy. #Osteoporosis #Hyperparathyroidism. VTE Prophylaxis: Sub-Q Enoxaparin VTE Mechanical Devices: Intermittant Pneumatic CD Resuscitation Status: Limited Interventions Limited Interventions: Compressions (brief trial), Cardioversion/ Defibrillation (brief trial) Sumit Stoddard MD Jul 07, 2016 17:07
[2016-07-07] MEDS: hydrALAZINE 20 mg/mL Inj IV PRN (22:05)
[2016-07-07] MEDS: Total Parenteral Nutrition 1 BAG IV SCH (22:21)
[2016-07-08] VITALS (9 sets, daily range): BP systolic 124–143; BP diastolic 69–82; PULSE 74–113; RESP 16–21; O2SAT 93–97
[2016-07-08] MEDS: MeTOProlol 1 mg/mL 5 mL Inj IVPUSH SCH ×6 (00:09→18:28)
[2016-07-08] MEDS: 0.9% Sodium Chloride 1,000 ML IV SCH ×2 (00:09→21:37)
[2016-07-08] MEDS: Insulin LISPRO 300 Unit/3 mL Inj SUBQ SCH ×4 (05:12→23:00)
--- NOTE | 2016-07-08 05:45 | NUR ---
Hypertension / Tele /NGT Pt hypertensive tonight with SBP's in the 160s, Pt medicated with PRN Hydralazine 5mg x1, and SBP's reduced to the 128-140's during the night. Pt receiving scheduled IV Metoprolol 10mg every 6 hours. No c/o chest pain, Tele Afib with HR 70-90s at rest, HR increases up to the 130-140s with activity, then back to baseline at rest. NG tube to LIS, put out 300mls overnight of brownish drainage.
[2016-07-08] MEDS: Insulin GLARgine 100 Unit/mL Syringe SUBQ SCH ×2 (08:30→21:36)
--- NOTE | 2016-07-08 09:50 | PCM.PHAPRO ---
Progress Date of Service: Jul 08, 2016 TPN PARENTERAL NUTRITION ORDERS 14 08-Jul-16 Standard Hang Time: 2100 Substrates Total kcal: 1800 AMINO ACIDS 100 g DEXTROSE 250 g Total Volume (mL): 1400 LIPIDS 55 g Sterile Water for Injection QS mL To Infuse Over (hrs): 24 Total Volume 1400 mL At at a rate of (mL/hr): 58 Additives Sodium Chloride 40 mEq "typical" daily requirements Sodium Acetate 0 mEq Sodium 50-120mEq Potassium Chloride 30 mEq Potassium 60-120mEq Potassium Phosphate 30 mEq Phosphate 20-40mEq Calcium Gluconate 0 mEq Magnesium 8-32mEq Magnesium Sulfate 14 mEq Calcium 9-22mEq Acetate* 80-120mEq Chloride* 80-120mEq Regular Insulin 25 units *Depending on acid-base status Famotidine 40 mg Multivitamins 1 std dose Insulin Regimen Trace Elements 1 std dose none Thiamine 100 mg Regular Low Intensity Subcut Folic Acid 1 mg Regular Medium Intensity Subcut Ascorbic Acid 0 mg Regular High Intensity Subcut Regular Insulin Infusion Other: Serg Barrios Jul 08, 2016 09:50
--- NOTE | 2016-07-08 10:13 | NUR ---
Confusion patient confused and stated," will like to talk to my son." called son and spoke to patient. cass paged doctor r/t patient' confusion and refusing to take PO medications. doctor came and talked with grand daughter and to the patient. patient able to take PO medications with out difficulty swallowing. family at the bed side. patient is alert and speaking to her family.
--- NOTE | 2016-07-08 13:15 | NUR ---
Family concern r/t patient condition/confusion Xavier paged doctor r/t patient condition per family stating," she was not like this before." doctor here at the bed side and speaking to the family. vital signs stable.
--- NOTE | 2016-07-08 13:58 | NUR ---
Spoke with Noris at [facility] and she has received referral, there are available beds and this patient does not need authorization. She will wait until family meeting happens and then move forward with transferring patient if that is family's wishes. Updated TAFFY CANDY MAKER
--- NOTE | 2016-07-08 16:56 | PCM.PNMED ---
Subjective Date of Service Jul 08, 2016 Subjective Patient seen and examined this morning. Patient was acutely confused after recieving IV ativan last night. Patient is able to converse normally however she develops momentary lapses in mentation and has difficulty recalling certain information. By the afternoon the patient had returned to normal mentation however she was still more lethargic than usual. Upcoming hospitalist: Patient is here for small bowel obstruction with additional obstruction caused by a mass in the colon. Currently the patient wants be aggressive in terms of management however surgery does not believe she would fair well in any surgery and she is not currently a candidate for chemotherapy. Patient was also curb side evaluated by radiation oncology who believed that radiation would do more harm than good, but is amenable to discuss possibilities with the family. Additionally patients stay has been quite unusual for someone with a pure small obstruction. Given her CT scan findings, it is most likely a combination of adhesions and the mass that is causing her lack of resolution. I organized a family meeting for tomorrow since that is the earliest all members of the family can be here. A group discussion with palliative care and oncology needs to occur to present the family with the current situation and provide possibilities in terms of what her options are in terms of intervention and hospice. Patient has been unrealistic in terms of what her prognosis is despite multiple specialties coming to tell her that any major intervention would most likely cause her more harm than good. Lastly the patient and patients family will need to be provided with palliative options. The meeting is scheduled for noon tomorrow, where all the family members, palliative care, and Dr Fairbanks (via telephone) will be available. Exam Vital Signs Vital Sign - Last Date Time Temp Pulse Resp B/P Pulse Ox O2 Delivery O2 Flow Rate FiO2 07/08/16 16:28 36.3 89 20 139/79 96 Room Air Intake and Output 07/07/16 07/07/16 07/08/16 Cumulative From/Thru 15:00 23:00 07:00 06/16/16 07:14 - 07/08/16 05:09 Intake Total 1644 ml 977 ml 31392 ml Output Total 1450 ml 900 ml 84517 ml Balance 194 ml 77 ml 82066 ml Intake Oral 300 ml 150 ml 5308 ml IV Total 645 ml 470 ml 72762 ml Tube Feeding 150 ml TPN/PPN 699 ml 357 ml 07514 ml Tube Irrigant 30 ml Output Urine Total 350 ml 600 ml 82102 ml Urine/Stool Mix 2250 ml Gastric Drainage Total 1100 ml 20984 ml Emesis 300 ml 2355 ml # Voids 2 15 # Bowel Movements 0 0 19 Exam General: Frail female in no acute distress HEENT: sclerae anicteric, oral mucosa moist Neck: no JVD Chest: clear to auscultation Cardiac: S1S2, no murmur Abdomen: BS present, non-tender to palpate Extremities: No edema; bilateral bandaged 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 Admitted for recurrent small bowel obstruction, complicated by C. difficile colitis. She completed ourse of metronidazole treatment. 1. Recurrent small bowel obstruction, acute. Present on admission. Ongoing. The patient is status post extended right hemicolectomy on November 15, 2014. Hx of Stage IV colon cancer with intraabdominal metastases. Removed NG tube on 06/28/16 and started clears. Patient had episode of vomiting and NG tube reinserted the same night. Palliative care saw her again 07/02/16. At times she voiced ongoing wishes to continue with medical treatment for her bowel obstruction. TPN started on 06/25 - Symptoms are not improving as of 07/06/16 - Pt was unable to tolerate clears - Pt can be clamped for maximum of one hour before getting ill - Family meeting will need to happen tomorrow to discuss options with palliative care and oncology 2. Rapid Afib,acute,not present on admission, resolved - she is now on her chronic rate-controlled atrial fibrillation and having no difficulties. - will resume coumadin once ng tube is out 3. C. difficile colitis, may contribute to current sx, although labs were unremarkable - suspect possible etiology behind her Hemoccult positive stool. - Was on oral vancomycin # 3 days then stopped as pt couldn't tolerate po, switched to Flagyl 500 q8h iv on 04/21. - Completed 10 day Flagyl on 06/29/16 - There is no clinical indication of ongoing difficulties with C. difficile toxin colitis. 4. Hypothyroidism, chronic, ongoing - Switched back to IV Synthroid 5. Recent Urinary tract infection, Present on admission. - Treated with Keflex, she is now off abx #Stage IV colon cancer with intra-abdominal metastases - palliative care following. CODE STATUS changed from full to limited resuscitation 6. Diabetes type 2, - Pt on Lantus 20U hs and Humalog 6U TIDAC at home - glucose uncontrolled. - Started Lantus 20 units twice a day, will uptitrate as needed. # Acute kidney injury. Present on admission, mild, Now resolved # Chronic hypertension, controlled - held Amlodipine , carvedilol #Hyperlipidemia, chronic - atorvastatin oh hold # occult GI bleed in the setting of c.diff, hx of colon cancer, - Hb stable - c/w Lovenox - Resume coumadin once NGT removed # Cardiomyopathy. #Osteoporosis #Hyperparathyroidism. VTE Prophylaxis: Sub-Q Enoxaparin VTE Mechanical Devices: Intermittant Pneumatic CD Resuscitation Status: Limited Interventions Limited Interventions: Compressions (brief trial), Cardioversion/ Defibrillation (brief trial) Sumit Stoddard MD Jul 08, 2016 16:55
--- NOTE | 2016-07-08 19:03 | NUR ---
1200 meeting per buyer planner Notified daughter r/t meeting with doctors, palliative, oncology and Dr. Fairbanks on the phone r/t to options and discharge planning. stable vital signs. received metoprolol scheduled as ordered. on tele. room air. NG tube suctioning well. TPN running at 50 ml/hour, port on the left chest. NS running at 50 ml/hour. blood sugar at 1700= 159. insulin given as ordered. patient with on and off confusion and lethargy. doctor aware. no sign and symptoms of pain noted. patient refused physical therapy time 2. bed alarm on. call light with in reach for safety. stable mood. on Tele. uses bed side commode and one person assist.
[2016-07-08] MEDS: Total Parenteral Nutrition 1 BAG IV SCH (21:37)
[2016-07-09] VITALS (7 sets, daily range): BP systolic 128–157; BP diastolic 80–91; PULSE 77–113; RESP 14–20; O2SAT 96–97
[2016-07-09] MEDS: MeTOProlol 1 mg/mL 5 mL Inj IVPUSH SCH ×4 (01:30→18:23)
[2016-07-09] MEDS: Insulin LISPRO 300 Unit/3 mL Inj SUBQ SCH ×4 (05:00→23:00)
[2016-07-09] MEDS: HYDROmorphone 0.5 mg/0.5 mL iSecure Syringe IVPUSH PRN ×3 (05:55→22:38)
--- NOTE | 2016-07-09 06:54 | NUR ---
Pain c/o abdominal pain x2 this shift. Refused any interventions initially but later requesting prn pain rx. Doses given and awaiting effectiveness. Currently resting and does not appear to be in any distress.
[2016-07-09] MEDS: Insulin GLARgine 100 Unit/mL Syringe SUBQ SCH ×2 (10:18→22:34)
--- NOTE | 2016-07-09 10:47 | NUR ---
Palliative Dredge Engineer Note07/09/1709:45AM This sports book writer confirmed with UR/ Director, Dr. Henderson, Dr. Powell and Dr. Perez (pt.'s current attending physician) that today's scheduled 12:00PM clinical care team meeting will no longer take place. The plan to meet had been developed by Dr. Stoddard in an effort to determine next steps in pt.'s treatment. Clinically there continues to be uncertainty about what is causing pt.'s SBO. Dr. Stoddard today is not pt.'s attending physician. Pt.'s oncologist, Dr. Fairbanks, is also unable to attend the meeting, and input from oncology is required for pt. and family to make informed treatment decisions. Palliative Care team has held several goals of care conversations with pt. and family since her admission to [facility] on 06/16/16. Pt. and family have consistently expressed they want to pursue treatment for her SBO and other health issues. Palliative Care team will sign-off at this time as pt.'s goals of care are clear. If pt.'s attending provider determines that pt.'s course of treatment requires palliative care involvement, the service can be requested. MELONIE Deleon LASW Palliative Dredge Engineer Addendum: 07/09/16 at 1217 by LEXY HANCOCK Palliative Dredge Engineer Note: Addendum07/09/1710:30AM This sports book writer spoke with UR MADIE Jaimes who shared that pt.'s oncologist, Dr. Fairbanks, is able to attend the previously planned 12:00PM care team meeting with pt. and family. Dr. Perez is also confirmed to attend. Fiona and this sports book writer discussed that Palliative Care provider will NOT attend meeting as pt.'s goals of care continue to be clear: pt. wants to pursue treatment for her SBO. This sports book writer then went to see pt. and family to review why palliative care will not attend noon meeting, and to check in with how pt. and family are coping with all that has happened over the course of pt.'s hospitalization. Family present included pt.'s , two sons, and multiple extended family. Family expressed general frustration with how many physicians have been involved with pt.'s care at [facility], and also shared that they have never felt they have received the right clinical information about pt.'s condition to then make decisions on what care to pursue. This sports book writer and family discussed how today's meeting will hopefully give pt. and family clarity around what pt.'s current clinical issues are, and what treatment options are available to her at [facility]. Family and pt. express that they want to pursue surgery somewhere else () if [facility] cannot provide surgery to pt. This sports book writer tried to gently explain that surgical intervention may not be possible if pt.'s other clinical issues create more risk than benefit, and family seemed to understand this. This sports book writer provided family members with her business cards and shared that they may call this sports book writer after the noon meeting if they want Palliative Care support based on what decisions are made with Dr. Fairbanks and Dr. Perez. Family thanked this sports book writer for visiting. This sports book writer updated Dr. Perez and staff that Palliative Care will sign-off from following pt. at this time but the service can be re-engaged if required based on today's conversation with Drs. Fairbanks and Chris. Lexy Hancock, PARTY CHIEF, JACKSONW Palliative Dredge Engineer
--- NOTE | 2016-07-09 12:57 | PCM.PHAPRO ---
Progress Date of Service: Jul 09, 2016 TPN TPN # 15 CONTINUE CURRENT PLAN PARENTERAL NUTRITION ORDERS 15 - Standard Hang Time: 2100 Substrates Total kcal: 1800 AMINO ACIDS 100 g DEXTROSE 250 g Total Volume (mL): 1400 LIPIDS 55 g Sterile Water for Injection QS mL To Infuse Over (hrs): 24 Total Volume 1400 mL At at a rate of (mL/hr): 58 Additives Sodium Chloride 40 mEq "typical" daily requirements Sodium Acetate 0 mEq Sodium 50-120mEq Potassium Chloride 30 mEq Potassium 60-120mEq Potassium Phosphate 30 mEq Phosphate 20-40mEq Calcium Gluconate 0 mEq Magnesium 8-32mEq Magnesium Sulfate 14 mEq Calcium 9-22mEq Acetate* 80-120mEq Chloride* 80-120mEq Regular Insulin 25 units *Depending on acid-base status Famotidine 40 mg Multivitamins 1 std dose Insulin Regimen Trace Elements 1 std dose none Thiamine 100 mg Regular Low Intensity Subcut Folic Acid 1 mg Regular Medium Intensity Subcut Ascorbic Acid 0 mg Regular High Intensity Subcut Regular Insulin Infusion Other: PHARMACY WILL CONTINUE TO FOLLOW PATIENT THANKS! Rhina Jama PharmD Jul 09, 2016 12:57
--- NOTE | 2016-07-09 14:58 | PCM.PALLBR ---
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 Today is Hospital Day 23. Palliative medicine was consulted twice this hospitalization to help clarify patient and family goals of care. Goals are clear per numerous Palliative Care Discussions with the patient and her family. Patient would wish brief attempt of resuscitation with CPR and defibrillation, but would not wish to be intubated or mechanically ventilated. She otherwise wants to continue aggressive care of her cancer, and if necessary would be willing to undergo surgical exploration/intervention if her bowel obstruction does not resolve. Palliative Care Team signing off this case 07/09/16. Thank you for consult. Please re-consult if medical team has discussions with patient and she has decided to change her goals of care. Summary of palliative recommendations: -Symptom management (Pain/other)- good symptom control at this time; continue treatments per medical team. For the posterior pharyngeal discomfort associated with NG, try various throat lozenges/hard candies and also encouraged her to use the prn pain medications already ordered. Discussed with her in detail the process of weaning off the NG suction as able, and after conversation she was a little bit more settled and less anxious. 07/09/16: Dr. Powell met with family mid-morning to explore their hope for 12noon meeting. 1. They want a 2nd opinion from a surgeon in [place] re: surgical exploration of this SBO. 2. They want a surgeon here to explain specifically why they think Mrs. Bowie wouldn't survive surgery. "Would she bleed out? Is there too much cancer for healing afterwards? Would her heart give out?" They want more details. 3. They want an update on what Dr. Fairbanks thinks. There will be a meeting today at 12noon with Dr. Fairbanks, Dr. Valenzuela (the surgeon who did Mrs. Bowie's 2015 colectomy) and Attending Dr. Perez. Palliative Care will not attend per discussion with Palliative Firefighter Marine Lexy Caldwell and UR management staff (See Ms. Caldwell's 07/09 note). -DPOA/Advanced Directives/POLST- brief trial of CPR/defibrillation but no intubation or mechanical ventilation. Otherwise, continue aggressive care of her cancer. -Family/emotional support- good support from her family Problems: End of Life Preferences Brief CPR/defibrillation; no intubation or mechanical ventilation Goals of Care Recovery from SBO, returned home, continue chemotherapy Disposition To be determined Resuscitation Status Resuscitation Status: Limited Interventions Limited Interventions: Compressions (brief trial), Cardioversion/ Defibrillation (brief trial) . Symptom management: Nausea, Vomiting Total time 65 minutes; >50% face to face with patient and/or family, providing counselling regarding plans and recommendations, and in care coordination with her medical teams, UR and CM. Palliative Brief Note Date of Service Jul 09, 2016 . Patient with Stage IV colon cancer and intraabdominal mets admitted for persistent SBO thought not to be malignant but not resolving; despite time, NG and TPN. O: NG output remains signif and if NGT clamped > 1 hour, becomes symptomatic with Nausea and vomiting. Era Powell MD Jul 09, 2016 14:58
--- NOTE | 2016-07-09 16:17 | NUR ---
Interdisciplinary Meeting Team meet with family and patient today. Discussed plan of care. Patient aware of all treatment options, risks and benefit as explained briefly by Dr. Valenzuela, Dr. Fairbanks and Dr. Perez. Surgical team would likely proceed with patient future plan of care starting next week pending reviews of all diagnostic and patient's readiness. Will continue with to monitor at this time.
--- NOTE | 2016-07-09 16:17 | NUR ---
NUTRITION FOLLOW-UP: ASSESS: 81 YO female admitted with partial small bowel obstruction. Pt continues to have persistent NG tube output and is unable to tolerate clamping NG tube for more than one hour. TPN initiated 06/25 and pt continues to tolerate TPN well. Extensive care meeting held this afternoon with case management, oncology, surgery, RN, and hospitalist. Pt expressing desire for PEG placement for suction to relieve discomfort caused by her NGT. Pt also expressing interest in exploratory surgery w/ possibility of obstruction being relieved or a bypass of the obstruction. Pts most recent liver labs are from 07/01. PMHx: Stage IV colon cancer with intra-abdominal metastasis, atrial fibrillation, cardiomyopathy, HTN, hypothyroidism, osteoporosis, hyperparathyroidism, T2DM, recurrent SBO. DIET: NPO. NUTRITION SUPPORT: 250 g dex, 100 g AA and 55 g lipids to provide 1800 kcal and 100 g protein (100% of est needs) LABS: Reviewed. BUN 31, Glu 177 MEDICATIONS: Reviewed. Insulin, Lopressor GI symptoms / stool: 2 small BMs 07/08 ANTHROPOMETRICS: Current Wt: 66.5 kg BMI: 24.4 kg/m2. Admit weight: 64.7 kg Reported 9.5% wt loss x1 month (prior to admit) ESTIMATED NEEDS (CANCER, MALNUTRITION): Calories:1600-2250kcal (25-35 kcal/kg/d) Protein: 80-100 g protein (1.2-1.5 g/kg/d) Fluids: [address] ml/d (1 ml/kcal/d) NUTRITION DIAGNOSIS: 1) Severe protein calorie malnutrition related to metastatic cancer with multiple bowel obstructions, altered GI function, as evidenced by 9.5% weight loss x 1 month -IMPROVED. 2) Inadequate oral intake related to altered GI function as evidence by need for NPO status, NGT, requirement for TPN, and pt with minimal PO intake x 21 days - PERSISTS. INTERVENTION: 1) D/t prolonged duration of TPN, recommend cycling lipids to limit liver burden. 2) Recs provided to pharmacy for new TPN to be started 07/10 @ 2100 as follows: 325 g dextrose, 100 g AA daily (1505 kcal/d and 100 g/d protein) 55 g lipids MWF (550 fat kcal) 3) Discussed need for daily liver labs with pharmacy 4) Discussed current and future nutrition plans with pt and her family MONITOR/EVALUATE: Liver labs, TPN, labs, diet advance / tolerance, GI/nutrition status, POC. Follow per high nutrition risk guidelines.
--- NOTE | 2016-07-09 16:37 | NUR ---
ASHWIN continued Discharge Planning: Team meet with family and patient today to discuss discharge plans. Patient and family aware of all treatment options, risks and benefit. Per meeting discussion, surgical team will likely proceed with patient plan of care next week to determine possible peg placement options. SW will follow to determine definitive discharge options pending patient clinical course Citlaly WILHELM
[2016-07-09] MEDS: 0.9% Sodium Chloride 1,000 ML IV SCH (17:55)
[2016-07-09] MEDS: Total Parenteral Nutrition 1 BAG IV SCH (20:59)
--- NOTE | 2016-07-09 22:09 | CONS ---
[address] [address] CONSULTATION REPORT PATIENT: JANEL DEUTSCH : 1935 MR#: [id number] ADMIT: 06/16/2016 JOB ID: [id number] DATE OF SERVICE: 07/09/2016 CHIEF COMPLAINT: A 81-year-old lady with recurrent small bowel obstruction and metastatic colon cancer seen in consultation at the request of Sumit Stoddard MD. HISTORY OF PRESENT ILLNESS: The patient is a 81-year-old lady I first met in October 2015 when she presented with an obstructing adenocarcinoma of the right colon. I performed an exploratory laparotomy with lysis of adhesions, extended right hemicolectomy, and primary repair of her incisional hernia on November 17, 2015. Her postoperative course was complicated by C. diff diarrhea and she slowly got better with treatment. Pathology at that time showed a 4.9 cm poorly differentiated adenocarcinoma in the cecum invading the retroperitoneum with 5 of 28 lymph nodes positive for metastatic carcinoma with external extension. There was an additional T1 2.5 cm low-grade mucinous adenocarcinoma in the ascending colon. She, unfortunately, did not undergo adjuvant chemotherapy and ended up presenting with what appeared to be intra-abdominal recurrence in March 2016. She had ultrasound-guided biopsy of periumbilical fascial mass which was consistent with recurrent metastatic adenocarcinoma. She had been treated with two cycles of Irinotecan, leucovorin, and 5-FU, last she received on June 10, 2016. She struggled immensely with recurrent episodes of bowel obstruction through this period and she has been seen by my surgery colleagues, including Dr. Phan, who felt she was high risk for surgical intervention. She has been on total parenteral nutrition with NG tube decompression for the last three weeks. Attempts to clamp the NG tube have been unsuccessful though she continues to have some bowel movements. I was asked to see her back today as the family requested another discussion with the surgical team. OTHER MEDICAL PROBLEMS: 1. Hypothyroidism. 2. Type 2 diabetes. 3. Primary hyperparathyroidism, untreated. 4. Hyperlipidemia. 5. Cardiomyopathy. 6. Atrial fibrillation. 7. Hypertension. 8. Anemia. 9. Endometrial carcinoma. PRIOR OPERATIONS: 1. Cholecystectomy. 2. Total abdominal hysterectomy with bilateral salpingo-oophorectomy in 2002. 3. Laparotomy with lysis of adhesions, extended right hemicolectomy, and primary repair of her incisional hernia on November 17, 2015. FAMILY HISTORY: Brother, father, and sister had heart disease. Mother and sister have diabetes. REVIEW OF SYSTEMS: Twelve point review of systems negative other than the pertinent positives noted in the history of present illness, other medical problems, and fatigue. CURRENT MEDICATIONS: 1. Insulin. 2. Metoprolol. 3. Hydromorphone. 4. Lovenox. 5. Lantus insulin. 6. Lisinopril. 7. Carvedilol. 8. Amlodipine. 9. Levothyroxine. 10. Total parenteral nutrition. 11. Atorvastatin. 12. Lorazepam. 13. Hydralazine. 14. Ondansetron. 15. Diltiazem. ALLERGIES: 1. AMOXICILLIN. 2. IODINE. 3. SHELLFISH. INVESTIGATIONS: CT abdomen and pelvis, June 29, 2016, shows persistent small bowel obstruction with transition point in the distal ileum with a decompressed distal small bowel and colonic loops. A 3 x 2 x3 cm mass in the fascia superior to the umbilicus consistent with known recurrence, which was biopsy proven. Pathology, April 28, 2016: Needle core biopsies from periumbilical mass show poorly differentiated carcinoma consistent with colonic primary. PET-CT January 02, 2016 was concerning for abnormal activity in the mediastinum and both isi. There was also a focal area of tracer activity in the T3 vertebral body. LABS: On July 05, 2016, WBC 11.1, hemoglobin 10.3, platelet count 357, creatinine 0.69, glucose 231, prealbumin 19, albumin 2.5. PHYSICAL EXAMINATION: GENERAL: A 81-year-old lady in no acute distress. VITAL SIGNS: BMI 24.4. Temperature 36.5, pulse 77, respiratory rate 18, blood pressure 141/84, saturating 96% on room air. EYES: Normal pupils, conjunctivae. EARS, NOSE, AND THROAT: Normal external appearance other than NG tube in place. RESPIRATORY: Normal effort, clear to auscultation. CARDIOVASCULAR: Heart rate controlled. GASTROINTESTINAL: Abdomen full, but soft. Some tenderness associated with the upper part of the incision, but no diffuse tenderness. NEUROLOGIC: No gross deficits. PSYCH: Alert, appropriate. SKIN: Normal. ASSESSMENT AND PLAN: A 81-year-old lady with recurrent bowel obstruction, either from postoperative adhesions or recurrent malignancy. Discussed the options of percutaneous endoscopic gastrostomy tube placement versus diagnostic laparoscopy with possible lysis of adhesions and gastrostomy tube placement. If she does indeed have a malignant bowel obstruction, the operation to take care of the bowel obstruction would likely need a [id number] intestinal bypass and that would increase the risk of surgical morbidity significantly, but if the goals of the patient would involve resolution of obstruction enough to be able to tolerate oral diet, surgical intervention would be required for her to pursue that. I am going to block time for her next week in anticipation of whatever decision the patient makes, but at this point, she is comfortable continuing current care with plans to get to a gastrostomy tube, either with or without an operation to potentially address her bowel obstruction. This is something that she will think about and will discuss with me next week. WILIAN
--- NOTE | 2016-07-09 23:56 | PCM.PNMED ---
Subjective Date of Service Jul 09, 2016 Subjective Patient has no new complaints. However she is getting very tired of having the NG tube in her nose. Exam Vital Signs Vital Sign - Last Date Time Temp Pulse Resp B/P Pulse Ox O2 Delivery O2 Flow Rate FiO2 07/09/16 21:24 37.0 101 14 150/89 97 Room Air Intake and Output 07/08/16 07/08/16 07/09/16 Cumulative From/Thru 15:00 23:00 07:00 06/16/16 07:14 - 07/09/16 06:22 Intake Total 1366 ml 0 ml 78306 ml Output Total 600 ml 500 ml 13733 ml Balance 766 ml -500 ml 94819 ml Intake Oral 0 ml 0 ml 5308 ml IV Total 1366 ml 23260 ml Tube Feeding 150 ml TPN/PPN 59953 ml Tube Irrigant 30 ml Output Urine Total 600 ml 200 ml 01496 ml Urine/Stool Mix 2250 ml Gastric Drainage Total 300 ml 18647 ml Emesis 2355 ml # Voids 15 # Bowel Movements 1 20 Exam General: Patient is in no apparent distress but appears uncomfortable due to her nasogastric tube. HEENT: Head is atraumatic normocephalic. Eyes: Pupils are equally round and reactive to light and accommodation. Extraocular muscles are intact. Sclera are white anicteric. Subconjunctival mucosa is pink. Ears are unremarkable. Nose has a nasogastric tube ends position and site is unremarkable. Oropharynx : There is no mucosal lesions, there is no thrush, there is no pharyngitis. Neck: Is supple, there are no nodes, or masses or tenderness. Chest: Is clear to auscultation and percussion. There are no rales, rhonchi, wheezes or rubs. Heart: Rate is controlled, rhythm is irregular. There is no murmur, rub or gallop. Abdomen: Bowel sounds are present. Abdomen is soft, nontender, no organomegaly or masses were appreciated. Extremities: Are symmetrical and well perfused. There is no edema, there is no cellulitis, no rash. Neurologic: There are no focal neurological deficits. Cranial nerves II through XII are intact. There are no sensory or motor deficits. Psychiatric: Patients mood is calm and shows no sign of agitation. Genital: Deferred Rectal: Deferred Lab and Diagnostics Result Diagram: 07/05/16 1416 07/09/16 0640 Microbiology C DIFF TOXIN A AND B BY PCR Final 06/18/16-1455 Organism 1 POS FOR CDIF TOXIN C DIF TOXIN A&B PCR DETECTED TIME CALLED: 1450 DATE CALLED: 06/18/16 FLOOR/DOCTOR: TIM/MERY Levine CALLED BY: NNAMDI PCR testing alone cannot distinquish C. difficile disease from a carrier state, and therefore correlation with X-Rays, CTs and MRIs PROCEDURE: CT ABDOMEN AND PELVIS WITHOUT CONTRAST ([id number]) INDICATIONS: 81-year-old woman with follow up CT for SBO TECHNIQUE: Noncontrast 5 mm thick sections acquired from the diaphragms to the symphysis. 5 mm coronal and sagittal reformats were then performed. For radiation dose reduction, the following was used: automated exposure control, adjustment of mA and/or kV according to patient size. COMPARISON: [facility], CT, CT CHEST ABD PELVIS WO CON, 06/29/2016, 15:40. [facility], CT, CT ABD PELVIS WO CON, 06/21/2016, 10:36. FINDINGS: Image quality: Excellent. ABDOMEN: Lung bases: There are small bilateral pleural effusions with bibasilar consolidation or atelectasis. Heart size is normal. Solid organs: Calcified granulomas are present in the liver and spleen. Liver and spleen are normal in size. Gallbladder is surgically absent. Pancreas is normal in contours. There is a 1 cm left adrenal nodule, unchanged. Kidneys are normal in size, without hydronephrosis or nephrolithiasis. Peritoneum and bowel: There is a nasogastric tube in the stomach. Stomach is decompressed. Proximal small bowel loops are distended measuring up to 4.2 cm. There is transitional point in the area of distal ileum with decompressed distal small bowel and colon loops, consistent with small bowel obstruction. No free fluid or air. Nodes and vessels: No retroperitoneal or mesenteric adenopathy by size criteria. Aorta and inferior vena cava are normal in caliber. Miscellaneous: No ventral hernias. PELVIS: Genitourinary: Bladder wall thickness is normal. Miscellaneous: No inguinal hernias or adenopathy. Bones: No suspicious bony lesions. No vertebral body compression fractures. IMPRESSION: 1. Persistent small bowel obstruction. 2. Remote granulomatous disease involving liver and spleen. Dictated by: Vickey Peñaloza M.D. on 06/29/2016 at 18:44 Transcribed by: ZAC on 06/29/2016 at 18:44 Approved by: Vickey Peñaloza M.D. on 06/30/2016 at 9:33 Cardiac Echo Impressions Echocardiogram Report Name: JANEL DEUTSCH Study Date: 10/28/2014 Height: 65 in Hospital Exam Location: [facility] Weight: 141 lb Gender: Female BSA: 1.7 m2 : 1935 Age: 79 yrs BP: 168/78 mmHg Reason For Study: TAKOTSUBO SYNDROME History: HTN,AFIB,DIABETES Ordering Physician: Austen Weston Performed By: Hilda Shepherd Referring Physician: Dr. Alphonso Irving Interpretation Summary The left ventricle is normal in size. Left ventricular systolic function is borderline reduced. The ejection fraction is estimated to be 50-55%. There are no focal wall motion abnormalities. Compared to the prior exam, the apical wall motion abnormality is improved. The right ventricle is normal in size and function. The right ventricular systolic pressure is estimated at 25 mmHg assuming a right atrial pressure of 3 mm Hg. The left atrium is severely dilated. The right atrium is moderately dilated. There has been no significant change since the previous study. There is mild-moderate mitral regurgitation. There has been no significant change since the previous study. There is no other significant valvular heart disease. The aortic root is normal size. 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 Admitted for recurrent small bowel obstruction, complicated by C. difficile colitis. She completed ourse of metronidazole treatment. 1. Recurrent small bowel obstruction, acute. Present on admission. Ongoing. The patient is status post extended right hemicolectomy on November 15, 2014. The patient has a history of recurrent Stage IV colon cancer with intraabdominal metastases. Removed NG tube on 06/28/16 and started clears. Patient had episode of vomiting and NG tube reinserted the same night. Palliative care saw her again 07/02/16. At times she voiced ongoing wishes to continue with medical treatment for her bowel obstruction. TPN started on 06/25 - Symptoms are not improving as of 07/06/16 - Pt was unable to tolerate clears - Pt can be clamped for maximum of one hour before getting ill - Family meeting took place today with numerous family members and the patient and Dr. Fairbanks of oncology speaker phone. 2. Rapid Afib,acute,not present on admission, resolved - she is now on her chronic rate-controlled atrial fibrillation and having no difficulties. - will resume coumadin once ng tube is out 3. C. difficile colitis, may contribute to current sx, although labs were unremarkable - suspect possible etiology behind her Hemoccult positive stool. - Was on oral vancomycin # 3 days then stopped as pt couldn't tolerate po, switched to Flagyl 500 q8h iv on 04/21. - Completed 10 day Flagyl on 06/29/16 - There is no clinical indication of ongoing difficulties with C. difficile toxin colitis. 4. Hypothyroidism, chronic, ongoing - Switched back to IV Synthroid 5. Recent Urinary tract infection, Present on admission. - Treated with Keflex, she is now off abx #Stage IV colon cancer with intra-abdominal metastases - palliative care following. CODE STATUS changed from full to limited resuscitation 6. Diabetes type 2, - Pt on Lantus 20U hs and Humalog 6U TIDAC at home - glucose uncontrolled. - Started Lantus 20 units twice a day, will uptitrate as needed. # Acute kidney injury. Present on admission, mild, Now resolved # Chronic hypertension, controlled - held Amlodipine , carvedilol #Hyperlipidemia, chronic - atorvastatin oh hold # occult GI bleed in the setting of c.diff, hx of colon cancer, - Hb stable - c/w Lovenox - Resume coumadin once NGT removed # Cardiomyopathy. #Osteoporosis #Hyperparathyroidism. # Family conference held today for advanced care planning. I spent at least one half hour a group meeting with the patient and approximately 10 family members and oncologist Dr. Fairbanks. Dr. Fairbanks explained to the patient and patient's family that he has nothing further to offer the patient in the form of chemotherapy due to her inability to take anything by mouth and her low performance score. Dr. Valenzuela was consulted for general surgery additional opinion. And his opinion is as follows: ASSESSMENT AND PLAN: A 81-year-old lady with recurrent bowel obstruction, either from postoperative adhesions or recurrent malignancy. Discussed the options of percutaneous endoscopic gastrostomy tube placement versus diagnostic laparoscopy with possible lysis of adhesions and gastrostomy tube placement. If she does indeed have a malignant bowel obstruction, obviously the operation to take care of the bowel obstruction would likely need a [id number] intestinal bypass and that would increase the risk of surgical morbidity significantly, but if the goals of the patient would involve resolution of obstruction enough to be able to tolerate oral diet, surgical intervention would be required for her to pursue that. I am going to block time for her next week in anticipation of whatever decision the patient makes, but at this point, she is comfortable continuing current care with plans to get to a gastrostomy tube, either with or without an operation to potentially address her bowel obstruction is something that she will think about and will discuss with me next week. Marcos Valenzuela MD 07/09/16 [id number] # Additional advance care planning went back later this evening and spent an additional half hour speaking with the patient and the patient's and niece who is a retired registered nurse at length for an additional [address] Mcnair has offered them and the pros and counts of aggressive treatment versus PEG tube placement alone versus no additional treatments etc. the patient and the patient's and family will discuss the matter and, per the decision. VTE Prophylaxis: Sub-Q Enoxaparin VTE Mechanical Devices: Intermittant Pneumatic CD Resuscitation Status: Limited Interventions Limited Interventions: Compressions (brief trial), Cardioversion/ Defibrillation (brief trial) Cyrus Perez MD Jul 09, 2016 23:56
[2016-07-10] VITALS (10 sets, daily range): BP systolic 134–161; BP diastolic 73–104; PULSE 86–111; RESP 16–20; O2SAT 93–99
[2016-07-10] MEDS: MeTOProlol 1 mg/mL 5 mL Inj IVPUSH SCH ×4 (00:04→18:46)
[2016-07-10] MEDS: Insulin LISPRO 300 Unit/3 mL Inj SUBQ SCH ×4 (05:16→23:00)
--- NOTE | 2016-07-10 08:52 | NUR ---
AM meds Pt refusing AM meds at this time (pt wants to speak with son before taking any medication). Pt instructed to let this nurse know when she wants her AM meds.
[2016-07-10] MEDS: HYDROmorphone 0.5 mg/0.5 mL iSecure Syringe IVPUSH PRN ×2 (10:09→20:21)
--- NOTE | 2016-07-10 10:10 | NUR ---
Am meds Pt decided that she would like her AM meds. Also requested Dilaudid prior to administration because she feels uncomfortable when the NGT is clamped. Medications administered.
[2016-07-10] MEDS: Insulin GLARgine 100 Unit/mL Syringe SUBQ SCH ×2 (10:27→20:20)
--- NOTE | 2016-07-10 11:32 | NUR ---
[facility] Signed
--- NOTE | 2016-07-10 11:39 | PCM.PHAPRO ---
Progress TPN PARENTERAL NUTRITION ORDERS 16 10-Jul-16 Standard Hang Time: 2100 Substrates Total kcal: 1505 AMINO ACIDS 100 g DEXTROSE 325 g Total Volume (mL): 1400 LIPIDS 0 g Sterile Water for Injection QS mL To Infuse Over (hrs): 24 Total Volume 1400 mL At at a rate of (mL/hr): 58 Additives Sodium Chloride 60 mEq "typical" daily requirements Sodium Acetate 0 mEq Sodium 50-120mEq Potassium Chloride 30 mEq Potassium 60-120mEq Potassium Phosphate 30 mEq Phosphate 20-40mEq Calcium Gluconate 0 mEq Magnesium 8-32mEq Magnesium Sulfate 14 mEq Calcium 9-22mEq Acetate* 80-120mEq Chloride* 80-120mEq Regular Insulin 30 units *Depending on acid-base status Famotidine 40 mg Multivitamins 1 std dose Insulin Regimen Trace Elements 1 std dose none Thiamine 100 mg Regular Low Intensity Subcut Folic Acid 1 mg Regular Medium Intensity Subcut Ascorbic Acid 0 mg Regular High Intensity Subcut Regular Insulin Infusion Other: Special Instructions: To be infused via central line only. For delay or inturruption of TPN contact the pharmacist for alternative replacement solution. JANEL DEUTSCH [facility] [place] [id number] Signature Date: GET [address] [place] [address] Landy Meier Pharm[employer]ola Jul 10, 2016 11:39
[2016-07-10] MEDS: 0.9% Sodium Chloride 1,000 ML IV SCH (14:47)
--- NOTE | 2016-07-10 20:19 | PCM.PNMED ---
Subjective Date of Service Jul 10, 2016 Subjective Patient feels a little fatigued today., She has no other new complaints. She is still having some stooling that is scribed as "pasty". She has no other new complaints. Exam Vital Signs Vital Sign - Last Date Time Temp Pulse Resp B/P Pulse Ox O2 Delivery O2 Flow Rate FiO2 07/10/16 19:43 36.9 88 17 134/73 98 Room Air Intake and Output 07/09/16 07/09/16 07/10/16 Cumulative From/Thru 15:00 23:00 07:00 06/16/16 07:14 - 07/10/16 05:19 Intake Total 4390 ml 1286 ml 93520 ml Output Total 450 ml 1100 ml 04194 ml Balance 3940 ml 186 ml 74417 ml Intake Oral 300 ml 100 ml 5708 ml IV Total 1869 ml 596 ml 50771 ml Tube Feeding 150 ml TPN/PPN 2191 ml 590 ml 05176 ml Tube Irrigant 30 ml 60 ml Output Urine Total 450 ml 650 ml 86141 ml Urine/Stool Mix 2250 ml Gastric Drainage Total 450 ml 19104 ml Emesis 2355 ml # Voids 15 # Bowel Movements 20 Exam General: Patient is in no apparent distress but appears uncomfortable due to her nasogastric tube. HEENT: Head is atraumatic normocephalic. Eyes: Pupils are equally round and reactive to light and accommodation. Extraocular muscles are intact. Sclera are white anicteric. Subconjunctival mucosa is pink. Ears are unremarkable. Nose: There is a nasogastric tube in position and site is unremarkable. Oropharynx: There is no mucosal lesions, there is no thrush, there is no pharyngitis. Neck: Is supple, there are no nodes, or masses or tenderness. Chest: Is clear to auscultation and percussion. There are no rales, rhonchi, wheezes or rubs. Heart: Rate is controlled, rhythm is irregular. There is no murmur, rub or gallop. Abdomen: Bowel sounds are present. Abdomen is soft, nontender, no organomegaly or masses were appreciated. Extremities: Are symmetrical and well perfused. There is no edema, there is no cellulitis, no rash. Neurologic: There are no focal neurological deficits. Cranial nerves II through XII are intact. There are no sensory or motor deficits. Psychiatric: Patients mood is calm and shows no sign of agitation. Genital: Deferred Rectal: Deferred Lab and Diagnostics Result Diagram: 07/05/16 1416 07/10/16 0715 Microbiology C DIFF TOXIN A AND B BY PCR Final 06/18/16-1455 Organism 1 POS FOR CDIF TOXIN C DIF TOXIN A&B PCR DETECTED TIME CALLED: 1450 DATE CALLED: 06/18/16 FLOOR/DOCTOR: TIM/MERY Levine CALLED BY: KLD PCR testing alone cannot distinquish C. difficile disease from a carrier state, and therefore correlation with X-Rays, CTs and MRIs PROCEDURE: CT ABDOMEN AND PELVIS WITHOUT CONTRAST ([id number]) INDICATIONS: 81-year-old woman with follow up CT for SBO TECHNIQUE: Noncontrast 5 mm thick sections acquired from the diaphragms to the symphysis. 5 mm coronal and sagittal reformats were then performed. For radiation dose reduction, the following was used: automated exposure control, adjustment of mA and/or kV according to patient size. COMPARISON: [facility], CT, CT CHEST ABD PELVIS WO CON, 06/29/2016, 15:40. [facility], CT, CT ABD PELVIS WO CON, 06/21/2016, 10:36. FINDINGS: Image quality: Excellent. ABDOMEN: Lung bases: There are small bilateral pleural effusions with bibasilar consolidation or atelectasis. Heart size is normal. Solid organs: Calcified granulomas are present in the liver and spleen. Liver and spleen are normal in size. Gallbladder is surgically absent. Pancreas is normal in contours. There is a 1 cm left adrenal nodule, unchanged. Kidneys are normal in size, without hydronephrosis or nephrolithiasis. Peritoneum and bowel: There is a nasogastric tube in the stomach. Stomach is decompressed. Proximal small bowel loops are distended measuring up to 4.2 cm. There is transitional point in the area of distal ileum with decompressed distal small bowel and colon loops, consistent with small bowel obstruction. No free fluid or air. Nodes and vessels: No retroperitoneal or mesenteric adenopathy by size criteria. Aorta and inferior vena cava are normal in caliber. Miscellaneous: No ventral hernias. PELVIS: Genitourinary: Bladder wall thickness is normal. Miscellaneous: No inguinal hernias or adenopathy. Bones: No suspicious bony lesions. No vertebral body compression fractures. IMPRESSION: 1. Persistent small bowel obstruction. 2. Remote granulomatous disease involving liver and spleen. Dictated by: Vickey Peñaloza M.D. on 06/29/2016 at 18:44 Transcribed by: ZAC on 06/29/2016 at 18:44 Approved by: Vickey Peñaloza M.D. on 06/30/2016 at 9:33 Cardiac Echo Impressions Echocardiogram Report Name: JANEL DEUTSCH Study Date: 10/28/2014 Height: 65 in Hospital Exam Location: [facility] Weight: 141 lb Gender: Female BSA: 1.7 m2 : 1935 Age: 79 yrs BP: 168/78 mmHg Reason For Study: TAKOTSUBO SYNDROME History: HTN,AFIB,DIABETES Ordering Physician: Austen Weston Performed By: Hilda Shepherd Referring Physician: Dr. Alphonso Irving Interpretation Summary The left ventricle is normal in size. Left ventricular systolic function is borderline reduced. The ejection fraction is estimated to be 50-55%. There are no focal wall motion abnormalities. Compared to the prior exam, the apical wall motion abnormality is improved. The right ventricle is normal in size and function. The right ventricular systolic pressure is estimated at 25 mmHg assuming a right atrial pressure of 3 mm Hg. The left atrium is severely dilated. The right atrium is moderately dilated. There has been no significant change since the previous study. There is mild-moderate mitral regurgitation. There has been no significant change since the previous study. There is no other significant valvular heart disease. The aortic root is normal size. 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 Admitted for recurrent small bowel obstruction, complicated by C. difficile colitis. She completed ourse of IV metronidazole treatment. 1. Recurrent small bowel obstruction, acute. Present on admission. Ongoing. The patient is status post extended right hemicolectomy on November 15, 2014. The patient has a history of recurrent Stage IV colon cancer with intraabdominal metastases. Removed NG tube on 06/28/16 and started clears. Patient had episode of vomiting and NG tube reinserted the same night. Palliative care saw her again 07/02/16. At times she voiced ongoing wishes to continue with medical treatment for her bowel obstruction. TPN started on 06/25 - Symptoms are not improving as of 07/06/16 - Pt was unable to tolerate clears - Pt can be clamped for maximum of one hour before getting ill - Family meeting took place 07/09/2016 with numerous family members and the patient and Dr. Fairbanks of oncology speaker phone. - Again had another meeting with the patient and patient's found niece who is an RN at bedside last evening about end-of-life planning and surgical options. Patient and family will discuss her options. 2. Rapid Afib,acute,not present on admission, resolved - she is now on her chronic rate-controlled atrial fibrillation and having no difficulties. - will be able to resume coumadin once ng tube is out 3. C. difficile colitis, may contribute to current sx, although labs were unremarkable - suspect possible etiology behind her Hemoccult positive stool. - Was on oral vancomycin # 3 days then stopped as pt couldn't tolerate po, switched to Flagyl 500 q8h iv on 04/21. - Completed 10 day of IV Flagyl on 06/29/16 which is not ideal therapy. Now the patient is taking pills down her NG tube, will try oral Flagyl for a 10 day course. 4. Hypothyroidism, chronic, ongoing - Switched back to IV Synthroid 5. Recent Urinary tract infection, Present on admission. - Treated with Keflex, she is now off abx # Stage IV recurrent colon cancer with intra-abdominal metastases - palliative care following. CODE STATUS changed from full to limited resuscitation # Diabetes type 2, - Pt on Lantus 20U hs and Humalog 6U TIDAC at home - glucose better controlled on TPN - Started Lantus 20 units twice a day, will uptitrate as needed. # Acute kidney injury. Present on admission, mild, Now resolved # Chronic hypertension, controlled - held Amlodipine , carvedilol #Hyperlipidemia, chronic - atorvastatin oh hold # occult GI bleed in the setting of c.diff, hx of colon cancer, - Hb stable - c/w Lovenox - Resume coumadin once NGT removed # Cardiomyopathy. #Osteoporosis #Hyperparathyroidism. # Family conference held today for advanced care planning. I spent at least one half hour a group meeting with the patient and approximately 10 family members and oncologist Dr. Fairbanks. Dr. Fairbanks explained to the patient and patient's family that he has nothing further to offer the patient in the form of chemotherapy due to her inability to take anything by mouth and her low performance score. Dr. Valenzuela was consulted for general surgery additional opinion. And his opinion is as follows: ASSESSMENT AND PLAN: A 81-year-old lady with recurrent bowel obstruction, either from postoperative adhesions or recurrent malignancy. Discussed the options of percutaneous endoscopic gastrostomy tube placement versus diagnostic laparoscopy with possible lysis of adhesions and gastrostomy tube placement. If she does indeed have a malignant bowel obstruction, obviously the operation to take care of the bowel obstruction would likely need a [id number] intestinal bypass and that would increase the risk of surgical morbidity significantly, but if the goals of the patient would involve resolution of obstruction enough to be able to tolerate oral diet, surgical intervention would be required for her to pursue that. I am going to block time for her next week in anticipation of whatever decision the patient makes, but at this point, she is comfortable continuing current care with plans to get to a gastrostomy tube, either with or without an operation to potentially address her bowel obstruction is something that she will think about and will discuss with me next week. Marcos Valenzuela MD 07/09/16 2395 # Additional advance care planning went back later this evening and spent an additional half hour speaking with the patient and the patient's and niece who is a retired registered nurse at length for an additional [address] Mcnair has offered them and the pros and counts of aggressive treatment versus PEG tube placement alone versus no additional treatments etc. the patient and the patient's and family will discuss the matter and, per the decision. Pain Evaluation: Adequate Pain Control VTE Prophylaxis: Sub-Q Enoxaparin VTE Mechanical Devices: Intermittant Pneumatic CD Resuscitation Status: Limited Interventions Limited Interventions: Compressions (brief trial), Cardioversion/ Defibrillation (brief trial) Cyrus Perez MD Jul 10, 2016 20:19
[2016-07-10] MEDS: Total Parenteral Nutrition 1 BAG IV SCH (20:22)
[2016-07-11] VITALS (10 sets, daily range): BP systolic 122–150; BP diastolic 73–91; PULSE 79–100; RESP 16–18; O2SAT 98–100
[2016-07-11] MEDS: MeTOProlol 1 mg/mL 5 mL Inj IVPUSH SCH ×4 (00:10→18:33)
[2016-07-11] MEDS: Insulin LISPRO 300 Unit/3 mL Inj SUBQ SCH ×5 (04:58→22:36)
--- NOTE | 2016-07-11 07:11 | NUR ---
Antibiotic pt refused 1st dose of PO flagly at 1999, Dr. Mike aware.
[2016-07-11] MEDS: HYDROmorphone 0.5 mg/0.5 mL iSecure Syringe IVPUSH PRN ×4 (07:52→21:56)
[2016-07-11 08:23] LABS: Mean Corpuscular Hemoglobin 29.4 pg (27.0-35.0); Mean Corpuscular Volume 93.3 fL (81-100); Platelet Count 291 bil/L (150-400)
[2016-07-11 08:52] LABS: Magnesium 1.9 mg/dL (1.6-2.6); Phosphorus 2.3 mg/dL (2.5-4.9)
[2016-07-11] MEDS: Insulin GLARgine 100 Unit/mL Syringe SUBQ SCH ×2 (09:03→21:57)
[2016-07-11 09:13] LABS: NEUTROPHILS % (AUTO) 72 % (40-74)
[2016-07-11 09:14] LABS: BASOPHILS % (AUTO) 0 % (0-3); EOSINOPHILS % (AUTO) 0 % (0-5); MONOCYTES % (AUTO) 10 % (4-12)
--- NOTE | 2016-07-11 09:31 | NUR ---
Left arm swelling Pt's left arm swollen, but not around IV insertion site. Arm elevated on pillow. Will continue to monitor. Addendum: 07/11/16 at 1647 by ELODIA MCNAIR RN Arm is now less swollen after being elevated on a pillow.
[2016-07-11] MEDS: 0.9% Sodium Chloride 1,000 ML IV SCH (11:25)
--- NOTE | 2016-07-11 15:20 | PCM.PNMED ---
Subjective Date of Service Jul 11, 2016 Subjective She has a strikingly good memory and very clear thinking. She is very perceptive, as she talks and her of 50 years sits at the foot of the bed and cries She asks for an overdose that would help her to without pain and suffering. I clarify that she is asking for the DWD process. I am able to state that she has asked for possible PAD/DWD and so the 15 day sequence of obtaining/using that process will start today if she wishes to go forward. She is hopeful about the PEG venting tube, which I told her I thought was a very good idea. She is refusing the NGT Flagyl because she hasn't had a liquid stool or any other stool in 3 days or so and thinks that in the past Flagyl caused her to have stomach irritation. Exam Vital Signs Vital Sign - Last Date Time Temp Pulse Resp B/P Pulse Ox O2 Delivery O2 Flow Rate FiO2 07/11/16 05:32 88 07/11/16 04:13 36.8 16 133/89 98 Room Air Intake and Output 07/10/16 07/10/16 07/11/16 Cumulative From/Thru 15:00 23:00 07:00 06/16/16 07:14 - 07/11/16 05:02 Intake Total 1696 ml 1105 ml 03952 ml Output Total 1100 ml 1150 ml 77826 ml Balance 596 ml -45 ml 72088 ml Intake Oral 100 ml 5808 ml IV Total 798 ml 526 ml 97863 ml Tube Feeding 150 ml TPN/PPN 798 ml 579 ml 62717 ml Tube Irrigant 60 ml Output Urine Total 900 ml 750 ml 09457 ml Urine/Stool Mix 2250 ml Gastric Drainage Total 200 ml 400 ml 77867 ml Emesis 2355 ml # Voids 15 # Bowel Movements 20 Exam Very, very pale and weak looking Very perceptive, remembers details of prior conversations with Dr Valenzuela, etc. Heart: RRR without murmur Lungs: CTAB Abdomen: Soft, Bowel Sounds normal, Not tender, No masses No ankle edema NGT is in her nose Lab and Diagnostics HGB 9.6 with Albumin of 2.2 today. Result Diagram: 07/05/16 1416 07/10/16 0715 Microbiology C DIFF TOXIN A AND B BY PCR Final 06/18/16-1455 Organism 1 POS FOR CDIF TOXIN C DIF TOXIN A&B PCR DETECTED TIME CALLED: 1450 DATE CALLED: 06/18/16 FLOOR/DOCTOR: TIM/MERY Levine CALLED BY: NNAMDI PCR testing alone cannot distinquish C. difficile disease from a carrier state, and therefore correlation with X-Rays, CTs and MRIs PROCEDURE: CT ABDOMEN AND PELVIS WITHOUT CONTRAST ([id number]) INDICATIONS: 81-year-old woman with follow up CT for SBO TECHNIQUE: Noncontrast 5 mm thick sections acquired from the diaphragms to the symphysis. 5 mm coronal and sagittal reformats were then performed. For radiation dose reduction, the following was used: automated exposure control, adjustment of mA and/or kV according to patient size. COMPARISON: [facility], CT, CT CHEST ABD PELVIS WO CON, 06/29/2016, 15:40. [facility], CT, CT ABD PELVIS WO CON, 06/21/2016, 10:36. FINDINGS: Image quality: Excellent. ABDOMEN: Lung bases: There are small bilateral pleural effusions with bibasilar consolidation or atelectasis. Heart size is normal. Solid organs: Calcified granulomas are present in the liver and spleen. Liver and spleen are normal in size. Gallbladder is surgically absent. Pancreas is normal in contours. There is a 1 cm left adrenal nodule, unchanged. Kidneys are normal in size, without hydronephrosis or nephrolithiasis. Peritoneum and bowel: There is a nasogastric tube in the stomach. Stomach is decompressed. Proximal small bowel loops are distended measuring up to 4.2 cm. There is transitional point in the area of distal ileum with decompressed distal small bowel and colon loops, consistent with small bowel obstruction. No free fluid or air. Nodes and vessels: No retroperitoneal or mesenteric adenopathy by size criteria. Aorta and inferior vena cava are normal in caliber. Miscellaneous: No ventral hernias. PELVIS: Genitourinary: Bladder wall thickness is normal. Miscellaneous: No inguinal hernias or adenopathy. Bones: No suspicious bony lesions. No vertebral body compression fractures. IMPRESSION: 1. Persistent small bowel obstruction. 2. Remote granulomatous disease involving liver and spleen. Dictated by: Vickey Peñaloza M.D. on 06/29/2016 at 18:44 Transcribed by: ZAC on 06/29/2016 at 18:44 Approved by: Vickey Peñaloza M.D. on 06/30/2016 at 9:33 Cardiac Echo Impressions Echocardiogram Report Name: JANEL DEUTSCH Study Date: 10/28/2014 Height: 65 in Hospital Exam Location: [facility] Weight: 141 lb Gender: Female BSA: 1.7 m2 : 1935 Age: 79 yrs BP: 168/78 mmHg Reason For Study: TAKOTSUBO SYNDROME History: HTN,AFIB,DIABETES Ordering Physician: Austen Weston Performed By: Hilda Shepherd Referring Physician: Dr. Alphonso Irving Interpretation Summary The left ventricle is normal in size. Left ventricular systolic function is borderline reduced. The ejection fraction is estimated to be 50-55%. There are no focal wall motion abnormalities. Compared to the prior exam, the apical wall motion abnormality is improved. The right ventricle is normal in size and function. The right ventricular systolic pressure is estimated at 25 mmHg assuming a right atrial pressure of 3 mm Hg. The left atrium is severely dilated. The right atrium is moderately dilated. There has been no significant change since the previous study. There is mild-moderate mitral regurgitation. There has been no significant change since the previous study. There is no other significant valvular heart disease. The aortic root is normal size. 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 Admitted for recurrent small bowel obstruction , complicated by C. difficile colitis. She completed a course of IV metronidazole treatment with resolution of the diarrhea. 1. Recurrent small bowel obstruction, acute. Present on admission. Ongoing. The patient is status post extended right hemicolectomy on November 15, 2014. The patient has a history of recurrent Stage IV colon cancer with intraabdominal metastases. Removed NG tube on 06/28/16 and started clears. Patient had episode of vomiting and NG tube reinserted the same night. Palliative care saw her again 07/02/16. At times she voiced ongoing wishes to continue with medical treatment for her bowel obstruction. TPN started on 06/25 - Symptoms are not improving as of 07/11/16 - Pt was unable to tolerate clears - Pt can be clamped for maximum of one hour before getting ill - Family meeting took place 07/09/2016 with numerous family members and the patient and Dr. Fairbanks of oncology speaker phone. - Again had another meeting with the patient and patient's found niece who is an RN at bedside last evening about end-of-life planning and surgical options. Patient and family will discuss her options. - Formal request for DWD/PAD today, starting her 15 day period before she can legally act. She will need to contact Dr. Irving for the prescription or referral to a prescribing doctor once she is home if she still wishes to obtain the life ending prescription to self inject into her tube. 2. Rapid Afib,acute,not present on admission, resolved - she is now on her chronic rate-controlled atrial fibrillation and having no difficulties. - She is well past the point of benefitting from Coumadin stroke preventionl 3. C. difficile colitis, may contribute to current sx, although labs were unremarkable - suspect possible etiology behind her Hemoccult positive stool. - Was on oral vancomycin # 3 days then stopped as pt couldn't tolerate po, switched to Flagyl 500 q8h iv on 04/21. - Completed 10 day of IV Flagyl on 06/29/16 which is not ideal therapy. Now the patient is taking pills down her NG tube, and she has refused the oral Flagyl suggested. - She is now past the point of benefitting from additional C-diff therapy in the context of no diarrhea but continuing heme positive stools from a few days ago. No recent BM. 4. 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 CODE STATUS changed from full to limited resuscitation # Diabetes type 2, - Pt on Lantus 20U hs and Humalog 6U TIDAC at home - glucose better controlled on TPN - Started Lantus 20 units twice a day, will uptitrate as needed. # Chronic hypertension, controlled - held Amlodipine , carvedilol #Hyperlipidemia - No further benefit from Statin therapy # occult GI bleed in the setting of c.diff, hx of colon cancer, - Hb has dropped and there is no further benefit to be gained from Coumadin or other DVT prevention therapy at this time. # Cardiomyopathy. #Osteoporosis #Hyperparathyroidism. # Potential Surgical Treatments ASSESSMENT AND PLAN: A 81-year-old lady with recurrent bowel obstruction, either from postoperative adhesions or recurrent malignancy. Discussed the options of percutaneous endoscopic gastrostomy tube placement versus diagnostic laparoscopy with possible lysis of adhesions and gastrostomy tube placement. If she does indeed have a malignant bowel obstruction, obviously the operation to take care of the bowel obstruction would likely need a [id number] intestinal bypass and that would increase the risk of surgical morbidity significantly, but if the goals of the patient would involve resolution of obstruction enough to be able to tolerate oral diet, surgical intervention would be required for her to pursue that. I am going to block time for her next week in anticipation of whatever decision the patient makes, but at this point, she is comfortable continuing current care with plans to get to a gastrostomy tube, either with or without an operation to potentially address her bowel obstruction is something that she will think about and will discuss with me next week. Marcos Valenzuela MD 07/09/16 8861 VTE Prophylaxis: Sub-Q Enoxaparin VTE Mechanical Devices: Intermittant Pneumatic CD Resuscitation Status: Limited Interventions Limited Interventions: Compressions (brief trial), Cardioversion/ Defibrillation (brief trial) Radha Egan MD Jul 11, 2016 07:32
--- NOTE | 2016-07-11 16:21 | NUR ---
Social Work Note: Continued Discharge Planning Data& Assessment: SW met with pt and pt family at bedside per their request to discuss discharge planning. Pt was interested in the different services and potential discharge plans that would be in place depending on if she had a Pegg tube placed, if she decided to go on Hospice or if her NG tube remained in place. Pt explained that she will not be agreeable to go to [facility] because it is too far for her family to visit her. SW explained PT is recommending SNF at time of discharge for strengthening. SW explained that which facilities would be able to accept her depend on if she gets a pegg tube placed or if her NG tube remains in place. SW explained we would arrange home health and home infusion services if pt were to discharge home with a pegg tube. SW also discussed Hospice Services, what services they offer and offered to arrange a hospice information visit for pt. SW explained that she could go private pay to a SNF with hospice or hospice services could be arranged for in her own home. Pt declined information visit for Hospice at this time but might reconsider tomorrow. Pt was appreciative of having information and plans to follow up with her MD tomorrow regarding her plan of care. SW to follow up with pt tomorrow after pt decides if she will have the pegg tube placement for final discharge planning and clarifications on goals of care. Pt and pt family deny any needs at this time. Plan: Anticipated discharge home with [facility] vs. SNF vs. home with Hospice services. SW to follow up with pt tomorrow after pt decides if she will have the pegg tube placement for final discharge planning and clarifications on goals of care. Pt and pt family deny any needs at this time. MELONIE Holloway
[2016-07-11] MEDS: Total Parenteral Nutrition 1 BAG IV SCH (21:17)
--- NOTE | 2016-07-11 21:17 | NUR ---
Late Hand Painter Pt requested to hold all evening meds til after some of her visitors had left, this delayed the medications past their due times. Her requests were honored and she was very appreciative.
[2016-07-12] VITALS (8 sets, daily range): BP systolic 135–154; BP diastolic 78–89; PULSE 79–99; RESP 16–18; O2SAT 97–99
[2016-07-12] MEDS: MeTOProlol 1 mg/mL 5 mL Inj IVPUSH SCH ×4 (00:48→17:55)
[2016-07-12] MEDS: Insulin LISPRO 300 Unit/3 mL Inj SUBQ SCH ×4 (05:03→22:02)
[2016-07-12] MEDS: HYDROmorphone 0.5 mg/0.5 mL iSecure Syringe IVPUSH PRN ×4 (05:57→21:41)
[2016-07-12] MEDS: 0.9% Sodium Chloride 1,000 ML IV SCH (06:06)
[2016-07-12] MEDS: Insulin GLARgine 100 Unit/mL Syringe SUBQ SCH ×2 (09:40→21:45)
--- NOTE | 2016-07-12 11:02 | PCM.PHAPRO ---
Progress TPN TPN Per Pharmacy Note: - TPN documentation was not entered yesterday (07/11/16), so the following documentation contains yesterday's and today's TPN orders. - There have been no changes between the two days 07/11/16 PARENTERAL NUTRITION ORDERS 17 11-Jul-16 Standard Hang Time: 2100 Substrates Total kcal: 1505 AMINO ACIDS 100 g DEXTROSE 325 g Total Volume (mL): 1400 LIPIDS 0 g Sterile Water for Injection QS mL To Infuse Over (hrs): 24 Total Volume 1400 mL At at a rate of (mL/hr): 58 Additives Sodium Chloride 100 mEq "typical" daily requirements Sodium Acetate 0 mEq Sodium 50-120mEq Potassium Chloride 10 mEq Potassium 60-120mEq Potassium Phosphate 60 mEq Phosphate 20-40mEq Calcium Gluconate 0 mEq Magnesium 8-32mEq Magnesium Sulfate 14 mEq Calcium 9-22mEq Acetate* 80-120mEq Chloride* 80-120mEq Regular Insulin 35 units *Depending on acid-base status Famotidine 40 mg Multivitamins 1 std dose Insulin Regimen Trace Elements 1 std dose none Thiamine 100 mg Regular Low Intensity Subcut Folic Acid 1 mg Regular Medium Intensity Subcut Ascorbic Acid 0 mg Regular High Intensity Subcut Regular Insulin Infusion Other: Special Instructions: To be infused via central line only. For delay or inturruption of TPN contact the pharmacist for alternative replacement solution. JANEL DEUTSCH [facility] [place] 242-1 Signature Date: [address] 07/12/16 PARENTERAL NUTRITION ORDERS 18 12-Jul-16 Standard Hang Time: 2100 Substrates Total kcal: 1505 AMINO ACIDS 100 g DEXTROSE 325 g Total Volume (mL): 1400 LIPIDS 0 g Sterile Water for Injection QS mL To Infuse Over (hrs): 24 Total Volume 1400 mL At at a rate of (mL/hr): 58 Additives Sodium Chloride 100 mEq "typical" daily requirements Sodium Acetate 0 mEq Sodium 50-120mEq Potassium Chloride 10 mEq Potassium 60-120mEq Potassium Phosphate 60 mEq Phosphate 20-40mEq Calcium Gluconate 0 mEq Magnesium 8-32mEq Magnesium Sulfate 14 mEq Calcium 9-22mEq Acetate* 80-120mEq Chloride* 80-120mEq Regular Insulin 35 units *Depending on acid-base status Famotidine 40 mg Multivitamins 1 std dose Insulin Regimen Trace Elements 1 std dose none Thiamine 100 mg Regular Low Intensity Subcut Folic Acid 1 mg Regular Medium Intensity Subcut Ascorbic Acid 0 mg Regular High Intensity Subcut Regular Insulin Infusion Other: Special Instructions: To be infused via central line only. For delay or inturruption of TPN contact the pharmacist for alternative replacement solution. JANEL DEUTSCH [facility] [place] 242-1 Signature Date: GET [address] [place] [address] Pharmacy will continue to follow, thank you! Landy Meier PharmD Jul 12, 2016 11:02
--- NOTE | 2016-07-12 11:22 | NUR ---
Palliative care note D/A: Case discussed with Sammi TELLEZ RN. She indicates that pt expressed an interest in DWD. Dr. Egan has discussed with her over weekend . Case discussed with Dr. Powell and Lexy WILHELM. PC providers have signed off patient care at this time and can provide no further assistance with situation other than what Dr. Egan has already done. PC can provide information on [facility] which is where pt and her family will need to contact to complete the next steps of pt possible use of DWD. Lexy WILHELM from was already planning on discussing with pt today in follow up and this worker has contacted her. Lexy to meet with pt and family and provide information on [facility] and explain process to family. P: Palliative care following on a limited basis. Mary LOBO, CCM
--- NOTE | 2016-07-12 13:07 | NUR ---
Palliative Care Family Meeting07/12/1711:30PM D: This administrative underwriter met with pt. and various family members (included , Morro, two sons, and extended family members) to provide requested information on End-[facility]. Pt. expressed that she has been considering all options for how to proceed with her care, including having surgery and also whether to move towards a comfort care pathway. This administrative underwriter explained to pt. and family some of the ways that Hospice services manage a patient's care needs, but that on Hospice care the focus is comfort, not curative measures. Morro and other family were tearful at times during the visit. Family expresses deep sadness that pt.'s situation may in fact be terminal and noted that it's hard to think of pt. as being closer to end of life. This administrative underwriter shared that all the feelings of denial and anger are normal and that the situation pt. is experiencing is very complex and confusing. Family and pt. talked about her desire to be home for care as opposed to being at a care facility. Pt. noted she does not want to go to [place] for care. Family expressed deep commitment to helping meet pt.'s needs at home if she does decide to pursue hospice care. Family and pt. told this administrative underwriter that they still need to talk with Dr. Valenzuela about the planned surgery on 07/15/16 to understand the risks/benefits to the surgery. Pt. shared that one goal of having surgery would be to regain the ability to enjoy food. Family and pt. all seem committed to having the surgery if there is a possibility it will either provide increased life expectancy or give pt. better physical comfort than she has now. A: Pt. and family continue to struggle with decisions related to how to proceed with pt.'s care needs. Pt. at times expresses a desire to transition to comfort care/Hospice care, but at other times shares she wants to have surgery if this could provide either prolonged life or better physical comfort. P: This administrative underwriter offered to visit with family over the coming days to offer emotional support around pt.'s care situation. Family noted that they hope to see Dr. Valenzuela later today to review plan for surgical intervention. Lexy Caldwell, TEACHER TUTOR, [facility] Palliative Care Services
--- NOTE | 2016-07-12 14:22 | NUR ---
spiritual care: routine/staff introduced myself and role to family and pt. No immediate spiritual care needs identified, will continue to follow.
--- NOTE | 2016-07-12 16:23 | NUR ---
Social work: Continued Discharge Planning: Data & assessment: Refinisher met with patient, patient's spouse (Morro Bowie), and patient's son Seth at bedside to discuss discharge options. Patient and patient family still had not met with the surgeon and requested that Refinisher return once they had a chance to speak with the surgeon. SW will follow-up with patient on tomorrow in reference to discharge planning. SW will continue to follow. Plan: SW will follow-up with patient on tomorrow to discuss discharge plan. SW will continue to follow and assist. America Bill, JORDAN, ACTenzin
--- NOTE | 2016-07-12 16:47 | NUR ---
NUTRITION FOLLOW-UP: ASSESS: 81 YO female admitted with partial small bowel obstruction. Pt continues to have persistent NG tube output and is unable to tolerate clamping NG tube for more than one hour. TPN initiated 06/25 and pt continues to tolerate TPN well. s/p Extensive care meeting held on 07/09. Pt continues to express desire for PEG placement for suction to relieve discomfort caused by her NGT. Pt also expressing interest in exploratory surgery w/ possibility of obstruction being relieved or a bypass of the obstruction, but also is considering with dignity per notes. PMHx: Stage IV colon cancer with intra-abdominal metastasis, atrial fibrillation, cardiomyopathy, HTN, hypothyroidism, osteoporosis, hyperparathyroidism, T2DM, recurrent SBO. DIET: NPO. NUTRITION SUPPORT: 325 g dextrose, 100 g AA daily (1505 kcal/d, 100 g/d protein) with cyclic lipids MWF of 55g (550 fat kcal) LABS: Reviewed. Cr .53, glu 196, Alb 2.0. MEDICATIONS: Reviewed. Insulin, Lopressor GI symptoms / stool: Gastric drainage of 200 ML today. ANTHROPOMETRICS: Current Wt: 66.8 kg BMI: 24.4 kg/m2. Admit weight: 64.7 kg Reported 9.5% wt loss x1 month (prior to admit) ESTIMATED NEEDS (CANCER, MALNUTRITION): Calories:1600-2250kcal (25-35 kcal/kg BW) Protein: 80-100 g protein (1.2-1.5 g/kg BW) Fluids: 5415-7277 ml/d (1 ml/kcal) NUTRITION DIAGNOSIS: 1) Severe protein calorie malnutrition related to metastatic cancer with multiple bowel obstructions, altered GI function, as evidenced by 9.5% weight loss x 1 month -IMPROVED. 2) Inadequate oral intake related to altered GI function as evidence by need for NPO status, NGT, requirement for TPN, and pt with minimal PO intake x 26 days - PERSISTS. INTERVENTION: 1) As it does not appear that lipids were included with today's TPN, Recommend lipids be provided in TPN dated for 07/13 and then every M, W, as previously recommended. 2) Recommend liver labs be changed to 2-3 times per week. MONITOR/EVALUATE: Liver labs, TPN tolerance, labs, diet advance / tolerance, GI/nutrition status, POC. Follow per high nutrition risk guidelines.
--- NOTE | 2016-07-12 18:26 | PCM.PNMED ---
Subjective Date of Service Jul 12, 2016 Subjective 81-year-old woman with metastatic colon carcinoma, recurrent SBO. No new symptoms today. NG tube in place. TPN hanging. Palliative surgical intervention is pending, per Dr. Valenzuela. with dignity request is in process. Exam Vital Signs Vital Sign - Last Date Time Temp Pulse Resp B/P Pulse Ox O2 Delivery O2 Flow Rate FiO2 07/12/16 10:52 94 07/12/16 08:58 36.5 16 152/89 98 Room Air Intake and Output 07/11/16 07/11/16 07/12/16 Cumulative From/Thru 15:00 23:00 07:00 06/16/16 07:14 - 07/12/16 06:31 Intake Total 1877 ml 1899 ml 08257 ml Output Total 910 ml 1300 ml 65627 ml Balance 967 ml 599 ml 22911 ml Intake Oral 480 ml 460 ml 6748 ml IV Total 642 ml 726 ml 19680 ml Tube Feeding 150 ml TPN/PPN 755 ml 713 ml 13535 ml Tube Irrigant 60 ml Output Urine Total 650 ml 1100 ml 92341 ml Urine/Stool Mix 2250 ml Gastric Drainage Total 260 ml 200 ml 42972 ml Emesis 2355 ml # Voids 1 16 # Bowel Movements 20 Exam General: Frail-appearing woman in no acute distress HEENT: sclerae anicteric, NG tube in place Neck: [place] Chest: No wheezing or distress Abdomen: non-tender, nondistended Extremities: No pitting edema Neuro: A&O fully cognitively intact, cranial nerves symmetric, motor strength and coordination are grossly normal, Lab and Diagnostics Result Diagram: 07/11/16 0754 07/12/16 0705 Microbiology C DIFF TOXIN A AND B BY PCR Final 06/18/16-1455 Organism 1 POS FOR CDIF TOXIN C DIF TOXIN A&B PCR DETECTED TIME CALLED: 1450 DATE CALLED: 06/18/16 FLOOR/DOCTOR: TIM/MERY Levine CALLED BY: NNAMDI PCR testing alone cannot distinquish C. difficile disease from a carrier state, and therefore correlation with X-Rays, CTs and MRIs PROCEDURE: CT ABDOMEN AND PELVIS WITHOUT CONTRAST ([id number]) INDICATIONS: 81-year-old woman with follow up CT for SBO TECHNIQUE: Noncontrast 5 mm thick sections acquired from the diaphragms to the symphysis. 5 mm coronal and sagittal reformats were then performed. For radiation dose reduction, the following was used: automated exposure control, adjustment of mA and/or kV according to patient size. COMPARISON: [facility], CT, CT CHEST ABD PELVIS WO CON, 06/29/2016, 15:40. [facility], CT, CT ABD PELVIS WO CON, 06/21/2016, 10:36. FINDINGS: Image quality: Excellent. ABDOMEN: Lung bases: There are small bilateral pleural effusions with bibasilar consolidation or atelectasis. Heart size is normal. Solid organs: Calcified granulomas are present in the liver and spleen. Liver and spleen are normal in size. Gallbladder is surgically absent. Pancreas is normal in contours. There is a 1 cm left adrenal nodule, unchanged. Kidneys are normal in size, without hydronephrosis or nephrolithiasis. Peritoneum and bowel: There is a nasogastric tube in the stomach. Stomach is decompressed. Proximal small bowel loops are distended measuring up to 4.2 cm. There is transitional point in the area of distal ileum with decompressed distal small bowel and colon loops, consistent with small bowel obstruction. No free fluid or air. Nodes and vessels: No retroperitoneal or mesenteric adenopathy by size criteria. Aorta and inferior vena cava are normal in caliber. Miscellaneous: No ventral hernias. PELVIS: Genitourinary: Bladder wall thickness is normal. Miscellaneous: No inguinal hernias or adenopathy. Bones: No suspicious bony lesions. No vertebral body compression fractures. IMPRESSION: 1. Persistent small bowel obstruction. 2. Remote granulomatous disease involving liver and spleen. Dictated by: Vickey Peñaloza M.D. on 06/29/2016 at 18:44 Transcribed by: ZAC on 06/29/2016 at 18:44 Approved by: Vickey Peñaloza M.D. on 06/30/2016 at 9:33 Cardiac Echo Impressions Echocardiogram Report Name: JANEL DEUTSCH Study Date: 10/28/2014 Height: 65 in Hospital Exam Location: [facility] Weight: 141 lb Gender: Female BSA: 1.7 m2 : 1935 Age: 79 yrs BP: 168/78 mmHg Reason For Study: TAKOTSUBO SYNDROME History: HTN,AFIB,DIABETES Ordering Physician: Austen Weston Performed By: Hilda Shepherd Referring Physician: Dr. Alphonso Irving Interpretation Summary The left ventricle is normal in size. Left ventricular systolic function is borderline reduced. The ejection fraction is estimated to be 50-55%. There are no focal wall motion abnormalities. Compared to the prior exam, the apical wall motion abnormality is improved. The right ventricle is normal in size and function. The right ventricular systolic pressure is estimated at 25 mmHg assuming a right atrial pressure of 3 mm Hg. The left atrium is severely dilated. The right atrium is moderately dilated. There has been no significant change since the previous study. There is mild-moderate mitral regurgitation. There has been no significant change since the previous study. There is no other significant valvular heart disease. The aortic root is normal size. 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 Admitted for recurrent small bowel obstruction , complicated by C. difficile colitis. She completed a course of IV metronidazole treatment with resolution of the diarrhea. 1. Recurrent small bowel obstruction, acute. Present on admission. Ongoing. The patient is status post extended right hemicolectomy on November 15, 2014. The patient has a history of recurrent Stage IV colon cancer with intraabdominal metastases. Removed NG tube on 06/28/16 and started clears. Patient had episode of vomiting and NG tube reinserted the same night. Palliative care saw her again 07/02/16. At times she voiced ongoing wishes to continue with medical treatment for her bowel obstruction. TPN started on 06/25 - Symptoms are not improving as of 07/11/16 - Pt was unable to tolerate clears - Pt can be clamped for maximum of one hour before getting ill - Family meeting took place 07/09/2016 with numerous family members and the patient and Dr. Fairabnks of oncology speaker phone. - Again had another meeting with the patient and patient's found niece who is an RN at bedside last evening about end-of-life planning and surgical options. Patient and family will discuss her options. - Formal request for DWD/PAD on 07/11, starting her 15 day period before she can legally act. She will need to contact Dr. Irving for the prescription or referral to a prescribing doctor once she is home if she still wishes to obtain the life ending prescription to self inject into her tube. - Plan to clarify option for palliative GI surgery and/or G tube placement with surgical coordinator 2. Rapid Afib,acute,not present on admission, resolved - she is now on her chronic rate-controlled atrial fibrillation and having no difficulties. - She is well past the point of benefitting from Coumadin stroke preventionl 3. C. difficile colitis, may contribute to current sx, although labs were unremarkable - suspect possible etiology behind her Hemoccult positive stool. - Was on oral vancomycin # 3 days then stopped as pt couldn't tolerate po, switched to Flagyl 500 q8h iv on 04/21. - Completed 10 day of IV Flagyl on 06/29/16 which is not ideal therapy. Now the patient is taking pills down her NG tube, and she has refused the oral Flagyl suggested. - She is now past the point of benefitting from additional C-diff therapy in the context of no diarrhea but continuing heme positive stools from a few days ago. No recent BM. 4. 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 CODE STATUS changed from full to limited resuscitation # Diabetes type 2, - Pt on Lantus 20U hs and Humalog 6U TIDAC at home - glucose better controlled on TPN - Started Lantus 20 units twice a day, will uptitrate as needed. # Chronic hypertension, controlled - held Amlodipine , carvedilol #Hyperlipidemia - No further benefit from Statin therapy # occult GI bleed in the setting of c.diff, hx of colon cancer, - Hb has dropped and there is no further benefit to be gained from Coumadin or other DVT prevention therapy at this time. # Cardiomyopathy. #Osteoporosis #Hyperparathyroidism. # Potential Surgical Treatments ASSESSMENT AND PLAN: A 81-year-old lady with recurrent bowel obstruction, either from postoperative adhesions or recurrent malignancy. Discussed the options of percutaneous endoscopic gastrostomy tube placement versus diagnostic laparoscopy with possible lysis of adhesions and gastrostomy tube placement. If she does indeed have a malignant bowel obstruction, obviously the operation to take care of the bowel obstruction would likely need a [id number] intestinal bypass and that would increase the risk of surgical morbidity significantly, but if the goals of the patient would involve resolution of obstruction enough to be able to tolerate oral diet, surgical intervention would be required for her to pursue that. I am going to block time for her next week in anticipation of whatever decision the patient makes, but at this point, she is comfortable continuing current care with plans to get to a gastrostomy tube, either with or without an operation to potentially address her bowel obstruction is something that she will think about and will discuss with me next week. Marcos Valenzuela MD 07/09/16 8053 VTE Prophylaxis: Sub-Q Enoxaparin VTE Mechanical Devices: Intermittant Pneumatic CD Resuscitation Status: Limited Interventions Limited Interventions: Compressions (brief trial), Cardioversion/ Defibrillation (brief trial) Time spent 25 minutes Enmanuel Gustafson MD Jul 12, 2016 11:15
[2016-07-12] MEDS: Total Parenteral Nutrition 1 BAG IV SCH (21:18)
--- NOTE | 2016-07-12 21:44 | PCM.PNSURG ---
Subjective Date of Service: Jul 12, 2016 Visit Information: A 81-year-old lady with recurrent small bowel obstruction and metastatic colon cancer Date of Admission: Jun 16, 2016 at 10:07 Hospital Day # 27 Subjective: No acute changes medically Objective Objective NG in place with bilious output Vital Sign- Last 8 Hours Date Time Temp Pulse Resp B/P Pulse Ox O2 Delivery O2 Flow Rate FiO2 07/12/16 20:00 91 07/12/16 17:52 36.9 16 135/83 97 Intake and Output- Last 8 Hour 07/12/16 Cumulative From/Thru 07:00 06/16/16 07:14 - 07/12/16 06:31 Intake Total 1899 ml 93367 ml Output Total 1300 ml 17928 ml Balance 599 ml 66180 ml Intake Oral 460 ml 6748 ml IV Total 726 ml 81947 ml Tube Feeding 150 ml TPN/PPN 713 ml 71624 ml Tube Irrigant 60 ml Output Urine Total 1100 ml 96804 ml Urine/Stool Mix 2250 ml Gastric Drainage Total 200 ml 97798 ml Emesis 2355 ml # Voids 16 # Bowel Movements 20 General: Alert, Oriented X3 Abdomen: Other (Full, Soft) Result Diagram: 07/11/16 0754 07/12/16 0705 Assessment & Plan Impression Recurrent bowel obstruction & Stage IV Colon cancer Problems: Plan Again discussed her goals of care in the light of discussions about with dignity. She is very clear that she doesn't want to go on the way she is right now. She is not interested in interventions unless they have a chance of improving her abdominal symptoms. So, PEG would not meet her goals. She feels she wants to go ahead with diagnostic laparoscopy, possible laparotomy, lysis of adhesions, intestinal bypass if indicated and gastrostomy tube placement. She wants to pursue the " with dignity option" only if there is no way to improve her symptoms. She is on the schedule for . We will discuss this more over the next couple of days. We will need to stop the anticoagulation around the time of the operation. Marcos Valenzuela MD Jul 12, 2016 21:44
[2016-07-13] VITALS (8 sets, daily range): BP systolic 132–151; BP diastolic 74–89; PULSE 83–101; RESP 16–20; O2SAT 96–98
[2016-07-13] MEDS: MeTOProlol 1 mg/mL 5 mL Inj IVPUSH SCH ×4 (00:58→17:47)
[2016-07-13] MEDS: 0.9% Sodium Chloride 1,000 ML IV SCH ×2 (02:26→21:32)
[2016-07-13] MEDS: HYDROmorphone 0.5 mg/0.5 mL iSecure Syringe IVPUSH PRN ×5 (03:39→22:31)
[2016-07-13] MEDS: Insulin LISPRO 300 Unit/3 mL Inj SUBQ SCH ×4 (05:21→23:00)
--- NOTE | 2016-07-13 06:37 | NUR ---
Pain c/o 3/10 abdominal pain. administered PRN IVP Dilaudid per pt request.Pt respond pain relief by resting quietly in bed with eyes closed and not reporting pain afterward. NG drain 175 ml green brownish drainage. no N/V. Bed is locked and in low position. call light within reach. will continue to monitor.
[2016-07-13 08:42] LABS: Magnesium 1.7 mg/dL (1.6-2.6); Phosphorus 2.8 mg/dL (2.5-4.9)
[2016-07-13] MEDS: Insulin GLARgine 100 Unit/mL Syringe SUBQ SCH ×2 (09:12→21:04)
[2016-07-13] MEDS: Ondansetron 2 mg/mL 2 mL Inj IVPUSH PRN (09:27)
--- NOTE | 2016-07-13 11:01 | PCM.PHAPRO ---
Progress TPN Management by Pharmacy -Day of TPN -pt is to receive Lipids 55gm today as it was missed yesterday (should be MoWeFr ) -will increase insulin in TPN by 10 units as bs this morning was 199 and pt has used 9 units of lispro in the past 24hrs per ss orders -added sodium acetate 20meq -magnesium slightly increased to 18meq -Plan: formula for this evening: PARENTERAL NUTRITION ORDERS 13-Jul-16 Standard Hang Time: 2100 Substrates Total kcal: 5 AMINO ACIDS 100 g DEXTROSE 325 g Total Volume (mL): 1400 LIPIDS 55 g Sterile Water for Injection QS mL To Infuse Over (hrs): 24 Total Volume 1400 mL At at a rate of (mL/hr): 58 Additives Sodium Chloride 80 mEq "typical" daily requirements Sodium Acetate 20 mEq Sodium 50-120mEq Potassium Chloride 10 mEq Potassium 60-120mEq Potassium Phosphate 60 mEq Phosphate 20-40mEq Calcium Gluconate 0 mEq Magnesium 8-32mEq Magnesium Sulfate 18 mEq Calcium 9-22mEq Acetate* 80-120mEq Chloride* 80-120mEq Regular Insulin 45 units *Depending on acid-base status Famotidine 40 mg Multivitamins 1 std dose Insulin Regimen Trace Elements 1 std dose none Thiamine 100 mg Regular Low Intensity Subcut Folic Acid 1 mg Regular Medium Intensity Subcut Ascorbic Acid 0 mg Regular High Intensity Subcut Regular Insulin Infusion Other: Mary Crespo [facility] Jul 13, 2016 11:01
--- NOTE | 2016-07-13 11:08 | PCM.PHAPRO ---
Progress Addendum: total volume of TPN will need to be increased from 1400ml to 1500ml ( rate over 24hours will be 62.5ml/hr) due to the addition of Lipids today Mary Crespo [facility] Jul 13, 2016 11:08
--- NOTE | 2016-07-13 11:17 | NUR ---
NUTRITION FOLLOW-UP: ASSESS: 81 YO female admitted with partial small bowel obstruction. Pt continues to have persistent NG tube output and is unable to tolerate clamping NG tube for more than one hour. TPN initiated 06/25 and pt continues to tolerate TPN well. Extensive care meeting held on 07/09. Pt continues to express desire for PEG placement for suction to relieve discomfort caused by her NGT. Pt likely to have exploratory surgery w/ possibility of obstruction being relieved or a bypass of the obstruction. As pt has been on TPN for long time period, will begin to cycle lipids to MWF. Lipids were not given yesterday so will be given today and tomorrow (Tuesday) to get on the schedule of lipids M, W,. Pharmacy is aware of recommendations. Pt's BG levels continue to run high. Per pharmacy note, insulin to be increased. PMHx: Stage IV colon cancer with intra-abdominal metastasis, atrial fibrillation, cardiomyopathy, HTN, hypothyroidism, osteoporosis, hyperparathyroidism, T2DM, recurrent SBO. DIET: NPO. NUTRITION SUPPORT: 325 g dextrose, 100 g AA daily (1505 kcal/d, 100 g/d protein) with cyclic lipids MWF of 55g (550 fat kcal) LABS: Reviewed. Cr .52, Glu 199, Alb 2.1 (Mg, phos, K WNL and liver labs WNL) MEDICATIONS: Reviewed. Insulin, Lopressor GI symptoms / stool: Gastric drainage of 250 ML 07/12 ANTHROPOMETRICS: Current Wt: 67.4 kg BMI: 24.7 kg/m2. Admit weight: 64.7 kg Reported 9.5% wt loss x1 month (prior to admit) ESTIMATED NEEDS (CANCER, MALNUTRITION): Calories:1600-2250kcal (25-35 kcal/kg BW) Protein: 80-100 g protein (1.2-1.5 g/kg BW) Fluids: 8647-5794 ml/d NUTRITION DIAGNOSIS: 1) Severe protein calorie malnutrition related to metastatic cancer with multiple bowel obstructions, altered GI function, as evidenced by 9.5% weight loss x 1 month -IMPROVED. 2) Inadequate oral intake related to altered GI function as evidence by need for NPO status, NGT, requirement for TPN, and pt with minimal PO intake x 26 days - PERSISTS. INTERVENTION: 1) Recommend lipids be provided in TPN dated for 07/13 and then every M, W, F as previously recommended. 2) Recommend liver labs be changed to 2-3 times per week. 3) Will continue to monitor BG levels closely as they have been consistently high over hospital stay. MONITOR/EVALUATE: Lipids added, TPN tolerance, labs, diet advance / tolerance, GI/nutrition status, POC. Follow per high nutrition risk guidelines.
--- NOTE | 2016-07-13 12:11 | NUR ---
Palliative Care Family Visit07/13/1710:30AM D: This magazine writer visited with pt. and several family members to review what they had learned from Dr. Valenzuela yesterday. Pt., her spouse and her son all confirmed that pt. will have surgery on . They all expressed that this feels like the right decision and the shared that Dr. Valenzuela is optimistic the surgery will result in improved quality of life for pt. This magazine writer expressed that it seems like pt. and family are quite settled around their decision and they agreed with that statement. A: Pt. and family continue to focus on pursuing clinical treatments that might both improve pt.'s quality of life and also provide extended life expectancy. P: Pt. to have surgery later this week. This magazine writer will visit with pt. and family again in the coming days to provide psycho-social support and information regarding care options as her health situation develops. MELONIE Deleon, [facility] Palliative Care Services
--- NOTE | 2016-07-13 15:48 | NUR ---
Depression/mobility/pain Spoke with son who reports that after MD visit became upset and cried. "her plan is to have the exploratory surgery, if able to bypass then take that path otherwise take hospice path with venting GT. Awaiting procedure on . Pt up to BSC with SBA. Reporting bloating this am and pain, rx given x2 with effective relief.
--- NOTE | 2016-07-13 16:51 | PCM.PNMED ---
Subjective Date of Service Jul 13, 2016 Subjective 81-year-old woman with metastatic colon carcinoma, recurrent SBO. No new symptoms today. Some bloating after the NG was clamped to take morning meds. NG tube in place. TPN hanging. Palliative surgical intervention is pending for , per Dr. Valenzuela. with dignity request is in process. Hospice referral is in process. Patient is clear about her desire to relieve symptoms, and if symptoms cannot be relieved to proceed toward hospice measures. Exam Vital Signs Vital Sign - Last Date Time Temp Pulse Resp B/P Pulse Ox O2 Delivery O2 Flow Rate FiO2 07/13/16 16:07 Room Air 07/13/16 09:15 36.7 85 20 146/81 97 Intake and Output 07/12/16 07/12/16 07/13/16 Cumulative From/Thru 15:00 23:00 07:00 06/16/16 07:14 - 07/13/16 06:35 Intake Total 1253 ml 1304 ml 18970 ml Output Total 900 ml 1450 ml 25185 ml Balance 353 ml -146 ml 52912 ml Intake Oral 6748 ml IV Total 582 ml 1304 ml 11853 ml Tube Feeding 150 ml TPN/PPN 671 ml 02712 ml Tube Irrigant 60 ml Output Urine Total 850 ml 1275 ml 57091 ml Urine/Stool Mix 2250 ml Gastric Drainage Total 50 ml 175 ml 20425 ml Emesis 2355 ml # Voids 16 # Bowel Movements 20 Exam General: Frail-appearing woman alert and communicative HEENT: sclerae anicteric, NG tube in place Neck: [place] Chest: No wheezing or distress Abdomen: non-tender, nondistended Extremities: No pitting edema Neuro: A&O fully cognitively intact, cranial nerves symmetric IVs and Medications Medications Reviewed: Medications were reviewed in detail Lab and Diagnostics Result Diagram: 07/11/16 0754 07/13/16 0735 Microbiology C DIFF TOXIN A AND B BY PCR Final 06/18/16-1454 Organism 1 POS FOR CDIF TOXIN C DIF TOXIN A&B PCR DETECTED TIME CALLED: 1450 DATE CALLED: 06/18/16 FLOOR/DOCTOR: TIM/MERY Levine CALLED BY: KLD PCR testing alone cannot distinquish C. difficile disease from a carrier state, and therefore correlation with X-Rays, CTs and MRIs PROCEDURE: CT ABDOMEN AND PELVIS WITHOUT CONTRAST ([id number]) INDICATIONS: 81-year-old woman with follow up CT for SBO TECHNIQUE: Noncontrast 5 mm thick sections acquired from the diaphragms to the symphysis. 5 mm coronal and sagittal reformats were then performed. For radiation dose reduction, the following was used: automated exposure control, adjustment of mA and/or kV according to patient size. COMPARISON: [facility], CT, CT CHEST ABD PELVIS WO CON, 06/29/2016, 15:40. [facility], CT, CT ABD PELVIS WO CON, 06/21/2016, 10:36. FINDINGS: Image quality: Excellent. ABDOMEN: Lung bases: There are small bilateral pleural effusions with bibasilar consolidation or atelectasis. Heart size is normal. Solid organs: Calcified granulomas are present in the liver and spleen. Liver and spleen are normal in size. Gallbladder is surgically absent. Pancreas is normal in contours. There is a 1 cm left adrenal nodule, unchanged. Kidneys are normal in size, without hydronephrosis or nephrolithiasis. Peritoneum and bowel: There is a nasogastric tube in the stomach. Stomach is decompressed. Proximal small bowel loops are distended measuring up to 4.2 cm. There is transitional point in the area of distal ileum with decompressed distal small bowel and colon loops, consistent with small bowel obstruction. No free fluid or air. Nodes and vessels: No retroperitoneal or mesenteric adenopathy by size criteria. Aorta and inferior vena cava are normal in caliber. Miscellaneous: No ventral hernias. PELVIS: Genitourinary: Bladder wall thickness is normal. Miscellaneous: No inguinal hernias or adenopathy. Bones: No suspicious bony lesions. No vertebral body compression fractures. IMPRESSION: 1. Persistent small bowel obstruction. 2. Remote granulomatous disease involving liver and spleen. Dictated by: Vickey Peñaloza M.D. on 06/29/2016 at 18:44 Transcribed by: ZAC on 06/29/2016 at 18:44 Approved by: Vickey Peñaloza M.D. on 06/30/2016 at 9:33 Cardiac Echo Impressions Echocardiogram Report Name: JANEL DEUTSCH Study Date: 10/28/2014 Height: 65 in Hospital Exam Location: [facility] Weight: 141 lb Gender: Female BSA: 1.7 m2 : 1935 Age: 79 yrs BP: 168/78 mmHg Reason For Study: TAKOTSUBO SYNDROME History: HTN,AFIB,DIABETES Ordering Physician: Austen Weston Performed By: Hilda Shepherd Referring Physician: Dr. Alphonso Irving Interpretation Summary The left ventricle is normal in size. Left ventricular systolic function is borderline reduced. The ejection fraction is estimated to be 50-55%. There are no focal wall motion abnormalities. Compared to the prior exam, the apical wall motion abnormality is improved. The right ventricle is normal in size and function. The right ventricular systolic pressure is estimated at 25 mmHg assuming a right atrial pressure of 3 mm Hg. The left atrium is severely dilated. The right atrium is moderately dilated. There has been no significant change since the previous study. There is mild-moderate mitral regurgitation. There has been no significant change since the previous study. There is no other significant valvular heart disease. The aortic root is normal size. 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 Admitted for recurrent small bowel obstruction , complicated by C. difficile colitis. She completed a course of IV metronidazole treatment with resolution of the diarrhea. 1. Recurrent small bowel obstruction, acute. Present on admission. Ongoing. The patient is status post extended right hemicolectomy on November 15, 2014. The patient has a history of recurrent Stage IV colon cancer with intraabdominal metastases. Removed NG tube on 06/28/16 and started clears. Patient had episode of vomiting and NG tube reinserted the same night. Family meeting took place with numerous family members and the patient and Dr. Fairbanks of oncology. Palliative care is following. She requires essentially continuous NG aspiration for symptom relief of her bowel obstruction. A G-tube is being considered to enable palliative gastric decompression at home. TPN started on 06/25. Formal request for DWD/PAD on 07/11, starting her 15 day period before she can legally act. She will need to contact Dr. Irving for the prescription or referral to a prescribing doctor once she is home if she still wishes to obtain the life ending prescription to self inject into her tube. - Continue current NG aspiration and pain medications - No anticoagulants in advance of surgery on - Reevaluate further options after outcome of surgical assessment 2. Rapid Afib,acute,not present on admission, resolved - she is now on her chronic rate-controlled atrial fibrillation and having no difficulties. - No anticoagulation is recommended 3. C. difficile colitis, may contribute to current sx, although labs were unremarkable. Suspect possible etiology behind her Hemoccult positive stool. - Was on oral vancomycin # 3 days then stopped as pt couldn't tolerate po, switched to Flagyl 500 q8h iv on 04/21. - Completed 10 day of IV Flagyl on 06/29/16, no further diarrhea - Stop metronidazole 4. 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 CODE STATUS changed from full to limited resuscitation # Diabetes type 2, - Pt on Lantus 20U hs and Humalog 6U TIDAC at home - glucose better controlled on TPN - Started Lantus 20 units twice a day, will uptitrate as needed. # Chronic hypertension, controlled - held Amlodipine , carvedilol #Hyperlipidemia - No further benefit from Statin therapy; discontinued # occult GI bleed in the setting of c.diff, hx of colon cancer, - Hb has dropped and there is no further benefit to be gained from Coumadin or other DVT prevention therapy at this time. # Cardiomyopathy. #Osteoporosis #Hyperparathyroidism. . VTE Mechanical Devices: Intermittant Pneumatic CD Time spent 35 minutes spent in patient assessment in care coordination including counseling patient and family, and review of data with apartment leasing consultant. Enmanuel Gustafson MD Jul 13, 2016 16:51
[2016-07-13] MEDS: Total Parenteral Nutrition 1 BAG IV SCH (21:20)
[2016-07-14] VITALS (7 sets, daily range): BP systolic 137–150; BP diastolic 75–84; PULSE 84–107; RESP 16–20; O2SAT 97–98
[2016-07-14] MEDS: MeTOProlol 1 mg/mL 5 mL Inj IVPUSH SCH ×4 (00:43→18:09)
[2016-07-14] MEDS: HYDROmorphone 0.5 mg/0.5 mL iSecure Syringe IVPUSH PRN ×4 (04:50→20:32)
[2016-07-14] MEDS: Insulin LISPRO 300 Unit/3 mL Inj SUBQ SCH ×4 (05:00→23:00)
--- NOTE | 2016-07-14 05:59 | NUR ---
Pain/Activity c/o /10 abdominal pain x2. administered PRN IVP Dilaudid. Pt respond pain relief by resting quietly in bed with eyes closed and not reporting pain afterward. NG on low intermittent suction and drain 260 ml green brownish drainage. Denies N/V. Tolerated well 50 min. clamping after PO medication. pt up to the bed side commode SBA to void. Bed is locked and in low position. call light within reach. will continue to monitor.
[2016-07-14 07:52] LABS: Magnesium 1.8 mg/dL (1.6-2.6)
[2016-07-14] MEDS: Insulin GLARgine 100 Unit/mL Syringe SUBQ SCH ×2 (09:43→21:43)
--- NOTE | 2016-07-14 12:42 | NUR ---
Social Work: Continued d/c planning Data: Pt is on day 28 of hospitalization. EMR reviewed, pt discussed in rounds. MD states pt scheduled for surgery on 07/15/16. RN states that family wishes to speak with CREDIT ANALYST after surgery and after MD have a chance to determine pt's prognosis and going forward medically. CREDIT ANALYST will follow up with family and pt post surgery. Plan: Pt will either d/c home with either HH or hospice vs going to SNF. CREDIT ANALYST will follow up with family and pt post surgery. MELONIE Banegas
--- NOTE | 2016-07-14 13:33 | NUR ---
NUTRITION FOLLOW-UP: ASSESS: 81 YO female admitted with partial small bowel obstruction. TPN initiated 06/25 and pt continues to tolerate TPN well. Extensive care meeting held on 07/09. Pt continues to express desire for PEG placement for suction to relieve discomfort caused by her NGT. Pt likely to have exploratory surgery w/ possibility of obstruction being relieved vs a bypass of the obstruction. Surgery scheduled for tomorrow, 07/15/16. She continues to feel bloated whenever NG is clamped, but output has decreased. Pt also pursing resources for DWD. Glucose labs improved. PMHx: Stage IV colon cancer with intra-abdominal metastasis, atrial fibrillation, cardiomyopathy, HTN, hypothyroidism, osteoporosis, hyperparathyroidism, T2DM, recurrent SBO. DIET: NPO. NUTRITION SUPPORT: 325 g dextrose, 100 g AA daily (1505 kcal/d, 100 g/d protein) with cyclic lipids MWF of 55g (550 fat kcal) LABS: Reviewed. Cr 0.53, Glu 180, Albumin 2.1, Prealbumin 12 MEDICATIONS: Reviewed. Insulin, Lopressor GI symptoms / stool: Gastric drainage of 375 ML 07/13 ANTHROPOMETRICS: Current Wt: 64.6 kg BMI: 23.7 kg/m2. Admit weight: 64.7 kg Reported 9.5% wt loss x1 month (prior to admit) ESTIMATED NEEDS (CANCER, MALNUTRITION): Calories:1600-2250kcal (25-35 kcal/kg BW) Protein: 80-100 g protein (1.2-1.5 g/kg BW) Fluids: 6777-6897 ml/d NUTRITION DIAGNOSIS: 1) Severe protein calorie malnutrition related to metastatic cancer with multiple bowel obstructions, altered GI function, as evidenced by 9.5% weight loss x 1 month -IMPROVED. 2) Inadequate oral intake related to altered GI function as evidence by need for NPO status, NGT, requirement for TPN, and pt with minimal PO intake x 26 days - PERSISTS. INTERVENTION: 1) Recommend continuing TPN as ordered w/ lipids cycled MWF MONITOR/EVALUATE: Post-op, TPN, labs, diet advance / tolerance, GI/nutrition status, POC. Follow per high nutrition risk guidelines.
--- NOTE | 2016-07-14 14:46 | NUR ---
pain/mobility/surgery Pt c/o abd bloating - dilaudid given with effective relief. SBA up to BSC/chair. Surgery planned tomorrow am. From meeting with family: Family and patient in agreeable to surgery. plan if able to resolve obstruction will do laparotomy and place venting peg tube. if not able to resolve obstruction plan to proceed with hospice care. Pt encouraged to keep positive attitude. May take 1-2 weeks to have "gut function" return. Addendum: 07/14/16 at 1501 by ELIE GRANT RN consent signed and on chart
--- NOTE | 2016-07-14 16:49 | PCM.PNSURG ---
Subjective Visit Information: A 81-year-old lady with recurrent small bowel obstruction and metastatic colon cancer Date of Admission: Jun 16, 2016 at 10:07 Hospital Day # 29 Assessment & Plan Impression Recurrent bowel obstruction & Stage IV Colon cancer Problems: Plan Again discussed her goals. She is very clear that she doesn't want to go on the way she is right now. She is not interested in interventions unless they have a chance of improving her abdominal symptoms. So, PEG would not meet her goals. She feels she wants to go ahead with diagnostic laparoscopy, possible laparotomy , lysis of adhesions, intestinal bypass if indicated and gastrostomy tube placement. If I'm unable to fix her obstruction, she wants me to stop at that time without even a gastrostomy for her to pursue hospice/ end of life decisions. She understands that if I proceed with the operation with the intention to cure her obstruction, we will have to give the body some time to recover and show signs of improvement. Discussed the risks, benefits, alternatives and an informed consent was signed. She is on the schedule for tomorrow morning. Will discuss plan for Epidural with anesthesia team. Marcos Valenzuela MD Jul 14, 2016 16:49
[2016-07-14] MEDS: 0.9% Sodium Chloride 1,000 ML IV SCH (18:09)
--- NOTE | 2016-07-14 19:24 | PCM.PNMED ---
Subjective Date of Service Jul 14, 2016 Subjective Patient was seen and examined today. Patient states that she does have some abdominal pain which she describes as mild. The patient is scheduled for surgery tomorrow for relief of small bowel obstruction with a possible PEG placement. Exam Vital Signs Vital Sign - Last Date Time Temp Pulse Resp B/P Pulse Ox O2 Delivery O2 Flow Rate FiO2 07/14/16 18:00 36.9 107 20 137/75 98 Room Air Intake and Output 07/13/16 07/13/16 07/14/16 Cumulative From/Thru 15:00 23:00 07:00 06/16/16 07:14 - 07/14/16 06:40 Intake Total 1443 ml 1384 ml 79149 ml Output Total 450 ml 1285 ml 50126 ml Balance 993 ml 99 ml 07358 ml Intake Oral 200 ml 50 ml 6998 ml IV Total 1243 ml 1334 ml 49810 ml Tube Feeding 150 ml TPN/PPN 28915 ml Tube Irrigant 60 ml Output Urine Total 250 ml 1025 ml 41538 ml Urine/Stool Mix 2250 ml Gastric Drainage Total 200 ml 260 ml 61608 ml Emesis 2355 ml # Voids 16 # Bowel Movements 20 Exam Physical Exam: GEN: Patient was awake, alert, responding appropriately to questions HEENT: PERRLA, EOMI, Neck soft supple, trachea midline, nomocephalic/atraumatic CV: +S1/S2, RRR, no murmurs auscultated Respiratory: CTAB, no wheezes, rales, rhonchi GI: Decreased bowel sounds, soft, compressible, mild TTP, mild distention EXT: no c/c/e Neuro: CN II-XII grossly intact Psych: mood and affect were appropriate IVs and Medications Medications Reviewed: Medications were reviewed in detail Medications Current Medications Lactated Ringer's 1,000 ml @ 120 mls/hr Q8H20M IV; Start 07/15/16 at 05:00; Stop 07/15/16 at 13:19 Lab and Diagnostics Result Diagram: 07/11/16 0754 07/14/16 0625 Microbiology C DIFF TOXIN A AND B BY PCR Final 06/18/16-1455 Organism 1 POS FOR CDIF TOXIN C DIF TOXIN A&B PCR DETECTED TIME CALLED: 1450 DATE CALLED: 06/18/16 FLOOR/DOCTOR: TIM/MERY Levine CALLED BY: KLD PCR testing alone cannot distinquish C. difficile disease from a carrier state, and therefore correlation with X-Rays, CTs and MRIs PROCEDURE: CT ABDOMEN AND PELVIS WITHOUT CONTRAST ([id number]) INDICATIONS: 81-year-old woman with follow up CT for SBO TECHNIQUE: Noncontrast 5 mm thick sections acquired from the diaphragms to the symphysis. 5 mm coronal and sagittal reformats were then performed. For radiation dose reduction, the following was used: automated exposure control, adjustment of mA and/or kV according to patient size. COMPARISON: [facility], CT, CT CHEST ABD PELVIS WO CON, 06/29/2016, 15:40. [facility], CT, CT ABD PELVIS WO CON, 06/21/2016, 10:36. FINDINGS: Image quality: Excellent. ABDOMEN: Lung bases: There are small bilateral pleural effusions with bibasilar consolidation or atelectasis. Heart size is normal. Solid organs: Calcified granulomas are present in the liver and spleen. Liver and spleen are normal in size. Gallbladder is surgically absent. Pancreas is normal in contours. There is a 1 cm left adrenal nodule, unchanged. Kidneys are normal in size, without hydronephrosis or nephrolithiasis. Peritoneum and bowel: There is a nasogastric tube in the stomach. Stomach is decompressed. Proximal small bowel loops are distended measuring up to 4.2 cm. There is transitional point in the area of distal ileum with decompressed distal small bowel and colon loops, consistent with small bowel obstruction. No free fluid or air. Nodes and vessels: No retroperitoneal or mesenteric adenopathy by size criteria. Aorta and inferior vena cava are normal in caliber. Miscellaneous: No ventral hernias. PELVIS: Genitourinary: Bladder wall thickness is normal. Miscellaneous: No inguinal hernias or adenopathy. Bones: No suspicious bony lesions. No vertebral body compression fractures. IMPRESSION: 1. Persistent small bowel obstruction. 2. Remote granulomatous disease involving liver and spleen. Dictated by: Vickey Peñaloza M.D. on 06/29/2016 at 18:44 Transcribed by: ZAC on 06/29/2016 at 18:44 Approved by: Vickey Peñaloza M.D. on 06/30/2016 at 9:33 Cardiac Echo Impressions Echocardiogram Report Name: JANEL EDUTSCH Study Date: 10/28/2014 Height: 65 in Hospital Exam Location: [facility] Weight: 141 lb Gender: Female BSA: 1.7 m2 : 1935 Age: 79 yrs BP: 168/78 mmHg Reason For Study: TAKOTSUBO SYNDROME History: HTN,AFIB,DIABETES Ordering Physician: Austen Weston Performed By: Hilda Shepherd Referring Physician: Dr. Alphonso Irving Interpretation Summary The left ventricle is normal in size. Left ventricular systolic function is borderline reduced. The ejection fraction is estimated to be 50-55%. There are no focal wall motion abnormalities. Compared to the prior exam, the apical wall motion abnormality is improved. The right ventricle is normal in size and function. The right ventricular systolic pressure is estimated at 25 mmHg assuming a right atrial pressure of 3 mm Hg. The left atrium is severely dilated. The right atrium is moderately dilated. There has been no significant change since the previous study. There is mild-moderate mitral regurgitation. There has been no significant change since the previous study. There is no other significant valvular heart disease. The aortic root is normal size. 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 Admitted for recurrent small bowel obstruction , complicated by C. difficile colitis. She completed a course of IV metronidazole treatment with resolution of the diarrhea. 1. Recurrent small bowel obstruction, acute. Present on admission. Ongoing. The patient is status post extended right hemicolectomy on November 15, 2014. The patient has a history of recurrent Stage IV colon cancer with intraabdominal metastases. Removed NG tube on 06/28/16 and started clears. Patient had episode of vomiting and NG tube reinserted the same night. Family meeting took place with numerous family members and the patient and Dr. Fairbanks of oncology. Palliative care is following. She requires essentially continuous NG aspiration for symptom relief of her bowel obstruction. A G-tube is being considered to enable palliative gastric decompression at home. TPN started on 06/25. Formal request for DWD/PAD on 07/11, starting her 15 day period before she can legally act. She will need to contact Dr. Irving for the prescription or referral to a prescribing doctor once she is home if she still wishes to obtain the life ending prescription to self inject into her tube. Small bowel obstruction - Continue current NG aspiration and pain medications - No anticoagulants in advance of surgery on tomorrow 2. Rapid Afib,acute,not present on admission, resolved - she is now on her chronic rate-controlled atrial fibrillation and having no difficulties. - No anticoagulation is recommended 3. C. difficile colitis, may contribute to current sx, although labs were unremarkable. Suspect possible etiology behind her Hemoccult positive stool. - Was on oral vancomycin # 3 days then stopped as pt couldn't tolerate po, switched to Flagyl 500 q8h iv on 04/21. - Completed 10 day of IV Flagyl on 06/29/16, no further diarrhea - Stop metronidazole 4. 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 CODE STATUS changed from full to limited resuscitation # Diabetes type 2, - Pt on Lantus 20U hs and Humalog 6U TIDAC at home - glucose better controlled on TPN - Started Lantus 20 units twice a day, will uptitrate as needed. # Chronic hypertension, controlled - held Amlodipine , carvedilol #Hyperlipidemia - No further benefit from Statin therapy; discontinued # occult GI bleed in the setting of c.diff, hx of colon cancer, - Hb has dropped and there is no further benefit to be gained from Coumadin or other DVT prevention therapy at this time. # Cardiomyopathy. #Osteoporosis #Hyperparathyroidism. . Disposition: Patient will be going for surgery tomorrow for an exploratory lap. If surgery is able to relieve the small bowel obstruction they will attempt to do so however the patient is aware that should surgery not be able to do so that she will most likely then explored the idea of hospice. The patient is aware but would prefer to try the surgery for resolution but if there is no resolution the patient does understand that the outcomes may be terminal. Patient understands and accepts this should surgery not be able to relieve her small bowel obstruction. Pain Evaluation: Adequate Pain Control VTE Mechanical Devices: Intermittant Pneumatic CD Resuscitation Status: CPR: Attempt Resuscitation Babs Snow DO Jul 14, 2016 19:24
[2016-07-14] MEDS: Total Parenteral Nutrition 1 BAG IV SCH (21:31)
[2016-07-15] VITALS (25 sets, daily range): BP systolic 84–155; BP diastolic 44–89; PULSE 10–143; RESP 16–29; O2SAT 95–99
[2016-07-15] MEDS: MeTOProlol 1 mg/mL 5 mL Inj IVPUSH SCH ×4 (00:33→16:13)
[2016-07-15] MEDS: HYDROmorphone 0.5 mg/0.5 mL iSecure Syringe IVPUSH PRN ×2 (00:33→18:49)
--- NOTE | 2016-07-15 00:58 | NUR ---
Ventricular tachycardia altitude chamber technician. called for 6 beats of ventricular tachycardia (HR 150s-170s) and A-fib. maintained heart rate of 90 with A-fib. pt asymptomatic. Paged night hospitalist and state if asymptomatic continue to monitor the pt. Addendum: 07/15/16 at 0709 by MARIE CASAS RN Pain c/o 4/10 abdominal bloating and pain x2. administered PRN IVP Dilaudid. Pt respond pain relief by resting quietly in bed with eyes closed and not reporting pain afterward. NG on low intermittent suction and drain 260 ml green brownish drainage. Denies N/V. pt up to the bed side commode SBA to void. Bed is locked and in low position. call light within reach. will continue to monitor.
[2016-07-15] MEDS: Insulin LISPRO 300 Unit/3 mL Inj SUBQ SCH ×4 (05:00→21:08)
[2016-07-15] MEDS ORDERED: Lactated Ringer's 1,000 ML IV SCH ×2 (05:00→08:47)
[2016-07-15] MEDS ORDERED: levoFLOXacin Inj 500 MG in IV Premix 1 EACH IV ONE (06:55)
[2016-07-15] MEDS ORDERED: metroNIDAZOLE Inj 500 MG in IV Premix 1 EACH IV STA (06:55)
[2016-07-15] MEDS ORDERED: Fluconazole Inj 200 MG in IV Premix 1 EACH IV STA (06:55)
--- NOTE | 2016-07-15 07:10 | NUR ---
To OR Pt taken to OR in bed. NG clamped. TPN running. PIV SL. Family at bedside and 2 of the sons went down with her to pre-op. Pt alert and aware of procedure.
--- NOTE | 2016-07-15 07:33 | PCM.HPANE ---
Patient Data Surgeon Admitting Provider:Kannan Díaz DO Attending Provider:Kannan Díaz DO Primary Care Physician:Braulio Irving MD Other Provider: Reason for Visit Partial Small Bowel Obstruction Ht/WT & BMI Height (Feet): 5 Height (Inches): 5.00 Weight (Kilograms): 64.600 Body Mass Index 23.76 Allergies Coded Allergies: iodine (Verified Allergy, Severe, ANAPHYLAXIS, 06/16/16) shellfish derived (Verified Allergy, Severe, Anaphylaxis, 06/16/16) amoxicillin (Verified Allergy, Unknown, YEAST POSIONING, 06/16/16) clavulanic acid (Unverified Allergy, Unknown, 06/16/16) morphine (Verified Adverse Reaction, Intermediate, hallucinations, 06/29/16) Uncoded Allergies: POTASSIUM (Adverse Reaction, Unknown, 06/16/16) Past Anesthesia History Anesthesia History: Denies:: Abnormal Airway, Anesthesia Reactions, Difficult Intubation, Fam Anesthesia Reaction, Fam Malignant Hypertherm, Malignant Hyperthermia Diabetes History Hx Diabetes?: Yes (Short acting and long acting insulin ) Current Bedside Blood Glucose: 123 MRSA MRSA: No Medications Blood Thinner: Coumadin (no Coumadin now, INR normal) Hypertension Medication: Yes Home Meds Incl Beta Jojo: Yes Date Beta Jojo Taken: Jun 17, 2016 Time Beta Jojo Taken: 0920 Active Scripts Cephalexin (Keflex)500 Mg Trgsiei767 Mg PO QID 5 Days Ref 0 Prov:Kannan Díaz DO 06/09/16 Lisinopril (Zestril)20 Mg Mvokiy79 Mg PO BID #60 TAB Prov:Mirela Hernandez DO 08/04/14 Reported Medications Ondansetron ODT 8 Mg Tab.rapdis8 Mg PO q12 hours PRN For Nausea #30 06/01/16 Levothyroxine 125 Mcg Hcytxc404 Mcg PO DAILY #90 06/01/16 Insulin Lispro (HumaLOG U100 Insulin Pen)100 Unit/1 Ml Insuln.pen5-10 Units SUBQ TIDAC #9 06/01/16 Furosemide 40 Mg Gyipqd43 Mg PO BIDWM #180 06/01/16 Carvedilol 6.25 Mg Tablet9.375 Mg PO BID #90 06/01/16 Amlodipine 10 Mg Trhfrs70 Mg PO DAILY #30 06/01/16 Atorvastatin Calcium 40 Mg Sogjkm22 Mg PO HS #30 06/01/16 Metoclopramide (Reglan)10 Mg Zvlxyb89 Mg PO Q8HRS PRN For Nausea Ref 0 05/19/16 Insulin Glargine (Lantus U100 Solostar Insulin Pen)100 Unit/1 Ml Insuln.pen20 Unit SUBQ HS #1 PENINJ Ref 0 11/16/15 History History of ENT Problems?: Yes HEENT History: Positive for:: Cataracts (Starting to develop, pt reports) Denies:: Abnormal Airway Difficult Intubation Dysphagia Hearing Problem Sinus Problem Hx of Heart Problems?: Yes Cardiovascular History: Positive for:: Atrial Fibrillation Chest Pain (Remote history) Edema (In legs, bilaterally ) Heart Murmur (Pt was told at one point that she did) Hypertension Irregular Heartbeat (A-fib ) Denies:: AICD Cardiac Surgery Congestive Heart Failure Pacemaker Thrombophlebitis Valvular Heart Disease Other Cardiac History: no syncopal episodes Hx of Respiratory Problem?: No Respiratory History: Denies:: Asthma COPD Chest Surgery Cough Dyspnea Emphysema Hemoptysis Pneumonia Tuberculosis Hx Neurologic Problems?: No Neurological History: Denies:: Alzheimer's Disease CVA Dementia Dizziness Headaches Parkinson's Disease Seizures Hx of GI Problems?: Yes Gastrointestinal History: Positive for:: Heartburn Hepatitis (Pt reports having "Jaundice" at age 18) Denies:: Cirrhosis Diverticulitis Gastroesphageal Reflux Gastrointestinal Bleeding Hiatal Hernia Rectal Bleeding Hx of Problems?: Yes Genitourinary History: Positive for:: Urinary Tract Infection (Recent) Denies:: HX of Hemodialysis Kidney Stones HX of Peritoneal Dialysis: No Other Pertinent History: Pt says she did not finish ABO's for UTI and believes she still has one. Some dysuria last night, Currently asymptomatic Female Hx: Denies:: Currently Endometriosis Pelvic Inflammatory Problems with Breasts? Hx Musculoskeletal Problems?: No Musculoskeletal History: Denies:: Back Injury Joint Replacement Musculoskeletal Trauma Hx of Psycho/Social Problems?: No Psycho Social History: Positive for:: Anxiety (Reports occasional anxiety ) Denies:: Bipolar Disorder Hx Depression Suicide Attempt Hx Surgeries?: Yes (Hysterectomy, cholesystectomy, partial colon removal ) Hx Any Other Health Problems?: Yes Other History: Positive for:: Cancer (Colon CA, diagnosed in October. Chemo ) Hospitalization Thyroid Disease (Reports hyperthyroidism ) Denies:: Endocrine Disease History Blood Transfusions: Positive for:: Accept Blood Products? Denies:: Blood Transfuse Reaction Blood Transfusions Hx Diabetes: Yes (Short acting and long acting insulin )Bedside Blood Glucose: 123 Hx Alcohol Use: NoHx Substance Use: No Smoking Status: Never Smoker Have You Smoked inLast 12 mo: No Stop/Bang Treated for Sleep Apnea?: No Do You Have a CPAP Machine?: No S-Snoring: Do You Snore Loudly: Yes T-Tired: feel tired, fatigued: Yes O-Obsered: Observed not breath: No P-Blood Pressure: treated: Yes B- Body Mass Index > 35 kg/m2: No A- Age over 50: Yes N- Neck Large Circumference: No G- Gender Male: No BHAVIK Total Score: 3 BHAVIK Risk Assessment: High Risk, =/>3 Yes Risk Assessment Category Category 1A: Patient has history of documented sleep apnea, and HAS NOT received any narcotic, sedative or anesthesia administration during this stay. Category 1B: Patient has history of documented sleep apnea, and HAS received any narcotic , sedative or anesthesia administration during this stay Category 2: Patient has SUSPECTED Obstructive Sleep Apnea, and HAS received any narcotic , sedative or anesthesia administration during this stay. Category 3: Patient has SUSPECTED Obstructive Sleep Apnea and HAS NOT received narcotic, sedative or anesthesia administration during this stay. Category 4: Outpatient in Procedural Areas with known sleep apnea or who screen positive for High Risk via the STOP/BANG questionnaire. Low Risk, <3 Yes Exam Exam Vital Signs Vital Signs Date Time Temp Pulse Resp B/P Pulse Ox O2 Delivery O2 Flow Rate FiO2 07/15/16 06:28 105 147/89 07/15/16 05:32 36.8 106 16 147/84 98 Room Air 07/15/16 05:21 101 07/15/16 00:33 36.6 101 16 155/88 96 Room Air General Appearance: Alert, Oriented X3, Cooperative, No Acute Distress HEENT/AIRWAY: MP 2 Lungs: Clear to Auscultation, Normal Air Movement Heart: Exam Unremarkable, Regular Rate/Rhythm, No Murmurs/Rubs/Gallops Meds/Labs/Diagnostics Admission Meds Current Medications Lactated Ringer's (Lr) 1,000 ml @ 120 mls/hr Q8H20M IV Last administered on t 04:54; Start 07/15/16 at 05:00; Stop 07/15/16 at 13:19 Bedside Blood Glucose: 123 Labs Test 06/16/16 07:45 06/16/16 19:43 06/27/16 17:37 07/01/16 07:50 Lipase 25U/L (13-60) Hold Sandoval Top Tube Received (Received) Urine Color Yellow (YELLOW) Urine Appearance Clear (CLEAR,HAZY) Urine pH 5.5 (5.0-8.0) Urine Specific [place] 1.025 (1.003-1.035) Urine Protein Negativemg/dL (NEG,TRACE) Urine Glucose (UA) Negativemg/dL (NEGATIVE) Urine Ketones Negativemg/dL (NEGATIVE) Urine Occult Blood Negative (NEGATIVE) Urine Nitrite Negative (NEGATIVE) Urine Bilirubin Negative (NEGATIVE) Urine Urobilinogen Normalmg/dL (NORMAL) Urine Leukocyte Esterase Negative (NEGATIVE) Urine RBC 0-2/hpf (0-2) Urine WBC 0-5/hpf (0-5) Urine Epithelial Cells None/hpf (NONE-MOD) Urine Crystals None seen (NONE SEEN) Urine Bacteria Few/hpf (NONE-FEW) Urine Hyaline Casts None/lpf (NONE) Urine Granular Casts None seen (NONE SEEN) Urine Waxy Casts None seen (NONE SEEN) Urine Red Blood Cell Casts None seen (NONE SEEN) Urine White Blood Cell Casts None seen (NONE SEEN) Urine Mucus None seen (None Seen) Urine Trichomonas None seen (NONE SEEN) Urine Yeast None (NONE SEEN) Urinalysis Comment None Urine Culture Reflexed Indicated Troponin T < 0.010ug/L (0.0-0.011) Pro-B-Type Natriuretic Peptide 563.8pg/mL (0-738) Thyroid Stimulating Hormone (TSH) 10.570uIU/mL (0.450-4.500) Free Thyroxine 0.80ng/dL (0.82-1.77) Prothrombin Time 10.5sec (8.1-12.5) Prothromb Time International Ratio 0.98ratio Test 07/11/16 07:54 07/12/16 07:05 07/13/16 07:35 07/14/16 06:25 White Blood Count 12.5th/mm3 (3.8-10.1) Red Blood Count 3.27mil/mm3 (3.90-5.20) Hemoglobin 9.6g/dL (12.0-15.6) Hematocrit 30.5% (35.0-46.0) Mean Corpuscular Volume 93.3fL (81-100) Mean Corpuscular Hemoglobin 29.4pg (27.0-35.0) Mean Corpuscular Hemoglobin Concent 31.5% (32.0-37.0) Red Cell Distribution Width 14.9% (12.3-15.4) Platelet Count 291bil/L (150-400) Neutrophils (%) (Auto) 72% (40-74) Lymphocytes (%) (Auto) 10% (14-46) Monocytes (%) (Auto) 10% (4-12) Eosinophils (%) (Auto) 0% (0-5) Basophils (%) (Auto) 0% (0-3) Band Neutrophils % 2% (1-5) Metamyelocytes % 2% (0-0) Myelocytes % 4% (0-0) Hematology Comments Rbc Prealbumin 12mg/dL (20-40) Phosphorus Level 2.8mg/dL (2.5-4.9) Total Bilirubin 0.2mg/dL (0.0-1.2) Aspartate Amino Transf (AST/SGOT) 12U/L (0-50) Alanine Aminotransferase (ALT/SGPT) 10U/L (0-32) Alkaline Phosphatase 96U/L (25-165) Total Protein 4.9g/dL (6.4-8.4) Albumin 2.1g/dL (3.4-5.0) Magnesium Level 1.8mg/dL (1.6-2.6) Test 07/15/16 06:04 Sodium Level 137mEq/L (134-144) Potassium Level 4.7mEq/L (3.5-5.2) Chloride Level 106mEq/L (97-108) Carbon Dioxide Level 21mmol/L (18-29) Blood Urea Nitrogen 26mg/dL (8-27) Creatinine 0.54mg/dL (0.57-1.00) Estimat Glomerular Filtration Rate 156mL/min (>59) Glucose Level 128mg/dL (60-99) Calcium Level 9.4mg/dL (8.5-10.1) Plan Impression Patient chart reviewed, patient interviewed and anesthestic plan with risks, benefits, and alternatives discussed, and informed consent obtained. NPO Status: [place] ASA Physical Status: ASA4 Life Threatening (metastatic cancer, bowel obstruction, palliative care) Anesthetic Plan: GA, Epidural Bene/Risks/Altern/Consents: Yes HP Complete Prior to Induction: Yes Joaquín Tafoya MD Jul 15, 2016 07:33
[2016-07-15] MEDS ORDERED: Lactated Ringer's 1,000 ML IV ONE ×2 (07:38→10:40)
[2016-07-15] MEDS ORDERED: Bupivacaine-MPF 0.5% 30 mL Inj INFILTRATE ONE (08:17)
[2016-07-15] MEDS: Insulin GLARgine 100 Unit/mL Syringe SUBQ SCH ×2 (08:30→21:08)
[2016-07-15] MEDS ORDERED: Lactated Ringer's 500 ML IV PRN (08:47)
[2016-07-15] MEDS ORDERED: HYDROmorphone 1 mg/mL Inj IVPUSH PRN (08:50)
[2016-07-15] MEDS ORDERED: hydrALAZINE 20 mg/mL Inj IVPUSH PRN (08:50)
[2016-07-15] MEDS ORDERED: Phenylephrine 10,000 mCg/mL Inj IVPUSH PRN (08:50)
[2016-07-15] MEDS ORDERED: Atropine 0.4 mg/mL Inj IVPUSH PRN (08:50)
[2016-07-15] MEDS ORDERED: Ondansetron 2 mg/mL 2 mL Inj IVPUSH PRN ×2 (08:50→09:15)
[2016-07-15] MEDS ORDERED: EPHEDrine Sulfate 50 mg/mL Inj IVPUSH PRN (08:50)
[2016-07-15] MEDS ORDERED: Labetalol 5 mg/mL 4 mL Inj IV PRN (08:50)
[2016-07-15] MEDS ORDERED: EPHEDrine Sulfate 50 mg/mL Inj IV PRN (09:15)
[2016-07-15] MEDS ORDERED: Atropine 1 mg/mL Inj IVPUSH PRN (09:15)
[2016-07-15] MEDS ORDERED: fentaNYL 2 mCg/mL-Bupiv 0.125% 250 ML in IV Premix 1 EACH EPIDURAL SCH (09:15)
[2016-07-15] MEDS ORDERED: fentaNYL 2 mCg/mL-Bupivicaine 0.125% 100 mL Premix EPIDURAL ONE (11:18)
[2016-07-15] MEDS ORDERED: fentaNYL-PF 50 mCg/mL 2 mL Inj ONE (11:56)
--- NOTE | 2016-07-15 12:22 | PCM.SURGPO ---
Immediate Operative Note Date of Surgery: Jul 15, 2016 Pre Operative Diagnosis Metastatic Colon cancer, Recurrent Small bowel Obstruction Post Operative Diagnosis Recurrent Small bowel obstruction from adhesions and Carcinomatosis Procedure Laparoscopy, Laparotomy, Extensive Lysis of adhesions, Side to side small bowel bypass, Gastrostomy Surgeon and Acls Nurse Surgeon: Bianca Rodríguez MD Assistants: Xiao Campos, PAC Findings Extensive peritoneal carcinomatosis with bowel obstruction Complications There were no periprocedural complications identified. Surgical Specimen Removed: No Specimen sent to Pathology: No Anesthetic Administered: GA, Epidural Grafts, Implants: None Output, Estimated Blood Loss: 10 Blood Admin during surgery: No Attending Statement Steel Pickler listed was medically necessary for the completion of the operation Marcos Valenzuela MD Jul 15, 2016 12:22
--- NOTE | 2016-07-15 12:26 | NUR ---
room 2019 Just got notified that patient will go to room 2020 after recovery. Called , teofilo perry at that number, notified her of room change. She will notify the rest of the family. Addendum: 07/15/16 at 1310 by ELIE GRANT RN 1310 report given to Leticia Sykes. All belongings taken over to room 2019
--- NOTE | 2016-07-15 12:56 | PCM.ANEP1 ---
Post Anesthesia Phase 1 PACU Phase 1 Assessment Date of Service: Jul 15, 2016 Vital Signs Vital Signs Date Time Temp Pulse Resp B/P Pulse Ox O2 Delivery O2 Flow Rate FiO2 07/15/16 06:28 105 147/89 07/15/16 05:32 36.8 106 16 147/84 98 Room Air 07/15/16 05:21 101 Anesthetic Administered: GA, Epidural Level of Alertness: Awake, talking BANEGAS's with Equal Strength: Yes Pain: No Nausea or Vomiting: No Oxygen Delivery: Simple Mask Lungs: Clear to Auscultation, Normal Air Movement Summary VSS, a-line in place, awaiting CCU transfer as anticipated Joaquín Tafoya MD Jul 15, 2016 12:56
[2016-07-15] MEDS ORDERED: Glycopyrrolate 0.2 mg/mL 5 mL Inj ONE (13:02)
[2016-07-15] MEDS ORDERED: Propofol 10,000 mCg/mL 20 mL Inj ONE (13:02)
[2016-07-15] MEDS ORDERED: Ondansetron 2 mg/mL 2 mL Inj ONE (13:02)
[2016-07-15] MEDS ORDERED: Phenylephrine 10,000 mCg/mL Inj ONE (13:02)
[2016-07-15] MEDS ORDERED: Rocuronium 10 mg/mL 5 mL Inj ONE (13:02)
[2016-07-15] MEDS ORDERED: EPHEDrine/NS 5 mg/mL 5 mL Syringe ONE (13:02)
[2016-07-15] MEDS ORDERED: Phenylephrine/NS 100 mCg/mL 10 mL Syringe IVPUSH ONE (13:02)
[2016-07-15] MEDS ORDERED: MeTOProlol 1 mg/mL 5 mL Inj ONE (13:02)
[2016-07-15] MEDS ORDERED: Neostigmine 1 mg/mL 5 mL Inj ONE (13:02)
[2016-07-15] MEDS ORDERED: ALBUMIN IV ONE (13:04)
[2016-07-15] MEDS: 0.9% Sodium Chloride 1,000 ML IV SCH (13:25)
--- NOTE | 2016-07-15 13:38 | PCM.ANEP2 ---
Post Anesthesia Evaluation ASA/CMS Post Anesthesia VS in Patient's Normal Range?: Yes Resp Stable; Airway Patent?: Yes CV Function & Hydration Stable: Yes Mental Status Recovered?: Yes Pain control Satisfactory?: Yes N/V Control Satisfactory?: Yes Joaquín Tafoya MD Jul 15, 2016 13:37
--- NOTE | 2016-07-15 14:55 | OP ---
[address] [address] OPERATIVE REPORT PATIENT: JANEL DEUTSCH : 1935 MR#: [id number] ADMIT: 06/16/2016 JOB ID: [id number] DATE OF SURGERY: 07/15/2016 PREOPERATIVE DIAGNOSIS(ES): 1. Metastatic colon cancer. 2. Recurrent small bowel obstruction. POSTOPERATIVE DIAGNOSIS(ES): Recurrent small bowel obstruction from carcinomatosis and adhesions. OPERATION PERFORMED: 1. Laparoscopy. 2. Laparotomy. 3. Extensive lysis of adhesions. 4. [id number] Jejunum to ileum bypass, handsewn. 5. Gastrostomy. SURGEON: Marcos Valenzuela MD. NAIL TECHNICIAN TEACHER: Analia Campos PA-C. COMPLICATIONS: None. CONDITION OF THE PATIENT: Stable. ANESTHESIA: General endotracheal anesthesia with epidural. ESTIMATED BLOOD LOSS: 10 mL. INDICATIONS: The patient is a 81-year-old lady I first met in October 2015, when she presented with an obstructing adenocarcinoma of the right colon. I performed an exploratory laparotomy with lysis of adhesions, extended right hemicolectomy and primary repair of her incisional hernia on November 17, 2015. Her postoperative course was relatively uneventful, and pathology at that time showed a 4.9 cm poorly differentiated adenocarcinoma of the cecum invading the retroperitoneum with five of the 28 lymph nodes positive for metastatic carcinoma with extranodal extension. There was an additional 2.5 cm low-grade mucinous adenocarcinoma in the ascending colon. She unfortunately did not undergo adjuvant chemotherapy and ended up presenting with what appeared to be intra-abdominal recurrence in March 2016. She had ultrasound-guided biopsy of the periumbilical fascial mass, which was consistent with recurrent metastatic adenocarcinoma. She had been struggling on and off with multiple bouts of bowel obstruction but was actually treated with two cycles of irinotecan, leucovorin and 5-FU under the guidance of Dr. Jamshid Fairbanks. Her last dose of that was on June 10, 2016. She had been struggling immensely with recurrent episodes of bowel obstruction through this, and was thought to be too high a surgical risk for an operation. She has been treated with NG tube decompression and total parenteral nutrition. Upon extensive discussions with her and her family over the last week, the patient has made it clear that at the current quality of life with her continued abdominal symptoms is unacceptable. Despite the extremely high risk of complications, she wanted to try surgical management of her bowel obstruction and gastrostomy tube placement for future decompression of her stomach as needed. After discussing the risks, benefits and alternatives, she wanted to proceed, and she is here for that today. PROCEDURE DETAILS: She had an epidural catheter placed, was placed in a supine position and then underwent smooth induction of general anesthesia. A Barron catheter was placed, and surgical time-out was undertaken using safety checklist, and all were in agreement. I began by attempting to enter the abdomen through the 5 mm port in the lower midline incision. Despite multiple attempts, given the extensive adhesions she has had, I was not able to get good visualization, prompting me to go ahead and make an open laparotomy in the lower midline incision. As I entered the abdomen, it was clear that she did have multiple intra-abdominal recurrences of her adenocarcinoma with a malignant bowel obstruction. Her dilated proximal bowel was mostly in the left upper quadrant with normal decompressed loops small bowel loops downstream in the right lower quadrant. To be able to visualize all this and be able to address her bowel obstruction, I had to mobilize the 3-4 cm abdominal wall tumor, which was immediately superior to the umbilicus with a loop of bowel adherent to it. After I mobilized this tumor away from the abdominal wall, I was able to identify the proximal bowel, which was dilated but free of tumor, and the stomach in the left upper quadrant. After that, I directed my attention to the right lower quadrant, where there was decompressed small bowel free of any evidence of tumor but with extensive adhesions. I proceeded to lyse these adhesions sharply, avoiding any enterotomies and after making sure I had adequate mobilization of the small bowel to be able to reach the upper dilated bowel without any tension, I proceeded to perform a handsewn, two-layered [id number] enteroenterostomy with an outer layer of 3-0 silk and inner layer of 3-0 Vicryl. When we were done with that, we irrigated the abdomen and then directed our attention to performing a gastrostomy. I placed a pursestring suture with 3-0 Vicryl in the antrum of the stomach close to the greater curve and brought in a 24-Uzbek gastrostomy tube through this upper stab incision in the left upper quadrant and made a gastrotomy in the middle of the pursestring and advanced the tube and placed my Joan sutures with silk. Unfortunately, at that time, we realized that the balloon for the tube was not functioning, and we had to again remove it and place another 18- Uzbek G-tube what we had available. After again testing the balloon, we placed the G-tube through the gastrotomy, inflated the balloon with sterile water and then cinched down the pursestring. We then tied down the Joan sutures and again, irrigated the abdomen with warm saline and made sure we had good hemostasis. We decided against resecting the tumor mass that we mobilized from the abdominal wall to avoid further complications from possible bowel injury. At that point, we proceeded to close the midline fascia with running 0 PDS suture x2 with interrupted 0 Prolene interspersed. The upper abdominal closure was a little bit more challenging, given the resection of the tumor away from the abdominal wall. After that, we irrigated the subcutaneous wound with saline and then proceeded to close the skin with cade. The patient tolerated the procedure well and was recovered from anesthesia without any complications. She was taken to the recovery room in a stable condition. ADDENDUM FOR MODIFIER 22: Given the extensive adhesions and the carcinomatosis, additional time and effort was required to perform the operation more than doubling the operative time, prompting us to request a higher reimbursement. WILIAN
[2016-07-15 18:01] LABS: APPEARANCE,URINE CLEAR (CLEAR,HAZY); COLOR,URINE YELLOW (YELLOW); OCCULT BLOOD,URINE NEGATIVE (NEGATIVE); UROBILINOGEN,URINE NORMAL (NORMAL)
[2016-07-15] MEDS: fentaNYL-PF 50 mCg/mL 2 mL Inj IVPUSH PRN ×2 (18:50→20:04)
[2016-07-15] MEDS: Diltiazem 5 mg/mL 5 mL Inj IV SCH (18:52)
--- NOTE | 2016-07-15 19:08 | NUR ---
BP/HR/pain/mentation Pt had increased HR and BP this afternoon after arriving in CCU out of PACU. Pt had missed her scheduled dose of 10mg IV metoprolol due to being in OR for surgery. Notified (Red team) and she ordered to give evening dose of metoprolol IV which was effective. Also gave 1mg IV ativan for agitation. Pt intermittently confused asking if her name was Nereyda, but could tell you where she was and asked if the surgery went ok. Nursing did get order for restraints due to patient trying to rip out ART line and IVs. Pt has intermittent episodes of extreme pain. Bolused epidural x2 during shift and gave 50mcg of fentanyl which seemed to be effective. Family at bedside throughout shift. G-tube draining dark brown to gravity in Barron. Dressing C/D/I with no drainage.
--- NOTE | 2016-07-15 20:18 | PCM.PNMED ---
Subjective Date of Service Jul 15, 2016 Subjective Patient was seen and examined postop. Patient was in no acute distress. Exam Vital Signs Vital Sign - Last Date Time Temp Pulse Resp B/P Pulse Ox O2 Delivery O2 Flow Rate FiO2 07/15/16 18:00 114 24 148/69 98 Nasal Cannula 2.00 07/15/16 14:25 36.5 Intake and Output 07/14/16 07/14/16 07/15/16 Cumulative From/Thru 15:00 23:00 07:00 06/16/16 07:14 - 07/15/16 05:32 Intake Total 1437 ml 0 ml 44696 ml Output Total 1040 ml 875 ml 47034 ml Balance 397 ml -875 ml 84060 ml Intake Oral 200 ml 0 ml 7198 ml IV Total 505 ml 81843 ml Tube Feeding 150 ml TPN/PPN 732 ml 67457 ml Tube Irrigant 60 ml Output Urine Total 850 ml 875 ml 14029 ml Urine/Stool Mix 2250 ml Gastric Drainage Total 190 ml 86677 ml Emesis 2355 ml # Voids 16 # Bowel Movements 0 0 20 IVs and Medications Medications Reviewed: Medications were reviewed in detail Medications Current Medications Lactated Ringer's 1,000 ml @ 120 mls/hr Q8H20M IV Last administered on t 04:54; Admin Dose 120 MLS/HR; Start 07/15/16 at 05:00; Stop 07/15/16 at 13: 19; Status DC Lactated Ringer's 1,000 ml @ 120 mls/hr Q8H20M IV; Start 07/15/16 at 08:47; Stop 07/15/16 at 16:46; Status DC Ephedrine Systolic SBP below 90 ... Q2MIN PRN IVPUSH; Start 07/15/16 at 08:50 Phenylephrine HCl Systolic BP below 90 ... ONCE PRN IVPUSH; Start 07/15/16 at 08:50 Lactated Ringer's 500 ml @ 0 mls/hr Q0M PRN IV; Start 07/15/16 at 08:47 Labetalol HCl 5 mg Q10MIN PRN IV; Start 07/15/16 at 08:50 Hydralazine HCl 5 mg Q10MIN PRN IVPUSH; Start 07/15/16 at 08:50 Atropine Sulfate 0.4 mg PRN PRN IVPUSH; Start 07/15/16 at 08:50 Fentanyl Citrate 25-50 mcg IV every 5 min p... Q5MIN PRN IVPUSH Last administered on 07/15/16t 20:04; Admin Dose 50 MCG; Start 07/15/16 at 08:50 Hydromorphone HCl 0.2-1 mg IV every 5 min p... Q5MIN PRN IVPUSH; Start at 08:50 Meperidine HCl 12.5-25 mg IV every 5 min p... Q5MIN PRN IVPUSH; Start 07/15/16 at 08:50 Diphenhydramine HCl 12.5-50 mg IV prn itchi... Q30MIN PRN IVPUSH; Start at 08:50 Metoclopramide HCl 10 mg Q10MIN PRN IVPUSH; Start 07/15/16 at 08:50 Ondansetron HCl 4-8 mg IV every 4 hours ... Q4H PRN IVPUSH Last administered on 07/15/16t 13:26; Admin Dose 4 MG; Start 07/15/16 at 08:50 Midazolam HCl 0.5-1 mg IV every 5 min p... Q5MIN PRN IVPUSH; Start 07/15/16 at 08:50 Fentanyl/ Bupivacaine HCl/ Premix 250 ml @ 0 mls/hr Q0M EPIDURAL; Start at 09:15 Atropine Sulfate 0.5 mg PRN PRN IVPUSH; Start 07/15/16 at 09:15 Ephedrine 5 mg Q5M PRN IV; Start 07/15/16 at 09:15 Naloxone HCl Max does of 0.6 mg. For... Q2M PRN IVPUSH; Start 07/15/16 at 09:15 Diphenhydramine HCl 25 mg Q4H PRN IVPUSH; Start 07/15/16 at 09:15 Ondansetron HCl Start with 4 mg May incre... Q4H PRN IVPUSH; Start 07/15/16 at 09:15 Lab and Diagnostics Result Diagram: 07/11/16 0754 07/15/16 0604 Microbiology C DIFF TOXIN A AND B BY PCR Final 06/18/16-1455 Organism 1 POS FOR CDIF TOXIN C DIF TOXIN A&B PCR DETECTED TIME CALLED: 1450 DATE CALLED: 06/18/16 FLOOR/DOCTOR: TIM/MERY Levine CALLED BY: NNAMDI PCR testing alone cannot distinquish C. difficile disease from a carrier state, and therefore correlation with X-Rays, CTs and MRIs PROCEDURE: CT ABDOMEN AND PELVIS WITHOUT CONTRAST ([id number]) INDICATIONS: 81-year-old woman with follow up CT for SBO TECHNIQUE: Noncontrast 5 mm thick sections acquired from the diaphragms to the symphysis. 5 mm coronal and sagittal reformats were then performed. For radiation dose reduction, the following was used: automated exposure control, adjustment of mA and/or kV according to patient size. COMPARISON: [facility], CT, CT CHEST ABD PELVIS WO CON, 06/29/2016, 15:40. [facility], CT, CT ABD PELVIS WO CON, 06/21/2016, 10:36. FINDINGS: Image quality: Excellent. ABDOMEN: Lung bases: There are small bilateral pleural effusions with bibasilar consolidation or atelectasis. Heart size is normal. Solid organs: Calcified granulomas are present in the liver and spleen. Liver and spleen are normal in size. Gallbladder is surgically absent. Pancreas is normal in contours. There is a 1 cm left adrenal nodule, unchanged. Kidneys are normal in size, without hydronephrosis or nephrolithiasis. Peritoneum and bowel: There is a nasogastric tube in the stomach. Stomach is decompressed. Proximal small bowel loops are distended measuring up to 4.2 cm. There is transitional point in the area of distal ileum with decompressed distal small bowel and colon loops, consistent with small bowel obstruction. No free fluid or air. Nodes and vessels: No retroperitoneal or mesenteric adenopathy by size criteria. Aorta and inferior vena cava are normal in caliber. Miscellaneous: No ventral hernias. PELVIS: Genitourinary: Bladder wall thickness is normal. Miscellaneous: No inguinal hernias or adenopathy. Bones: No suspicious bony lesions. No vertebral body compression fractures. IMPRESSION: 1. Persistent small bowel obstruction. 2. Remote granulomatous disease involving liver and spleen. Dictated by: Vickey Peñaloza M.D. on 06/29/2016 at 18:44 Transcribed by: ZAC on 06/29/2016 at 18:44 Approved by: Vickey ePñaloza M.D. on 06/30/2016 at 9:33 Cardiac Echo Impressions Echocardiogram Report Name: JANEL DEUTSCH Study Date: 10/28/2014 Height: 65 in Hospital Exam Location: [facility] Weight: 141 lb Gender: Female BSA: 1.7 m2 : 1935 Age: 79 yrs BP: 168/78 mmHg Reason For Study: TAKOTSUBO SYNDROME History: HTN,AFIB,DIABETES Ordering Physician: Austen Weston Performed By: Hilda Shepherd Referring Physician: Dr. Alphonso Irving Interpretation Summary The left ventricle is normal in size. Left ventricular systolic function is borderline reduced. The ejection fraction is estimated to be 50-55%. There are no focal wall motion abnormalities. Compared to the prior exam, the apical wall motion abnormality is improved. The right ventricle is normal in size and function. The right ventricular systolic pressure is estimated at 25 mmHg assuming a right atrial pressure of 3 mm Hg. The left atrium is severely dilated. The right atrium is moderately dilated. There has been no significant change since the previous study. There is mild-moderate mitral regurgitation. There has been no significant change since the previous study. There is no other significant valvular heart disease. The aortic root is normal size. 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 Admitted for recurrent small bowel obstruction , complicated by C. difficile colitis. She completed a course of IV metronidazole treatment with resolution of the diarrhea. 1. Recurrent small bowel obstruction, acute. Present on admission. Ongoing. The patient is status post extended right hemicolectomy on November 15, 2014. The patient has a history of recurrent Stage IV colon cancer with intraabdominal metastases. Removed NG tube on 06/28/16 and started clears. Patient had episode of vomiting and NG tube reinserted the same night. Family meeting took place with numerous family members and the patient and Dr. Fairbanks of oncology. Palliative care is following. She requires essentially continuous NG aspiration for symptom relief of her bowel obstruction. A G-tube is being considered to enable palliative gastric decompression at home. TPN started on 06/25. Formal request for DWD/PAD on 07/11, starting her 15 day period before she can legally act. She will need to contact Dr. Irving for the prescription or referral to a prescribing doctor once she is home if she still wishes to obtain the life ending prescription to self inject into her tube. Small bowel obstruction - Continue current NG aspiration and pain medications - No anticoagulants in advance of surgery on tomorrow 2. Rapid Afib,acute,not present on admission, resolved - she is now on her chronic rate-controlled atrial fibrillation and having no difficulties. - No anticoagulation is recommended 3. C. difficile colitis, may contribute to current sx, although labs were unremarkable. Suspect possible etiology behind her Hemoccult positive stool. - Was on oral vancomycin # 3 days then stopped as pt couldn't tolerate po, switched to Flagyl 500 q8h iv on 04/21. - Completed 10 day of IV Flagyl on 06/29/16, no further diarrhea - Stop metronidazole 4. 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 CODE STATUS changed from full to limited resuscitation # Diabetes type 2, - Pt on Lantus 20U hs and Humalog 6U TIDAC at home - glucose better controlled on TPN - Started Lantus 20 units twice a day, will uptitrate as needed. # Chronic hypertension, controlled - held Amlodipine , carvedilol #Hyperlipidemia - No further benefit from Statin therapy; discontinued # occult GI bleed in the setting of c.diff, hx of colon cancer, - Hb has dropped and there is no further benefit to be gained from Coumadin or other DVT prevention therapy at this time. # Cardiomyopathy. #Osteoporosis #Hyperparathyroidism. . Disposition: Patient went for surgery today and had a [id number] small bowel bypass. A PEG tube was placed also for decompression of the stomach. Patient was started on antibiotics for 24 hours by general surgery. Patient was admitted to critical care. Anesthesia following the patient does have an epidural. At this time we are now waiting for the patient's bowels to start moving and we will continue to monitor and manage the patient. VTE Mechanical Devices: Intermittant Pneumatic CD Resuscitation Status: CPR: Attempt Resuscitation Babs Snow DO Jul 15, 2016 20:18
[2016-07-15] MEDS ORDERED: Acetaminophen IV 1,000 MG in IV Premix 1 EACH IV ONE (20:40)
[2016-07-15] MEDS: Total Parenteral Nutrition 1 BAG IV SCH (21:00)
[2016-07-16] VITALS (14 sets, daily range): BP systolic 114–131; BP diastolic 56–73; PULSE 95–140; RESP 16–23; O2SAT 67–99
[2016-07-16] MEDS: MeTOProlol 1 mg/mL 5 mL Inj IVPUSH SCH ×4 (01:03→18:19)
[2016-07-16] MEDS: Insulin LISPRO 300 Unit/3 mL Inj SUBQ SCH ×4 (05:00→20:53)
--- NOTE | 2016-07-16 05:37 | NUR ---
Fever/Mentation Pt max temp at start of shift was 38.4. MD order to give 1g IV Tylenol x 1. Fever resolved. Pt was also delirious at the time yelling "Let me go!!". Unsure if pt was talking about being restrained (pulling at lines and IV) or she wanted to withdraw care. Pt not Alert or oriented. IV meds given as ordered. Attempted to give as little sedation as possible, as pt was waking up from anesthesia still. Around 0100, pt woke up and was clear, A&O x 3. Answers questions appropriately and pleasantly. Reports pain at tolerable level with epidural. Declines being turned despite education as she wants to sleep and is fearful of pain. Agrees to reevaluate when awake. SCDs on pt. Care ongoing
[2016-07-16 06:28] LABS: Magnesium 2.1 mg/dL (1.6-2.6); Phosphorus 3.9 mg/dL (2.5-4.9)
--- NOTE | 2016-07-16 07:59 | PCM.PNMED ---
Subjective Date of Service Jul 16, 2016 Subjective Patient is relatively comfortable. She still has an epidural in place. She is status post laparotomy with adhesion lysis. She also had a gastrostomy tube placed. She is having some pain with deep breathing. No bowel tones or other activity. She denies any nausea. Exam Vital Signs Vital Sign - Last Date Time Temp Pulse Resp B/P Pulse Ox O2 Delivery O2 Flow Rate FiO2 07/16/16 07:31 Supplement Oxygen 07/16/16 07:27 36.8 95 18 130/60 98 2.00 Intake and Output 07/15/16 07/15/16 07/16/16 Cumulative From/Thru 15:00 23:00 07:00 06/16/16 07:14 - 07/16/16 06:15 Intake Total 2300 ml 2269 ml 14538 ml Output Total 615 ml 850 ml 35260 ml Balance 1685 ml 1419 ml 71618 ml Intake Oral 7198 ml IV Total 2300 ml 825 ml 23697 ml Tube Feeding 150 ml TPN/PPN 1444 ml 03347 ml Tube Irrigant 60 ml Output Urine Total 335 ml 750 ml 13626 ml Urine/Stool Mix 2250 ml Gastric Drainage Total 260 ml 62444 ml Emesis 2355 ml Drainage Total 100 ml 100 ml Estimated Blood Loss 20 ml 20 ml # Voids 16 # Bowel Movements 0 20 Exam Alert and oriented 3, flat affect. Fluent speech. Anicteric sclerae. Neck supple. Lungs are clear with normal effort. Heart is regular without murmur gallop or rub Abdomen is flat there is a large ABG in place with a gastrostomy tube. No bowel tones. Nontender. Extremities are free of edema with good pedal and radial pulses. Skin is free of rash or lesions IVs and Medications Medications Reviewed: Medications were reviewed in detail Lab and Diagnostics Result Diagram: 07/11/16 0754 07/16/16 0555 Microbiology C DIFF TOXIN A AND B BY PCR Final 06/18/16-1454 Organism 1 POS FOR CDIF TOXIN C DIF TOXIN A&B PCR DETECTED TIME CALLED: 1450 DATE CALLED: 06/18/16 FLOOR/DOCTOR: TIM/MERY Levine CALLED BY: NNAMDI PCR testing alone cannot distinquish C. difficile disease from a carrier state, and therefore correlation with X-Rays, CTs and MRIs PROCEDURE: CT ABDOMEN AND PELVIS WITHOUT CONTRAST ([id number]) INDICATIONS: 81-year-old woman with follow up CT for SBO TECHNIQUE: Noncontrast 5 mm thick sections acquired from the diaphragms to the symphysis. 5 mm coronal and sagittal reformats were then performed. For radiation dose reduction, the following was used: automated exposure control, adjustment of mA and/or kV according to patient size. COMPARISON: [facility], CT, CT CHEST ABD PELVIS WO CON, 06/29/2016, 15:40. [facility], CT, CT ABD PELVIS WO CON, 06/21/2016, 10:36. FINDINGS: Image quality: Excellent. ABDOMEN: Lung bases: There are small bilateral pleural effusions with bibasilar consolidation or atelectasis. Heart size is normal. Solid organs: Calcified granulomas are present in the liver and spleen. Liver and spleen are normal in size. Gallbladder is surgically absent. Pancreas is normal in contours. There is a 1 cm left adrenal nodule, unchanged. Kidneys are normal in size, without hydronephrosis or nephrolithiasis. Peritoneum and bowel: There is a nasogastric tube in the stomach. Stomach is decompressed. Proximal small bowel loops are distended measuring up to 4.2 cm. There is transitional point in the area of distal ileum with decompressed distal small bowel and colon loops, consistent with small bowel obstruction. No free fluid or air. Nodes and vessels: No retroperitoneal or mesenteric adenopathy by size criteria. Aorta and inferior vena cava are normal in caliber. Miscellaneous: No ventral hernias. PELVIS: Genitourinary: Bladder wall thickness is normal. Miscellaneous: No inguinal hernias or adenopathy. Bones: No suspicious bony lesions. No vertebral body compression fractures. IMPRESSION: 1. Persistent small bowel obstruction. 2. Remote granulomatous disease involving liver and spleen. Dictated by: Vickey Peñaloza M.D. on 06/29/2016 at 18:44 Transcribed by: ZAC on 06/29/2016 at 18:44 Approved by: Vickey Peñaloza M.D. on 06/30/2016 at 9:33 Cardiac Echo Impressions Echocardiogram Report Name: JANEL DEUTSCH Study Date: 10/28/2014 Height: 65 in Hospital Exam Location: [facility] Weight: 141 lb Gender: Female BSA: 1.7 m2 : 1935 Age: 79 yrs BP: 168/78 mmHg Reason For Study: TAKOTSUBO SYNDROME History: HTN,AFIB,DIABETES Ordering Physician: Austen Weston Performed By: Hilda Shepherd Referring Physician: Dr. Alphonso Irving Interpretation Summary The left ventricle is normal in size. Left ventricular systolic function is borderline reduced. The ejection fraction is estimated to be 50-55%. There are no focal wall motion abnormalities. Compared to the prior exam, the apical wall motion abnormality is improved. The right ventricle is normal in size and function. The right ventricular systolic pressure is estimated at 25 mmHg assuming a right atrial pressure of 3 mm Hg. The left atrium is severely dilated. The right atrium is moderately dilated. There has been no significant change since the previous study. There is mild-moderate mitral regurgitation. There has been no significant change since the previous study. There is no other significant valvular heart disease. The aortic root is normal size. 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 Admitted for recurrent small bowel obstruction , complicated by C. difficile colitis. She completed a course of IV metronidazole treatment with resolution of the diarrhea. 1. Recurrent small bowel obstruction, acute. Present on admission. She is status post a laparotomy with adhesion lysis, a bypass with end and anastomosis and gastrostomy tube yesterday. She has an apparent postoperative ileus. At this point we will continue nothing by mouth status, epidural for pain control, and nutritional support as she has had via TPN. 2. Rapid Afib,acute,not present on admission, resolved - she is now on her chronic rate-controlled atrial fibrillation and having no difficulties. - No anticoagulation is recommended 3. C. difficile colitis, may contribute to current sx, although labs were unremarkable. Suspect possible etiology behind her Hemoccult positive stool. - Was on oral vancomycin # 3 days then stopped as pt couldn't tolerate po, switched to Flagyl 500 q8h iv on 04/21. - Completed 10 day of IV Flagyl on 06/29/16, no further diarrhea - Stop metronidazole 4. 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 CODE STATUS changed from full to limited resuscitation # Diabetes type 2, - Pt on Lantus 20U hs and Humalog 6U TIDAC at home - glucose better controlled on TPN - Started Lantus 20 units twice a day, will uptitrate as needed. # Chronic hypertension, controlled - held Amlodipine , carvedilol #Hyperlipidemia - No further benefit from Statin therapy; discontinued # occult GI bleed in the setting of c.diff, hx of colon cancer, - Hb has dropped and there is no further benefit to be gained from Coumadin or other DVT prevention therapy at this time. # Cardiomyopathy. #Osteoporosis, stable and chronic #Hyperparathyroidism. Stable chronic . Pain Evaluation: Adequate Pain Control VTE Mechanical Devices: Intermittant Pneumatic CD Resuscitation Status: CPR: Attempt Resuscitation Time spent 25 minutes Charan Milan MD Jul 16, 2016 07:59
[2016-07-16 08:10] LABS: BASOPHILS % (AUTO) 0.2 % (0-3); EOSINOPHILS % (AUTO) 0.3 % (0-5); MONOCYTES % (AUTO) 11.8 % (4-12); Mean Corpuscular Hemoglobin 28.8 pg (27.0-35.0); Mean Corpuscular Volume 92.5 fL (81-100); NEUTROPHILS % (AUTO) 81.5 % (40-74); Platelet Count 231 bil/L (150-400)
[2016-07-16] MEDS: Insulin GLARgine 100 Unit/mL Syringe SUBQ SCH ×2 (08:35→21:08)
[2016-07-16] MEDS: 0.9% Sodium Chloride 1,000 ML IV SCH (09:15)
--- NOTE | 2016-07-16 09:47 | PCM.CONPHA ---
Subjective Date of Service: Jul 16, 2016 SBO Reason for Pharmacy Consult: TPN Management Objective Vital Signs Date Time Temp Pulse Resp B/P Pulse Ox O2 Delivery O2 Flow Rate FiO2 07/16/16 07:31 Supplement Oxygen 07/16/16 07:27 36.8 95 18 130/60 98 Nasal Cannula 2.00 07/16/16 07:26 19 67 07/16/16 05:09 37.2 98 20 117/62 98 Nasal Cannula 3.00 07/16/16 01:05 Supplement Oxygen 07/16/16 01:04 36.4 95 18 114/65 99 Nasal Cannula 3.00 07/15/16 20:35 Supplement Oxygen 07/15/16 20:35 38.4 112 16 102/50 98 Nasal Cannula 3.00 07/15/16 20:30 24 98 07/15/16 18:00 114 24 148/69 98 Nasal Cannula 2.00 07/15/16 14:35 143 07/15/16 14:25 Supplement Oxygen 07/15/16 14:25 36.5 132 19 134/67 96 Nasal Cannula 2.00 07/15/16 14:05 111 18 111/65 96 Nasal Cannula 3 145/66 07/15/16 14:00 36.4 104 18 129/52 95 Nasal Cannula 3 141/64 07/15/16 13:57 19 96 07/15/16 13:50 106 21 116/69 96 Nasal Cannula 3 145/63 07/15/16 13:40 101 17 100/57 96 Nasal Cannula 3 141/60 07/15/16 13:36 17 95 07/15/16 13:30 102 16 100/54 96 Nasal Cannula 3 135/60 07/15/16 13:15 103 20 105/58 99 Nasal Cannula 3 128/54 07/15/16 13:00 95 20 105/52 99 Simple Mask 8 121/49 07/15/16 12:55 10 18 98/63 Simple Mask 8 115/51 07/15/16 12:50 103 16 93/48 99 Simple Mask 8 108/45 07/15/16 12:45 109 19 92/56 97 Simple Mask 8 109/44 07/15/16 12:40 107 20 90/52 97 Simple Mask 8 07/15/16 12:35 36.7 116 24 84/46 97 Simple Mask 8 07/15/16 12:32 110 29 91/46 97 Simple Mask 8 Intake and Output 07/14/16 07/15/16 07/16/16 00:00 00:00 00:00 Intake Total 2747 ml 2821 ml 2300 ml Output Total 1900 ml 2325 ml 1490 ml Balance 847 ml 496 ml 810 ml Weight (Kilograms): 74.800 Height (Feet): 5 Height (Inches): 5.00 Test 06/16/16 07:45 06/27/16 17:37 07/01/16 07:50 07/11/16 07:54 Lipase 25U/L (13-60) Hold Sandoval Top Tube Received (Received) Troponin T < 0.010ug/L (0.0-0.011) Pro-B-Type Natriuretic Peptide 563.8pg/mL (0-738) Thyroid Stimulating Hormone (TSH) 10.570uIU/mL (0.450-4.500) Free Thyroxine 0.80ng/dL (0.82-1.77) Prothrombin Time 10.5sec (8.1-12.5) Prothromb Time International Ratio 0.98ratio Band Neutrophils % 2% (1-5) Metamyelocytes % 2% (0-0) Myelocytes % 4% (0-0) Hematology Comments Rbc Test 07/12/16 07:05 07/13/16 07:35 07/15/16 17:13 07/16/16 05:55 Prealbumin 12mg/dL (20-40) Total Bilirubin 0.2mg/dL (0.0-1.2) Aspartate Amino Transf (AST/SGOT) 12U/L (0-50) Alanine Aminotransferase (ALT/SGPT) 10U/L (0-32) Alkaline Phosphatase 96U/L (25-165) Total Protein 4.9g/dL (6.4-8.4) Albumin 2.1g/dL (3.4-5.0) Urine Color Yellow (YELLOW) Urine Appearance Clear (CLEAR,HAZY) Urine pH 6.0 (5.0-8.0) Urine Specific Home 1.025 (1.003-1.035) Urine Protein Negativemg/dL (NEG,TRACE) Urine Glucose (UA) Negativemg/dL (NEGATIVE) Urine Ketones Negativemg/dL (NEGATIVE) Urine Occult Blood Negative (NEGATIVE) Urine Nitrite Negative (NEGATIVE) Urine Bilirubin Negative (NEGATIVE) Urine Urobilinogen Normalmg/dL (NORMAL) Urine Leukocyte Esterase Negative (NEGATIVE) Urine RBC 0-2/hpf (0-2) Urine WBC 0-5/hpf (0-5) Urine Epithelial Cells Moderate/hpf (NONE-MOD) Urine Crystals None seen (NONE SEEN) Urine Bacteria Few/hpf (NONE-FEW) Urine Hyaline Casts None/lpf (NONE) Urine Granular Casts None seen (NONE SEEN) Urine Waxy Casts None seen (NONE SEEN) Urine Red Blood Cell Casts None seen (NONE SEEN) Urine White Blood Cell Casts None seen (NONE SEEN) Urine Mucus None seen (None Seen) Urine Trichomonas None seen (NONE SEEN) Urine Yeast None (NONE SEEN) Urinalysis Comment None Urine Culture Reflexed Not indicated White Blood Count 17.3th/mm3 (3.8-10.1) Red Blood Count 3.20mil/mm3 (3.90-5.20) Hemoglobin 9.2g/dL (12.0-15.6) Hematocrit 29.6% (35.0-46.0) Mean Corpuscular Volume 92.5fL (81-100) Mean Corpuscular Hemoglobin 28.8pg (27.0-35.0) Mean Corpuscular Hemoglobin Concent 31.1% (32.0-37.0) Red Cell Distribution Width 15.0% (12.3-15.4) Platelet Count 231bil/L (150-400) Neutrophils (%) (Auto) 81.5% (40-74) Lymphocytes (%) (Auto) 5.2% (14-46) Monocytes (%) (Auto) 11.8% (4-12) Eosinophils (%) (Auto) 0.3% (0-5) Basophils (%) (Auto) 0.2% (0-3) Sodium Level 138mEq/L (134-144) Potassium Level 5.4mEq/L (3.5-5.2) Chloride Level 107mEq/L (97-108) Carbon Dioxide Level 23mmol/L (18-29) Blood Urea Nitrogen 33mg/dL (8-27) Creatinine 0.72mg/dL (0.57-1.00) Estimat Glomerular Filtration Rate 112mL/min (>59) Glucose Level 178mg/dL (60-99) Calcium Level 9.6mg/dL (8.5-10.1) Phosphorus Level 3.9mg/dL (2.5-4.9) Magnesium Level 2.1mg/dL (1.6-2.6) Assessment/Plan Assessment/Plan Assessment: * Patient is needing TPN management for small bowel obstruction. * Patient received TPN #21 on 07/15/16 at 2100 * Patient's potassium is elevated at 5.4 mEq/L. * Patient has been receiving lipids on Tuesday, Tuesday, and Tuesday only. Plan: * Patient will be started on TPN #22 on 07/16/16 at 2100 which will contain the following: PARENTERAL NUTRITION ORDERS 16-Jul-16 Standard Hang Time: 2099 Substrates Total kcal: 2054 AMINO ACIDS 100 g DEXTROSE 325 g Total Volume (mL): 1500 LIPIDS 55 g Sterile Water for Injection QS mL To Infuse Over (hrs): 24 Total Volume 1500 mL At at a rate of (mL/hr): 63 Additives Sodium Chloride 70 mEq "typical" daily requirements Sodium Acetate 30 mEq Sodium 50-120mEq Potassium Chloride 10 mEq Potassium 60-120mEq Potassium Phosphate 40 mEq Phosphate 20-40mEq Calcium Gluconate 0 mEq Magnesium 8-32mEq Magnesium Sulfate 18 mEq Calcium 9-22mEq Acetate* 80-120mEq Chloride* 80-120mEq Regular Insulin 40 units *Depending on acid-base status Famotidine 40 mg Multivitamins 1 std dose Insulin Regimen Trace Elements 1 std dose none Thiamine 0 mg Regular Low Intensity Subcut Folic Acid 0 mg Regular Medium Intensity Subcut Ascorbic Acid 0 mg Regular High Intensity Subcut Regular Insulin Infusion Other: * Lipids have been added since it is Tuesday. * Potassium phosphate have been reduced to 40 mEq due to the elevated potassium level. * The insulin had been adjusted between 35 and 45 units the past couple days based on whether the lipids were added to the TPN. This has been averaged out to 40 units in the TPN bag. * Since patient is on TPN #22, the thiamine and folic acid have been removed. * BMP, magnesium, and phosphorus labs have been ordered for tomorrow. * Will continue to follow. Alexi Wallace Jul 16, 2016 09:47
[2016-07-16] MEDS: Diltiazem 5 mg/mL 5 mL Inj IV SCH (11:05)
[2016-07-16] MEDS: fentaNYL-PF 50 mCg/mL 2 mL Inj IVPUSH PRN (11:23)
--- NOTE | 2016-07-16 16:23 | NUR ---
Cardiac/GI/pain/mentation Continues in atrial fibrillation per court recording monitor, HR in the 100s to low 110s at this time. Cardizem administered once mid-shift for HR > 120. Normotensive. Lopressor given as scheduled. IVFs infusing at ordered. Pain at surgical site adequately controlled with epidural, denies pain at rest. Neurovascular assessment WNL. Midline dressing c/d/i. G-tube secure draining small amount of brown liquid. Fatigues easily. Up to chair this afternoon, unable to tolerate sitting for more than 15 minutes. ISP and cough/deep breathing encouraged while awake. Oxygen saturation maintained > 92% on room air. TPN continued as ordered. Alert and oriented x 3 with episodes of confusion. Anxious at times, calmed by family presence. Will continue to monitor.
--- NOTE | 2016-07-16 19:41 | PCM.PNSURG ---
Subjective Date of Service: Jul 16, 2016 Visit Information: Recurrent Bowel Obstruction from Metastatic Colon Cancer Laparotomy, Lysis of Adhesions, Side to side small bowel bypass, Gastrostomy Post-Op Day # 1 Subjective: Sore but pain controlled with epidural. No Nausea or vomiting Objective Vital Sign- Last 8 Hours Date Time Temp Pulse Resp B/P Pulse Ox O2 Delivery O2 Flow Rate FiO2 07/16/16 18:23 106 20 127/62 93 Room Air 07/16/16 16:21 16 93 07/16/16 16:18 Supplement Oxygen 07/16/16 16:17 110 07/16/16 15:42 140 Room Air 07/16/16 15:40 37.2 112 23 119/73 94 Room Air 07/16/16 12:17 18 95 Intake and Output- Last 8 Hour 07/16/16 Cumulative From/Thru 07:00 06/16/16 07:14 - 07/16/16 06:15 Intake Total 2269 ml 84646 ml Output Total 850 ml 99289 ml Balance 1419 ml 24156 ml Intake Oral 7198 ml IV Total 825 ml 54351 ml Tube Feeding 150 ml TPN/PPN 1444 ml 30270 ml Tube Irrigant 60 ml Output Urine Total 750 ml 47976 ml Urine/Stool Mix 2250 ml Gastric Drainage Total 35289 ml Emesis 2355 ml Drainage Total 100 ml 100 ml Estimated Blood Loss 20 ml # Voids 16 # Bowel Movements 0 20 Abdomen: Soft SURGICAL WOUND : Wound Location/Description Incision C/D/I Result Diagram: 07/16/16 0555 07/16/16 0555 Assessment & Plan Impression Doing well Problems: Plan Ambulate Incentive Spirometry Awaiting bowel function G-tube to gravity & Sips for comfort If continues to have no nausea, okay to cap G tube and try liquids Okay to Give DVT prophylaxis No Systemic anticoagulation as long as epidural in Okay to DC Barron when Ambulating well Marocs Valenzuela MD Jul 16, 2016 19:41
[2016-07-16] MEDS: Total Parenteral Nutrition 1 BAG IV SCH (20:53)
[2016-07-17] VITALS (16 sets, daily range): BP systolic 114–136; BP diastolic 55–89; PULSE 89–108; RESP 14–23; O2SAT 92–97
[2016-07-17] MEDS: MeTOProlol 1 mg/mL 5 mL Inj IVPUSH SCH ×4 (01:28→18:29)
[2016-07-17 04:01] LABS: Magnesium 1.9 mg/dL (1.6-2.6); Phosphorus 3.1 mg/dL (2.5-4.9)
[2016-07-17] MEDS: Insulin LISPRO 300 Unit/3 mL Inj SUBQ SCH ×4 (05:00→21:09)
--- NOTE | 2016-07-17 05:34 | NUR ---
Sleep Pt reports goal of care is to get adequate sleep. Care clustered for limited interruption. Care ongoing
[2016-07-17] MEDS: 0.9% Sodium Chloride 1,000 ML IV SCH (05:51)
[2016-07-17] MEDS: Insulin GLARgine 100 Unit/mL Syringe SUBQ SCH ×2 (08:24→21:14)
--- NOTE | 2016-07-17 09:00 | PCM.PNMED ---
Subjective Date of Service Jul 17, 2016 Luís Dawn is doing well today. She has had some belching but no nausea or vomiting. No abdominal distention. She is feeling some rumbling. She denies any abdominal pain. She also is breathing without difficulty no cough or rhinorrhea. Exam Vital Signs Vital Sign - Last Date Time Temp Pulse Resp B/P Pulse Ox O2 Delivery O2 Flow Rate FiO2 07/17/16 08:20 96 07/17/16 08:19 22 94 07/17/16 08:17 36.8 117/59 Room Air 07/16/16 07:27 2.00 Intake and Output 07/16/16 07/16/16 07/17/16 Cumulative From/Thru 15:00 23:00 07:00 06/16/16 07:14 - 07/17/16 06:40 Intake Total 1193 ml 1459 ml 92981 ml Output Total 650 ml 425 ml 44357 ml Balance 543 ml 1034 ml 13269 ml Intake Oral 7198 ml IV Total 531 ml 640 ml 93045 ml Tube Feeding 150 ml TPN/PPN 662 ml 819 ml 22704 ml Tube Irrigant 60 ml Output Urine Total 575 ml 400 ml 13197 ml Urine/Stool Mix 2250 ml Gastric Drainage Total 25 ml 20082 ml Emesis 2355 ml Drainage Total 75 ml 175 ml Estimated Blood Loss 20 ml # Voids 16 # Bowel Movements 0 20 Exam Alert oriented 3 in no distress. Fluent speech Anicteric sclerae. Neck supple. Lungs are clear with normal left rate. Heart is regular without murmur. Abdomen is soft and nontender. Minimal active bowel tones. Extremities are free of edema good pedal pulses. 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 Admitted for recurrent small bowel obstruction , complicated by C. difficile colitis. She completed a course of IV metronidazole treatment with resolution of the diarrhea. 1. Recurrent small bowel obstruction, acute. Present on admission. She is status post a laparotomy with adhesion lysis, a bypass with end and anastomosis and gastrostomy tube yesterday. She has an apparent postoperative ileus. At this point we will continue nothing by mouth status, epidural for pain control, and nutritional support as she has had via TPN. Anticipate that her ileus will resolve over the next day to 2 days and we will start by mouth's with clear liquids likely in 1-2 days. We will continue her TPN at the current rate. 2. Rapid Afib,acute,not present on admission, resolved - she is now on her chronic rate-controlled atrial fibrillation and having no difficulties. - No anticoagulation is recommended 3. C. difficile colitis, may contribute to current sx, although labs were unremarkable. Suspect possible etiology behind her Hemoccult positive stool. - Was on oral vancomycin # 3 days then stopped as pt couldn't tolerate po, switched to Flagyl 500 q8h iv on 04/21. - Completed 10 day of IV Flagyl on 06/29/16, no further diarrhea - Stop metronidazole 4. Hypothyroidism, chronic, ongoing - Switched back to IV Synthroid 5. 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 CODE STATUS changed from full to limited resuscitation 6. Diabetes type 2, - Pt on Lantus 20U hs and Humalog 6U TIDAC at home - glucose better controlled on TPN - Started Lantus 20 units twice a day, will uptitrate as needed. 7. Chronic hypertension, controlled - held Amlodipine , carvedilol #Hyperlipidemia - No further benefit from Statin therapy; discontinued # occult GI bleed in the setting of c.diff, hx of colon cancer, - Hb has dropped and there is no further benefit to be gained from Coumadin or other DVT prevention therapy at this time. # Cardiomyopathy. #Osteoporosis, stable and chronic #Hyperparathyroidism. Stable chronic . Pain Evaluation: Adequate Pain Control VTE Mechanical Devices: Intermittant Pneumatic CD Resuscitation Status: CPR: Attempt Resuscitation Time spent 25 minutes Charan Milan MD Jul 17, 2016 09:00 Transcribed by: ZAC on 06/29/2016 at 18:44 Approved by: Vickey Peñaloza M.D. on 06/30/2016 at 9:33 Cardiac Echo Impressions Echocardiogram Report Name: JANEL DEUTSCH Study Date: 10/28/2014 Height: 65 in Hospital Exam Location: [facility] Weight: 141 lb Gender: Female BSA: 1.7 m2 : 1935 Age: 79 yrs BP: 168/78 mmHg Reason For Study: TAKOTSUBO SYNDROME History: HTN,AFIB,DIABETES Ordering Physician: Austen Weston Performed By: Hilda Shepherd Referring Physician: Dr. Alphonso Irving Interpretation Summary The left ventricle is normal in size. Left ventricular systolic function is borderline reduced. The ejection fraction is estimated to be 50-55%. There are no focal wall motion abnormalities. Compared to the prior exam, the apical wall motion abnormality is improved. The right ventricle is normal in size and function. The right ventricular systolic pressure is estimated at 25 mmHg assuming a right atrial pressure of 3 mm Hg. The left atrium is severely dilated. The right atrium is moderately dilated. There has been no significant change since the previous study. There is mild-moderate mitral regurgitation. There has been no significant change since the previous study. There is no other significant valvular heart disease. The aortic root is normal size. 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 Admitted for recurrent small bowel obstruction , complicated by C. difficile colitis. She completed a course of IV metronidazole treatment with resolution of the diarrhea. 1. Recurrent small bowel obstruction, acute. Present on admission. She is status post a laparotomy with adhesion lysis, a bypass with end and anastomosis and gastrostomy tube yesterday. She has an apparent postoperative ileus. At this point we will continue nothing by mouth status, epidural for pain control, and nutritional support as she has had via TPN. Anticipate that her ileus will resolve over the next day to 2 days and we will start by mouth's with clear liquids likely in 1-2 days. We will continue her TPN at the current rate. 2. Rapid Afib,acute,not present on admission, resolved - she is now on her chronic rate-controlled atrial fibrillation and having no difficulties. - No anticoagulation is recommended 3. C. difficile colitis, may contribute to current sx, although labs were unremarkable. Suspect possible etiology behind her Hemoccult positive stool. - Was on oral vancomycin # 3 days then stopped as pt couldn't tolerate po, switched to Flagyl 500 q8h iv on 04/21. - Completed 10 day of IV Flagyl on 06/29/16, no further diarrhea - Stop metronidazole 4. Hypothyroidism, chronic, ongoing - Switched back to IV Synthroid 5. 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 CODE STATUS changed from full to limited resuscitation 6. Diabetes type 2, - Pt on Lantus 20U hs and Humalog 6U TIDAC at home - glucose better controlled on TPN - Started Lantus 20 units twice a day, will uptitrate as needed. 7. Chronic hypertension, controlled - held Amlodipine , carvedilol #Hyperlipidemia - No further benefit from Statin therapy; discontinued # occult GI bleed in the setting of c.diff, hx of colon cancer, - Hb has dropped and there is no further benefit to be gained from Coumadin or other DVT prevention therapy at this time. # Cardiomyopathy. #Osteoporosis, stable and chronic #Hyperparathyroidism. Stable chronic . Pain Evaluation: Adequate Pain Control VTE Mechanical Devices: Intermittant Pneumatic CD Resuscitation Status: CPR: Attempt Resuscitation Time spent 25 minutes Charan Milan MD Jul 17, 2016 09:00
[2016-07-17 09:45] LABS: BASOPHILS % (AUTO) 0.4 % (0-3); EOSINOPHILS % (AUTO) 1.3 % (0-5); MONOCYTES % (AUTO) 9.1 % (4-12); Mean Corpuscular Hemoglobin 28.8 pg (27.0-35.0); NEUTROPHILS % (AUTO) 83.5 % (40-74); Platelet Count 243 bil/L (150-400)
[2016-07-17] MEDS: fentaNYL 2 mCg/mL-Bupiv 0.125% 100 ML in IV Premix 1 EACH EPIDURAL SCH (09:46)
[2016-07-17] MEDS: Diltiazem 5 mg/mL 5 mL Inj IV SCH (11:14)
[2016-07-17] MEDS: Levothyroxine 100 mCg/5 mL Inj IV SCH (11:26)
--- NOTE | 2016-07-17 11:36 | NUR ---
NUTRITION FOLLOW-UP: ASSESS: 81 YO female admitted with partial small bowel obstruction, complicated by C. difficile colitis. She completed a course of IV metronidazole, with resolution of the diarrhea. TPN initiated 06/25 and pt continues to tolerate TPN well. She is status post a laparotomy with adhesion lysis, a bypass with end anastomosis and gastrostomy tube for compression yesterday. She has an apparent postoperative ileus. At this point she will remain NPO, epidural for pain control. Anticipate that her ileus will resolve over the next day to 2 days, with clear liquids initiated when appropriate. PMHx: Stage IV colon cancer with intra-abdominal metastasis, atrial fibrillation, cardiomyopathy, HTN, hypothyroidism, osteoporosis, hyperparathyroidism, T2DM, recurrent SBO. DIET: NPO. NUTRITION SUPPORT: 325 g dextrose, 100 g AA daily (1505 kcal/d, 100 g/d protein) with cyclic lipids MWF of 55g (550 fat kcal) LABS: Reviewed. BUN 30, Glu 143/ MEDICATIONS: Reviewed. Insulin, synthroid, fentanyl. GI symptoms / stool: Gastric drainage of 175 ml (07/16). ANTHROPOMETRICS: Current Wt: 74.8 kg BMI: 27.0 kg/m2. Admit weight: 64.7 kg Reported 9.5% wt loss x1 month (prior to admit) ESTIMATED NEEDS (CANCER, MALNUTRITION): Calories:1600-2250kcal (25-35 kcal/kg BW) Protein: 80-100 g protein (1.2-1.5 g/kg BW) Fluids: 1919-5966 ml/d NUTRITION DIAGNOSIS: 1) Severe protein calorie malnutrition related to metastatic cancer with multiple bowel obstructions, altered GI function, as evidenced by 9.5% weight loss x 1 month - IMPROVED. 2) Inadequate oral intake related to altered GI function as evidence by need for NPO status, GI surgery, requirement for TPN, and pt with minimal PO intake x 31 days - PERSISTS. INTERVENTION: 1) Recommend continuing TPN as ordered w/ lipids cycled MWF. 2)Once diet advanced to clear liquids, will add Ensure Clear supplement to trays. 3)In event diet unable to be advanced in timely manner, recommend consideration of enteral feeding when appropriate. MONITOR/EVALUATE: GI status, TPN, labs, diet advance / tolerance, GI/nutrition status, POC. Follow per high nutrition risk guidelines.
--- NOTE | 2016-07-17 13:50 | PROG NOTE ---
[address] [address] PROGRESS NOTE PATIENT: JANEL DEUTSCH : 1935 MR#: [id number] ADMIT: 06/16/2016 JOB ID: [id number] DATE: 07/17/2016 SUBJECTIVE: Postop day two from a open lysis of adhesions and a [id number] small bowel to small bowel bypass with gastrostomy tube. The patient tells me that she is feeling well. She feels like she has passed some gas per rectum. Her pulse remains between 89 and 108, blood pressure is normal. She is afebrile. Her abdomen is soft, without peritoneal signs. Her incision is intact. Her white count remains elevated at 17.9. Her hematocrit is stable at 28. Chemistries are unremarkable. IMPRESSION AND PLAN: Doing well. Follow her clinically including a repeat white count tomorrow.
--- NOTE | 2016-07-17 15:14 | PCM.PHAPRO ---
Progress SBO TPN #23 POD2 open lap for lysis of adhesions. Minimal bowel tones. I. Fluid/VS: Functionally euvolemic, VSS, over 20 liters fluid accumulation, not apparently causing difficulties TPN at minimum volume of 1500mL II. Chemistries Generally WNL and unremarkable III. GLycemic control Generally BS <140 controlled on basal subcut dosing IV. Substrate At goal with 400g AA and total energy input 2,055 kcal PARENTERAL NUTRITION ORDERS 17-Jul-16 Standard Hang Time: 2100 Substrates Total kcal: 5 AMINO ACIDS 100 g DEXTROSE 325 g Total Volume (mL): 1500 LIPIDS 55 g Sterile Water for Injection QS mL To Infuse Over (hrs): 24 Total Volume 1500 mL At at a rate of (mL/hr): 63 Additives Sodium Chloride 60 mEq "typical" daily requirements Sodium Acetate 0 mEq Sodium 50-120mEq Potassium Chloride 30 mEq Potassium 60-120mEq Potassium Phosphate 40 mEq Phosphate 20-40mEq Calcium Gluconate 0 mEq Magnesium 8-32mEq Magnesium Sulfate 12 mEq Calcium 9-22mEq Acetate* 80-120mEq Chloride* 80-120mEq Regular Insulin 40 units *Depending on acid-base status Famotidine 40 mg Multivitamins 1 std dose Insulin Regimen Trace Elements 1 std dose none Thiamine 0 mg Regular Low Intensity Subcut Folic Acid 0 mg Regular Medium Intensity Subcut Ascorbic Acid 0 mg Regular High Intensity Subcut Regular Insulin Infusion Other: Special Instructions: To be infused via central line only. For delay or inturruption of TPN contact the pharmacist for alternative replacement solution. Capo Brown Pharm D Jul 17, 2016 15:14
--- NOTE | 2016-07-17 18:37 | NUR ---
Cardiac/GI/pain/activity Hypoactive bowel sounds throughout, denies flatus. Denies n/v. G-tube secure with small amount of brown liquid drainage, approx 20cc this shift. Ice chips for comfort, pt tolerating. Atrial fibrillation per cardiac cath tech. PRN 5mg IV cardizem administered x 1 mid-shift for HR in the 150s; otherwise, HR controlled in 90s to low 100s. Metoprolol continued as scheduled. Pain well controlled with epidural. Stapled mid-line incision CRISS, approximated with no s/s of infection. Strength improving, walked few steps in room and tolerated sitting in chair. TPN and NS infusing as ordered. Will continue to monitor.
[2016-07-17] MEDS: Total Parenteral Nutrition 1 BAG IV SCH (20:57)
[2016-07-18] VITALS (12 sets, daily range): BP systolic 128–154; BP diastolic 74–83; PULSE 90–148; RESP 18–24; O2SAT 95–98
[2016-07-18] MEDS: MeTOProlol 1 mg/mL 5 mL Inj IVPUSH SCH ×4 (00:09→19:20)
[2016-07-18] MEDS: fentaNYL 2 mCg/mL-Bupiv 0.125% 100 ML in IV Premix 1 EACH EPIDURAL SCH ×2 (00:54→17:09)
[2016-07-18] MEDS: 0.9% Sodium Chloride 1,000 ML IV SCH (04:56)
[2016-07-18] MEDS: Insulin LISPRO 300 Unit/3 mL Inj SUBQ SCH ×4 (05:00→22:36)
[2016-07-18 05:40] LABS: BASOPHILS % (AUTO) 0.5 % (0-3); EOSINOPHILS % (AUTO) 1.8 % (0-5); MONOCYTES % (AUTO) 8.6 % (4-12); Mean Corpuscular Hemoglobin 28.6 pg (27.0-35.0); Mean Corpuscular Volume 91.3 fL (81-100); NEUTROPHILS % (AUTO) 81.2 % (40-74); Platelet Count 245 bil/L (150-400)
--- NOTE | 2016-07-18 05:47 | NUR ---
Cardiac/GI/Pain: Telemetry A-Fib, HR: 90's-low 100's during shift. VSS. Hypoactive bowel tones auscultated in all four abdominal quadrants. Midline incision well approximated, cade in place. Pt. denied pain throughout shift. Epidural infusing at 6mL/hr.
[2016-07-18 06:05] LABS: Phosphorus 2.5 mg/dL (2.5-4.9)
[2016-07-18] MEDS: Insulin GLARgine 100 Unit/mL Syringe SUBQ SCH ×2 (09:35→22:35)
[2016-07-18] MEDS: Levothyroxine 100 mCg/5 mL Inj IV SCH (09:37)
--- NOTE | 2016-07-18 09:53 | PCM.PHAPRO ---
Progress SBO I. Fluids/VS VSS, daily I/O continue positive, cumulative > 20 kg over admit p/ Discontinue 50mL/hr N.S. Continue ~ 1/4 NS TPN at II. Labs WNL and without important trends III. Glucose Controlled a/p/ Discontinue 50mL/hr NS Continue ~ 1/4 NS TPN @ 60mL/hr (minimal volume for substrate requirements) PARENTERAL NUTRITION ORDERS 24 18-Jul-16 Standard Hang Time: 2100 Substrates Total kcal: 2055 AMINO ACIDS 100 g DEXTROSE 325 g Total Volume (mL): 1500 LIPIDS 55 g Sterile Water for Injection QS mL To Infuse Over (hrs): 24 Total Volume 1500 mL At at a rate of (mL/hr): 63 Additives Sodium Chloride 60 mEq "typical" daily requirements Sodium Acetate 0 mEq Sodium 50-120mEq Potassium Chloride 30 mEq Potassium 60-120mEq Potassium Phosphate 40 mEq Phosphate 20-40mEq Calcium Gluconate 0 mEq Magnesium 8-32mEq Magnesium Sulfate 12 mEq Calcium 9-22mEq Acetate* 80-120mEq Chloride* 80-120mEq Regular Insulin 40 units *Depending on acid-base status Famotidine 40 mg Multivitamins 1 std dose Insulin Regimen Trace Elements 1 std dose none Thiamine 0 mg Regular Low Intensity Subcut Folic Acid 0 mg Regular Medium Intensity Subcut Ascorbic Acid 0 mg Regular High Intensity Subcut Regular Insulin Infusion Other: Capo Brown S Pharm D Jul 18, 2016 09:53
--- NOTE | 2016-07-18 10:57 | PROG NOTE ---
[address] [address] PROGRESS NOTE PATIENT: JANEL DEUTSCH : 1935 MR#: [id number] ADMIT: 06/16/2016 JOB ID: [id number] DATE: 07/18/2016 SUBJECTIVE: Postop day 3, her [id number] small bowel to small bowel bypass. She feels well, adequate pain control with her epidural. OBJECTIVE: Temperature is 36.8, pulse is between 90 and 102, blood pressure is recorded at 131/74. On examination, her incision is in good shape without sign of redness or infection. Her abdomen is soft. LABORATORY DATA: White count of 14.6, down from 17 yesterday. Hematocrit has dropped a bit to 26. Chemistries are normal except for mildly elevated BUN of 29. IMPRESSION AND PLAN: Doing well. Continues on TPN. She is not really passing gas by her report and although her abdomen is soft, she has never been terribly distended even with her bowel obstructions. Her gastrostomy tube is functioning. At this point, I would leave things status quo, encouraged her to get up and walk in physical therapy. We will try to mobilize her today.
--- NOTE | 2016-07-18 13:11 | PCM.PNMED ---
Subjective Date of Service Jul 18, 2016 Subjective Her pain is well-controlled, 1 out of 10. She has been taking ice chips. No nausea. She denies any dyspnea. No chest pain. No fevers or chills. Exam Vital Signs Vital Sign - Last Date Time Temp Pulse Resp B/P Pulse Ox O2 Delivery O2 Flow Rate FiO2 07/18/16 11:57 36.8 110 21 141/83 96 Nasal Cannula 2.00 Intake and Output 07/17/16 07/17/16 07/18/16 Cumulative From/Thru 15:00 23:00 07:00 06/16/16 07:14 - 07/18/16 06:38 Intake Total 1142 ml 1482 ml 93795 ml Output Total 795 ml 900 ml 75168 ml Balance 347 ml 582 ml 68262 ml Intake Oral 50 ml 200 ml 7448 ml IV Total 484 ml 502 ml 30705 ml Tube Feeding 150 ml TPN/PPN 608 ml 780 ml 87581 ml Tube Irrigant 60 ml Output Urine Total 775 ml 600 ml 76642 ml Urine/Stool Mix 2250 ml Gastric Drainage Total 20 ml 300 ml 43150 ml Emesis 2355 ml Drainage Total 175 ml Estimated Blood Loss 20 ml # Voids 16 # Bowel Movements 20 Exam Oriented 3, fluent speech. Flat affect. Neck supple. Lungs are clear with normal effort. Heart is irregular without murmur Abdomen is soft via wound is unremarkable. Hypoactive bowel tones. G-tube. Extremities are free of edema good pedal pulses IVs and Medications Medications Reviewed: Medications were reviewed in detail Lab and Diagnostics Result Diagram: 07/18/1652907/18/16529 Microbiology Assessment & Plan 80 year old female with a history of stage IV colon cancer with intra-abdominal metastases, atrial fibrillation, diabetes, HTN, and hypothyroidism with abdominal pain, nausea, vomiting. Admitted for recurrent small bowel obstruction , complicated by C. difficile colitis. She completed a course of IV metronidazole treatment with resolution of the diarrhea. 1. POD 3. Status post laparotomy for adhesion lysis for bowel obstruction. She has a postoperative ileus. She is tolerating ice chips. He still is an epidural in place. We will have anesthesia reassess this to see why it should be discontinued. She is apprehensive because of perceived intolerance to IV pain medicines. 2. Rapid Afib,acute,not present on admission, resolved - she is now on her chronic rate-controlled atrial fibrillation and having no difficulties. - No anticoagulation is recommended. She continues to require IV agents for rate control very sporadically. 3. C. difficile colitis, may contribute to current sx, although labs were unremarkable. Suspect possible etiology behind her Hemoccult positive stool. - Was on oral vancomycin # 3 days then stopped as pt couldn't tolerate po, switched to Flagyl 500 q8h iv on 04/21. - Completed 10 day of IV Flagyl on 06/29/16, no further diarrhea - Stop metronidazole 4. Hypothyroidism, chronic, ongoing - Switched back to IV Synthroid 5. 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 CODE STATUS changed from full to limited resuscitation 6. Diabetes type 2, This is controlled currently on her regimen. 7. Chronic hypertension, controlled - held Amlodipine , carvedilol #Hyperlipidemia - No further benefit from Statin therapy; discontinued # occult GI bleed in the setting of c.diff, hx of colon cancer, - Hb has dropped and there is no further benefit to be gained from Coumadin or other DVT prevention therapy at this time. # Cardiomyopathy. #Osteoporosis, stable and chronic #Hyperparathyroidism. Stable chronic . Pain Evaluation: Adequate Pain Control VTE Mechanical Devices: Intermittant Pneumatic CD Resuscitation Status: CPR: Attempt Resuscitation Time spent 25 minutes Charan Milan MD Jul 18, 2016 13:11
--- NOTE | 2016-07-18 17:43 | NUR ---
Epidural/HR/Activity/Acceptance Per pt and family members Anesthesiologist [place] saw pt today with family at bs and requested to leave Epidural in place at this time. Yellow Team MD made aware. Pt HR in low 100's most of shift, up to 140's with activity up to sitting edge of bed with PT today. No c/o abdominal pain today and when c/o pain 1 out of 10 per pt tolerable. Per family at bs during PT visit pt looked to be in extreme pain, when RN asked pt, pt states "pain level is maybe a 2/10 and fine at this time." and did not want any more pain medication at this time. When MD spoke to pt today about possible removal of epidural and possibility of IV or PO pain medications, pt became very upset, would not look at RN in eye when approached and became less conversive in shift. Rn made aware of dispute between and and encouraged to take a break for awhile and reiterated that pt was in good care. Will continue to monitor with frequent rounds.
--- NOTE | 2016-07-18 18:45 | PROG NOTE ---
[address] [address] PROGRESS NOTE PATIENT: JANEL DEUTSCH : 1935 MR#: [id number] ADMIT: 06/16/2016 JOB ID: [id number] DATE: ANESTHESIA EPIDURAL FOLLOWUP NOTE: A 81-year-old female, postoperative day #3, status post laparotomy for adhesiolysis secondary to bowel obstruction. Patient continues to have postop ileus. Denies any flatus but is tolerating ice chips with minimal to no nausea. The patient is ambulating in hallways with physical therapy. The patient denies any itching from her epidural. The patient reports her pain is 1/10 at rest but increases when ambulating or sitting. OBJECTIVE: Vital signs stable. Afebrile. Epidural site clear, dry, intact and nontender. Epidural is currently running bupivacaine 0.125% with fentanyl 2 mcg/mL at 6 mL an hour. Platelets 245. Visual analog scale 1/10 along incision. Bilateral leg motor strength 5/5. ASSESSMENT AND PLAN: The patient reports that her epidural is working well and she is currently happy with her pain regimen. I mentioned to the patient that there have been some questions about removing the epidural today and the patient wound was quite hesitant at that. The patient reports she has had some difficulty tolerating IV pain medicine and would like to keep the epidural in place for as long as possible. As the patient still has a postop ileus and is not tolerating p.o. medication at this time it seems prudent to leave the epidural in place until we are able to wean her off the epidural and onto her p.o. pain medication. We will continue to round on this patient.
[2016-07-18] MEDS: Total Parenteral Nutrition 1 BAG IV SCH (20:51)
[2016-07-19] VITALS (12 sets, daily range): BP systolic 125–161; BP diastolic 74–95; PULSE 75–110; RESP 15–22; O2SAT 97–99
[2016-07-19] MEDS: MeTOProlol 1 mg/mL 5 mL Inj IVPUSH SCH ×5 (00:59→23:59)
[2016-07-19 04:15] LABS: Mean Corpuscular Hemoglobin 28.7 pg (27.0-35.0); Mean Corpuscular Volume 92.4 fL (81-100); Platelet Count 277 bil/L (150-400)
[2016-07-19 04:33] LABS: NEUTROPHILS % (AUTO) 86 % (40-74)
[2016-07-19 04:34] LABS: BASOPHILS % (AUTO) 0 % (0-3); EOSINOPHILS % (AUTO) 0 % (0-5); MONOCYTES % (AUTO) 9 % (4-12)
[2016-07-19 04:40] LABS: Magnesium 1.8 mg/dL (1.6-2.6); Phosphorus 2.5 mg/dL (2.5-4.9)
[2016-07-19] MEDS: Insulin LISPRO 300 Unit/3 mL Inj SUBQ SCH ×4 (05:00→21:12)
--- NOTE | 2016-07-19 05:21 | NUR ---
Activity: Pt. has not been out of bed this shift. Turning pt. q2 hr. Explained benefits of increasing activity level as tolerated with both pt. and family members at bedside. Pt. agrees to attempt more activity during day shift. No overt signs or symptoms of distress.
[2016-07-19] MEDS: Levothyroxine 100 mCg/5 mL Inj IV SCH (08:14)
[2016-07-19] MEDS: Insulin GLARgine 100 Unit/mL Syringe SUBQ SCH ×2 (08:18→21:13)
[2016-07-19] MEDS: fentaNYL 2 mCg/mL-Bupiv 0.125% 100 ML in IV Premix 1 EACH EPIDURAL SCH (10:08)
--- NOTE | 2016-07-19 10:43 | PROG NOTE ---
[address] [address] PROGRESS NOTE PATIENT: JANEL DEUTSCH : 1935 MR#: [id number] ADMIT: 06/16/2016 JOB ID: [id number] DATE: SUBJECTIVE: The patient is postop day four from an exploratory laparotomy for lysis of adhesions for small bowel obstruction. She had an epidural placed on July 15 for postop pain control. The patient is seen lying in her bed. She reports good pain control with the epidural, especially at rest. With increased movement such as ambulation or getting out of the bed, her pain level increases significantly, but she is able to do those things without excessive weakness of her legs. OBJECTIVE: The epidural site looks to be clean, dry and intact, with no evidence of leakage or infection. No erythema. Her vital signs are stable, as are her laboratory studies. ASSESSMENT: Postop day four from an exploratory laparotomy. The patient's pain continues to be well controlled. The patient seems to be happy with current management. PLAN: Will continue current infusion at 6 mL/h until the patient is able to tolerate more p.o. medicines. Her diet is to be increased today, so this may hopefully happen in the next day or two. At present though, no changes to current regimen as the patient is doing very well.
--- NOTE | 2016-07-19 10:56 | PCM.PNMED ---
Subjective Date of Service Jul 19, 2016 Subjective She had not she is doing well today. Her pain is well-controlled at 1 out of 10. She is able to speak with anesthesia regarding her epidural yesterday. She has had approximately day 5 of the epidural neck feel it did remain in for maybe up to week. In any case she is doing well pain control on the epidural. She denies nausea. She was given clear like last night and take very small amount in. No abdominal distention. No shortness of breath or chest pain. Exam Vital Signs Vital Sign - Last Date Time Temp Pulse Resp B/P Pulse Ox O2 Delivery O2 Flow Rate FiO2 07/19/16 08:30 36.6 89 22 153/83 98 Nasal Cannula 2.00 Intake and Output 07/18/16 07/18/16 07/19/16 Cumulative From/Thru 15:00 23:00 07:00 06/16/16 07:14 - 07/19/16 05:50 Intake Total 1368 ml 795 ml 67835 ml Output Total 1300 ml 900 ml 87560 ml Balance 68 ml -105 ml 93009 ml Intake Oral 100 ml 200 ml 7748 ml IV Total 367 ml 45658 ml Tube Feeding 150 ml TPN/PPN 901 ml 595 ml 06118 ml Tube Irrigant 60 ml Output Urine Total 1000 ml 800 ml 50342 ml Urine/Stool Mix 2250 ml Gastric Drainage Total 300 ml 100 ml 51278 ml Emesis 2355 ml Drainage Total 175 ml Estimated Blood Loss 20 ml # Voids 16 # Bowel Movements 20 Exam Re: 3, fluent speech. Flat affect. Anicteric sclerae Gaunt face Supple. Lungs are clear, normal effort. Heart is irregular without murmur Abdomen is soft scar is looking good there is no dehiscence. She has a G-tube in place. Extremities are free of edema good pedal pulses. IVs and Medications Medications Reviewed: Medications were reviewed in detail Lab and Diagnostics Result Diagram: 07/19/1640407/19/16404 Microbiology Assessment & Plan 80 year old female with a history of stage IV colon cancer with intra-abdominal metastases, atrial fibrillation, diabetes, HTN, and hypothyroidism with abdominal pain, nausea, vomiting. Admitted for recurrent small bowel obstruction , complicated by C. difficile colitis. She completed a course of IV metronidazole treatment with resolution of the diarrhea. 1. Status post laparotomy for adhesion lysis for bowel obstruction. She has a resolving postoperative ileus. She will advance to clear liquids today. She spoke with anesthesia yesterday and the epidural was standard a longer. Her wound looks good today. 2. Rapid Afib,acute,not present on admission, she has good rate control this point. We will continue to attempt to convert her to oral medications for rate control and get away from the IV medications. 3. C. difficile colitis, treated, and resolved. We will watch for evidence of recurrence with fevers chills leukocytosis or increased stool output. 4. Hypothyroidism, chronic, - Switched back to IV Synthroid 5. 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 CODE STATUS changed from full to limited resuscitation 6. Diabetes type 2, This is controlled currently on her regimen. 7. Chronic hypertension, controlled - held Amlodipine , carvedilol Pain Evaluation: Adequate Pain Control VTE Mechanical Devices: Intermittant Pneumatic CD Resuscitation Status: CPR: Attempt Resuscitation Time spent 25 minute Charan Milan MD Jul 19, 2016 10:56 # occult GI bleed in the setting of c.diff, hx of colon cancer, - Hb has dropped and there is no further benefit to be gained from Coumadin or other DVT prevention therapy at this time. # Cardiomyopathy. #Osteoporosis, stable and chronic #Hyperparathyroidism. Stable chronic . VTE Mechanical Devices: Intermittant Pneumatic CD Resuscitation Status: CPR: Attempt Resuscitation Charan Milan MD Jul 19, 2016 10:56
--- NOTE | 2016-07-19 11:09 | PCM.PNSURG ---
Subjective Date of Service: Jul 19, 2016 Visit Information: Recurrent Bowel Obstruction from Metastatic Colon Cancer Laparotomy, Lysis of Adhesions, Side to side small bowel bypass, Gastrostomy Post-Op Day # 4 Subjective: Attempted clamping the Gtube today. Had Emesis with that. Objective Vital Sign- Last 8 Hours Date Time Temp Pulse Resp B/P Pulse Ox O2 Delivery O2 Flow Rate FiO2 07/19/16 11:05 103 07/19/16 08:30 36.6 89 22 153/83 98 Nasal Cannula 2.00 07/19/16 08:30 Supplement Oxygen 07/19/16 06:14 105 16 143/74 97 Nasal Cannula 2.00 07/19/16 05:57 18 98 07/19/16 05:03 36.8 95 22 161/95 98 Nasal Cannula 2.00 Intake and Output- Last 8 Hour 07/19/16 Cumulative From/Thru 07:00 06/16/16 07:14 - 07/19/16 05:50 Intake Total 795 ml 46636 ml Output Total 900 ml 04215 ml Balance -105 ml 76993 ml Intake Oral 200 ml 7748 ml IV Total 05130 ml Tube Feeding 150 ml TPN/PPN 595 ml 55974 ml Tube Irrigant 60 ml Output Urine Total 800 ml 01352 ml Urine/Stool Mix 2250 ml Gastric Drainage Total 100 ml 22518 ml Emesis 2355 ml Drainage Total 175 ml Estimated Blood Loss 20 ml # Voids 16 # Bowel Movements 20 Abdomen: Soft SURGICAL WOUND : Wound Location/Description Incision C/D/I Result Diagram: 07/19/16 0405 07/19/16 0405 Assessment & Plan Impression Doing well,Still waiting for bowel function Problems: Plan Ambulate, Incentive spirometry G-tube to gravity as needed. Will advance diet per patient's progress. Marcos Valenzuela MD Jul 19, 2016 11:09
--- NOTE | 2016-07-19 13:04 | NUR ---
ABD PAIN Pt c/o abd pain 09/03, pressure feeling. Bag connected back to G drain per PRN orders from Bianca, He rounded after and heard the pt c/o feeling full, said itll be a while for her bowels to start moving. After chatting with Bjorn offered Pt IV pain medication on top of Epidural medication and she declined, tried a position change instead and will keep me posted.
--- NOTE | 2016-07-19 14:33 | NUR ---
Palliative Care [facility] [employer] [facility] Visit07/19/1712:00PM D: This appeals writer went to see pt., who appeared to be sleeping. Her , Morro, was in her room and this appeals writer spoke with Morro about his impression of how pt. has been doing since her surgery last week. Morro shared that pt. does not seem to be improving and he expressed frustration and sadness that she is still feeling so unwell. He noted repeatedly that he knows 'it's up to her' to try to improve, but that he wants her to get better. Morro and this [employer] [employer] discussed how he is coping with attending to pt.'s needs and he shared that he is trying to get enough sleep and to take care of himself. He shared that his son is sick, possibly with flu, so Morro feels he needs to be with pt. at [facility] almost continuously. Pt. roused at this point and shared that she has felt both pain and nausea since her surgery and that she doesn't understand why she is not getting better. This appeals writer talked with pt. and her about all the physical issues that she has experienced over the last few weeks and pt. shared she feels very tired and overwhelmed by her situation. Morro noted that he hopes pt. will be able to start eating again soon and also to get out of bed and move a bit to see if that will assist with her healing process. A: Pt. continues to struggle with symptom management issues, and it is unclear if she is improving clinically in the ways she and family had hoped for. P: Palliative Care will continue to provide psycho-social support to pt. and family as needed. Lexy Caldwell [facility] [employer], [facility] Palliative Care Service
--- NOTE | 2016-07-19 14:53 | PCM.PHAPRO ---
Progress SBO tpn#24 a/ Briefly, no substantive changes over yesterday. p/ Continue without changes 19-Jul-16 Standard Hang Time: 2100 Substrates Total kcal: 2055 AMINO ACIDS 100 g DEXTROSE 325 g Total Volume (mL): 1500 LIPIDS 55 g Sterile Water for Injection QS mL To Infuse Over (hrs): 24 Total Volume 1500 mL At at a rate of (mL/hr): 63 Additives Sodium Chloride 60 mEq "typical" daily requirements Sodium Acetate 0 mEq Sodium 50-120mEq Potassium Chloride 30 mEq Potassium 60-120mEq Potassium Phosphate 40 mEq Phosphate 20-40mEq Calcium Gluconate 0 mEq Magnesium 8-32mEq Magnesium Sulfate 12 mEq Calcium 9-22mEq Acetate* 80-120mEq Chloride* 80-120mEq Regular Insulin 40 units *Depending on acid-base status Famotidine 40 mg Multivitamins 1 std dose Insulin Regimen Trace Elements 1 std dose none Thiamine 0 mg Regular Low Intensity Subcut Folic Acid 0 mg Regular Medium Intensity Subcut Ascorbic Acid 0 mg Regular High Intensity Subcut Regular Insulin Infusion Other: Special Instructions: To be infused via central line only. Capo Brown Pharm D Jul 19, 2016 14:53
[2016-07-19] MEDS: HYDROmorphone 0.5 mg/0.5 mL iSecure Syringe IVPUSH PRN (14:55)
--- NOTE | 2016-07-19 17:53 | NUR ---
Social Work Note: Continued Discharge Planning Data& Assessment: EMR reviewed. Pt is recovering from procedure at this time. SW met with pt and pt family at bedside to discuss discharge planning. Pt family and pt requested SW return at 3p.m. tomorrow afternoon (07/20/2016) to discuss discharge planning. Pt will think about her goals of care tonight. SW to continue to follow. Pt and pt family deny any other needs at this time. Plan: SW to follow up with pt and pt family at 3p.m. tomorrow afternoon (07/20/2016) to discuss discharge planning and goals of care. SW to continue to follow. Pt and pt family deny any other needs at this time. MELONIE Holloway
--- NOTE | 2016-07-19 18:51 | NUR ---
1530 -1900 DAYS Patient has G-drain left abdomen output 150ml foul smelling. Patient denies nausea at this time, hypoactive bowel tones. HR low 100's, IV Lopressor given at 1800 which decreased rate to high 80's for short time. Patient HR up to 140's with activity of getting back into bed. Patient out of bed for 45 min, 2PA getting her back in bed.
[2016-07-19] MEDS: Total Parenteral Nutrition 1 BAG IV SCH (21:14)
[2016-07-20] VITALS (9 sets, daily range): BP systolic 141–162; BP diastolic 70–101; PULSE 88–123; RESP 14–22; O2SAT 96–100
--- NOTE | 2016-07-20 00:16 | NUR ---
Vtach Pt had 15 beat run of vtach. Pt asymptomatic on reassessment. VSS and WNL. Stat labs drawn. MD notified. Scheduled dose of IV Metoprolol given. Will continue to monitor. Care ongoing
[2016-07-20 01:26] LABS: Magnesium 1.8 mg/dL (1.6-2.6); Phosphorus 2.5 mg/dL (2.5-4.9)
[2016-07-20] MEDS: fentaNYL 2 mCg/mL-Bupiv 0.125% 100 ML in IV Premix 1 EACH EPIDURAL SCH ×2 (03:11→22:52)
[2016-07-20] MEDS: MeTOProlol 1 mg/mL 5 mL Inj IVPUSH SCH ×2 (05:49→11:20)
[2016-07-20] MEDS: HYDROmorphone 0.5 mg/0.5 mL iSecure Syringe IVPUSH PRN ×2 (05:49→20:26)
[2016-07-20] MEDS: Insulin LISPRO 300 Unit/3 mL Inj SUBQ SCH ×4 (05:50→23:29)
[2016-07-20] MEDS: Ondansetron 2 mg/mL 2 mL Inj IVPUSH PRN ×3 (06:03→11:25)
--- NOTE | 2016-07-20 06:57 | NUR ---
Pain/nausea Pt had episode of pain 09/03 and was nauseated when given pain medication. Did vomit slightly but n/v went away with IV zofran. Pt reports pain is currently under control and has no nausea. Care ongoing
[2016-07-20] MEDS: Levothyroxine 100 mCg/5 mL Inj IV SCH (10:12)
[2016-07-20] MEDS: Insulin GLARgine 100 Unit/mL Syringe SUBQ SCH ×2 (10:26→21:34)
--- NOTE | 2016-07-20 10:54 | NUR ---
NUTRITION FOLLOW-UP: ASSESS: 81 YO female admitted with partial small bowel obstruction, complicated by C. difficile colitis. TPN initiated 06/25 and pt continues on TPN. She is status post a laparotomy with adhesion lysis, a bypass with end anastomosis and gastrostomy tube for compression. Her diet has been advanced to FL but pt has been experiencing n/v and PO intake has been minimal. Pt's lipids have not been cycling and pt has received lipids daily. Spoke with pharmacy today and lipids will be cycled M,W, F. ALT and Alk phos are elevated. PMHx: Stage IV colon cancer with intra-abdominal metastasis, atrial fibrillation, cardiomyopathy, HTN, hypothyroidism, osteoporosis, hyperparathyroidism, T2DM, recurrent SBO. DIET: FL, PO 0% NUTRITION SUPPORT: 325 g dextrose, 100 g AA daily (1505 kcal/d, 100 g/d protein) with cyclic lipids MWF of 55g (550 fat kcal) to provide 2055kcal and 100g pro (100% estimated needs) LABS: Reviewed. Cat Driver .54, Glu 204, ALT 40, Alk phos 213, alb 2.0 MEDICATIONS: Reviewed. Insulin, synthroid, fentanyl. GI symptoms / stool: Gastric drainage of 150 ml (07/19). ANTHROPOMETRICS: Current Wt: 75.3 kg BMI: 27.6kg/m2. Admit weight: 64.7 kg Reported 9.5% wt loss x1 month (prior to admit) RE-ESTIMATED NEEDS (CANCER, MALNUTRITION): Calories: 1875--2625kcal (25-35 kcal/kg BW) Protein: 90-110 g protein (1.2-1.5 g/kg BW) Fluids: 1875-2250ml/day (25-30ml/kg) NUTRITION DIAGNOSIS: 1) Severe protein calorie malnutrition related to metastatic cancer with multiple bowel obstructions, altered GI function, as evidenced by 9.5% weight loss x 1 month - IMPROVED. 2) Inadequate oral intake related to altered GI function as evidence by need for NPO status, GI surgery, requirement for TPN, and pt with minimal PO intake x 31 days - PERSISTS. INTERVENTION: 1) Recommend continue with current TPN order and cycle lipids M,W,F. Pharmacy aware 2) Will add Ensure CL on L trays. MONITOR/EVALUATE: GI status, TPN, lipids cycle, labs, diet advance / tolerance, GI/nutrition status, POC. Follow per high nutrition risk guidelines. Addendum: 07/21/16 at [address] Pt tolerating Ensure Clear - will continue. Macronutrients discussed with pharmacy - lipids being given today and will continue for every MW.
--- NOTE | 2016-07-20 13:50 | PCM.PNMED ---
Subjective Date of Service Jul 20, 2016 Subjective She has had a lot of nausea today Exam Vital Signs Vital Sign - Last Date Time Temp Pulse Resp B/P Pulse Ox O2 Delivery O2 Flow Rate FiO2 07/20/16 13:07 36.7 89 19 146/76 99 Nasal Cannula 1.50 Intake and Output 07/19/16 07/19/16 07/20/16 Cumulative From/Thru 15:00 23:00 07:00 06/16/16 07:14 - 07/20/16 05:41 Intake Total 812 ml 400 ml 09861 ml Output Total 1100 ml 750 ml 88674 ml Balance -288 ml -350 ml 73362 ml Intake Oral 400 ml 8148 ml IV Total 812 ml 80943 ml Tube Feeding 150 ml TPN/PPN 32465 ml Tube Irrigant 60 ml Output Urine Total 750 ml 750 ml 23084 ml Urine/Stool Mix 2250 ml Gastric Drainage Total 50 ml 08678 ml Emesis 150 ml 2505 ml Drainage Total 150 ml 325 ml Estimated Blood Loss 20 ml # Voids 16 # Bowel Movements 0 20 Exam Chronically ill in appearance, flat affect. Anicteric sclerae. Neck supple. Lungs are clear with normal effort. Heart is irregular, murmur Abdomen hypoactive bowel tones somewhat tender. Extremities are free of edema good pedal pulses IVs and Medications Medications Reviewed: Medications were reviewed in detail Lab and Diagnostics Result Diagram: 07/19/16 0405 07/20/16 0045 Microbiology Assessment & Plan 80 year old female with a history of stage IV colon cancer with intra-abdominal metastases, atrial fibrillation, diabetes, HTN, and hypothyroidism with abdominal pain, nausea, vomiting. Admitted for recurrent small bowel obstruction , complicated by C. difficile colitis. She completed a course of IV metronidazole treatment with resolution of the diarrhea. 1. Status post laparotomy for adhesion lysis for bowel obstruction. She has a resolving postoperative ileus. She will advance to clear liquids today. She spoke with anesthesia yesterday and the epidural was standard a longer. Her wound looks good today. She is having some nausea and a fair amount of output from her G-tube which is set to gravity. Her abdomen appears to be somewhat tender but not rigid. We will continue to follow her clinically for postoperative ileus. No compelling evidence of worsening abdominal status. 2. Rapid Afib,acute,not present on admission, she has good rate control this point. We will continue to attempt to convert her to oral medications for rate control and get away from the IV medications. 3. C. difficile colitis, treated, and resolved. We will watch for evidence of recurrence with fevers chills leukocytosis or increased stool output. No evidence of recurrence at this point. 4. Hypothyroidism, chronic, - Switched back to IV Synthroid 5. 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 CODE STATUS changed from full to limited resuscitation 6. Diabetes type 2, This is controlled currently on her regimen. 7. Chronic hypertension, controlled - Medical family for about 20 minutes today including and son. Reviewed most of the hospital course with them and the way that the I am going recovery may go. Pain Evaluation: Adequate Pain Control VTE Mechanical Devices: Intermittant Pneumatic CD Resuscitation Status: CPR: Attempt Resuscitation Time spent 25 minutes Charan Milan MD Jul 20, 2016 13:50
--- NOTE | 2016-07-20 15:17 | NUR ---
Social Work Note: Continued Discharge Planning Data& Assessment: SW met with pt and pt family at bedside to discuss discharge planning. Pt is recovering from procedure. Pt explained she would like to pursue treatment, get better and go home. SW, pt and pt family discussed possible care needs for pt when medically ready for discharge as well as physical decompensation and loss of strength. SW explained that it is likely that pt will require SNF when medically ready. Pt was provided with SNF list and [facility] book to review. Pt has a preference for [facility]. SW requested UR specialist send referral. Pt and pt family deny any other needs at this time. SW to continue to follow if any needs arise. Plan: Anticipated discharge to [facility] pending acceptance when medically ready. Pt and pt family deny any other needs at this time. SW to continue to follow if any needs arise. MELONIE Holloway
--- NOTE | 2016-07-20 15:37 | NUR ---
Gave access to [facility] and faxed facesheet per [employer]
--- NOTE | 2016-07-20 17:09 | PROG NOTE ---
[address] [address] PROGRESS NOTE PATIENT: JANEL DEUTSCH : 1935 MR#: [id number] ADMIT: 06/16/2016 JOB ID: [id number] DATE: 07/20/2016 EPIDURAL PAIN MANAGEMENT NOTE: SUBJECTIVE: Today is postoperative day five status post colectomy. Upon entering the room, the patient is resting comfortably in bed. Sipping water from a glass. She reports several bouts of nausea today but that she has been able to keep fluids down for the last 6 hours. The patient has not yet been ambulating. She states her pain at rest is 3/10 and 6/10 at its worst intensity when she coughs for example. The site was examined and found to be clean, dry, and intact. Her epidural infusion is bupivacaine 0.125% with fentanyl 2 mcg/mL. ASSESSMENT: Good pain control. PLAN: Continue the epidural pain relief as written and reassess the patient in the morning. If she is tolerating orals well tomorrow, I would anticipate discontinuing the epidural shortly.
--- NOTE | 2016-07-20 18:43 | NUR ---
No N/V Pt. denied nausea or pain this afternoon. Midline incision is open to air with no drainage or signs of infection. Well approximated. Epidural site looks good with no leaking.
[2016-07-20] MEDS: MetoCLOpramide 5 mg/mL 2 mL Inj IVPUSH PRN ×2 (20:26→23:29)
[2016-07-20] MEDS ORDERED: Insulin GLARgine 100 Unit/mL Syringe SUBQ SCH (20:30)
--- NOTE | 2016-07-20 20:47 | PCM.PNSURG ---
Subjective Date of Service: Jul 20, 2016 Visit Information: Recurrent Bowel Obstruction from Metastatic Colon Cancer Laparotomy, Lysis of Adhesions, Side to side small bowel bypass, Gastrostomy Post-Op Day # 5 Subjective: Continues to have bilious G tube output. Feels like about to have a BM Objective Vital Sign- Last 8 Hours Date Time Temp Pulse Resp B/P Pulse Ox O2 Delivery O2 Flow Rate FiO2 07/20/16 17:12 36.6 97 20 141/81 98 Nasal Cannula 1.50 07/20/16 16:20 Supplement Oxygen 07/20/16 13:07 36.7 89 19 146/76 99 Nasal Cannula 1.50 Intake and Output- Last 8 Hour 07/20/16 Cumulative From/Thru 07:00 06/16/16 07:14 - 07/20/16 05:41 Intake Total 400 ml 15252 ml Output Total 750 ml 10392 ml Balance -350 ml 30704 ml Intake Oral 400 ml 8148 ml IV Total 08793 ml Tube Feeding 150 ml TPN/PPN 59541 ml Tube Irrigant 60 ml Output Urine Total 750 ml 10878 ml Urine/Stool Mix 2250 ml Gastric Drainage Total 78722 ml Emesis 2505 ml Drainage Total 325 ml Estimated Blood Loss 20 ml # Voids 16 # Bowel Movements 0 20 Heart: Normal S2 Abdomen: Distended SURGICAL WOUND : Wound Location/Description Incision C/D/I Result Diagram: 07/19/16 0405 07/20/16 0045 Assessment & Plan Impression Stable, No bowel function Problems: Plan Ambulate, IS Suppository SVETAN Marcos Valenzuela MD Jul 20, 2016 20:47
[2016-07-20] MEDS: Total Parenteral Nutrition 1 BAG IV SCH (21:35)
[2016-07-21] VITALS (10 sets, daily range): BP systolic 117–143; BP diastolic 68–85; PULSE 95–150; RESP 15–22; O2SAT 98–100
--- NOTE | 2016-07-21 04:17 | NUR ---
Cardiac Rhythm/GI/Pain Pt has been A-Fib 90s-130s throughout the shift and is asymptomatic. Pt has had much nausea but no vomiting. Pt has tolerated PO intake. MD needs to clarify if gastrostomy needs to be clamped when pt is administered PO medications. Gastrostomy tube is draining to gravity a bile-colored liquid. Pt has remained comfortable and pain-free with the fentanyl epidural on continuous at 6ml/hr. A new fentanyl bag was hung at 2300.
[2016-07-21] MEDS: Insulin LISPRO 300 Unit/3 mL Inj SUBQ SCH ×3 (06:12→17:11)
--- NOTE | 2016-07-21 07:38 | PATH ---
SURGICAL PATHOLOGY Attending Physician:Marcos Valenzuela MD CASE STATUS: Signed Out PATIENT NAME: JANEL DEUTSCH PID: [id number] : 1935 CASE NUMBER: [id number] DATE COLLECTED:07/15/2016 00:00 SPECIMEN: Peritoneal Fluid CLINICAL HISTORY: Peritoneal Fluid ICD-10 code not given FINAL DIAGNOSIS: Peritoneal Fluid (1 ThinPrep Slide and Cell Block): Atypical mesothelial cells present. ICD10: R18.8 GROSS DESCRIPTION: Received fresh on 07/16/2016 is approximately 7 cc of cloudy pink fluid. Prepared are one cell block, one ThinPrep and one Cytospin slides. Vo ICD-9 CODES: CPT CODES: 1: 17660, 00138 Electronically Signed Out Ryan Montes De Oca MD [facility] [address], [place] [address] Technical component performed at [facility], [facility] [address], [place], [address]
[2016-07-21] MEDS: Levothyroxine 100 mCg/5 mL Inj IV SCH (07:56)
[2016-07-21] MEDS: Insulin GLARgine 100 Unit/mL Syringe SUBQ SCH ×2 (07:56→20:45)
[2016-07-21] MEDS: Ondansetron 2 mg/mL 2 mL Inj IVPUSH PRN ×3 (08:16→21:05)
--- NOTE | 2016-07-21 08:45 | PCM.PNSURG ---
Subjective Date of Service: Jul 21, 2016 Visit Information: Recurrent Bowel Obstruction from Metastatic Colon Cancer Laparotomy, Lysis of Adhesions, Side to side small bowel bypass, Gastrostomy Post-Op Day # 6 Subjective: Thinks she might have passed some flatus last night Objective Vital Sign- Last 8 Hours Date Time Temp Pulse Resp B/P Pulse Ox O2 Delivery O2 Flow Rate FiO2 07/21/16 07:59 36.9 113 17 117/84 99 Nasal Cannula 2.00 07/21/16 06:17 15 99 07/21/16 03:09 36.9 109 18 138/81 100 Nasal Cannula 1.50 07/21/16 01:00 15 98 Intake and Output- Last 8 Hour 07/21/16 Cumulative From/Thru 07:00 06/16/16 07:14 - 07/21/16 06:12 Intake Total 826 ml 66212 ml Output Total 800 ml 53130 ml Balance 26 ml 41967 ml Intake Oral 100 ml 8368 ml IV Total 726 ml 43297 ml Tube Feeding 150 ml TPN/PPN 72115 ml Tube Irrigant 60 ml Output Urine Total 400 ml 18327 ml Urine/Stool Mix 2250 ml Gastric Drainage Total 83177 ml Emesis 2505 ml Drainage Total 400 ml 1325 ml Estimated Blood Loss 20 ml # Voids 16 # Bowel Movements 20 Abdomen: Soft SURGICAL WOUND : Wound Location/Description Incision C/D/I Result Diagram: 07/19/16 0405 07/20/16 0045 Assessment & Plan Impression Doing well. Possible signs of bowel function Problems: Plan Ambulate Incentive spirometry Epidural Rx per anesthesia DC fu G-tube can be vented/clamped based on patient's wishes on an ongoing basis Marcos Valenzuela MD Jul 21, 2016 08:45
--- NOTE | 2016-07-21 11:51 | PCM.PNMED ---
Subjective Date of Service Jul 21, 2016 Subjective She was having less nausea this morning. Less abdominal pain. She has her epidural in place in spite of being postoperative day 6. She denies any chest pain or palpitations or dyspnea. Exam Vital Signs Vital Sign - Last Date Time Temp Pulse Resp B/P Pulse Ox O2 Delivery O2 Flow Rate FiO2 07/21/16 09:35 106 07/21/16 07:59 36.9 17 117/84 99 Nasal Cannula 2.00 Intake and Output 07/20/16 07/20/16 07/21/16 Cumulative From/Thru 15:00 23:00 07:00 06/16/16 07:14 - 07/21/16 06:12 Intake Total 1131 ml 407 ml 826 ml 02351 ml Output Total 1500 ml 800 ml 61205 ml Balance 1131 ml -1093 ml 26 ml 30082 ml Intake Oral 120 ml 100 ml 8368 ml IV Total 287 ml 726 ml 17035 ml Tube Feeding 150 ml TPN/PPN 1131 ml 37134 ml Tube Irrigant 60 ml Output Urine Total 900 ml 400 ml 02241 ml Urine/Stool Mix 2250 ml Gastric Drainage Total 92471 ml Emesis 2505 ml Drainage Total 600 ml 400 ml 1325 ml Estimated Blood Loss 20 ml # Voids 16 # Bowel Movements 20 Exam Alert oriented 3, fluent speech. Slightly brighter today. Anicteric sclerae. Lungs are clear with normal effort and rate. Heart is irregular without murmur. Abdomen is soft and nontender she has hypoactive bowel tones in her incisional wound is unremarkable. She has a decompressive G-tube as well. Extremities are free of edema good pedal pulses. IVs and Medications Medications Reviewed: Medications were reviewed in detail Lab and Diagnostics Result Diagram: 07/19/16 0405 07/20/16 0045 Microbiology Assessment & Plan 80 year old female with a history of stage IV colon cancer with intra-abdominal metastases, atrial fibrillation, diabetes, HTN, and hypothyroidism with abdominal pain, nausea, vomiting. Admitted for recurrent small bowel obstruction , complicated by C. difficile colitis. She completed a course of IV metronidazole treatment with resolution of the diarrhea. 1. Status post laparotomy for adhesion lysis for bowel obstruction. She has a resolving postoperative ileus. She will advance to clear liquids today. She spoke with anesthesia yesterday and the epidural was standard a longer. Her wound looks good today. She is having some nausea and a fair amount of output from her G-tube which is set to gravity. Her abdomen appears to be somewhat tender but not rigid. We will continue to follow her clinically for postoperative ileus. No compelling evidence of worsening abdominal status. She has had a slow course in the question whether or not she will improve clinically from her surgery has yet to be answered. 2. Rapid Afib,acute,not present on admission, she has good rate control this point. We will continue to attempt to convert her to oral medications for rate control and get away from the IV medications. 3. C. difficile colitis, treated, and resolved. We will watch for evidence of recurrence with fevers chills leukocytosis or increased stool output. No evidence of recurrence at this point. 4. Hypothyroidism, chronic, - Switched back to IV Synthroid 5. 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 CODE STATUS changed from full to limited resuscitation 6. Diabetes type 2, This is controlled currently on her regimen. 7. Chronic hypertension, controlled - held Amlodipine , carvedilol 8. Severe protein caloric malnutrition. She is on TPN this be continued pending her clinical progress. She continues to do relatively poorly with very slow or no improvement after her laparotomy for recalcitrant bowel obstruction in context of prostatic intra- peritoneal colon cancer. She has hope for improvement, returning home and resuming chemotherapy. At this point is unclear if she will improve throughout her perioperative course and LVEDP again. Pain Evaluation: Adequate Pain Control VTE Mechanical Devices: Intermittant Pneumatic CD Resuscitation Status: CPR: Attempt Resuscitation Time spent 25 minutes Charan Milan MD Jul 21, 2016 11:51
[2016-07-21] MEDS: HYDROmorphone 0.5 mg/0.5 mL iSecure Syringe IVPUSH PRN (15:02)
--- NOTE | 2016-07-21 16:04 | PROG NOTE ---
[address] [address] PROGRESS NOTE PATIENT: JANEL DEUTSCH : 1935 MR#: [id number] ADMIT: 06/16/2016 JOB ID: [id number] DATE: 07/21/2016 EPIDURAL PROGRESS NOTE: Epidural day #6. SUBJECTIVE: The patient is a 81-year-old female, who underwent colectomy six days ago. She had an epidural placed preoperatively by prior to surgery for her small bowel obstruction with lysis of adhesions. She continues have a postoperative ileus, though she has started to have some gas. She is starting on clear liquids today. She states her pain is well controlled at a 3/10 in intensity with rest and not much worse when she is up with ambulation. She states she has no numbness or tingling in her legs, and she is overall very satisfied with her pain control. She does note that she occasionally has some breakthrough pain, for which they are giving her IV medications. OBJECTIVE: Blood pressure 136/85, heart rate 118, respiratory rate 20, O2 sat 98% on room air. Of note, she is being treated for rapid AFib. They are attempting rate control as we speak. Medications include a fentanyl and bupivacaine epidural solution with 0.125% bupivacaine with 2 mcg/mL of fentanyl running at 6 mL/h. Additionally, she is getting p.r.n. hydromorphone, a dose being given at the time of my evaluation of 0.5 mg for breakthrough pain. She has been receiving oral acetaminophen and has no oral opiate pain medications ordered. Evaluation of the epidural site shows dressing intact. There is some dried blood at the epidural catheter. The site of skin entry is nontender. She has good strength of her lower extremities and intact sensation. ASSESSMENT: The patient is a 81-year-old female, postoperative day #6 for exploratory laparotomy for lysis of adhesions secondary to small bowel obstruction in the setting of stage IV cancer. She continues to have excellent pain control. Her bowels are starting to move, and she is just starting on clear liquids today. PLAN: Given that the patient has just started on clear liquids today and has yet to receive any oral pain medications, we will continue epidural with hopeful plan of transitioning to oral pain medications by tomorrow. This will be epidural day seven, and the patient is clinically seeming to be moving towards not requiring an epidural for ongoing pain management, assuming she can tolerate oral pain medications. She is clinically doing well from a pain control standpoint with the epidural, and there is no reason to discontinue it prior to good transition onto oral pain medications. We will discuss this with her Primary team but maybe look at potential removal on July 22, 2016, if the patient continues her current course.
[2016-07-21] MEDS ORDERED: Sodium Chloride 44 mL Nasal Drops NASAL PRN (16:10)
--- NOTE | 2016-07-21 17:18 | NUR ---
Continued mild nausea, effective treatment with Zofran IV. Remains in atrial fib on tele, BP stable. No c/o SOB, on 2L NC 02. Abd soft, non-distended, midline incision approximated, CDI, G-tube draining bile-colored fluid, patent. Epidural effective for pain management, Dilaudid given X 1 dose for breakthru pain this afternoon with good effect. Up with PT today, feels "wiped out", sleeping this afternoon. Attentive, supportive family at bedside.
[2016-07-21] MEDS: fentaNYL 2 mCg/mL-Bupiv 0.125% 100 ML in IV Premix 1 EACH EPIDURAL SCH (20:17)
[2016-07-21] MEDS: Total Parenteral Nutrition 1 BAG IV SCH (20:46)
[2016-07-22] VITALS (7 sets, daily range): BP systolic 123–153; BP diastolic 66–87; PULSE 92–107; RESP 16–20; O2SAT 94–99
[2016-07-22] MEDS: Insulin LISPRO 300 Unit/3 mL Inj SUBQ SCH ×5 (00:25→23:04)
--- NOTE | 2016-07-22 06:09 | NUR ---
Epidural/Pain/Nausea/Rest Pt's epidural pump was cleared out this AM. At this point the total amount of fentanyl that the pt received since 07/19/2016 at 1640 was 398.2ml. Pt is still on a continuous rate at 6ml/hr. Pt had no c/o pain or nausea this evening. Pt did request Zofran after taking her HS PO medication as a preventative measure. Pt was able to rest through most of the shift.
[2016-07-22] MEDS: Insulin GLARgine 100 Unit/mL Syringe SUBQ SCH ×2 (08:27→21:34)
[2016-07-22] MEDS: Levothyroxine 100 mCg/5 mL Inj IV SCH (08:27)
[2016-07-22] MEDS: Ondansetron 2 mg/mL 2 mL Inj IVPUSH PRN ×3 (08:35→22:21)
--- NOTE | 2016-07-22 09:25 | PROG NOTE ---
[address] [address] PROGRESS NOTE PATIENT: JANEL DEUTSCH : 1935 MR#: [id number] ADMIT: 06/16/2016 JOB ID: [id number] DATE: 07/22/2016 SUBJECTIVE: Patient had an uneventful night. This morning, she feels a little bit more fatigued. However, she states pain remains under good control. Currently rates her pain at a 2/10 at rest, and the pain increases only slightly with movement. Patient is taking minimal p.o. intake and does experienced nausea. She has not required any additional p.r.n. pain medications on top of her epidural overnight. OBJECTIVE: Patient's vital signs are within normal limits. She has an epidural catheter infusing 0.125% bupivacaine plus fentanyl 2 mcg/mL at a rate of 6 mL an hour. She also has p.r.n. IV Dilaudid 0.5 mg written for. The last dose was given yesterday at 1500. Patient's motor strength in the lower extremities is intact. IMPRESSION AND PLAN: This is a 81-year-old female who is postoperative day seven from her surgery. I discussed this patient's case with her general surgeon, Dr. Valenzuela. We both felt that even though the patient is making a very slow transition to by mouth intake, given that she is postoperative day seven with an epidural catheter in place, the increasing risk of having the catheter in probably outweigh any benefit that she is receiving from the catheter at this point. It was agreed that we would discontinue the epidural catheter given that the patient's pain management will likely be well controlled with intravenous pain medications. I discussed this plan with the patient and her . They both were in understanding and agreement with the plan.
--- NOTE | 2016-07-22 09:38 | PCM.PNSURG ---
Subjective Date of Service: Jul 22, 2016 Visit Information: Recurrent Bowel Obstruction from Metastatic Colon Cancer Laparotomy, Lysis of Adhesions, Side to side small bowel bypass, Gastrostomy Post-Op Day # 7 Subjective: Passing flatus Objective Vital Sign- Last 8 Hours Date Time Temp Pulse Resp B/P Pulse Ox O2 Delivery O2 Flow Rate FiO2 07/22/16 05:44 16 07/22/16 05:03 36.8 92 18 132/66 99 Nasal Cannula 2.00 Intake and Output- Last 8 Hour 07/22/16 Cumulative From/Thru 07:00 06/16/16 07:14 - 07/22/16 06:55 Intake Total 889 ml 81687 ml Output Total 1450 ml 56801 ml Balance -561 ml 64812 ml Intake Oral 50 ml 8688 ml IV Total 829 ml 78722 ml Tube Feeding 150 ml TPN/PPN 99693 ml Tube Irrigant 10 ml 70 ml Output Urine Total 900 ml 53924 ml Urine/Stool Mix 2250 ml Gastric Drainage Total 550 ml 84772 ml Emesis 2505 ml Drainage Total 1325 ml Estimated Blood Loss 20 ml # Voids 16 # Bowel Movements 20 Abdomen: Soft SURGICAL WOUND : Wound Location/Description Incision C/D/I Result Diagram: 07/19/16 0405 07/20/16 0045 Assessment & Plan Impression Doing well. Started having bowel function Problems: Plan Ambulate, Incentive spirometry Plan DC Epidural - D/W Anesthesia DC Barron G-tube clamped - only vent PRN nausea or bloating Full liquid diet, Impact Avoid PO opioids until without nausea/bloating for [address] Fairbanks planning to start Chemotherapy 2 weeks postop Can work on discharge planning to SNF/Home Health Will Remove Louie 2 weeks postop Marcos Valenzuela MD Jul 22, 2016 09:38
[2016-07-22] MEDS: HYDROmorphone 0.5 mg/0.5 mL iSecure Syringe IVPUSH PRN ×4 (10:23→22:21)
--- NOTE | 2016-07-22 12:21 | NUR ---
Anderson Dotson Dcd at 1055 w/o problems.
--- NOTE | 2016-07-22 12:21 | NUR ---
Epidural cath dcd at 1050 with cath tip intact. No problems noted.
--- NOTE | 2016-07-22 13:15 | PCM.PNMED ---
Subjective Date of Service Jul 22, 2016 Subjective No bowel movement abdomen starting to hurt, very tired just walked with PT. Negative chest pain or dyspnea or nausea she figures a lot of her pain is related to the fact that her epidural was just discontinued this morning. Exam Vital Signs Vital Sign - Last Date Time Temp Pulse Resp B/P Pulse Ox O2 Delivery O2 Flow Rate FiO2 07/22/16 08:00 Supplement Oxygen 07/22/16 08:00 103 07/22/16 08:00 36.5 20 123/75 94 2.00 Intake and Output 07/21/16 07/21/16 07/22/16 Cumulative From/Thru 15:00 23:00 07:00 06/16/16 07:14 - 07/22/16 06:55 Intake Total 1023 ml 889 ml 66776 ml Output Total 800 ml 1450 ml 19294 ml Balance 223 ml -561 ml 23385 ml Intake Oral 270 ml 50 ml 8688 ml IV Total 753 ml 829 ml 42359 ml Tube Feeding 150 ml TPN/PPN 76714 ml Tube Irrigant 10 ml 70 ml Output Urine Total 800 ml 900 ml 83775 ml Urine/Stool Mix 2250 ml Gastric Drainage Total 550 ml 45308 ml Emesis 2505 ml Drainage Total 1325 ml Estimated Blood Loss 20 ml # Voids 16 # Bowel Movements 0 20 Exam Gen.-Finish else cachectic white female sleeping in bed no apparent distress. Easily aroused and pleasant Eyes- open conjunctiva clear, pupils equal nonicteric Mouth- oral mucosa moist, no exudate ENT- ears normal, nose normal Neck- supple/trach midline CVS- RRR no murmur or gallop, no edema Lungs CTA GI-flat, no bowel sounds, midline incision C/D/I, tender Musc- moving 4 no obvious deformity Neuro- cranial nerves II through XII intact to gross examination, nonfocal Skin- warm and dry, no rashes/lesions/wounds noted Psych- pleasant and appropriate, Lab and Diagnostics Result Diagram: 07/19/16 0405 07/20/16 0045 Microbiology X-Rays, CTs and MRIs CT ABDOMEN AND PELVIS WITHOUT CONTRAST 1. Persistent small bowel obstruction. 2. Remote granulomatous disease involving liver and spleen. 06/29/16 Assessment & Plan 80 year old female s/p lysis of adhesions 07/15 hx stg IV colon cancer w/ intra- abdominal metastases, atrial fibrillation, diabetes, HTN, and hypothyroidism with abdominal pain, nausea, vomiting. Admitted for recurrent small bowel obstruction, complicated by C. difficile colitis. She completed a course of IV metronidazole treatment with resolution of the diarrhea. s/p laparotomy for adhesion lysis- 07/15 bowel obstruction,resolving postoperative ileus. clear liquids 07/20. epidural out 07/22. wound c/d/i 07/22. having some nausea and a fair amount of output from her G-tube which is set to gravity. Her abdomen appears to be somewhat tender but not rigid. We will continue to follow her clinically for postoperative ileus. No compelling evidence of worsening abdominal status. Afib, rvr resolved good rate control this point. to convert her to oral meds on ASA daily no warfarin anticoagulation C. difficile colitis, treated, and resolved. 06/18/16. No evidence of recurrence Hypothyroidism, chronic, on IV Synthroid Stage IV recurrent colon cancer with intra-abdominal metastases- palliative care following. CODE STATUS changed from full to limited resuscitation Diabetes type 2, adequate control on current given CA prognosis. HTN- controlled lisinopril 20 mixed daily, Coreg 9.75 mix twice a day, amlodipine 10 mixed Severe protein caloric malnutrition-patient on TPN at present and clear liquid diet advancing as tolerated. 07/22 Medically complex patient for first time 07/22 high risk for complications VTE Mechanical Devices: Intermittant Pneumatic CD Time spent Greater than 40 minutes Alexis Pena MD Jul 22, 2016 13:15 most of the hospital course with them and the way that the I am going recovery may go. VTE Mechanical Devices: Intermittant Pneumatic CD Alexis Pena MD Jul 22, 2016 13:15
--- NOTE | 2016-07-22 14:40 | NUR ---
NUTRITION FOLLOW-UP ASSESS: 81 YO female admitted with partial small bowel obstruction, complicated by C. difficile colitis. TPN initiated 06/25 and pt continues on TPN. She is status post a laparotomy with adhesion lysis, a bypass with end anastomosis and gastrostomy tube for compression. Her diet has been advanced to FL but pt has been experiencing nausea and PO intake has been minimal. Pt is having some bowel tones and is passing flatus. PMHx: Stage IV colon cancer with intra-abdominal metastasis, atrial fibrillation, cardiomyopathy, HTN, hypothyroidism, osteoporosis, hyperparathyroidism, T2DM, recurrent SBO. DIET: FL, PO Sips NUTRITION SUPPORT: 325 g dextrose, 100 g AA daily (1505 kcal/d, 100 g/d protein) with cyclic lipids MWF of 55g (550 fat kcal) to provide 2055kcal and 100g pro (100% estimated needs) LABS: Reviewed. [employer] .54, Glu 204, ALT 40, Alk phos 213, alb 2.0 (07/20) MEDICATIONS: Reviewed. Insulin, synthroid, zofran. GI symptoms / stool: Gastric drainage of 550 ml (07/22) ANTHROPOMETRICS: Current Wt: 74.5 kg BMI: 27.3 kg/m2. Admit weight: 64.7 kg Reported 9.5% wt loss x1 month (prior to admit) RE-ESTIMATED NEEDS (CANCER, MALNUTRITION): Calories: 1875--2625kcal (25-35 kcal/kg BW) Protein: 90-110 g protein (1.2-1.5 g/kg BW) Fluids: 1875-2250ml/day (25-30ml/kg) NUTRITION DIAGNOSIS: 1) Severe protein calorie malnutrition related to metastatic cancer with multiple bowel obstructions, altered GI function, as evidenced by 9.5% weight loss x 1 month - IMPROVED. 2) Inadequate oral intake related to altered GI function as evidence by need for NPO status, GI surgery, requirement for TPN, and pt with minimal PO intake x 31 days - PERSISTS. Pt taking sips of FL diet. INTERVENTION: 1) Recommend continue with current TPN order and cycle lipids M,W,F. Pharmacy aware 2) Will send Impact on all trays per surgery. 3) Continue sending Ensure CL on L tray. MONITOR/EVALUATE: GI status, TPN, lipids cycle, labs, diet advance / tolerance, nutrition status, POC. Follow per high nutrition risk guidelines. Addendum: 07/22/16 at [address] Surgery requesting Impact Advanced Recovery but cannot be sent d/t pt's shellfish allergy. Will send David which contains glutamine and ariginine to promote healing. Pt likes Ensure Clear so that will continue being sent. PO intake remains minimal and pt much more tired today compared to yesterday. Above student documentation reviewed. Mainor Medrano, MS, RDN, CD
--- NOTE | 2016-07-22 15:08 | PCM.PHAPRO ---
Progress SBO TPN #27 Assessment and TPN mix essentially unchanged. PARENTERAL NUTRITION ORDERS 22-Jul-16 Standard Hang Time: 2100 Substrates Total kcal: 1505 AMINO ACIDS 100 g DEXTROSE 325 g Total Volume (mL): 1500 LIPIDS g Sterile Water for Injection QS mL To Infuse Over (hrs): 24 Total Volume 1500 mL At at a rate of (mL/hr): 63 Additives Sodium Chloride 40 mEq "typical" daily requirements Sodium Acetate 20 mEq Sodium 50-120mEq Potassium Chloride 30 mEq Potassium 60-120mEq Potassium Phosphate 60 mEq Phosphate 20-40mEq Calcium Gluconate 0 mEq Magnesium 8-32mEq Magnesium Sulfate 16 mEq Calcium 9-22mEq Acetate* 80-120mEq Chloride* 80-120mEq Regular Insulin 50 units *Depending on acid-base status Famotidine 40 mg Multivitamins 1 std dose Insulin Regimen Trace Elements 1 std dose none Thiamine 0 mg Regular Low Intensity Subcut Folic Acid 0 mg Regular Medium Intensity Subcut Ascorbic Acid 0 mg Regular High Intensity Subcut Regular Insulin Infusion Other: Special Instructions: To be infused via central line only. Capo Brown S Pharm D Jul 22, 2016 15:08
--- NOTE | 2016-07-22 16:39 | NUR ---
Social Work: Continued Discharge Planning D: Pt discussed in morning rounds. Pt is not medically stable for discharge at this time. Pt remains with G tube for gravity tube feeds. Pt is being considered for admission for [facility]. BIOSECURITY OFFICER left message for [facility] requesting update to acceptance status. Pt continues to work with PT with continued recommendation for Skilled Rehab. pt ambulated 40 feet with PT today. PPW and PASSR Complete by BIOSECURITY OFFICER and placed on chart. A: Pt who will require SNF for continued strengthening and loss of functioning P: Anticipate pt to discharge to skilled rehab; [facility] is reviewing. BIOSECURITY OFFICER to continue to follow. MELONIE Engel
--- NOTE | 2016-07-22 18:43 | NUR ---
Pain/Activity Gave IV Dilaudid x3 doses this shift for abdominal pain/fullness. Patient does not like her gastric tube clamped. MD clamped it this morning and soon afterward, patient had increased abdominal "fullness". A new drainage bag was placed-- MD aware. Patient has been encouraged to get OOB today. She sat in chair this morning, got up with PT and has been up to BSC several times since Barron cath was dcd.
[2016-07-22] MEDS: Total Parenteral Nutrition 1 BAG IV SCH (21:34)
[2016-07-23] VITALS (10 sets, daily range): BP systolic 132–165; BP diastolic 72–102; PULSE 83–115; RESP 16–18; O2SAT 94–99
--- NOTE | 2016-07-23 00:10 | NUR ---
Transfer into 1008 Pt arrived via wheelchair with all personal belongings, transferred self to bed with SBA. Gastric tube to gravity, TPN infusing via port, remote tele monitoring. Reports pain adequately controlled with IV Dilaudid. Placed on enteric precautions for c-diff infection this admission. Hourly rounding ongoing.
[2016-07-23] MEDS: HYDROmorphone 0.5 mg/0.5 mL iSecure Syringe IVPUSH PRN ×3 (03:10→23:40)
[2016-07-23] MEDS: Ondansetron 2 mg/mL 2 mL Inj IVPUSH PRN ×3 (03:14→08:56)
[2016-07-23] MEDS: hydrALAZINE 20 mg/mL Inj IV PRN (05:09)
[2016-07-23] MEDS: Insulin LISPRO 300 Unit/3 mL Inj SUBQ SCH ×4 (06:27→23:00)
--- NOTE | 2016-07-23 07:10 | NUR ---
Called Contact in EMR to notify of room change. Pt's contact listed in the EMR was called at [phone] and notified of the pt's room change from Room 2020 to Room 1008.
--- NOTE | 2016-07-23 07:46 | NUR ---
Nausea Intermittent nausea through night, medicated with Zofran. Pain adequately controlled with Dilaudid IV. Peripheral IV flushes very stiffly, IV therapy requested to assess and replace if needed. Up to BSC with one assist, pt is very tired and feeling weak this am; has not rested well since transfer.
[2016-07-23] MEDS: Insulin GLARgine 100 Unit/mL Syringe SUBQ SCH ×2 (09:36→20:50)
[2016-07-23] MEDS: Levothyroxine 100 mCg/5 mL Inj IV SCH (09:36)
--- NOTE | 2016-07-23 10:41 | PCM.PHAPRO ---
Progress Date of Service: Jul 23, 2016 SBO TPN DAY #28 TPN essentially unchanged from yesterday but with the addition of 55 g of lipids being cycled on Mon,Wed,Tue per nutrition recommendation. PARENTERAL NUTRITION ORDERS 23-Jul-16 Standard Hang Time: 2100 Substrates Total kcal: 5 AMINO ACIDS 100 g DEXTROSE 325 g Total Volume (mL): 1500 LIPIDS 55 g Sterile Water for Injection QS mL To Infuse Over (hrs): 24 Total Volume 1500 mL At at a rate of (mL/hr): 63 Additives Sodium Chloride 40 mEq "typical" daily requirements Sodium Acetate 20 mEq Sodium 50-120mEq Potassium Chloride 30 mEq Potassium 60-120mEq Potassium Phosphate 60 mEq Phosphate 20-40mEq Calcium Gluconate 0 mEq Magnesium 8-32mEq Magnesium Sulfate 16 mEq Calcium 9-22mEq Acetate* 80-120mEq Chloride* 80-120mEq Regular Insulin 50 units *Depending on acid-base status Famotidine 40 mg Multivitamins 1 std dose Insulin Regimen Trace Elements 1 std dose none Thiamine 0 mg Regular Low Intensity Subcut Folic Acid 0 mg Regular Medium Intensity Subcut Ascorbic Acid 0 mg Regular High Intensity Subcut Regular Insulin Infusion Other: Pharmacy will continue to monitor and be actively involved in the care of this patient. Thanks! Rhina Jama PharmD Jul 23, 2016 10:41
[2016-07-23] MEDS ORDERED: 0.9% Sodium Chloride 250 ML ONE (12:46)
[2016-07-23] MEDS: Calcium GLUCO 10% (Gm) Inj 1 GM in Dextrose 5% 100 ML IV SCH (13:02)
--- NOTE | 2016-07-23 14:16 | PCM.PNSURG ---
Subjective Date of Service: Jul 23, 2016 Date of Service: Jul 23, 2016 Visit Information: Reason for Visit Partial Small Bowel Obstruction Surgery/Surgery Date Laparotomy, Lysis of Adhesions, Side to side small bowel bypass, Gastrostomy 07-15-16 Post-Op Day # 8 Date of Admission: Jun 16, 2016 at 10:07 Subjective: Patient seen sitting up in bed. Complains of abdominal pain since epidural discontinued. It is relieved by IV Dilaudid. Also complains of nausea. No emesis today. The nausea is relieved with IV ondansetron. Does not believe she has passed any flatus today, but did yesterday. Gastrointestinal: Other (on full liquid diet, but not tolerating much oral intake. On TPN currently.) Pain Management: IV Push (Dilaudid) Postop Activity: Ambulating in Room Only Objective Vital Sign- Last 8 Hours Date Time Temp Pulse Resp B/P Pulse Ox O2 Delivery O2 Flow Rate FiO2 07/23/16 10:03 36.4 83 18 144/75 95 Room Air 07/23/16 09:10 Supplement Oxygen 07/23/16 09:08 36.3 105 132/82 96 Room Air 07/23/16 08:00 108 Intake and Output- Last 8 Hour 07/23/16 Cumulative From/Thru 06:59 06/16/16 07:14 - 07/23/16 06:00 Intake Total 712 ml 19519 ml Output Total 400 ml 34290 ml Balance 312 ml 62612 ml Intake Oral 0 ml 8778 ml IV Total 14048 ml Tube Feeding 150 ml TPN/PPN 712 ml 89717 ml Tube Irrigant 70 ml Output Urine Total 250 ml 90787 ml Urine/Stool Mix 2250 ml Gastric Drainage Total 74313 ml Emesis 2505 ml Drainage Total 150 ml 1475 ml Estimated Blood Loss 20 ml # Voids 16 # Bowel Movements 0 20 General: Alert, Oriented X3, Cooperative, Other (appears fatigued) Abdomen: Soft, Appropriately tender, Non-distended SURGICAL WOUND : Wound General Appearence: Hunters, Intact, Well Approximated, Incision Healing, No Erythema, No Discharge Wound Drainage Type: Other (G-tube intact without signs of infection. Output 550 mL yesterday.) Extremities: Distal Pulses Palpable, Thigh&Calf Soft/Nontender Neuro: Normal Speech Catheters: None Result Diagram: 07/19/16 0405 07/20/16 0045 Assessment & Plan Impression Primary diagnosis: Postop day #8 status post Laparotomy, Lysis of Adhesions, Side to side small bowel bypass, Gastrostomy 07-15-16 Stage IV colon cancer with intra-abdominal metastases with recurrent small bowel obstruction Other diagnoses: recent C. difficile colitis Atrial fibrillation Diabetes, type II Hypertension Hypothyroidism Status post extended right hemicolectomy 11/15/2014 Recent urinary tract infection Problems: Plan Ambulate, Incentive spirometry Vent G-tube PRN nausea or bloating Full liquid diet, Impact Avoid PO opioids until without nausea/bloating for [address] Fairbanks planning to start Chemotherapy 2 weeks postop Can work on discharge planning to SNF/Home Health Will Remove Hunters 2 weeks postop. VTE Prophylaxis: SCDs Resuscitation Status: Limited Interventions Nicci Andrade PA-C Jul 23, 2016 14:16
--- NOTE | 2016-07-23 15:16 | NUR ---
Nausea/IV Pt denying nausea at start of shift and then with sudden onset, had 150cc bile emesis. 4mg IVP Zofran given and pt stating effective, refused breakfast. For lunch, denied nausea and had bite of jello. Poor appetite - TPN continues. Per NOC RN report, call to IV therapy and left message to check pt PIV. No IV therapy. IV flushing and Calcium Glu. IV hung (late d/t late arrival from pharmacy), IV later beeping, leaking and appearing infiltrated. Call to IV therapy. Stated they would come asses. IV dc'd and await IV therapy for new start as pt stating she is hard IV start. Oncoming RN aware. Care continues.
--- NOTE | 2016-07-23 15:45 | NUR ---
Spoke with Genesis Golden in admissions at [facility] [phone], and they can not accept patient while she is on TPN. Updated THERAPEUTIC RADIOLOGIST
--- NOTE | 2016-07-23 17:08 | NUR ---
IV/ Ca Periph. IV restarted and IV Ca administered at a reduced rate due to pt reporting "weird pressure" at site, no s/s infiltration
--- NOTE | 2016-07-23 17:36 | PCM.PNMED ---
Subjective Date of Service Jul 23, 2016 Subjective denies any new issues/complaints Exam Vital Signs Vital Sign - Last Date Time Temp Pulse Resp B/P Pulse Ox O2 Delivery O2 Flow Rate FiO2 07/23/16 15:25 36.6 96 16 151/90 94 Room Air 07/23/16 05:31 2.00 Intake and Output 07/22/16 07/22/16 07/23/16 Cumulative From/Thru 15:00 23:00 07:00 06/16/16 07:14 - 07/23/16 06:00 Intake Total 887 ml 712 ml 59915 ml Output Total 550 ml 400 ml 44575 ml Balance 337 ml 312 ml 77022 ml Intake Oral 90 ml 0 ml 8778 ml IV Total 797 ml 53544 ml Tube Feeding 150 ml TPN/PPN 712 ml 50383 ml Tube Irrigant 70 ml Output Urine Total 550 ml 250 ml 95541 ml Urine/Stool Mix 2250 ml Gastric Drainage Total 30955 ml Emesis 2505 ml Drainage Total 150 ml 1475 ml Estimated Blood Loss 20 ml # Voids 16 # Bowel Movements 0 0 20 General: Alert, Oriented X3, Cooperative, No Acute Distress Eyes: Scleral Anicteric Neck: Supple Chest & Lungs: Chest Wall Normal, Clear to auscultation & percussion Cardiovascular: Regular Rate/Rhythm Abdomen: Non-tender, Non-distended, Normoactive bowel tones, Soft Extremities: No cyanosis/clubbing/edma bilat Neurological: Grossly Neurologically Intact, Normal Speech IVs and Medications Medications Reviewed: Medications were reviewed in detail Lab and Diagnostics Result Diagram: 07/19/16 0405 07/20/16 0045 Microbiology X-Rays, CTs and MRIs CT ABDOMEN AND PELVIS WITHOUT CONTRAST 1. Persistent small bowel obstruction. 2. Remote granulomatous disease involving liver and spleen. 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 Admitted for recurrent small bowel obstruction. She started experiencing diarrhea on 06/17/2016 which is not uncommon for her after resolution of the small bowel obstruction, however PCR was done and positive for C. difficile colitis. #Recurrent small bowel obstruction, acute. Present on admission. -The patient is status post extended right hemicolectomy on November 15, 2014. - Hx of Stage IV colon cancer with intraabdominal metastases. - Removed NG tube on 06/28/16 and started clears. Patient had episode of vomiting and NG tube reinserted the same night. - appreciate surgery consult. will f/u w/ recs - s/p laparotomy for adhesion lysis- 07/15/16 bowel obstruction,resolving postoperative ileus. - clear liquids 07/20. - epidural out 07/22. - G-tube set to gravity. # Rapid Afib,acute,not present on admission, resolved - due to missed po BB - c/w current Coreg - Warfarin has been on hold - started Lovenox 06/24 # Severe protein caloric malnutrition - patient on TPN at present and clear liquid diet advancing as tolerated. 07/22 # C. difficile colitis, may contribute to current sx, although labs were unremarkable - suspect possible etiology behind her Hemoccult positive stool. - Was on oral vancomycin # 3 days then stopped as pt couldn't tolerate po, switched to Flagyl 500 q8h iv on 04/21. - Completed 10 day Flagyl on 06/29/16 - treated, and resolved. No evidence of recurrence # Hypothyroidism, chronic, ongoing - High TSH and low free T4. - Resume home Synthroid 125 MCG by mouth daily # Recent Urinary tract infection, Present on admission. - Treated with Keflex, off abx #Stage IV colon cancer with intra-abdominal metastases - palliative care following. CODE STATUS changed from full to limited resuscitation # Diabetes type 2, - c/w current coverage - c/w ISS # Goals of care: - pt's indicates pt may be interested in end of life care but patient says not ready to discuss today chronic, stable, resolved: # Acute kidney injury. Present on admission, mild, Now resolved # Chronic hypertension, controlled - c/w current meds #Hyperlipidemia, chronic - atorvastatin oh hold # occult GI bleed in the setting of c.diff, hx of colon cancer, - Hb stable # Cardiomyopathy. #Osteoporosis #Hyperparathyroidism. Dispo: 2-3 days pending GI issues. VTE Prophylaxis: SCDs VTE Mechanical Devices: Intermittant Pneumatic CD Resuscitation Status: Limited Interventions Time spent 35 min Cortez Roca Jul 23, 2016 17:36
--- NOTE | 2016-07-23 21:56 | NUR ---
Pain/Plan of Care This RN had lengthy discussion with pt and her grandson regarding pain control. Pt hesitant to take "too many pills" and reports that oxycodone doesn't work for her pain, "I'll just wait until it gets bad and then you can give me the IV Dilaudid" Discussed pain management with pt, using the PO oxy and or APAP and having the IV Dilaudid for break thru, pt continues to resist, but after much discussion is amenable to trying PO Dilaudid or Fentanyl patch. NOC MD will discuss pain management with Day hospitalist. Pt reports feeling scared and that "getting this surgery was a big mistake, I shouldn't have done it". This RN discussed Plan of Care and Hospice with pt, she reports she is "really considering that now"
[2016-07-23] MEDS: Total Parenteral Nutrition 1 BAG IV SCH (22:13)
[2016-07-24] VITALS (7 sets, daily range): BP systolic 134–149; BP diastolic 64–87; PULSE 98–108; RESP 16–18; O2SAT 95–96
[2016-07-24] MEDS: Insulin LISPRO 300 Unit/3 mL Inj SUBQ SCH ×4 (05:00→23:00)
--- NOTE | 2016-07-24 05:09 | NUR ---
Pain medication Patient voiced concern of taking pain medications too soon, This nurse educated the patient about the importance of keeping the pain "At bay", patient was agreeable and took pain medication before the pain was unmanageable.
[2016-07-24 06:28] LABS: BASOPHILS % (AUTO) 0.3 % (0-3); EOSINOPHILS % (AUTO) 1.4 % (0-5); MONOCYTES % (AUTO) 8.8 % (4-12); Mean Corpuscular Hemoglobin 27.7 pg (27.0-35.0); Mean Corpuscular Volume 88.4 fL (81-100); NEUTROPHILS % (AUTO) 79.3 % (40-74); Platelet Count 299 bil/L (150-400)
[2016-07-24 06:47] LABS: Magnesium 1.9 mg/dL (1.6-2.6)
[2016-07-24] MEDS: Insulin GLARgine 100 Unit/mL Syringe SUBQ SCH ×2 (07:56→22:30)
[2016-07-24] MEDS: Levothyroxine 100 mCg/5 mL Inj IV SCH (07:57)
--- NOTE | 2016-07-24 08:37 | PCM.PNSURG ---
Subjective Visit Information: Reason for Visit Partial Small Bowel Obstruction Surgery/Surgery Date Post-Op Day # Date of Admission: Jun 16, 2016 at 10:07 Hospital Day # Subjective: in room, pt is more alert and awake today, G-tube is open to gravity, no vomiting overnight Objective Objective Awake, alert Abd: nondistended, incision clean with cade, G-tube to gravity drainage Vital Sign- Last 8 Hours Date Time Temp Pulse Resp B/P Pulse Ox O2 Delivery O2 Flow Rate FiO2 07/24/16 08:14 36.8 100 18 138/87 96 Room Air 07/24/16 05:02 36.8 99 16 137/72 95 Room Air 07/24/16 00:55 Supplement Oxygen Intake and Output- Last 8 Hour 07/24/16 Cumulative From/Thru 07:00 06/16/16 07:14 - 07/24/16 05:21 Intake Total 1000 ml 81147 ml Output Total 500 ml 40968 ml Balance 500 ml 59064 ml Intake Oral 100 ml 9078 ml IV Total 21 ml 83612 ml Tube Feeding 150 ml TPN/PPN 879 ml 52083 ml Tube Irrigant 70 ml Output Urine Total 350 ml 79218 ml Urine/Stool Mix 2250 ml Gastric Drainage Total 17775 ml Emesis 2655 ml Drainage Total 150 ml 1625 ml Estimated Blood Loss 20 ml # Voids 16 # Bowel Movements 0 20 Result Diagram: 07/24/1661207/24/1613 Assessment & Plan Impression s/p ex lap with SB bypass, HAWA, and G-tube Metastatic CA Problems: Plan Continue TPN Clamp G-tube, may open to gravity for nausea as needed Physical therapy Lovenox VTE Prophylaxis: Sub-Q Enoxaparin, SCDs Resuscitation Status: Limited Interventions Domo Preston MD Jul 24, 2016 08:37
--- NOTE | 2016-07-24 09:34 | PCM.PHAPRO ---
Progress SBO PARENTERAL NUTRITION ORDERS 24-Jul-16 Standard Hang Time: 2100 Substrates Total kcal: #VALUE! AMINO ACIDS 100 g DEXTROSE 325 g Total Volume (mL): 1500 LIPIDS g Sterile Water for Injection QS mL To Infuse Over (hrs): 24 Total Volume 1500 mL At at a rate of (mL/hr): 63 Additives Sodium Chloride 80 mEq "typical" daily requirements Sodium Acetate 20 mEq Sodium 50-120mEq Potassium Chloride 30 mEq Potassium 60-120mEq Potassium Phosphate 60 mEq Phosphate 20-40mEq Calcium Gluconate 0 mEq Magnesium 8-32mEq Magnesium Sulfate 16 mEq Calcium 9-22mEq Acetate* 80-120mEq Chloride* 80-120mEq Regular Insulin 50 units *Depending on acid-base status Famotidine 40 mg Multivitamins 1 std dose Insulin Regimen Trace Elements 1 std dose none Thiamine 0 mg Regular Low Intensity Subcut Folic Acid 0 mg Regular Medium Intensity Subcut Ascorbic Acid 0 mg Regular High Intensity Subcut Regular Insulin Infusion Other: Special Instructions: To be infused via central line only. For delay or inturruption of TPN contact the pharmacist for alternative replacement solution. Signature Date: JANEL DEUTSCH [address] [facility] [place] Jul 24, 2016 09:34
[2016-07-24] MEDS: Ondansetron 2 mg/mL 2 mL Inj IVPUSH PRN ×3 (09:36→23:52)
[2016-07-24] MEDS: Calcium GLUCO 10% (Gm) Inj 1 GM in Dextrose 5% 100 ML IV SCH (10:26)
[2016-07-24] MEDS: HYDROmorphone 0.5 mg/0.5 mL iSecure Syringe IVPUSH PRN ×2 (12:09→17:11)
--- NOTE | 2016-07-24 14:43 | NUR ---
NUTRITION FOLLOW-UP: ASSESS: 81 YO female admitted with partial small bowel obstruction, complicated by C. difficile colitis. TPN initiated 06/25 and pt continues on TPN, as she continues to refuse trays. She is status post laparotomy with adhesion lysis, a bypass with end anastomosis and gastrostomy tube for gravity drainage. Her diet has been advanced to full liquids, but pt has been experiencing nausea, with subsequent minimal PO intake. Pt is having some bowel tones and is passing flatus. PMHx: Stage IV colon cancer with intra-abdominal metastasis, atrial fibrillation, cardiomyopathy, HTN, hypothyroidism, osteoporosis, hyperparathyroidism, T2DM, recurrent SBO. DIET: Full liquids + Ensure Clear + David. PO intake refusal to sips only trays. NUTRITION SUPPORT: 325 g dextrose, 100 g AA daily (1505 kcal/d, 100 g/d protein) with cyclic lipids MWF of 55g (550 fat kcal) to provide 2055kcal and 100g pro (100% estimated needs) LABS: Reviewed. Na 127, Chloride 96, BUN 28, Glu 164, Alb 1.8. MEDICATIONS: Reviewed. Insulin, synthroid, zofran. GI symptoms / stool: Gastric drainage of 150 ml (07/23) ANTHROPOMETRICS: Current Wt: 74.9 kg BMI: 27.0 kg/m2. Admit weight: 64.7 kg Reported 9.5% wt loss x1 month (prior to admit) RE-ESTIMATED NEEDS (CANCER, MALNUTRITION): Calories: 1875--2625kcal (25-35 kcal/kg BW) Protein: 90-110 g protein (1.2-1.5 g/kg BW) Fluids: 1875-2250ml/day (25-30ml/kg) NUTRITION DIAGNOSIS: 1) Severe protein calorie malnutrition related to metastatic cancer with multiple bowel obstructions, altered GI function, as evidenced by 9.5% weight loss x 1 month - IMPROVED. 2) Inadequate oral intake related to altered GI function as evidence by need for NPO status, GI surgery, requirement for TPN, and pt with minimal PO intake x 38 days - PERSISTS. Pt taking sips of FL diet. INTERVENTION: 1) Recommend continue with current TPN order and cycle lipids M,W,F. Pharmacy aware 2) Will continue to send Ensure Clear and David on trays. MONITOR/EVALUATE: GI status, TPN, lipids cycle, labs, diet advance / tolerance, nutrition status, POC. Follow per high nutrition risk guidelines.
--- NOTE | 2016-07-24 15:30 | NUR ---
Nausea/Pain Pt with n/v x1 this morning, nausea intermittently throughout the day. Zofran and cool compress to forehead effective. Surgery requested I clamp the G-tube, unable to today 2/2 n/v. Yellow output from G-tube. Emesis this morning appeared to be bile. Pt accepted one dose 0.5mg IV dilaudid for pain today, declined other offers for pain medication.
[2016-07-24] MEDS ORDERED: 0.9% Sodium Chloride 1,000 ML IV ONE (15:35)
--- NOTE | 2016-07-24 15:35 | PCM.PNMED ---
Subjective Date of Service Jul 24, 2016 Subjective complains of nausea and generalized malaise Exam Vital Signs Vital Sign - Last Date Time Temp Pulse Resp B/P Pulse Ox O2 Delivery O2 Flow Rate FiO2 07/24/16 14:37 36.8 104 138/82 96 Room Air 07/24/16 08:14 18 07/23/16 05:31 2.00 Intake and Output 07/23/16 07/23/16 07/24/16 Cumulative From/Thru 15:00 23:00 07:00 06/16/16 07:14 - 07/24/16 05:21 Intake Total 561 ml 894 ml 1000 ml 29864 ml Output Total 600 ml 500 ml 21455 ml Balance 561 ml 294 ml 500 ml 12449 ml Intake Oral 200 ml 100 ml 9078 ml IV Total 34 ml 694 ml 21 ml 95539 ml Tube Feeding 150 ml TPN/PPN 527 ml 879 ml 25985 ml Tube Irrigant 70 ml Output Urine Total 450 ml 350 ml 23583 ml Urine/Stool Mix 2250 ml Gastric Drainage Total 01754 ml Emesis 150 ml 2655 ml Drainage Total 150 ml 1625 ml Estimated Blood Loss 20 ml # Voids 16 # Bowel Movements 0 20 Exam General: Alert, Oriented X3, Cooperative, No Acute Distress Eyes: Scleral Anicteric Neck: Supple Chest & Lungs: Chest Wall Normal, Clear to auscultation bilat Cardiovascular: Regular Rate/Rhythm Abdomen: Non-tender, Non-distended, Normoactive bowel tones, Soft Extremities: No cyanosis/clubbing/edema bilat Neurological: Grossly Neurologically Intact, Normal Speech IVs and Medications Medications Reviewed: Medications were reviewed in detail Lab and Diagnostics Result Diagram: 07/24/1661207/24/1613 Microbiology X-Rays, CTs and MRIs CT ABDOMEN AND PELVIS WITHOUT CONTRAST 1. Persistent small bowel obstruction. 2. Remote granulomatous disease involving liver and spleen. 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 Admitted for recurrent small bowel obstruction. She started experiencing diarrhea on 06/17/2016 which is not uncommon for her after resolution of the small bowel obstruction, however PCR was done and positive for C. difficile colitis. #Recurrent small bowel obstruction, acute. Present on admission. -The patient is status post extended right hemicolectomy on November 15, 2014. - Hx of Stage IV colon cancer with intraabdominal metastases. - Removed NG tube on 06/28/16 and started clears. Patient had episode of vomiting and NG tube reinserted the same night. - appreciate surgery consult. will f/u w/ recs - s/p laparotomy for adhesion lysis- 07/15/16 bowel obstruction,resolving postoperative ileus. - clear liquids 07/20. - epidural out 07/22. - G-tube set to gravity. # Acute hyponatremia. likely pre-renal - IVF and f/u # Rapid Afib,acute,not present on admission, resolved - due to missed po BB - c/w current Coreg - Warfarin has been on hold - started Lovenox 06/24 # Severe protein caloric malnutrition - patient on TPN at present and clear liquid diet advancing as tolerated. 07/22 # C. difficile colitis, may contribute to current sx, although labs were unremarkable - suspect possible etiology behind her Hemoccult positive stool. - Was on oral vancomycin # 3 days then stopped as pt couldn't tolerate po, switched to Flagyl 500 q8h iv on 04/21. - Completed 10 day Flagyl on 06/29/16 - treated, and resolved. No evidence of recurrence # Hypothyroidism, chronic, ongoing - High TSH and low free T4. - Resume home Synthroid 125 MCG by mouth daily # Recent Urinary tract infection, Present on admission. - Treated with Keflex, off abx #Stage IV colon cancer with intra-abdominal metastases - palliative care following. CODE STATUS changed from full to limited resuscitation # Diabetes type 2, - c/w current coverage - c/w ISS # Goals of care: - pt's indicates pt may be interested in end of life care but patient says not ready to discuss today chronic, stable, resolved: # Acute kidney injury. Present on admission, mild, Now resolved # Chronic hypertension, controlled - c/w current meds #Hyperlipidemia, chronic - atorvastatin oh hold # occult GI bleed in the setting of c.diff, hx of colon cancer, - Hb stable # Cardiomyopathy. #Osteoporosis #Hyperparathyroidism. Dispo: 2-3 days pending GI issues. VTE Prophylaxis: Sub-Q Enoxaparin, SCDs VTE Mechanical Devices: Intermittant Pneumatic CD Resuscitation Status: Limited Interventions Cortez Roca 28, 2017 15:35
[2016-07-24] MEDS: Total Parenteral Nutrition 1 BAG IV SCH (22:32)
[2016-07-25] VITALS (9 sets, daily range): BP systolic 128–153; BP diastolic 72–82; PULSE 59–103; RESP 16–20; O2SAT 95–97
--- NOTE | 2016-07-25 00:20 | NUR ---
nausea patient complains of nausea. medicated with zofran 8mg slow iv push. repositioned. given emotional support. patient calmed , resting quietly. care ongoing.
[2016-07-25] MEDS: Ondansetron 2 mg/mL 2 mL Inj IVPUSH PRN ×3 (04:56→19:41)
[2016-07-25] MEDS: Insulin LISPRO 300 Unit/3 mL Inj SUBQ SCH ×4 (05:00→23:00)
[2016-07-25] MEDS: Levothyroxine 100 mCg/5 mL Inj IV SCH (07:56)
[2016-07-25] MEDS: Insulin GLARgine 100 Unit/mL Syringe SUBQ SCH ×2 (07:57→22:30)
--- NOTE | 2016-07-25 08:38 | PCM.PNSURG ---
Subjective Visit Information: Reason for Visit Partial Small Bowel Obstruction Surgery/Surgery Date Post-Op Day # Date of Admission: Jun 16, 2016 at 10:07 Hospital Day # Subjective: had emesis x1 yesterday, c/o nausea, G-tube got put back to drainage, c/o bloated. More alert today. No BM. Objective Objective Awake and alert, interactive. Abd: G-tube open to drainage Incision with cade Vital Sign- Last 8 Hours Date Time Temp Pulse Resp B/P Pulse Ox O2 Delivery O2 Flow Rate FiO2 07/25/16 07:57 36.9 59 18 142/72 96 Room Air 07/25/16 04:29 36.8 90 20 128/74 97 Room Air Intake and Output- Last 8 Hour 07/25/16 Cumulative From/Thru 07:00 06/16/16 07:14 - 07/25/16 05:52 Intake Total 1313 ml 475871 ml Output Total 950 ml 65776 ml Balance 363 ml 67349 ml Intake Oral 113 ml 9191 ml IV Total 800 ml 85705 ml Tube Feeding 150 ml TPN/PPN 400 ml 93751 ml Tube Irrigant 70 ml Output Urine Total 800 ml 66001 ml Urine/Stool Mix 2250 ml Gastric Drainage Total 13639 ml Emesis 2755 ml Drainage Total 150 ml 1875 ml Estimated Blood Loss 20 ml # Voids 16 # Bowel Movements 20 Result Diagram: 07/24/16 0613 07/25/16 0531 Assessment & Plan Impression s/p ex lap, HAWA, SB bypass, G-tube Metastatic CA H/o C diff Problems: Plan Continue TPN Work with PT Can take po as tolerated, and open G-tube to drainage with nausea or bloating VTE Prophylaxis: Sub-Q Enoxaparin, SCDs Resuscitation Status: Limited Interventions Domo Preston MD Jul 25, 2016 08:38
[2016-07-25] MEDS: Calcium GLUCO 10% (Gm) Inj 1 GM in Dextrose 5% 100 ML IV SCH (09:24)
[2016-07-25 09:46] LABS: Phosphorus 3.2 mg/dL (2.5-4.9)
--- NOTE | 2016-07-25 10:03 | PCM.PHAPRO ---
Progress SBO PARENTERAL NUTRITION ORDERS 25-Jul-16 Standard Hang Time: 2100 Substrates Total kcal: #VALUE! AMINO ACIDS 100 g DEXTROSE 325 g Total Volume (mL): 1500 LIPIDS g Sterile Water for Injection QS mL To Infuse Over (hrs): 24 Total Volume 1500 mL At at a rate of (mL/hr): 63 Additives Sodium Chloride 80 mEq "typical" daily requirements Sodium Acetate 20 mEq Sodium 50-120mEq Potassium Chloride 20 mEq Potassium 60-120mEq Potassium Phosphate 60 mEq Phosphate 20-40mEq Calcium Gluconate 0 mEq Magnesium 8-32mEq Magnesium Sulfate 16 mEq Calcium 9-22mEq Acetate* 80-120mEq Chloride* 80-120mEq Regular Insulin 50 units *Depending on acid-base status Famotidine 40 mg Multivitamins 1 std dose Insulin Regimen Trace Elements 1 std dose none Thiamine 0 mg Regular Low Intensity Subcut Folic Acid 0 mg Regular Medium Intensity Subcut Ascorbic Acid 0 mg Regular High Intensity Subcut Regular Insulin Infusion Other: Special Instructions: To be infused via central line only. For delay or inturruption of TPN contact the pharmacist for alternative replacement solution. [facility] Date[facility] 10[facility]03
--- NOTE | 2016-07-25 14:29 | PCM.PNMED ---
Subjective Date of Service Jul 25, 2016 Subjective continues to have nausea but says overall feels "much better than yesterday" Exam Vital Signs Vital Sign - Last Date Time Temp Pulse Resp B/P Pulse Ox O2 Delivery O2 Flow Rate FiO2 07/25/16 13:05 Nasal Cannula 2.00 07/25/16 09:42 93 07/25/16 07:57 36.9 18 142/72 96 Intake and Output 07/24/16 07/24/16 07/25/16 Cumulative From/Thru 15:00 23:00 07:00 06/16/16 07:14 - 07/25/16 05:52 Intake Total 862 ml 1313 ml 812320 ml Output Total 600 ml 950 ml 41778 ml Balance 262 ml 363 ml 42841 ml Intake Oral 0 ml 113 ml 9191 ml IV Total 68 ml 800 ml 21184 ml Tube Feeding 150 ml TPN/PPN 794 ml 400 ml 20585 ml Tube Irrigant 70 ml Output Urine Total 400 ml 800 ml 62679 ml Urine/Stool Mix 2250 ml Gastric Drainage Total 01144 ml Emesis 100 ml 2755 ml Drainage Total 100 ml 150 ml 1875 ml Estimated Blood Loss 20 ml # Voids 16 # Bowel Movements 20 Exam General: Alert, Oriented X3, Cooperative, No Acute Distress Eyes: Scleral Anicteric Neck: Supple Chest & Lungs: Chest Wall Normal, Clear to auscultation bilat Cardiovascular: Regular Rate/Rhythm Abdomen: Non-tender, Non-distended, Normoactive bowel tones, Soft Extremities: No cyanosis/clubbing/edema bilat Neurological: Grossly Neurologically Intact, Normal Speech IVs and Medications Medications Reviewed: Medications were reviewed in detail Lab and Diagnostics Result Diagram: 07/24/16 0613 07/25/16 0531 Microbiology X-Rays, CTs and MRIs CT ABDOMEN AND PELVIS WITHOUT CONTRAST 1. Persistent small bowel obstruction. 2. Remote granulomatous disease involving liver and spleen. 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 Admitted for recurrent small bowel obstruction. She started experiencing diarrhea on 06/17/2016 which is not uncommon for her after resolution of the small bowel obstruction, however PCR was done and positive for C. difficile colitis. #Recurrent small bowel obstruction, acute. Present on admission. - The patient is status post extended right hemicolectomy on November 15, 2014. - Hx of Stage IV colon cancer with intraabdominal metastases. - s/p laparotomy for adhesion lysis- 07/15/16 bowel obstruction,resolving postoperative ileus. - appreciate surgery consult. will f/u w/ recs - clear liquids 07/20. - epidural out 07/22. - G-tube set to gravity. # Acute hyponatremia. likely pre-renal - Improving with IVF. f/u # Rapid Afib, acute, not present on admission, resolved - due to missed po BB - c/w current Coreg - Warfarin has been on hold - started Lovenox 06/24 # Severe protein caloric malnutrition - patient on TPN at present and clear liquid diet advancing as tolerated. 07/22 # C. difficile colitis, may contribute to current sx, although labs were unremarkable - suspect possible etiology behind her Hemoccult positive stool. - Was on oral vancomycin # 3 days then stopped as pt couldn't tolerate po, switched to Flagyl 500 q8h iv on 04/21. - Completed 10 day Flagyl on 06/29/16 - treated, and resolved. No evidence of recurrence # Hypothyroidism, chronic, ongoing - High TSH and low free T4 on 06/27/16 - c/w Synthroid - repeat labs # Recent Urinary tract infection, Present on admission. - Treated with Keflex, off abx #Stage IV colon cancer with intra-abdominal metastases - palliative care following. CODE STATUS changed from full to limited resuscitation # Diabetes type 2, - c/w current coverage - c/w ISS # Goals of care: - pt still not ready to discuss possible end of life goals and wants to continue current course chronic, stable, resolved: # Acute kidney injury. Present on admission, mild, Now resolved # Chronic hypertension, controlled - c/w current meds #Hyperlipidemia, chronic - atorvastatin oh hold # occult GI bleed in the setting of c.diff, hx of colon cancer, - Hb stable # Cardiomyopathy. #Osteoporosis #Hyperparathyroidism. Dispo: 2-3 days pending GI issues. VTE Prophylaxis: Sub-Q Enoxaparin, SCDs VTE Mechanical Devices: Intermittant Pneumatic CD Resuscitation Status: Limited Interventions Cortez Roca Jul 25, 2016 14:29
--- NOTE | 2016-07-25 15:43 | NUR ---
Social Work: Continued discharge Planning Data & assessment: Derrickman Helper met with patient, patient's son and patient's [id number] at bedside to discuss discharge planning. SW notified patient and family that the SNF chose does not accept. SW notified patient andpatient's family that after calling all facilities on the list only [facility] and [facility] are the only two facility on the list able to accept TPN. They voiced understanding and notified SW that they needed time to make a decision. SW will follow-up with patient and family for decision. Plan: It is likely that patient will discharge to a SNF once a facility accepts. SW will continue to follow and assist patient throughout stay. [place] Bill, JORDAN, ACM
--- NOTE | 2016-07-25 19:21 | NUR ---
Intake/Pain/Nausea Pt tolerating small amounts of clear liquids today. Declined pain medication today. Intermittent mild nausea, no emesis. Up to BSC with SBA. G-tube draining yellow output to gravity. Not clamped today 2/2 bloating and mild nausea. security shift supervisor RN stated she would attempt to clamp if appropriate. Much more alert and awake today.
[2016-07-25] MEDS: Total Parenteral Nutrition 1 BAG IV SCH (22:00)
[2016-07-26] VITALS (7 sets, daily range): BP systolic 118–159; BP diastolic 64–87; PULSE 77–100; RESP 16–20; O2SAT 94–98
[2016-07-26 06:10] LABS: Mean Corpuscular Volume 89.1 fL (81-100)
[2016-07-26] MEDS: Insulin LISPRO 300 Unit/3 mL Inj SUBQ SCH ×4 (06:30→22:23)
--- NOTE | 2016-07-26 06:41 | NUR ---
Nausea / strength Moderate nausea in evening improved with Zofran, able to take broth without increased nausea. Pt able to transfer to BS with improved strength and stability. G-tube clamped at 0415, painful pressure increased, medicated with Tylenol with good effect. No increase in nausea. Day shift to reassess. Hourly rounding ongoing.
[2016-07-26] MEDS: Insulin GLARgine 100 Unit/mL Syringe SUBQ SCH ×2 (08:29→20:05)
[2016-07-26] MEDS: Calcium GLUCO 10% (Gm) Inj 1 GM in Dextrose 5% 100 ML IV SCH (08:35)
[2016-07-26] MEDS: Polyethylene Glycol (PEG) 17 Gm Powder PO SCH (11:14)
--- NOTE | 2016-07-26 11:14 | PCM.PHAPRO ---
Progress TPN Management by Pharmacy: -day 32 of TPN -electrolytes essentially stable, decreased K and Phos in new formula -lipids in TPN this evening per dietary recommendation (MoWeFr) -Plan: formula for this evening: PARENTERAL NUTRITION ORDERS 26-Jul-16 Standard Hang Time: 2100 Substrates Total kcal: 2054 AMINO ACIDS 100 g DEXTROSE 325 g Total Volume (mL): 1500 LIPIDS 55 g Sterile Water for Injection QS mL To Infuse Over (hrs): 24 Total Volume 1500 mL At at a rate of (mL/hr): 63 Additives Sodium Chloride 80 mEq "typical" daily requirements Sodium Acetate 20 mEq Sodium 50-120mEq Potassium Chloride 10 mEq Potassium 60-120mEq Potassium Phosphate 30 mEq Phosphate 20-40mEq Calcium Gluconate 0 mEq Magnesium 8-32mEq Magnesium Sulfate 16 mEq Calcium 9-22mEq Acetate* 80-120mEq Chloride* 80-120mEq Regular Insulin 50 units *Depending on acid-base status Famotidine 40 mg Multivitamins 1 std dose Insulin Regimen Trace Elements 1 std dose none Thiamine 0 mg Regular Low Intensity Subcut Folic Acid 0 mg Regular Medium Intensity Subcut Ascorbic Acid 0 mg Regular High Intensity Subcut Regular Insulin Infusion Other: Mary Crespo [facility] Jul 26, 2016 11:14
[2016-07-26] MEDS: Ondansetron 2 mg/mL 2 mL Inj IVPUSH PRN (11:15)
--- NOTE | 2016-07-26 15:40 | PCM.PNMED ---
Subjective Date of Service Jul 26, 2016 Subjective continues to have nausea. denies any other new issues/complaints Exam Vital Signs Vital Sign - Last Date Time Temp Pulse Resp B/P Pulse Ox O2 Delivery O2 Flow Rate FiO2 07/26/16 12:50 36.4 79 16 118/64 97 Room Air 07/25/16 13:05 2.00 Intake and Output 07/25/16 07/25/16 07/26/16 Cumulative From/Thru 15:00 23:00 07:00 06/16/16 07:14 - 07/26/16 06:00 Intake Total 1107 ml 1111 ml 453286 ml Output Total 1105 ml 1150 ml 80579 ml Balance 2 ml -39 ml 92755 ml Intake Oral 280 ml 350 ml 9821 ml IV Total 100 ml 761 ml 89443 ml Tube Feeding 150 ml TPN/PPN 727 ml 11510 ml Tube Irrigant 70 ml Output Urine Total 805 ml 950 ml 23408 ml Urine/Stool Mix 2250 ml Gastric Drainage Total 55944 ml Emesis 2755 ml Drainage Total 300 ml 200 ml 2375 ml Estimated Blood Loss 20 ml # Voids 16 # Bowel Movements 0 20 Exam General: Alert, Oriented X3, Cooperative, No Acute Distress Eyes: Scleral Anicteric Neck: Supple Chest & Lungs: Chest Wall Normal, Clear to auscultation bilat Cardiovascular: Regular Rate/Rhythm Abdomen: Non-tender, Non-distended, Normoactive bowel tones, Soft Extremities: No cyanosis/clubbing/edema bilat Neurological: Grossly Neurologically Intact, Normal Speech IVs and Medications Medications Reviewed: Medications were reviewed in detail Lab and Diagnostics Result Diagram: 07/26/16 0507/26/16 0525 Microbiology X-Rays, CTs and MRIs CT ABDOMEN AND PELVIS WITHOUT CONTRAST 1. Persistent small bowel obstruction. 2. Remote granulomatous disease involving liver and spleen. 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 Admitted for recurrent small bowel obstruction. She started experiencing diarrhea on 06/17/2016 which is not uncommon for her after resolution of the small bowel obstruction, however PCR was done and positive for C. difficile colitis. #Recurrent small bowel obstruction, acute. Present on admission. - The patient is status post extended right hemicolectomy on November 15, 2014. - Hx of Stage IV colon cancer with intraabdominal metastases. - s/p laparotomy for adhesion lysis 07/15/16, resolving postoperative ileus. - appreciate surgery consult. will f/u w/ recs - clear liquids 07/20. - epidural out 07/22. - G-tube set to gravity. # Acute hyponatremia. likely pre-renal - Improving with IVF. f/u # Rapid Afib, acute, not present on admission, resolved - due to missed po BB - c/w current Coreg - Warfarin has been on hold - started Lovenox 06/24 # Severe protein caloric malnutrition - patient on TPN at present and clear liquid diet advancing as tolerated. 07/22 - will need to see if we can take off of TPN by increasing PO intake # C. difficile colitis, may contribute to current sx, although labs were unremarkable - suspect possible etiology behind her Hemoccult positive stool. - Was on oral vancomycin # 3 days then stopped as pt couldn't tolerate po, switched to Flagyl 500 q8h iv on 04/21. - Completed 10 day Flagyl on 06/29/16 - treated, and resolved. No evidence of recurrence # Hypothyroidism, chronic, ongoing - High TSH and low free T4 on 06/27/16 - c/w Synthroid - repeat labs # Recent Urinary tract infection, Present on admission. - Treated with Keflex, off abx #Stage IV colon cancer with intra-abdominal metastases - palliative care following. CODE STATUS changed from full to limited resuscitation # Diabetes type 2, - c/w current coverage - c/w ISS # Goals of care: - pt still not ready to discuss possible end of life goals and wants to continue current course - have asked palliative to revisit patient today chronic, stable, resolved: # Acute kidney injury. Present on admission, mild, Now resolved # Chronic hypertension, controlled - c/w current meds #Hyperlipidemia, chronic - atorvastatin oh hold # occult GI bleed in the setting of c.diff, hx of colon cancer, - Hb stable # Cardiomyopathy. #Osteoporosis #Hyperparathyroidism. Dispo: pending GI issues. will try to change IV meds to PO as possible with hope of discharging in coming days VTE Prophylaxis: Sub-Q Enoxaparin, SCDs VTE Mechanical Devices: Intermittant Pneumatic CD Resuscitation Status: Limited Interventions Cortez Roca Jul 26, 2016 15:40
--- NOTE | 2016-07-26 17:48 | PCM.PALLBR ---
Palliative Care Recommendation Pain - well controlled with oral tylenol. No opiates for days. Nausea-continues with general anorexia Colon CA- Son relates discussion with Dr. Fairbanks with plans to review again on tue plan to restart chemo infusion then. Nutritional support-To continue TPN. The hope is that chemo may cause general improvement in status due to again unresolving GI/abd issues that continue to prevent her from eating or hydrating adequately. Patient is concerned that she may be too weak to sustain chemo but is willing to try. Family remains very interested in some recovery. They remain supportive but expectations of patient's ability and strength may be too high. She apparently had a response to chemo and it may be her only chance to improve. If no improvement, I think she will be interested in Hospice. Reviewed with family- they have no preference in placement location in [place] and they hope that in a few weeks she will be able to transfer locally. Jessica-MADIE who patient trusts will be in tomorrow and can review this plan then. Problems: End of Life Preferences DNR/DNI, limited, continue TPN Goals of Care Recovery from SBO, returned home, continue chemotherapy Disposition To be determined Resuscitation Status Resuscitation Status: DNR/DNI:Do Not Resuscitate/Intubate POLST Updates/Changes POLST Discussed with: Patient Total time 45 minutes; >50% face to face with patient and/or family, providing counselling regarding plans and recommendations, and in care coordination with his/her medical teams. I also spent an additional [ ] minutes counseling for advanced care planning with the patient/the patients family/the surrogate decision maker. Palliative Brief Note Date of Service Jul 26, 2016 . 81 yo with hx of metastatic colon CA with a prolonged hospitalization due to unresolving SBO treated with time and NG and TPN and eventual surgery noting adhesions and obstructing tumor. Post op Gtube for drainage and bypass of the evident obstruction has given the patient only partial relief.She continues to have nausea and is fairly intolerant of having her tube clamped. She relates to the sense that it causes pain on her L as pressure and bloating builds. She is able to get up with PT assist and ambulate short distances which is progress. She continues on TPN for nutritional support. Discussion today primarily with her son. Pt participates briefly and then is back to sleep. Ria Dickens MD Jul 26, 2016 17:48
--- NOTE | 2016-07-26 19:00 | NUR ---
Nausea/Pain Pt. c/o strong nausea this morning with no emesis. Given 8 mg zofran and PRN tylenol for abdominal pain. Pt. reported relief after administration.
--- NOTE | 2016-07-26 20:29 | PCM.PNSURG ---
Subjective Date of Service: Jul 26, 2016 Visit Information: Recurrent Bowel Obstruction from Metastatic Colon Cancer Laparotomy, Lysis of Adhesions, Side to side small bowel bypass, Gastrostomy Post-Op Day # 11 Subjective: Nausea, Passing flatus, taking liquids, venting G tube as needed Objective Vital Sign- Last 8 Hours Date Time Temp Pulse Resp B/P Pulse Ox O2 Delivery O2 Flow Rate FiO2 07/26/16 19:59 36.3 99 20 120/81 98 Room Air 07/26/16 17:51 36.4 91 16 120/70 96 Room Air 07/26/16 12:50 36.4 79 16 118/64 97 Room Air Intake and Output- Last 8 Hour 07/26/16 Cumulative From/Thru 07:00 06/16/16 07:14 - 07/26/16 06:00 Intake Total 1111 ml 112094 ml Output Total 1150 ml 11249 ml Balance -39 ml 26886 ml Intake Oral 350 ml 9821 ml IV Total 761 ml 55444 ml Tube Feeding 150 ml TPN/PPN 59090 ml Tube Irrigant 70 ml Output Urine Total 950 ml 72833 ml Urine/Stool Mix 2250 ml Gastric Drainage Total 33956 ml Emesis 2755 ml Drainage Total 200 ml 2375 ml Estimated Blood Loss 20 ml # Voids 16 # Bowel Movements 0 20 Result Diagram: 07/26/16 0525 07/26/16 0525 Assessment & Plan Impression Doing okay but bothered by continued nausea Problems: Plan Ambulate, Incentive spirometry G-tube clamped - only vent PRN nausea or bloating Soft diet, Impact Try to transition off IV medications Dr. Fairbanks planning to start Chemotherapy 2 weeks postop Can work on discharge planning to SNF/Home Health Will Remove Louie 2 weeks postop VTE Prophylaxis: Marcos Walters MD Jul 26, 2016 20:29
[2016-07-26] MEDS: Total Parenteral Nutrition 1 BAG IV SCH (21:00)
--- NOTE | 2016-07-26 23:26 | NUR ---
GI Pt's gastric drain clamped when evening medications given. After 40 min, the pt complained of discomfort/nausea. She does not want any pain or nausea medication. She states that simply unclamping the drain is enough. This was done immediately. The pt appears more comfortable. Will cont to monitor
--- NOTE | 2016-07-26 23:28 | NUR ---
GI Pt up to [facility] She had a small brown formed stool. Denies pain/nausea Will cont to monitor
[2016-07-27] VITALS (8 sets, daily range): BP systolic 110–134; BP diastolic 68–79; PULSE 80–104; RESP 18–19; O2SAT 95–98
[2016-07-27] MEDS: Insulin LISPRO 300 Unit/3 mL Inj SUBQ SCH ×4 (05:00→23:00)
[2016-07-27] MEDS: Polyethylene Glycol (PEG) 17 Gm Powder PO SCH (08:10)
[2016-07-27] MEDS: Insulin GLARgine 100 Unit/mL Syringe SUBQ SCH ×2 (08:11→21:38)
[2016-07-27 09:01] LABS: Phosphorus 2.6 mg/dL (2.5-4.9)
--- NOTE | 2016-07-27 10:20 | PCM.PHAPRO ---
Progress TPN Management: -Day 33 of TPN -electrolytes have remained stable -Lipid have been omitted from today's formula -Plan: formula for 07/27: PARENTERAL NUTRITION ORDERS 27-Jul-16 Standard Hang Time: 2099 Substrates Total kcal: 1505 AMINO ACIDS 100 g DEXTROSE 325 g Total Volume (mL): 1500 LIPIDS g Sterile Water for Injection QS mL To Infuse Over (hrs): 24 Total Volume 1500 mL At at a rate of (mL/hr): 63 Additives Sodium Chloride 100 mEq "typical" daily requirements Sodium Acetate 20 mEq Sodium 50-120mEq Potassium Chloride mEq Potassium 60-120mEq Potassium Phosphate 40 mEq Phosphate 20-40mEq Calcium Gluconate 0 mEq Magnesium 8-32mEq Magnesium Sulfate 16 mEq Calcium 9-22mEq Acetate* 80-120mEq Chloride* 80-120mEq Regular Insulin 50 units *Depending on acid-base status Famotidine 40 mg Multivitamins 1 std dose Insulin Regimen Trace Elements 1 std dose none Thiamine 0 mg Regular Low Intensity Subcut Folic Acid 0 mg Regular Medium Intensity Subcut Ascorbic Acid 0 mg Regular High Intensity Subcut Regular Insulin Infusion Other: Mary Crespo [facility] Jul 27, 2016 10:20
--- NOTE | 2016-07-27 12:27 | NUR ---
Faxed referral to [facility], [facility], [place] in [place] Updated MACHINE HEEL SEAT FITTER
--- NOTE | 2016-07-27 13:29 | NUR ---
Emeses Clamped G-tube to administer acetaminophen. Attempted to get patient up to [facility], patient had 200 cc of emeses out. G-tube unclamped. Patient repositioned for comfort. Reported 4/10 abdominal pain. Call light and tray table within reach. Will continue to monitor patient hourly. Addendum: 07/27/16 at 1350 by KJ FAGAN RN 4 mg ondansetron ODT given.
--- NOTE | 2016-07-27 14:37 | PCM.PNMED ---
Subjective Date of Service Jul 27, 2016 Subjective Patient had an episode of nausea vomiting after taking some oral Tylenol. Exam Vital Signs Vital Sign - Last Date Time Temp Pulse Resp B/P Pulse Ox O2 Delivery O2 Flow Rate FiO2 07/27/16 11:30 36.4 104 134/74 96 07/27/16 11:13 Room Air 07/27/16 05:47 18 07/25/16 13:05 2.00 Intake and Output 07/26/16 07/26/16 07/27/16 Cumulative From/Thru 15:00 23:00 07:00 06/16/16 07:14 - 07/27/16 05:47 Intake Total 1026 ml 843 ml 262306 ml Output Total 800 ml 500 ml 63330 ml Balance 226 ml 343 ml 89261 ml Intake Oral 200 ml 200 ml 38710 ml IV Total 826 ml 62182 ml Tube Feeding 150 ml TPN/PPN 643 ml 52099 ml Tube Irrigant 70 ml Output Urine Total 400 ml 500 ml 95887 ml Urine/Stool Mix 2250 ml Gastric Drainage Total 19823 ml Emesis 2755 ml Drainage Total 400 ml 2775 ml Estimated Blood Loss 20 ml # Voids 16 # Bowel Movements 1 21 Exam Constitutional elderly ill-appearing female Head: Normocephalic atraumatic Chest: Clear to auscultation Cor: Regular rate and rhythm S1-S2 Abdomen: Soft mild diffuse tenderness Extremities: No pedal edema Lab and Diagnostics Laboratory Tests 72 Hours Test 07/25/16 05:31 07/26/16 05:25 07/27/16 08:00 Sodium Level 132mEq/L (134-144) 131mEq/L (134-144) 131mEq/L (134-144) Potassium Level 5.0mEq/L (3.5-5.2) 5.0mEq/L (3.5-5.2) 4.8mEq/L (3.5-5.2) Chloride Level 101mEq/L (97-108) 98mEq/L (97-108) 100mEq/L (97-108) Carbon Dioxide Level 21mmol/L (18-29) 21mmol/L (18-29) 21mmol/L (18-29) Blood Urea Nitrogen 28mg/dL (8-27) 29mg/dL (8-27) 32mg/dL (8-27) Creatinine 0.64mg/dL (0.57-1.00) 0.68mg/dL (0.57-1.00) 0.64mg/dL (0.57-1.00) Estimat Glomerular Filtration Rate 128mL/min (>59) 120mL/min (>59) 128mL/min (>59) Glucose Level 119mg/dL (60-99) 193mg/dL (60-99) 164mg/dL (60-99) Calcium Level 9.5mg/dL (8.5-10.1) 9.5mg/dL (8.5-10.1) 9.4mg/dL (8.5-10.1) Phosphorus Level 3.2mg/dL (2.5-4.9) 2.6mg/dL (2.5-4.9) Magnesium Level 2.0mg/dL (1.6-2.6) White Blood Count 13.8th/mm3 (3.8-10.1) Red Blood Count 3.11mil/mm3 (3.90-5.20) Hemoglobin 8.4g/dL (12.0-15.6) Hematocrit 27.7% (35.0-46.0) Mean Corpuscular Volume 89.1fL (81-100) Mean Corpuscular Hemoglobin 27.0pg (27.0-35.0) Mean Corpuscular Hemoglobin Concent 30.3% (32.0-37.0) Red Cell Distribution Width 15.8% (12.3-15.4) Platelet Count 325bil/L (150-400) Thyroid Stimulating Hormone (TSH) 4.220uIU/mL (0.450-4.500) Free Thyroxine 0.99ng/dL (0.82-1.77) Result Diagram: 07/26/16 0525 07/27/16 0800 Microbiology X-Rays, CTs and MRIs CT ABDOMEN AND PELVIS WITHOUT CONTRAST 1. Persistent small bowel obstruction. 2. Remote granulomatous disease involving liver and spleen. 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 Admitted for recurrent small bowel obstruction. She started experiencing diarrhea on 06/17/2016 which is not uncommon for her after resolution of the small bowel obstruction, however PCR was done and positive for C. difficile colitis. #Recurrent small bowel obstruction, acute. Present on admission. - The patient is status post extended right hemicolectomy on November 15, 2014. - Hx of Stage IV colon cancer with intraabdominal metastases. - s/p laparotomy for adhesion lysis 07/15/16, resolving postoperative ileus. - appreciate surgery consult. will f/u w/ recs - clear liquids 07/20. - epidural out 07/22. - G-tube set to gravity. - Episode of vomiting today 1 # Acute hyponatremia. likely pre-renal - Improving with IVF. f/u # Rapid Afib, acute, not present on admission, resolved - due to missed po BB - c/w current Coreg - Warfarin has been on hold - started Lovenox 06/24 # Severe protein caloric malnutrition - patient on TPN at present and clear liquid diet advancing as tolerated. 07/22 - will need to see if we can take off of TPN by increasing PO intake # C. difficile colitis, may contribute to current sx, although labs were unremarkable - suspect possible etiology behind her Hemoccult positive stool. - Was on oral vancomycin # 3 days then stopped as pt couldn't tolerate po, switched to Flagyl 500 q8h iv on 04/21. - Completed 10 day Flagyl on 06/29/16 - treated, and resolved. No evidence of recurrence # Hypothyroidism, chronic, ongoing - High TSH and low free T4 on 06/27/16 - c/w Synthroid - repeat labs # Recent Urinary tract infection, Present on admission. - Treated with Keflex, off abx #Stage IV colon cancer with intra-abdominal metastases - palliative care following. CODE STATUS changed from full to limited resuscitation -Per family doctor Tiki is to discuss further plans regarding chemotherapy tomorrow # Diabetes type 2, - c/w current coverage - c/w ISS # Goals of care: - pt still not ready to discuss possible end of life goals and wants to continue current course - have asked palliative to revisit patient today chronic, stable, resolved: # Acute kidney injury. Present on admission, mild, Now resolved # Chronic hypertension, controlled - c/w current meds #Hyperlipidemia, chronic - atorvastatin oh hold # occult GI bleed in the setting of c.diff, hx of colon cancer, - Hb stable # Cardiomyopathy. #Osteoporosis #Hyperparathyroidism. Dispo: pending GI issues. will try to change IV meds to PO as possible with hope of discharging in coming days VTE Prophylaxis: SCDs VTE Mechanical Devices: Intermittant Pneumatic CD Rosalie Ventura MD Jul 27, 2016 14:37
--- NOTE | 2016-07-27 14:42 | NUR ---
NUTRITION FOLLOW-UP: ASSESS: 81 YO female admitted with partial small bowel obstruction, complicated by C. difficile colitis. TPN initiated 06/25 and pt continues on TPN, as she continues to only eat bites at best of trays. She is status post laparotomy with adhesion lysis, a bypass with end anastomosis and gastrostomy tube for gravity drainage. Pt diet was advanced yesterday, but pt continues to refuse meals to eating bites only at meals. Pt may restart chemo on Tue. (07/28) PMHx: Stage IV colon cancer with intra-abdominal metastasis, atrial fibrillation, cardiomyopathy, HTN, hypothyroidism, osteoporosis, hyperparathyroidism, T2DM, recurrent SBO. DIET: Heart Healthy / diabetic + Ensure Clear @L + David B/D. PO intake refusal to bites only. NUTRITION SUPPORT: 325 g dextrose, 100 g AA daily (1505 kcal/d, 100 g/d protein) with cyclic lipids MWF of 55 g (550 fat kcal) to provide 2055 kcal and 100 g pro (100% estimated needs) LABS: Reviewed. Na 131, BUN 32, Glu 164. MEDICATIONS: Reviewed. GI symptoms / stool: BM x 1 (07/26), Gastric tube clamped but to be vented as needed. ANTHROPOMETRICS: Current Wt: 74.2 kg. Admit weight: 64.7 kg Reported 9.5% wt loss x1 month (prior to admit) RE-ESTIMATED NEEDS (CANCER, MALNUTRITION): Calories: 1875--2625 kcal (25-35 kcal/kg BW) Protein: 90-110 g protein (1.2-1.5 g/kg BW) Fluids: 1875-2250ml/day (25-30 ml/kg) NUTRITION DIAGNOSIS: 1) Severe protein calorie malnutrition related to metastatic cancer with multiple bowel obstructions, altered GI function, as evidenced by 9.5% weight loss x 1 month - IMPROVED. 2) Inadequate oral intake related to altered GI function as evidence by need for GI surgery, requirement for TPN, and pt with minimal PO intake x 41 days - PERSISTS. INTERVENTION: 1) Recommend continuing with current TPN order and cycle lipids M,W,F. Pharmacy aware 2) Will continue to send Ensure Clear at Lunch and David at breakfast and dinner on trays. MONITOR/EVALUATE: GI status, TPN, lipids cycle, labs, diet tolerance, nutrition status, POC. Follow per high nutrition risk guidelines.
[2016-07-27] MEDS: Total Parenteral Nutrition 1 BAG IV SCH (21:44)
--- NOTE | 2016-07-27 23:55 | NUR ---
Nausea Pt had G tube drain clamped for 30 min after giving PO medication Pt then c/o nausea G tube drain unclamped. Pt immediately felt better.
[2016-07-28 01:49] VITALS: BP 128/78; PULSE 97; RESP 20; O2SAT 95
[2016-07-28] MEDS: Insulin LISPRO 300 Unit/3 mL Inj SUBQ SCH ×2 (04:49→12:14)
[2016-07-28 05:44] VITALS: BP 132/65; PULSE 111; RESP 24; O2SAT 98
[2016-07-28] MEDS: HYDROmorphone 0.5 mg/0.5 mL iSecure Syringe IVPUSH PRN ×2 (05:48→09:53)
[2016-07-28] MEDS: Ondansetron 2 mg/mL 2 mL Inj IVPUSH PRN (06:14)
--- NOTE | 2016-07-28 07:04 | NUR ---
Nausea/pain Pt had unrelenting nausea and abd pain. Given PO zofran which was ineffective. Gastric tube draining nicely. Pt refused tylenol. Attempted IV start twice with no success. ER called and ER nurse placed PIV to right arm. IV zofran given in PIV. IV dilaudid given in port after 20cc flush of NS prior and after medication. Pt currently resting quietly. No sign of discomfort.
[2016-07-28] MEDS: Insulin GLARgine 100 Unit/mL Syringe SUBQ SCH (08:08)
[2016-07-28] MEDS: Polyethylene Glycol (PEG) 17 Gm Powder PO SCH (08:11)
--- NOTE | 2016-07-28 08:45 | PCM.PHAPRO ---
Progress -TPN Management by Pharmacy: -Day 34 of TPN this evening -electrolytes have remained stable -Lipids 55gm added to formula tonight -Magnesium and Phosphorous level added to blood draw tomorrow am -formula for 07/28 as follows: 28-Jul-16 Standard Hang Time: 2100 Substrates Total kcal: 5 AMINO ACIDS 100 g DEXTROSE 325 g Total Volume (mL): 1500 LIPIDS 55 g Sterile Water for Injection QS mL To Infuse Over (hrs): 24 Total Volume 1500 mL At at a rate of (mL/hr): 63 Additives Sodium Chloride 100 mEq "typical" daily requirements Sodium Acetate 20 mEq Sodium 50-120mEq Potassium Chloride 20 mEq Potassium 60-120mEq Potassium Phosphate 30 mEq Phosphate 20-40mEq Calcium Gluconate 0 mEq Magnesium 8-32mEq Magnesium Sulfate 16 mEq Calcium 9-22mEq Acetate* 80-120mEq Chloride* 80-120mEq Regular Insulin 50 units *Depending on acid-base status Famotidine 40 mg Multivitamins 1 std dose Insulin Regimen Trace Elements 1 std dose none Thiamine 0 mg Regular Low Intensity Subcut Folic Acid 0 mg Regular Medium Intensity Subcut Ascorbic Acid 0 mg Regular High Intensity Subcut Regular Insulin Infusion Other: Mary Crespo [facility] Jul 28, 2016 08:45
--- NOTE | 2016-07-28 09:14 | PCM.PNSURG ---
Subjective Date of Service: Jul 28, 2016 Visit Information: Recurrent Bowel Obstruction from Metastatic Colon Cancer Laparotomy, Lysis of Adhesions, Side to side small bowel bypass, Gastrostomy Post-Op Day # 13 Subjective: Passing flatus, BMs, venting G tube as needed Objective Vital Sign- Last 8 Hours Date Time Temp Pulse Resp B/P Pulse Ox O2 Delivery O2 Flow Rate FiO2 07/28/16 05:44 36.7 111 24 132/65 98 Room Air 07/28/16 01:49 36.8 97 20 128/78 95 Room Air Intake and Output- Last 8 Hour 07/28/16 Cumulative From/Thru 07:00 06/16/16 07:14 - 07/28/16 06:16 Intake Total 1734 ml 661757 ml Output Total 1000 ml 93262 ml Balance 734 ml 31267 ml Intake Oral 200 ml 59688 ml IV Total 1534 ml 46291 ml Tube Feeding 150 ml TPN/PPN 39954 ml Tube Irrigant 70 ml Output Urine Total 600 ml 29661 ml Urine/Stool Mix 2250 ml Gastric Drainage Total 400 ml 45748 ml Emesis 3055 ml Drainage Total 2775 ml Estimated Blood Loss 20 ml # Voids 16 # Bowel Movements 0 21 Abdomen: Soft SURGICAL WOUND : Wound Location/Description Incision C/D/I Result Diagram: 07/26/16 0525 07/28/16 0650 Assessment & Plan Impression Doing well Problems: Plan CT Abd/pelvis for evaluating anatomy prior to chemo. Ambulate, Incentive spirometry G-tube clamped - only vent PRN nausea or bloating Soft diet, Impact Nutrition/Pharmacy to adjust TPN based on PO intake Try to transition off IV medications VTE Prophylaxis: Marcos Walters MD Jul 28, 2016 09:14
[2016-07-28 10:09] VITALS: BP 135/77; PULSE 92; RESP 14; O2SAT 95
[2016-07-28] MEDS ORDERED: ALPRAZolam 0.5 mg Tablet PO PRN (10:20)
--- NOTE | 2016-07-28 11:39 | NUR ---
Palliative care note D/A: Alerted by Lexy Caldwell [employer] as to discussion with pt friend and confident Jessica. Jessica indicates that pt has decided to dc home with comfort care as goal. Pt seen by Dr. Fairbanks who has stated no further interventions possible for pt. He has discussed issue of continuing with TPN for pt and she has elected to stop all TPN once discharged. Pt has voiced desire for [facility] info visit and to return home with family. Phone call to Koki at [facility]. Agency is very busy today with info visits. Quynh able to come today at 1045 and see family. Family worried that visit time may not be best as pt is now sedated post medication. Pt expressing desire to be well medicated and sleep. Quynh ([facility]) has met with family and agreement has been reached that family will discuss with pt later today once she regains ability to participate in discussion and will ask her to sign consents for [facility]. Family then to re-contact Quynh to meat pickler paperwork. Quynh indicates that she is only available today again between [phone] to obtain consents. [facility] is working on [facility] open date and will let this worker know. Case discussed with Cally [facility] dcp to alert as to above. Will call her with open date. Due to complexity of this pt condition, Dr. Dickens is recommending dc on date of [facility] open. P: Palliative care to continue to follow. Mary LOBO, [facility] Addendum: 07/28/16 at 1510 by JOSHUA HERNANDEZ Palliative care amendment D/A: Dr. Dickens has called [facility] to discuss pt needs. Phone call from [employer] to indicate that agency can open on 07/29/16 between 2-3. Agency can also deliver equipment on 07/29/16 in director strategic account management. Case discussed with Lexy WILHELM who goes to discuss with family. Discuss with Cally WILHELM, dcp re: above news who also notes that family has called her in today to discuss rehab vs home with HH. Case discussed with Dr. Dickens who agrees to talk further to family. She will also obtain bat person name and phone number for Hospice to give to [employer] for equipment delivery. Plan at this time is to deliver bed, W/C, walker, over bed table and O2 concentrator. Case discussed with Lexy who notes that family now comfortable with plan to dc home with hospice and expressed comfort with dc plan to home on 07/29/16. P: Palliative care to continue to follow. Mary LOBO CCM Addendum: 07/28/16 at 1543 by JOSHUA HERNANDEZ Palliative care note D/A: Dr. Dickens able to talk to family and learn that plan is to have spouse Morro at [phone] take call and welcome delivery. Phone call to room and talk to pt jennifer Lopez about arrangements. Indicate will need to be able to accept early phone call and be available for delivery. Pt son Bebeto will assist spouse with equipment needs. Phone call to [facility] to give above news. Mary LOBO, [facility]
--- NOTE | 2016-07-28 11:53 | NUR ---
Palliative Care COMMUTATOR REPAIRER Visit:50AM D: Visited with pt., her and her daughter in law. Daughter in law, Jessica, shared that she had stayed overnight at [facility] with pt. and that pt. had expressed last night that she may want to stop treatments for her cancer and instead transition to hospice care and return home for end of life care. Pt. nodded as Jessica spoke and confirmed she now feels "it's time to stop." Pt.'s was tearful at times during the visit. Oncology physician Dr. Fairbanks came to see pt. during the time this racebook writer was present and discussed chemotherapy options, noting that any additional chemotherapy would be in an effort to improve quality of life and not lead to remission or necessarily extend pt.'s life to a large degree. After discussing pt.'s goals of wanting to be home with her family and wanting to have relief from the symptoms of nausea, pain and fatigue Dr. Fairbanks noted that he would not recommend giving pt. chemotherapy today as had been planned. Dr. Fairbanks and this racebook writer talked with pt. and family about what Hospice would provide at home, and pt. and family agreed to have an informational hospice visit to further explore this option. A: Pt. and family seem to understand that pt.'s quality of life may not be improved through further treatment for her cancer. They are now open to exploring the option of pt. returning home with hospice care. P: [facility] will come and provide information to pt. and family about hospice care at home. MELONIE Deleon, [facility] Addendum: 07/28/16 at 1609 by JAMEL KINNEY Followup Visit: 07/28/1713:45PM Went to check in with family about how the hospice informational visit had gone. Family present included pt.'s , son, and two daughters in law. Pt. was initially asleep when this racebook writer arrived but woke up and was able to participate in discussion. Pt. and family aware that pt. can discharge home tomorrow and Hospice can open pt. to services tomorrow. DME will be delivered to pt.'s home tomorrow morning before she discharges from [facility]. Family had some questions about how pt. would be transferred home and this racebook writer shared that [facility] CM department will help coordinate pt.'s transportation from [facility] to her home. Family shared they feel some anxiety about meeting pt.'s care needs at home, but they also express strong commitment to attending to her care needs so she can be at home for end of life care. Family is looking into hiring in-home care support to ensure pt.'s care needs are well met. MELONIE Deleon, [facility] Palliative Care Services
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
--- NOTE | 2016-07-28 13:05 | PCM.PNMED ---
Subjective Date of Service Jul 28, 2016 Subjective Patient's sleeping at the time of my visit. is at bedside. Palliative care did discuss plans along with Dr. Fairbanks with patient's family and patient has expressed desire to go home with comfort care hospice. Also per wishes to DC TPN upon discharge. Exam Vital Signs Vital Sign - Last Date Time Temp Pulse Resp B/P Pulse Ox O2 Delivery O2 Flow Rate FiO2 07/28/16 10:09 36.8 92 14 135/77 95 Room Air 07/25/16 13:05 2.00 Intake and Output 07/27/16 07/27/16 07/28/16 Cumulative From/Thru 15:00 23:00 07:00 06/16/16 07:14 - 07/28/16 06:16 Intake Total 150 ml 1734 ml 257811 ml Output Total 1000 ml 1000 ml 70629 ml Balance -850 ml 734 ml 42446 ml Intake Oral 150 ml 200 ml 39365 ml IV Total 1534 ml 10975 ml Tube Feeding 150 ml TPN/PPN 12481 ml Tube Irrigant 70 ml Output Urine Total 700 ml 600 ml 28238 ml Urine/Stool Mix 2250 ml Gastric Drainage Total 400 ml 22418 ml Emesis 300 ml 3055 ml Drainage Total 2775 ml Estimated Blood Loss 20 ml # Voids 16 # Bowel Movements 0 21 Exam Constitutional: Elderly woman is currently sleeping Head: Normocephalic atraumatic Chest: Clear to auscultation Cor: Regular rate and rhythm S1-S2 Abdomen: Soft slightly distended not palpated however due to patient's sleeping Lab and Diagnostics Laboratory Tests 72 Hours Test 07/26/16 05:25 07/27/16 08:00 07/28/16 06:50 White Blood Count 13.8th/mm3 (3.8-10.1) Red Blood Count 3.11mil/mm3 (3.90-5.20) Hemoglobin 8.4g/dL (12.0-15.6) Hematocrit 27.7% (35.0-46.0) Mean Corpuscular Volume 89.1fL (81-100) Mean Corpuscular Hemoglobin 27.0pg (27.0-35.0) Mean Corpuscular Hemoglobin Concent 30.3% (32.0-37.0) Red Cell Distribution Width 15.8% (12.3-15.4) Platelet Count 325bil/L (150-400) Sodium Level 131mEq/L (134-144) 131mEq/L (134-144) 131mEq/L (134-144) Potassium Level 5.0mEq/L (3.5-5.2) 4.8mEq/L (3.5-5.2) 4.6mEq/L (3.5-5.2) Chloride Level 98mEq/L (97-108) 100mEq/L (97-108) 99mEq/L (97-108) Carbon Dioxide Level 21mmol/L (18-29) 21mmol/L (18-29) 22mmol/L (18-29) Blood Urea Nitrogen 29mg/dL (8-27) 32mg/dL (8-27) 34mg/dL (8-27) Creatinine 0.68mg/dL (0.57-1.00) 0.64mg/dL (0.57-1.00) 0.64mg/dL (0.57-1.00) Estimat Glomerular Filtration Rate 120mL/min (>59) 128mL/min (>59) 128mL/min (>59) Glucose Level 193mg/dL (60-99) 164mg/dL (60-99) 133mg/dL (60-99) Calcium Level 9.5mg/dL (8.5-10.1) 9.4mg/dL (8.5-10.1) 9.9mg/dL (8.5-10.1) Thyroid Stimulating Hormone (TSH) 4.220uIU/mL (0.450-4.500) Free Thyroxine 0.99ng/dL (0.82-1.77) Phosphorus Level 2.6mg/dL (2.5-4.9) Result Diagram: 07/26/16 0525 07/28/16 0650 Microbiology X-Rays, CTs and MRIs CT ABDOMEN AND PELVIS WITHOUT CONTRAST 1. Persistent small bowel obstruction. 2. Remote granulomatous disease involving liver and spleen. 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 Admitted for recurrent small bowel obstruction. She started experiencing diarrhea on 06/17/2016 which is not uncommon for her after resolution of the small bowel obstruction, however PCR was done and positive for C. difficile colitis. #Recurrent small bowel obstruction, acute. Present on admission. - The patient is status post extended right hemicolectomy on November 15, 2014. - Hx of Stage IV colon cancer with intraabdominal metastases. - s/p laparotomy for adhesion lysis 07/15/16, resolving postoperative ileus. - appreciate surgery consult. will f/u w/ recs - clear liquids 07/20. - epidural out 07/22. - G-tube set to gravity. # Acute hyponatremia. likely pre-renal - Improving with IVF. f/u # Rapid Afib, acute, not present on admission, resolved - due to missed po BB - c/w current Coreg - Warfarin has been on hold - started Lovenox 06/24 # Severe protein caloric malnutrition - patient on TPN at present and clear liquid diet advancing as tolerated. 07/22 - will need to see if we can take off of TPN by increasing PO intake # C. difficile colitis, may contribute to current sx, although labs were unremarkable - suspect possible etiology behind her Hemoccult positive stool. - Was on oral vancomycin # 3 days then stopped as pt couldn't tolerate po, switched to Flagyl 500 q8h iv on 04/21. - Completed 10 day Flagyl on 06/29/16 - treated, and resolved. No evidence of recurrence # Hypothyroidism, chronic, ongoing - High TSH and low free T4 on 06/27/16 - c/w Synthroid - repeat labs # Recent Urinary tract infection, Present on admission. - Treated with Keflex, off abx #Stage IV colon cancer with intra-abdominal metastases - palliative care following. CODE STATUS changed from full to limited resuscitation -Per family doctor Tiki is to discuss further plans regarding chemotherapy tomorrow # Diabetes type 2, - c/w current coverage - c/w ISS # Goals of care: - pt still not ready to discuss possible end of life goals and wants to continue current course - have asked palliative to revisit patient today -Patient family have opted for hospice at home care. Arrangements for this are being made. chronic, stable, resolved: # Acute kidney injury. Present on admission, mild, Now resolved # Chronic hypertension, controlled - c/w current meds #Hyperlipidemia, chronic - atorvastatin oh hold # occult GI bleed in the setting of c.diff, hx of colon cancer, - Hb stable # Cardiomyopathy. #Osteoporosis #Hyperparathyroidism. Dispo: pending GI issues. will try to change IV meds to PO as possible with hope of discharging in coming days VTE Prophylaxis: SCDs VTE Mechanical Devices: Intermittant Pneumatic CD Time spent 20 minutes Rosalie Ventura MD Jul 28, 2016 13:05
[2016-07-28] MEDS ORDERED: Haloperidol 2 mg/mL 5 mL Oral Conc Liquid PO PRN (14:35)
--- NOTE | 2016-07-28 16:33 | NUR ---
Social Work Readiness for Discharge: SW met with patient and family at bedside to discuss discharge plan. Plan is home with hospice via [facility]. Hospice [facility] met with patient and family at bedside. SW spoke to hospice rep Waldron who states that patient scheduled to open with services tomorrow from 2-3pm and DME to be delivered tomorrow from 11-12 noon. SW updated MD for discharge tomorrow. SW discussed private pay resources for caregiver at home. Patient and family to contact caregiver agencies for possible additional care and support and patient family states having the available funds to coordinate such arrangements via private pay expense. SW discussed transport options with family. SW discussed possibilities of insurance covering expense and private pay options. Private pay estimates provided to family. SW to coordinate transport home tomorrow. No other needs identified. Patient and family in agreement to plan of care. PLAN: Discharge tomorrow home with hospice services via [facility]. Open times from 2-3pm with DME to be delivered at 11-12noon. SW to follow for transport home Johnson WILHELM
[2016-07-28] MEDS ORDERED: HYDROmorphone 0.5 mg/0.5 mL iSecure Syringe IVPUSH PRN (16:55)
--- NOTE | 2016-07-28 17:57 | NUR ---
Pain Pt requesting pain medication. Reports 3/10 pain, however FELDT score is more like a 6/10 Family states that the highest she'll say her pain is, is a 4/10 but that is like a 10/10 for her. Medication administered, see EMAR. Pt resting most of shift, appears somewhat comfortable. Call light w/in reach and used appropriately, bed down and in locked position.
[2016-07-28 20:02] VITALS: BP 115/69; PULSE 91; RESP 16; O2SAT 98
[2016-07-28] MEDS: HYDROmorphone 1 mg/mL 2 mL Solution PO PRN (20:52)
[2016-07-28] MEDS ORDERED: Insulin LISPRO 300 Unit/3 mL Inj SUBQ SCH (22:01)
[2016-07-29 04:39] VITALS: BP 124/71; PULSE 84; RESP 16; O2SAT 96
[2016-07-29] MEDS ORDERED: 0.9% Sodium Chloride 250 ML ONE (05:20)
[2016-07-29] MEDS: HYDROmorphone 1 mg/mL 2 mL Solution PO PRN ×3 (05:29→11:11)
--- NOTE | 2016-07-29 05:30 | NUR ---
[facility] TPN finished and NS running 25 TKO. Dilauded liquid po for pain with good results. Family rooming in this shift. Pt A&O and able to state needs. No complaints of SOB or chest pain. Care continues
[2016-07-29] MEDS ORDERED: HALO2ORA PO (07:24)
[2016-07-29] MEDS ORDERED: CARV6.252 PO (07:24)
[2016-07-29] MEDS ORDERED: POLY17PO6 PO (07:24)
[2016-07-29] MEDS ORDERED: Acetaminophen PO (07:24)
[2016-07-29] MEDS ORDERED: AMLO5TAB2 PO (07:24)
[2016-07-29] MEDS ORDERED: DIPH50VI14 IVPUSH (07:24)
[2016-07-29] MEDS ORDERED: ALPR0.5T8 PO (07:24)
[2016-07-29] MEDS ORDERED: HYDR1LIQ4 PO (07:24)
[2016-07-29] MEDS ORDERED: ONDA4TAB12 PO (07:24)
--- NOTE | 2016-07-29 07:58 | PCM.DC.MED ---
Discharge Summary Date of Service Jul 29, 2016 Dates of Hospitalization Date of Hospital Admission Jun 16, 2016 at 10:07 Date of Discharge: Jul 29, 2016 Providers: Admitting Physician: Lula Díaz DO Primary Care Physician: Braulio Irving MD Attending Physician: Lula Díaz DO Diagnosis at Time of Discharge Diagnosis at Time of Discharge Recurrent small bowel obstruction GI bleed, unspecified Consultations Gen. surgery, oncology, palliative care, Procedures XRay, CTs & MRIs CT ABDOMEN AND PELVIS WITHOUT CONTRAST 1. Persistent small bowel obstruction. 2. Remote granulomatous disease involving liver and spleen. 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 She is well-known to me for recurrent small bowel obstructions and frequent admissions for the same. She was recently discharged from the hospital within one week after conservative management of small bowel obstruction and tolerating an advanced diet. She reports her symptoms today are consistent with those on her previous recent admission. She reports nausea and vomiting, apparently smelling like feces. Denies hematemesis or hematochezia. No chest pain, shortness breath, headaches dizziness, fevers or chills. She was scheduled tomorrow for a Port-A-Cath placement by Dr. Quan and has been holding her Coumadin and using Lovenox for DVT prophylaxis. 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 Admitted for recurrent small bowel obstruction. She started experiencing diarrhea on 06/17/2016 which is not uncommon for her after resolution of the small bowel obstruction, however PCR was done and positive for C. difficile colitis. #Recurrent small bowel obstruction, acute. Present on admission. - The patient is status post extended right hemicolectomy on November 15, 2014. - Hx of Stage IV colon cancer with intraabdominal metastases. - s/p laparotomy for adhesion lysis 07/15/16, resolving postoperative ileus. - appreciate surgery consult. will f/u w/ recs - clear liquids 07/20. - epidural out 07/22. - G-tube set to gravity. # Acute hyponatremia. likely pre-renal - Improving with IVF. f/u # Rapid Afib, acute, not present on admission, resolved - due to missed po BB - c/w current Coreg - Warfarin has been on hold - started Lovenox 06/24 -Anticoagulation has been discontinued # Severe protein caloric malnutrition - patient on TPN at present and clear liquid diet advancing as tolerated. 07/22 - will need to see if we can take off of TPN by increasing PO intake # C. difficile colitis, may contribute to current sx, although labs were unremarkable - suspect possible etiology behind her Hemoccult positive stool. - Was on oral vancomycin # 3 days then stopped as pt couldn't tolerate po, switched to Flagyl 500 q8h iv on 04/21. - Completed 10 day Flagyl on 06/29/16 - treated, and resolved. No evidence of recurrence # Hypothyroidism, chronic, ongoing - High TSH and low free T4 on 06/27/16 - c/w Synthroid - repeat labs # Recent Urinary tract infection, Present on admission. - Treated with Keflex, off abx #Stage IV colon cancer with intra-abdominal metastases - palliative care following. CODE STATUS changed from full to limited resuscitation -Per family doctor Tiki is to discuss further plans regarding chemotherapy tomorrow # Diabetes type 2, - c/w current coverage - c/w ISS # Goals of care: -Patient family have opted for hospice at home care. Arrangements for this are being made. chronic, stable, resolved: # Acute kidney injury. Present on admission, mild, Now resolved # Chronic hypertension, controlled - c/w current meds #Hyperlipidemia, chronic - atorvastatin oh hold # occult GI bleed in the setting of c.diff, hx of colon cancer, - Hb stable # Cardiomyopathy. #Osteoporosis #Hyperparathyroidism. Dispo: After multiple consultations with patient and family it has been decided patient will go home with hospice care Exam Vital Signs (Last) Date Time Temp Pulse Resp B/P Pulse Ox O2 Delivery O2 Flow Rate FiO2 07/29/16 04:39 36.5 84 16 124/71 96 Room Air 07/25/16 13:05 2.00 Test 06/16/16 07:45 06/27/16 17:37 07/01/16 07:50 07/11/16 07:54 Lipase 25U/L (13-60) Hold Sandoval Top Tube Received (Received) Troponin T < 0.010ug/L (0.0-0.011) Pro-B-Type Natriuretic Peptide 563.8pg/mL (0-738) Prothrombin Time 10.5sec (8.1-12.5) Prothromb Time International Ratio 0.98ratio Metamyelocytes % 2% (0-0) Myelocytes % 4% (0-0) Hematology Comments Rbc Test 07/12/16 07:05 07/15/16 17:13 07/19/16 04:05 07/24/16 06:13 Prealbumin 12mg/dL (20-40) Urine Color Yellow (YELLOW) Urine Appearance Clear (CLEAR,HAZY) Urine pH 6.0 (5.0-8.0) Urine Specific Guy 1.025 (1.003-1.035) Urine Protein Negativemg/dL (NEG,TRACE) Urine Glucose (UA) Negativemg/dL (NEGATIVE) Urine Ketones Negativemg/dL (NEGATIVE) Urine Occult Blood Negative (NEGATIVE) Urine Nitrite Negative (NEGATIVE) Urine Bilirubin Negative (NEGATIVE) Urine Urobilinogen Normalmg/dL (NORMAL) Urine Leukocyte Esterase Negative (NEGATIVE) Urine RBC 0-2/hpf (0-2) Urine WBC 0-5/hpf (0-5) Urine Epithelial Cells Moderate/hpf (NONE-MOD) Urine Crystals None seen (NONE SEEN) Urine Bacteria Few/hpf (NONE-FEW) Urine Hyaline Casts None/lpf (NONE) Urine Granular Casts None seen (NONE SEEN) Urine Waxy Casts None seen (NONE SEEN) Urine Red Blood Cell Casts None seen (NONE SEEN) Urine White Blood Cell Casts None seen (NONE SEEN) Urine Mucus None seen (None Seen) Urine Trichomonas None seen (NONE SEEN) Urine Yeast None (NONE SEEN) Urinalysis Comment None Urine Culture Reflexed Not indicated Band Neutrophils % 1% (1-5) Triglycerides Level 65mg/dL (0-149) Neutrophils (%) (Auto) 79.3% (40-74) Lymphocytes (%) (Auto) 7.0% (14-46) Monocytes (%) (Auto) 8.8% (4-12) Eosinophils (%) (Auto) 1.4% (0-5) Basophils (%) (Auto) 0.3% (0-3) Total Bilirubin 0.2mg/dL (0.0-1.2) Aspartate Amino Transf (AST/SGOT) 22U/L (0-50) Alanine Aminotransferase (ALT/SGPT) 19U/L (0-32) Alkaline Phosphatase 154U/L (25-165) Total Protein 5.7g/dL (6.4-8.4) Albumin 1.8g/dL (3.4-5.0) Test 07/25/16 05:31 07/26/16 05:25 07/27/16 08:00 07/28/16 06:50 Magnesium Level 2.0mg/dL (1.6-2.6) White Blood Count 13.8th/mm3 (3.8-10.1) Red Blood Count 3.11mil/mm3 (3.90-5.20) Hemoglobin 8.4g/dL (12.0-15.6) Hematocrit 27.7% (35.0-46.0) Mean Corpuscular Volume 89.1fL (81-100) Mean Corpuscular Hemoglobin 27.0pg (27.0-35.0) Mean Corpuscular Hemoglobin Concent 30.3% (32.0-37.0) Red Cell Distribution Width 15.8% (12.3-15.4) Platelet Count 325bil/L (150-400) Thyroid Stimulating Hormone (TSH) 4.220uIU/mL (0.450-4.500) Free Thyroxine 0.99ng/dL (0.82-1.77) Phosphorus Level 2.6mg/dL (2.5-4.9) Sodium Level 131mEq/L (134-144) Potassium Level 4.6mEq/L (3.5-5.2) Chloride Level 99mEq/L (97-108) Carbon Dioxide Level 22mmol/L (18-29) Blood Urea Nitrogen 34mg/dL (8-27) Creatinine 0.64mg/dL (0.57-1.00) Estimat Glomerular Filtration Rate 128mL/min (>59) Glucose Level 133mg/dL (60-99) Calcium Level 9.9mg/dL (8.5-10.1) Microbiology Results Discharge Medications Discharge Medications Amlodipine (Amlodipine) 10 Mg Tablet 10 MG PO DAILY (Reported) Amlodipine (Amlodipine) 5 Mg Tablet 5 MG PO DAILY Prescribed by: ROSALIE VENTURA MD Atorvastatin Calcium (Atorvastatin Calcium) 40 Mg Tablet 40 MG PO HS (Reported) Carvedilol (Carvedilol) 6.25 Mg Tablet 9.375 MG PO BID (Reported) Carvedilol (Carvedilol) 6.25 Mg Tablet 9.375 MG PO BID Prescribed by: ROSALIE VENTURA MD Cephalexin (Keflex) 500 Mg Capsule 500 MG PO QID Prescribed by: LULA DÍAZ DO Furosemide (Furosemide) 40 Mg Tablet 40 MG PO BIDWM (Reported) Insulin Glargine (Lantus U100 Solostar Insulin Pen) 100 Unit/1 Ml Insuln.pen 20 UNIT SUBQ HS (Reported) Insulin Lispro (HumaLOG U100 Insulin Pen) 100 Unit/1 Ml Insuln.pen 5-10 UNITS SUBQ TIDAC (Reported) Levothyroxine (Levothyroxine) 125 Mcg Tablet 125 MCG PO DAILY (Reported) Lisinopril (Zestril) 20 Mg Tablet 20 MG PO BID Prescribed by: DEANDRE RAGSDALE DO Polyethylene Glycol 3350 (Miralax) 17 Gm Powd.pack 17 GM PO DAILY Prescribed by: ROSALIE VENTURA MD As needed ([Acetaminophen]) 325 MG TABLET 975 MG PO Q6H PRN PRN For Pain Prescribed by: ROSALIE VENTURA MD Alprazolam (Alprazolam) 0.5 Mg Tablet 0.5 MG PO TID PRN PRN For Anxiety or Agitation Prescribed by: ROSALIE VENTURA MD Haloperidol Lactate (Haloperidol Lactate) 2 Mg/1 Ml Oral.conc 0.5-1 MG PO Q6H PRN PRN nausea, agitation,insomnia Prescribed by: ROSALIE VENTURA MD Hydromorphone (Hydromorphone) 1 Mg/1 Ml Liquid 2-4 MG PO Q2H PRN PRN pain Prescribed by: ROSALIE VENTURA MD Metoclopramide (Reglan) 10 Mg Tablet 10 MG PO Q8HRS PRN PRN For Nausea (Reported ) Ondansetron ODT (Ondansetron ODT) 8 Mg Tab.rapdis 8 MG PO q12 hours PRN PRN For Nausea (Reported) Ondansetron ODT (Ondansetron ODT) 4 Mg Tab.rapdis 4 MG PO Q6H PRN PRN For Nausea /Vomiting Prescribed by: ROSALIE VENTURA MD diphenhydrAMINE HCl (Diphenhydramine Inj) 50 Mg/1 Ml Vial 25 MG IVPUSH Q4H PRN PRN For Itching Prescribed by: ROSALIE VENTURA MD Additional med instructions Anticoagulation has been discontinued, follow-up with primary care physician for recommendations on whether or not to continue taking Coumadin. This will need to be held for 1 week. Followup Plan Disposition: Home with hospice Discharge Diet: Other (low residual) Discharge Activity: No restrictions, Other (as tolerated) Follow-up with PCP in: 1 week Time spent 60 minutes Rosalie Ventura MD Jul 29, 2016 07:58
[2016-07-29 09:04] LABS: Magnesium 1.9 mg/dL (1.6-2.6); Phosphorus 2.8 mg/dL (2.5-4.9)
[2016-07-29] MEDS: Polyethylene Glycol (PEG) 17 Gm Powder PO SCH (09:08)
--- NOTE | 2016-07-29 09:58 | NUR ---
Hypoglycemia BGL checked at 0906 , pt eating a smoothie, was 47. Pt w/ mild symptoms feels "blurry" and shaking w/ arm lifting. Spoke to hospitalist, 1/5 amp D50 ordered and administered. BGL rechecked at 0955 increased to 116 Call light w/in reach. Family educated on s/s of hypoglycemia and good sugar sources to stock at home.
[2016-07-29] MEDS: Ondansetron 2 mg/mL 2 mL Inj IVPUSH PRN (10:38)
--- NOTE | 2016-07-29 11:03 | NUR ---
Arranged S transport for 1330 via [facility], they have transport at NOON and this was soonest time available. Patient and family are agreeable to pay privately for this, Jessica is the contact and # is [phone]. Gave all this information to Leticia at [facility]. Updated JUVENILE OFFICER and [facility]
--- NOTE | 2016-07-29 11:11 | NUR ---
Social Work Discharge: Order for discharge acknowledged. Plan is home with [facility], [phone]. Hospice to initiate services today from 2-3pm and DME to be delivered from 11-12noon. ASHWIN discussed financial arrangements with patient and family at bedside. Patient and family in agreement to pay privately for transport via BLS. SW UR specialist arranged transport for pickle solution maker at 1:30pm. Family provided with resources previously for private caregiver services and to contact agencies at home if further assistance needed. Patient and family states having finances to do such. SW contacted hospice of the and advised them of transport time. PLAN: Home with [facility], opening today from 2-3pm Citlaly Goyal
--- NOTE | 2016-07-29 12:18 | NUR ---
Discharge Pt d/c'd home w/ hospice at 1215. Reviewed all instructions w/ family. Answered all questions. IV d/c'd intact. Port d/c'd by IVT. Louie removed (17) and replaced w/ steri strips. Gastric drain emptied prior to d/c. Clamped for xanax administration, requested that BLS staff unclamp once settled into ambulance. Pt left w/ all belongings and all rx's. Pt was able to ambulate S[facility] to [facility].
--- NOTE | 2016-07-29 12:34 | NUR ---
Palliative care note D/A: Phone call from Koki at [facility]. She calls to note that pt is scheduled for 1330 BLS home. She indicates that this may impact the planned 1400 open for pt. She notes that another pt, also being discharged today is leaving earlier on BLS and wonders if transport times can be switched. Phone call to Cally to discuss. Inform her of pt with the earlier transport time. P: Palliative care to follow as needed. Mary LOBO, CCM
--- NOTE | 2016-07-29 14:35 | PCM.PALLBR ---
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 Admitted for recurrent small bowel obstruction. She started experiencing diarrhea on 06/17/2016 which is not uncommon for her after resolution of the small bowel obstruction, however PCR was done and positive for C. difficile colitis. Patient has now expressed her desire to have further treatments stopped, to be allowed to return home and have her care focused on her comfort and helping her and her family prepare for her . Arrangements have been made with [facility]; she is being discharged today and [facility] will admit this afternoon. PALLIATIVE CARE RECOMMENDATIONs: 1) Symptom management: PLEASE NOTE SHE GETS AGITATED WITH LORAZEPAM PAin: Recently transitioned from IV hydromorphone to PO/ liquid concentrate. Continues to need frequent dosing of hydromorphone solution with improvement when 4 mg dose is used, vs 2. --D/W hospice clinical grounds manager Hugh: Will plan to start with 2 mg doses , at least q 3-4 hours, with 4 mg used at HS. Will assess need to increase routine dosing to 4 mg. Continue to use 2-4 mg prn q2 hrs. Nausea: related to other medication use. --premed with zofran, xanax, or haldol for pain medication; Suggest scheduling this med q 4-8 routinely. 2) Goals of CAre: Clearly established that patient wants comfort care/hospice. 3) Disposition: plan DC home with hospice today. Problems: End of Life Preferences DNR/DNI, change to COMFORT CARE Goals of Care PATIENT REQUESTS NO FURTHER TESTING OR INTERVENTION OTHER THAN THAT AIMED AT COMFORT AND EOL Disposition Home with Hospice support. Info given to family re option for addnal support through [facility] [place] etc Resuscitation Status Resuscitation Status: DNR/DNI:Do Not Resuscitate/Intubate POLST Updates/Changes Artificially Admin Nutrition: No Artifical Nutrition by Tube POLST Discussed with: Patient . Advanced Care Planning Address: Comfort care Pain: Moderate Symptom management: Nausea, Pain Total time 30 minutes; >50% face to face with patient and/or family, providing counselling regarding plans and recommendations for end of life care, symptom management, and in care coordination with hospice and her medical teams. copies to: Marcos Valenzuela MD; Braulio Irving MD Palliative Brief Note Date of Service Jul 29, 2016 . Met with patient, , niece and RN at bedside. Discussed decision to go home with hospice. Family aware and agreeable for plan today to transition home. Concern over increased need of pain medication. RN reports that 2 mg hydromorphone did not meet the patient's need this morning, a second dose of 2 mg was given at 11:11. The family is asking about whether they need to get a rx filled for pain medication before the patient leaves the hospital. They are concerned that the patient will arrive home (due to leave at noon today) and they will not have medication sufficient to meet her need. The RN adds that the patient does better with the HM oral solution if premedicated with zofran. Discussed with Hugh, clinical grounds manager at [facility], who will arrange for both hydromorphone solution and zofran ODT to be filled and brought out by the hospice nurse who will be doing the admission. Also d/w RN that the patient could get a dose of Xanax now, and if transport team shows up later that 12:15, another dose of 2 mg hydromorphone could also be given. The family agrees that this plan should help in keeping the patient comfortable for the ride home and are appreciative that hospice will be bringing the ford comfort medications with them today. Sherly Hernandez Jul 29, 2016 12:00
== END 2016-07-29 12:17 | disposition hospice, home (50) | DRG 326 ==
LOC: SED 07:12 → OBSVTOIN 10:07 → MOC 10:07 → PCC 07-15 12:54 → CCU 07-15 14:46 → PCC 07-16 09:45 → OSC 07-22 23:39
PROVIDERS: ADMIT Family Medicine; ATTEND Family Medicine
PROC: 05H633Z Insertion of Infusion Device into Left Subclavian Vein, Percutaneous Approach (ICD-10-PCS; principal; 2016-06-17 14:30)
PROC: 0DH60UZ Insertion of Feeding Device into Stomach, Open Approach (ICD-10-PCS; 2016-07-15)
PROC: 0DN80ZZ Release Small Intestine, Open Approach (ICD-10-PCS; 2016-07-15)
PROC: 0D1A0ZB Bypass Jejunum to Ileum, Open Approach (ICD-10-PCS; 2016-07-15)
DX: K56.69 Other intestinal obstruction (principal); E43 Unspecified severe protein-calorie malnutrition; N17.9 Acute kidney failure, unspecified; A04.7 Enterocolitis due to Clostridium difficile; I42.9 Cardiomyopathy, unspecified; C78.6 Secondary malignant neoplasm of retroperitoneum and peritoneum; E87.1 Hypo-osmolality and hyponatremia; C18.0 Malignant neoplasm of cecum; C77.2 Secondary and unspecified malignant neoplasm of intra-abdominal lymph nodes; K56.5 Intestinal adhesions [bands] with obstruction (postinfection); Z79.01 Long term (current) use of anticoagulants; I10 Essential (primary) hypertension; E03.9 Hypothyroidism, unspecified; E11.9 Type 2 diabetes mellitus without complications; I48.2 Chronic atrial fibrillation; E78.5 Hyperlipidemia, unspecified; Z79.4 Long term (current) use of insulin; M81.0 Age-related osteoporosis without current pathological fracture; Z87.440 Personal history of urinary (tract) infections; Z51.5 Encounter for palliative care; Z68.28 Body mass index [BMI] 28.0-28.9, adult